=== PATIENT | male | born 1955 | race Caucasian/White ===

== ENCOUNTER 2022-02-07 07:59 | Outpatient (CLI) | payer MEDICARE, BC, SELFPAY ==
--- OUTSIDE RECORDS SUMMARY | 2022-02-07 08:09 | XMS_ITS | Encounter Summary ---
:1955 Author Organization [facility] Address [address] [place] [id number] Care Team Providers Name Role Phone Elsewhere, Pcp Primary Care Provider Unavailable Reason for Visit Reason Comments Prostate Cancer Outpatient (Routine) - Closed Specialty Diagnoses / Procedures Referred By Contact Refer red To Contact Diagnoses Primary Malignant Neoplasm Of Prostate (HCC) Aamir Galvan M.B., [facility] Procedures URO Urethral cath removal & voiding trial (UCO/VT) B.Ch., B.A.O. [address] [place] [phone] Referral ID Status Reason Start Date Expiration Date Visits Requ ested Visits Authorized [id number] Closed 11/08/2021 11/08/2022 1 1 Encounter Details Date Type Department Care Team Description 11/15/2021 Procedure visit Department of Aamir Galvan M.B., B.Ch., B.A.O. [address] [place] [phone] Primary Malignant Urology in Linda Tipton R.N. [address] [place] [phone] Neoplasm Of Prostate [place], [place] (HCC) [address] [place] [phone] Social History Tobacco Use Types Packs/Day Years Used Date Smoking Tobacco: Former Cigarettes 1 20 05/0 10/1972 - 06/04/1999 Smokeless Tobacco: Never Alcohol Use Standard Drinks/Week Comments Not Currently 0 (1 standard drink = 0.6 oz pure alcoho l) Alcohol Habits Answer Date Recorded How often do you have a drink containing alcohol? 2-4 times a month 11/01/2021 How many drinks containing alcohol do you have on a 1 or 2 11/01/2021 typical day when you are drinking? How often do you have six or more drinks on one Never 11/01/2021 occasion? Comment: Not asked Social Isolation Answer Date Recorded In a typical week, how many times do you More than three skylar es a week 11/01/2021 talk on the phone with family, friends, or neighbors? How often do you get together with friends Three times a wee k 11/01/2021 or relatives? How often do you attend amish or More than 4 times per year 11/01/2021 anabaptist services? Do you belong to any clubs or Yes 11/01/2021 organizations such as amish groups, unions, fraternal or athletic groups, or school groups? How often do you attend meetings of the Patient refused 11/01/2021 clubs or organizations you belong to? Are you now , , , 11/01/2021 , never or living with a partner? Physical Activity Answer Date Recorded On average, how many days per week do you engage in moderate to 2 days 11/01/2021 strenuous exercise (like walking fast, running, jogging, dancing, swimming, biking, or other activities that cause a light or heavy sweat)? On average, how many minutes do you engage in exercise at th is 40 min 11/01/2021 level? Stress Answer Date Recorded Do you feel stress - tense, restless, nervous, or anxious, N ot at all 11/01/2021 or unable to sleep at night because your mind is troubled all the time - these days? Financial Resource Strain Answer Date Recorded How hard is it for you to pay for the very basics like Not h bony at all 11/01/2021 food, housing, medical care, and heating? Intimate Partner Violence Answer Date Recorded Within the last year, have you been afraid of your partner o r No 11/01/2021 ex-partner? Within the last year, have you been humiliated or emotionall y No 11/01/2021 abused in other ways by your partner or ex-partner? Within the last year, have you been kicked, hit, slapped, or No 11/01/2021 otherwise physically hurt by your partner or ex-partner? Within the last year, have you been raped or forced to have any No 11/01/2021 kind of sexual activity by your partner or ex-partner? Food Insecurity Answer Date Recorded Within the past 12 months, you worried that your food would Never true 11/01/2021 run out before you got money to buy more. Within the past 12 months, the food you bought just didn't N ever true 11/01/2021 last and you didn't have money to get more. Transportation Needs Answer Date Recorded In the past 12 months, has lack of transportation kept you f rom No 11/01/2021 medical appointments or from getting medications? In the past 12 months, has lack of transportation kept you f rom No 11/01/2021 meetings, work, or getting things needed for daily living? Housing Stability Answer Date Recorded In the last 12 months, was there a time when you were not ab le No 11/01/2021 to pay the mortgage or rent on time? In the last 12 months, how many places have you lived? 1 11/01/2021 In the last 12 months, was there a time when you did not hav e a No 11/01/[address] or slept in a prison (including now)? Education Answer Date Recorded What is the highest level of school you have completed or 12 th grade 11/01/2021 the highest degree you have received? 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 - 11/15/2021 9:00 AM CDT CHIEF COMPLAINT Reason for visit, urinary catheter removal post: robotic-assisted radical prostatectomy and pelvic lymphadenectomy by Dr. Carlos Olvera on November 07, 2021. IMPRESSION/REPORT/PLAN Patient has started his antibiotic. Patient has stopped his ditropan as indicated 24 hours prior to UCO. Patient is free of ketchup or llanes colored urine. Nursing Intervention: Patient instilled with 150 mL's sterile normal saline prior to catheter removal. Patient able to void 300 mL's clear yellow urine with an ultrasound PVR of 30-40 mL's. Patient tolerated procedure well. Assessed for DVT: Patient has no pain with planter/dorsi flexion,, Patient denies pain in lower extremities, No erythema present and No bilateral lower extremity edema present Incision(s): Clean, dry, and intact with minimal bruising. Advised that the incision should be kept open to air and to not use creams/ointments/bandaids. The patient can immerse his abdomen once the scabs have fully fallen off. Bowel Movements: Reports regular BM's with the use of stool softeners or laxatives. Discussed the potential for intermittent need of a stool softener/laxative for the first 4-6 weeks following surgery. Patient rated pain at a 0 on the 0-10 pain scale. Pathology discussed with patient :Yes. Pathology discussed with patient by: Dr. Kaveh Osullivan Care plan: Intermediate risk prostate cancer Survivorship Care Plan initiated and discussed with thepatient Patient education: use of incontinence pads and leakage of urine , to push fluids , hematuria , burning with urination , to remain on weight restrictions for 6 weeks, urinary control exercises , to urinate 2 more times before leaving the clinic and if they urinate to their satisfaction they may leave , to urinate often , penile rehabilitation , to complete the antibiotic Cefdinir, to stop the medication ditropan, bactracin and Oxycodone and to return to clinic if having voiding issues if before 4PM,if after hours to report to their local emergency room if unable to void documented in this encounter Plan of Treatment Not on filedocumented as of this encounter Visit Diagnoses Diagnosis Primary Malignant Neoplasm Of Prostate ( HCC) documented in this encounter Care Teams X Ray Consultant Relationship Specialty Start Date End Date Elsewhere, Pcp PCP - General 12/02/20 documented as of this encounter
--- OUTSIDE RECORDS SUMMARY | 2022-02-07 08:09 | XMS_ITS | Clinical Summary ---
:1955 Author Organization [facility] Address [address] [place] [phone] Care Team Providers Name Role Phone Elsewhere, Pcp Primary Care Provider Unavailable Source Comments Patient records contain information from all sites at [facility]. For routine questions regarding patient records, call [phone] during business hours, M-F 8:00 AM - 5:00 PM Central Time. Record requests for emergency care only can be directed to [phone] at any time.[facility] Allergies No known active allergies Medications Medication Sig Dispensed Refills Start Date End Date Status VITAMIN B COMPLEX ORAL Take 1 tablet 0 04/28/2013 Active by mouth daily. DOCOSAHEXANOIC ACID/EPA Take 1 0 04/29/2009 Active (FISH OIL ORAL) capsule by mouth daily. MULTIVITAMIN ORAL Take 1 tablet 0 02/08/2008 Active by mouth daily. hydroCHLOROthiazide Take 1 90 capsule 3 05/17/2020 Active (MICROZIDE) 12.5 mg capsule (12.5 capsuleIndications: mg total) by Hypertension Essential mouth daily. Primary Additional Information Patient taking differently: 12.5 mg oral Every morning, Other, Reported on 11/04/2021 metoprolol succinate (Toprol XL) Take 1 tablet (50 mg 90 tablet 3 05/17/2020 Active 50 mg 24 hr tabletIndications: total) by mouth Hypertension Essential Primary daily. High blood pressure Additional Information Patient taking differently: 50 mg oral Every morning, High blood pressure, Other, Reported on 11/04/2021 atorvastatin (LIPITOR) 20 mg Take 1 tablet (20 mg 90 tablet 3 05/17/2020 Active tabletIndications: Hyperlipidemia total) by mouth daily. Additional Information Patient taking differently: 20 mg oral Every morning, Other, Reported on 11/04/2021 ibuprofen (ADVIL,MOTRIN) 200 Take 400 mg by mouth 0 Active mg tablet every 6 (six) hours as needed for pain. cholecalciferol (VITAMIN D3) Take 25 mcg by mouth 0 Active 25 mcg (1,000 Unit) capsule daily. sennosides-docusate sodium Take 1 tablet by mouth 0 11/08/2021 Active (SENOKOT-S) 8.6-50 mg per 2 (two) times a day. tablet tadalafiL (CIALIS) 5 mg Take 1 tablet (5 mg 90 tablet 11 2021 Active tablet total) by mouth every morning. Can take additional 1-3 tablets one hour prior to sexual activity. Active Problems Problem Noted Date Primary Malignant Neoplasm Of Prostate 10/10/2021 Overview: Added automatically from request for lacey hawk [id number] Hypertension Essential Primary 04/23/2006 Overview: Formatting of this note is dif ferent from the original. - BP goal < 140/90. - HCTZ 12.5 mg qd. - Toprol XL 50 mg qd. Lab Results Component Value Date NA 140 06/24/2020 KPLASMA 4.9 06/24/2020 CREATININE 0.93 06/24/2020 EGFRNONBLKAA 86 06/24/2020 GLUCOSE 108 (H) 05/29/2019: - Blood pressure at goal. - Patient having no concerning symptoms, and labs are stable. Last Assessment & Plan: - Continue HCTZ 12.5 mg qd. - Continue Metoprolol succinate 50 mg qd . Hyperlipidemia 11/09/2005 Overview: Formatting of this note is dif ferent from the original. Lab Results Component Value Date CHOL 245 (H) 05/24/2018 Lab Results Component Value Date HDL 68 05/24/2018 Lab Results Component Value Date LDLCALC 158 (H) 05/24/2018 Lab Results Component Value Date TRIG 93 05/24/2018 Lipitor dosed at 20 mg qd. ASA 81 mg qd. Last Assessment & Plan: - Continue current medications. Resolved Problems Problem Noted Date Resolved Date Impaired Fasting Glucose 05/27/2016 05/29/2018 Encounters Date Type Specialty Care Team Description 01/16/2022 Comprehensive Visit Dermatology KeshawnMaria Elena toribio Andria, Kerato sis Actinic (Primary Dx); RandolphDSadia Nevi Multiple; Keratosis Sebor rheic; Sun Damaged Ski n 01/12/2022 Virtual Visit Dermatology KeshawnMaria Elena toribio, Lesion Skin (Primary M.D. Dx) Jenny Perez R.N. 01/10/2022 Clinical Admitting/Central Pre-visit Intake Communication Scheduling 12/20/2021 Clinical Dermatology Stacey Gutierrez, MARTÍNEZ Lakhani l-see Communication R.N. document viewe r for outside medical records 12/20/2021 Clinical Pharmacy [facility] Prior Communication Authorization (PA DENIED - TADALA MARCO 5 MG TABLET) 12/20/2021 Orders Only Pharmacy Yash Sams 12/19/2021 Community Orders Santiago, Lesion Skin (Primary Alexandra M, Dx) C.N.P. 12/15/2021 Orders Only Pharmacy Cindi Knox 12/13/2021 Orders Only Urology Esteban Keenan M.D. 11/15/2021 Procedure visit Urology Aamir Galvan Primary Ma Lissett Curran, B.Ch., Neoplasm Of Prostate B.A.O. (HCC) Linda Tipton RLucretia. 11/07/2021 Anesthesia Event Duc Smith M.D. Pompeian, Rochelle J, M.D. 11/07/2021 Surgery CHAPO Olvera-VIDA Rosenberg M.D. RADICAL PROSTATECTOMY. 11/07/2021 Hospital Encounter Belinda Olvera alignant Neoplasm Of Prostate (HCC) (Primary Dx); - Carlos Rosenberg M.D. Primary Gerda gnant Neoplasm Of Prostate (HCC) 11/08/2021 from Last 3 Months Immunizations Name Administration Dates Next Due Influenza high dose QV(65 years or 04/03/2020 older) (PF) PPSV23 06/25/2020 Td (Adult), adsorbed 06/15/2003 Tdap 04/07/2011 influenza vaccine quad 05/30/2019, 05/29/2018, 05/30/2017, (FLUZONE/FLUARIX) (6 months and 05/26/2016 older)(PF) Family History Medical History Relation Name Comments Hypertension Father Jimbo Mendez Diabetes Mother carol mendez Diabetes mellitus type II Mother carol mendez Hyperlipidemia Mother carol mendez Hypertension Mother carol mendez Obesity Mother carol mendez Relation Name Status Comments Father Jimbo Mendez Mother carol mendez Alive Social History Tobacco Use Types Packs/Day Years Used Date Smoking Tobacco: Former Cigarettes 10/1972 - 06/04/1999 Smokeless Tobacco: Never Tobacco Cessation: Counseling Given: Not Answered Alcohol Use Standard Drinks/Week Comments Not Currently [...] or relatives? How often do you attend sabianism or More than 4 times per year 11/01/2021 episcopalian services? Do you belong to any clubs or Yes 11/01/2021 organizations such as sabianism groups, unions, fraternal or athletic groups, or [...] place to sleep or slept in a correction (including now)? Education Answer Date Recorded What is the highest level of school you have completed or 12 th grade 11/01/2021 the highest degree you have received? 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 Vital Signs Vital Sign Reading Time Taken Comments Blood Pressure 131/66 11/08/2021 8:30 AM CDT Pulse 95 11/08/2021 8:30 AM CDT Temperature 36.6 ??C (97.9 ??F) 11/08/2021 8:30 AM CDT Respiratory Rate 16 11/08/2021 8:30 AM CDT Oxygen Saturation 93% 11/08/2021 8:30 AM CDT Inhaled Oxygen Concentration - - Weight 92.1 kg (203 lb 0.7 oz) 11/07/2021 10:11 AM CDT Height 174 cm (5' 8.5) 11/07/2021 10:11 AM CDT Body Mass Index 30.42 11/07/2021 10:11 AM CDT Plan of Treatment Health Maintenance Due Date Last Done Comments Abdominal Aortic Aneurysm (AAA) [address] Colonography 1955 Cologuard 1955 Hepatitis C Screening 1955 Lipid (Cholesterol) Screening 05/24/2019 05/24/2018, 2016, 04/21/2016, Additional history exists Depression Screening (Annual 06/04/2021 PHQ-2) Pneumococcal vaccine (65+ years) 06/25/2021 06/25/2020 (2 - PCV) COVID-19 Vaccine (4 - Booster for 09/03/2021 05/05/2021, , Moderna series) 08/01/2020 Office Visit for Blood Pressure 02/04/2022 11/04/2021 Check / Re-check Influenza Vaccine (#1) 2022 02/15/2021, 04/03/2020, 05/30/2019, Additional history exists Colonoscopy 06/21/2022 06/21/2017, 06/21/2017, 08/11/2005 Colorectal Cancer Surveillance 06/21/2022 Creatinine Level 11/04/2022 11/04/2021, 06/24/2020, 05/29/2019, Additional history exists Potassium Level 11/04/2022 11/04/2021, 06/24/2020, 05/29/2019, Additional history exists Sodium Level 11/04/2022 11/04/2021, 06/24/2020, 05/29/2019, Additional history exists Fasting Glucose for Diabetes 11/04/2024 11/04/2021, 019, Screening 05/24/2017, Additional history exists DTaP,Tdap,and Td Vaccines (3 - Td 06/30/2031 06/30/2021, , or Tdap) 06/15/2003 Zoster Vaccines Completed 05/05/2021, 02/15/2021 Fall Risk Screen (Annual) Completed 11/07/2021 Medical Devices Implanted Type Area Film Technician Device Shelf Model / Identifier Expiration Serial / Date Lot Clp Hmol Plmr Lg - [id number] Hardware N/A: Pelvis Teleflex Plays.IO [id number] 08/01/2026 [id number] / Implanted: Qty: 1 on 11/07/2021 by Carlos Sifuentes M.D. at [facility] e.g. / pins/screws [id number] /rods Conversions - Default Historical Implant Device Shoulder Right: Implanted: 04/27/2015 (Quantity not on file) Implant Shoulder Description: Body Location - Shoulder RSadia fasterners. Device Status Text - Shoulder. Procedures Procedure Name Priority Date/Time Associated Comments Diagnosis ADULT OXYGEN THERAPY Routine 11/07/2021 5:05 PM CDT ADULT OXYGEN THERAPY Routine 11/07/2021 5:05 PM CDT ADULT OXYGEN THERAPY Routine 11/07/2021 4:14 PM CDT SURGICAL PATHOLOGY, Routine 11/07/2021 2:50 Primary Malignant Results for this [facility] PM CDT Neoplasm Of procedure are i n Prostate (HCC) the results section. LDA ANE ENDOTRACHEAL Routine 11/07/2021 1:51 Resu lts for this AIRWAY PM CDT procedure are i n the results section. ROBOTIC-ASSISTED PELVIC 11/07/2021 1:10 Primary Malign ant LYMPHADENECTOMY PM CDT Neoplasm Of Prostate (HCC) ROBOTIC-ASSISTED RADICAL 11/07/2021 1:10 Primary Malig nant PROSTATECTOMY PM CDT Neoplasm Of Prostate (HCC) from Last 3 Months Results Surgical Pathology, Frozen Lab (11/07/2021 2:50 PM CDT) Component Value Ref Test Analysis Performed Pathologis t Range Method Time At [facility] 11/11/2021 [facility] 5:13 PM CDT Participated in Pranav Gonzalez, 11/11/2021 [facility] the M.D. -Pathology 5:13 PM Interpretation Fellow CDT Report Frank Garner M.D. 11/11/2021 [facility] electronically 5:13 PM signed by CDT I verify that I have examined all relevant slides/materials for the specimen(s) and rendered or confirmed the diagnosis. Gross Description A. ??Received fresh labeled bilateral pelvic lym ph nodes 11/11/2021 [facility] is a 7.5 x 6 x 2 cm aggregate of adipose and lymphatic 5:13 PM tissue. ??Lymph nodes are submitted for permanent sections CDT only. ??Grossed by Asael Wilde M.S., PA([facility]). B. ??Received fresh labeled prostate is a 48 gram, 3.8 (S-I) x 3.2 (A-P) x 4.7 (R-L) cm radical prostatectomy with mild nodular hypertrophy. ??The specimen is inked, and the prostatic apex and bladder neck margins are submitted perpendicularly. ??Grossly, there is a 0.6 x 0.4 x 0.4 cm yellow mass involving the left inferior lateral prostate. Additional masses include No. 2, 1 x 0.6 x 0.5 cm involving the right mid lateral prostate; and No. 3, 0.8 x 0.8 x 0.4 cm involving the left mid-inferior anterior prostate. ??All submitted for permanent sections only. ??Grossed by Suzanne Justice. Block Summary A Bilateral pelvic lymph nodes 11/11 [facility] A1 Bilateral pelvic lymph nodes ??6(A1) 5:13 PM A2 Bilateral pelvic lymph nodes ??4(A2) CDT A3 Bilateral pelvic lymph nodes ??1(A3) A4 Bilateral pelvic lymph nodes ??1(A4) A5 Bilateral pelvic lymph nodes ??1(A5) A6 Bilateral pelvic lymph nodes ??1of2(A6) A7 Bilateral pelvic lymph nodes 2of2 (A6) A8 Bilateral pelvic lymph nodes 1of3(A7) A9 Bilateral pelvic lymph nodes 2of3(A7) A10 Bilateral pelvic lymph nodes 3of3(A7) B Prostate B1 Right anterior apex margin B2 Right posterior apex margin B3 Right bladder neck margin - 1 B4 Right bladder neck margin - 2 B5 Right bladder neck margin - 3 B6 Right bladder neck margin - 4 B7 Left anterior apex margin B8 Left posterior apex margin B9 Left bladder neck margin - 1 B10 Left bladder neck margin - 2 B11 Left bladder neck margin - 3 B12 Left bladder neck margin - 4 B13 Right inferior posterior B14 Right inferior anterior B15 Right mid posterior B16 Right mid anterior B17 Right superior posterior B18 Right superior anterior B19 Right mid lateral B20 Left inferior posterior B21 Left inferior anterior B22 Left mid posterior B23 Left mid anteiror B24 Left superior posterior B25 Left superior anterior B26 Right seminal vesicles #1 B27 Right seminal vesicles #2 B28 Right seminal vesicles #3 B29 Right seminal vesicles #4 B30 Left seminal vesicles #1 B31 Left seminal vesicles #2 B32 Left seminal vesicles #3 Interpretation FINAL DIAGNOSIS 11/11/2021 [facility] 5:13 PM A. ??Lymph nodes, bilateral pelvic, dissection: Multiple CDT (13) lymph nodes are negative for tumor. B. ??Prostate, radical prostatectomy: Adenocarcinoma is identified forming multiple masses. The dominant nodule is Shelbie pattern 3+4, Grade group 2, measures 1 cm in greatest dimension and is located in the right mid lateral prostate. Other masses are present in the left inferior to superior anterior prostate, (Quantico pattern 3+4, Grade group 2, 0.8 cm), the left inferior to mid posterior prostate, (Shelbie pattern 3+3, Grade group 1, 0.6 cm, the right anterior and posterior apex (Shelbie pattern 3+4, Grade group 2, 0.6 cm), and the right mid to superior posterior prostate (Shelbie pattern 3+4, Grade group 2, 0.3 cm). The tumor is confined to the prostate without involvement of extraprostatic soft tissue or seminal vesicles. The surgical margins are negative for tumor. SYNOPTIC REPORT: ??Prostate Procedure: Radical prostatectomy Prostate Size: 48 gram, 3.8 (S-I) x 3.2 (A-P) x 4.7 (R-L) cm Histologic Type: Acinar Histologic Grade ?? Grade Group and Shelbie Score ?Grade Group 2 (Quantico Score 3+4) ?Minor Tertiary Pattern 5 (less than 5%): Not identified ?Percentage of Pattern 4 in Quantico score 7: <10% ?? Intraductal Carcinoma (IDC): Not identified ?? Cribriform Glands: Not identified Treatment Effect: No know presurgical therapy Tumor Quantitation ?? Greatest Dimension of Dominant Nodule: 1 cm ?? Location of Dominant Nodule: Right mid lateral Extraprostatic Extension: Not identified Urinary Bladder Neck Invasion: Not identified Seminal Vesicle Invasion: Not identified Lymphovascular Invasion: Not identified Margins: All margins negative for carcinoma Regional Lymph Nodes Status: ??All Regional Lymph Nodes Negative for Tumor ?? Number of Lymph Nodes Examined: 13 Distant Metastasis. ??Distant Site(s) Involved: Not applicable Pathologic Staging (AJCC, 8th edition) TNM Descriptors: m pT Category: pT2 pN Category: pN0 pM Category: pM not assigned Additional Pathologic Findings: None identified The synoptic report incorporates information from all relevant surgical material and includes all required data elements of the current CAP Cancer Protocol. Specimen (Source) Anatomical Collection Method Collection Time Re ceived Time Location / / Volume Laterality Tissue (Lymph 11/07/2021 2:50 PM Node) CDT Tissue (Prostate) 11/07/2021 3:40 PM CDT Narrative This result has an attachment that is no t available. Carlos Olvera M.D. LAB SURG PATH ORDERABLES Performing Organization Address City/State/ZIP Code Phon e Number [facility] [address] [place], [place] [address] [facility] [place] [address] [facility] [address] [facility] LDA ANE ENDOTRACHEAL AIRWAY (11/07/2021 1:51 PM CDT) Narrative Chapo Chacko APRN, CRNA, DNAP - 11/2021 1:51 PM CDT Chapo Chacko APRN, CRNA, DNAP ? 11/07/2021 ??2:17 PM Airway Date/Time: 11/07/2021 1:51 PM Performed by: Merly Wolff APRN, CRNA MNA Authorized by: Duc Smith M.D. Patient location during procedure: OR / Procedure Area PROCEDURE DETAILS: Mask difficulty assessment: easy mask Final airway type: video laryngoscope Laryngeal Manipulation: no ?? Final best view of glottic structures - Cormack/Lehane Score: grade 2A ETT location: oral VL device: glide scope [place]is scope blade size: 4 Adult tube size: 7.5 Adult ETT distance at teeth/gum: 22 Oral tube type: standard ETT Cuffed: yes Number of attempt to successful placemen t: 1 Airway confirmation: bilateral breath so unds, positive ETCO2 and bilateral chest rise Other previous techniques attempted: non e PRE PROCEDURE DETAILS: Pre evaluation for airway management: pr ocedure Urgency: elective Preop assessment of probable difficulty: no difficulty anticipated Preoxygenation: bag valve mask SEDATION / ANESTHESIA Anesthesia method: anesthesia POST PROCEDURE DETAILS: ? Procedure outcome: successful ?? Airway event: no complications Duc Smith M.D. ANESTHESIA ORDERABLES from Last 3 Months Insurance Payer Benefit Plan Subscriber ID Effective Phone Address Typ e / Group Dates MEDICARE MEDICARE A [id number] 2019-Pres [address] [place] [address] [employer] BCBS ANDREAFSKI [id number] 2020-Pres [phone] PO MEGAN X Cost Share BLUE SHIELD BLUE COST ent [phone] [facility] [id number] Care Teams Night Monitor Relationship Specialty Start Date End Date Elsewhere, Pcp PCP - General 12/02/20
--- OUTSIDE RECORDS SUMMARY | 2022-02-07 08:09 | XMS_ITS | Encounter Summary ---
:1955 Author Organization [facility] Address [address] [place] [address] Care Team Providers Name Role Phone Elsewhere, Pcp Primary Care Provider Unavailable Reason for Referral Medication Prior Authorization - Denied Specialty Diagnoses / Procedures Referred By Contact Refer red To Contact Esteban Keenan M.D. [address] [place] [address] [phone] Referral ID Status Reason Start Date Expiration Date Visits Requ ested Visits Authorized [id number] Denied 1 1 Encounter Details Date Type Department Care Team Description 12/13/2021 Orders Only Department of Urology in Esteban Mendez M.D. [place], [place] [address] [place] [address] [address] [place] [phone] (Wo rk) Social History Tobacco Use Types Packs/Day Years Used Date Smoking Tobacco: Former Cigarettes 1 20 10/1972 - 06/04/1999 Smokeless Tobacco: Never Alcohol [...] or relatives? How often do you attend yarsanism or More than 4 times per year 11/01/2021 gnosticism services? Do you belong to any clubs or Yes 11/01/2021 organizations such as yarsanism groups, unions, [id number] or athletic groups, or school groups? How [...] place to sleep or slept in a penitentiary (including now)? Education Answer Date Recorded What is the highest level of school you have completed or 12 th grade 11/01/2021 the highest degree you have received? 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
--- OUTSIDE RECORDS SUMMARY | 2022-02-07 08:09 | XMS_ITS | Encounter Summary ---
:1955 Author Organization [facility] Address [address] [place] [address] Care Team Providers Name Role Phone Elsewhere, Pcp Primary Care Provider Unavailable Reason for Referral Outpatient (Routine) - Closed Specialty Diagnoses / Procedures Referred By Contact Refer red To Contact Dermatology Diagnoses Lesion Skin Alexandra Santiago, C.N.P. [facility] [address] [place], [place] [address] Referral ID Status Reason Start Date Expiration Date Visits Requ ested Visits Authorized [id number] Closed 12/19/2021 12/19/2022 1 1 Encounter Details Date Type Department Care Team Description 12/19/2021 [facility] Alexandra Santiago Lesion Skin (Primary AND CLINICS Cari, C.N.P. Dx) [address] [place] [address] [place] [address] [phone] Social History Tobacco Use Types Packs/Day Years Used Date Smoking Tobacco: Former Cigarettes 10/1972 - 06/04/1999 Smokeless Tobacco: Never Alcohol [...] or relatives? How often do you attend nondenominational or More than 4 times per year 11/01/2021 latter-day services? Do you belong to any clubs or Yes 11/01/2021 organizations such as nondenominational groups, unions, fraternal or athletic groups, or [...] place to sleep or slept in a usp (including now)? Education Answer Date Recorded What is the highest level of school you have completed or 12 th grade 11/01/2021 the highest degree you have received? 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
--- OUTSIDE RECORDS SUMMARY | 2022-02-07 08:09 | XMS_ITS | Encounter Summary ---
:1955 Author Organization [facility] Address [address] [place] [address] Care Team Providers Name Role Phone Elsewhere, Pcp Primary Care Provider Unavailable Reason for Visit Reason Comments Pre-visit Intake Encounter Details Date Type Department Care Team Description 01/10/2022 Clinical Communication Visit Review in Pr e-visit Intake [address] [address] Social History Tobacco Use Types Packs/Day Years [...] or relatives? How often do you attend episcopalian or More than 4 times per year 11/01/2021 latter-day services? Do you belong to any clubs or Yes 11/01/2021 organizations such as episcopalian groups, unions, fraternal or athletic groups, or [...] place to sleep or slept in a skilled nursing (including now)? Education Answer Date Recorded What is the highest level of school you have completed or 12 th grade 11/01/2021 the highest degree you have received? 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
--- OUTSIDE RECORDS SUMMARY | 2022-02-07 08:09 | XMS_ITS | Encounter Summary ---
:1955 Author Organization [facility] Address [address] [place] [address] Care Team Providers Name Role Phone Elsewhere, Pcp Primary Care Provider Unavailable Encounter Details Date Type Department Care Team Description 12/15/2021 Orders Only Pharmacy Prior Auth Cindi Krause [phone] Social History Tobacco Use Types Packs/Day Years [...] or relatives? How often do you attend jain or More than 4 times per year 11/01/2021 scientologist services? Do you belong to any clubs or Yes 11/01/2021 organizations such as jain groups, unions, fraternal or athletic groups, or [...] place to sleep or slept in a [facility] (including now)? Education Answer Date Recorded What is the highest level of school you have completed or 12 th grade 11/01/2021 the highest degree you have received? 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
--- OUTSIDE RECORDS SUMMARY | 2022-02-07 08:09 | XMS_ITS | Clinical Summary ---
:1955 Author Organization [facility] Address [address] [place] [address] Care Team Providers Name Role Phone None, Pcp Primary Care Provider Unavailable Social History Tobacco Use Types Packs/Day Years Used Date Never Assessed Sex Assigned at Date Recorded Not on file Plan of Treatment Health Maintenance Due Date Last Done Comments Colorectal Cancer Screenin1954 Colonoscopy Glaucoma Screening 67+ Yr 1955 COVID-19 Vaccine (#1) 04/15/1955 Fall Risk Performed 1972 [facility] Pneumococcal Vaccine: 65+ 10/14/2019 Years (1 - PCV) HPV Vaccines Aged Out No longer eligib le based on patient's age to complete this topic [facility] Pneumococcal Vaccine: <64 Aged Out No longer eligible based on patient's age to complete this topic Care Teams Diesel Mechanic Helper Relationship Specialty Start Date End Date None, Pcp PCP - General Gospel Worker 08/30/[address] [place] [phone]
--- OUTSIDE RECORDS SUMMARY | 2022-02-07 08:09 | XMS_ITS | Encounter Summary ---
:1955 Author Organization [facility] Address [address] [place] [address] Care Team Providers Name Role Phone Elsewhere, Pcp Primary Care Provider Unavailable Reason for Visit Reason Comments ARF Referral-see document viewer for [facility] Encounter Details Date Type Department Care Team Description 12/20/2021 Clinical Communication Department of Stacey Gutierrez ARF Referral-see Dermatology in A, R.N. document viewer for [address] records [address] [place] [phone] [place], [place] [phone] (Work) [phone] Social History Tobacco Use Types Packs/Day Years [...] or relatives? How often do you attend confucianist or More than 4 times per year 11/01/2021 sabianist services? Do you belong to any clubs or Yes 11/01/2021 organizations such as confucianist groups, unions, fraternal or athletic groups, or [...] place to sleep or slept in a jail (including now)? Education Answer Date Recorded What is the highest level of school you have completed or 12 th grade 11/01/2021 the highest degree you have received? 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 - 12/20/2021 1:12 PM CDT Appointment request reviewed. Per provider patient appropriate to schedule. ARF: L98.9 (ICD-10-CM) - Lesion Skin documented in this encounter Plan of Treatment Not on filedocumented as of this encounter Visit Diagnoses Not on filedocumented in this encounter Care Teams Performance Architect Relationship Specialty Start Date End Date Elsewhere, Pcp PCP - General 12/02/20 documented as of this encounter
--- OUTSIDE RECORDS SUMMARY | 2022-02-07 08:09 | XMS_ITS | Encounter Summary ---
:1955 Author Organization [facility] Address [address] [place] [address] Care Team Providers Name Role Phone None, Pcp Primary Care Provider Unavailable Encounter Details Date Type Department Care Team Description 08/30/2020 [facility] Drug testing, pre-employment [address] [place] [address] Social History Tobacco Use Types Packs/Day Years Used Date Never Assessed Sex Assigned at Date Recorded Not on file documented as of this encounter Plan of Treatment Not on filedocumented as of this encounter Visit Diagnoses Diagnosis Drug testing, pre-employment Health examination of defined subpopulat ion documented in this encounter Care Teams Senior Analytic Consultant Relationship Specialty Start Date End Date None, Pcp PCP - General Solar Development Engineer 08/30/20 [address] [place] [phone] documented as of this encounter
--- OUTSIDE RECORDS SUMMARY | 2022-02-07 08:09 | XMS_ITS | Encounter Summary ---
:1955 Author Organization [facility] Address [address] [place] [address] Care Team Providers Name Role Phone Elsewhere, Pcp Primary Care Provider Unavailable Reason for Visit Appointment Request (Routine) - Authorized Specialty Diagnoses / Procedures Referred By Contact Refer red To Contact Dermatology Referral ID Status Reason Start Date Expiration Date Visits V isits Requested Authorized [id number] Authorized 01/04/2022 01/04/2023 1 Encounter Details Date Type Department Care Team Description 01/12/2022 Virtual Visit Department of Maria Elena Chapman M .D. [address] [place] [phone] Lesion Skin (Primary Dermatology in Jenny Perez R.N. [address] [place] [phone] Dx) [place], [place] [address] [place] [phone] Social History Tobacco Use Types Packs/Day Years [...] or relatives? How often do you attend hindu or More than 4 times per year 11/01/2021 latter-day services? Do you belong to any clubs or Yes 11/01/2021 organizations such as hindu groups, unions, [employer] or athletic groups, or school groups? How [...] place to sleep or slept in a [facility] (including now)? Education Answer Date Recorded What is the highest level of school you have completed or 12 th grade 11/01/2021 the highest degree you have received? 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 - 01/12/2022 8:30 AM CDT Patient referred through ARF process. Completed administrative pre-visit discussion to better understand patient goals and the needed patient itinerary for forthcoming on-site visit. Patient contacted [facility] requesting on-campus appointment; Pre-visit was scheduled following that request. Patient Provided Information What is your main skin concern? Patient has a lesion on the top of his head and his primary referredhim to [place]. Initially thought it was a scab from maybe bumping his head. The lesion is the size of a BB and he thinks it has been there a while. It may be itchy at times, he is unsure if it is the lesion that itches or just his scalp. He is unsure what color it is as he is unable to see the lesion only feel it. 2. Describe your concern above. Onset: Unknown Duration: Unknown Associated symptoms: 3. Describe any evaluation including dermatology visits, laboratory results, skin biopsy location, date and outcome. Evaluated by a cyber security administrator?: No Laboratory results: None Skin biopsy: (site, date, result/report): None Imaging studies: None Other tests: None 4. Describe previous treatments, duration and response. Topical treatments (name, strength, duration, outcome, reason for discontinuation): None Systemic treatments (name, strength, duration): None Additional Information: documented in this encounter Plan of Treatment Not on filedocumented as of this encounter Visit Diagnoses Diagnosis Lesion Skin - Primary documented in this encounter Care Teams Photography Professor Relationship Specialty Start Date End Date Elsewhere, Pcp PCP - General 12/02/20 documented as of this encounter
--- OUTSIDE RECORDS SUMMARY | 2022-02-07 08:09 | XMS_ITS | Encounter Summary ---
:1955 Author Organization [facility] Address [address] [place] [address] Care Team Providers Name Role Phone Elsewhere, Pcp Primary Care Provider Unavailable Reason for Referral Outpatient (Routine) - Closed Specialty Diagnoses / Procedures Referred By Contact Refer red To Contact Diagnoses Primary Malignant Neoplasm Of Prostate (HCC) Aamir Galvan M.B., [facility] Procedures URO Urethral cath removal & voiding trial (UCO/VT) B.Ch., B.A.O. [address] [place] [address] Referral ID Status Reason Start Date Expiration Date Visits Requ ested Visits Authorized [id number] Closed 11/08/2021 11/08/2022 1 1 Encounter Details Date Type Department Care Team Description 11/07/2021 - Hospital Encounter [facility] Belinda Olvera M alignant Neoplasm Of Prostate (HCC) (Primary Dx); 11/08/2021 Hospital, [facility] Cari Mcarthur Primary Malignant Neoplasm Of Prostate ( HCC) [facility] [address] [facility], [place], [place] Floor [address] [address] [facility] [phone] [place], [place] (Work) [phone] Social History Tobacco Use Types Packs/Day Years [...] or relatives? How often do you attend shinto or More than 4 times per year 11/01/2021 catholic services? Do you belong to any clubs or Yes 11/01/2021 organizations such as shinto groups, unions, fraternal or athletic groups, or [...] place to sleep or slept in a nursing home (including now)? Education Answer Date Recorded What is the highest level of school you have completed or 12 th grade 11/01/2021 the highest degree you have received? 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 - 11/08/2021 7:17 AM CDT DISCHARGE SUMMARY BRIEF OVERVIEW Hospital: [facility] Discharge Provider: Carlos Olvera M.D. Primary Team: [facility] Urology - [place] Primary Care Providers: Elsewhere, Pcp (General) No address on file Primary Care Provider Phone Number: None Primary Care Provider Fax Number: None Other Providers: None Admission Date: 11/07/2021 Discharge Date: 11/08/2021 PRINCIPAL DIAGNOSIS Primary Malignant Neoplasm Of Prostate (HCC) SECONDARY DIAGNOSES Principal Problem: Primary Malignant Neoplasm Of Prostate (HCC) Resolved Problems: * No resolved hospital problems. * Surgery Information This Encounter Past Procedures (11/08/2020 to Today) Date Procedures Providers Location 11/07/2021 ROBOTIC-ASSISTED RADICAL PROSTATECTOMY., ROBOTIC-ASSISTED PELVIC LYMPHADENECTOMY. Carlos Olvera M.D.Alamiri, Jamal M, M.B., B.Ch., B.A.O. [facility] OR DISCHARGE DISPOSITION Home or Self Care [1] ACTIVE ISSUES REQUIRING FOLLOW UP [facility] 11/14/2021 None OUTPATIENT FOLLOW UP For appointment details refer to your Patient Appointment Guide. TEST RESULTS PENDING AT DISCHARGE Pending Labs Order Current Status Surgical Pathology, Frozen Lab In process DETAILS OF HOSPITAL STAY REASON FOR ADMISSION Primary Malignant Neoplasm Of Prostate (HCC) HOSPITAL COURSE SURGICAL PROCEDURE: A robot-assisted radical prostatectomy was performed without complication. PATHOLOGY: Pending. HOSPITAL COURSE: Following the procedure, the patient was transferred to general floor care in stable condition. The post-operative course was otherwise uneventful. At the time of dismissal, the patient was ambulatory,tolerating oral intake with no nausea / vomiting, and had adequate pain control. DISMISSAL EXAM: Constitutional: Alert and oriented, no acute distress. Skin: No rashes. Eyes: No scleral icterus. Heart: Regular rate and rhythm. Lungs: Normal respiratory effort. Abdomen: Soft, appropriately-tender. : Siu in place draining clear urine Musculoskeletal: Normal gait noted with ambulation. Psychiatric: Appropriate affect. Neuro: Sensation intact in abdomen and bilateral upper extremities. CONSULTS ORDERED DURING THIS ADMISSION None CONDITION AT DISCHARGE stable Discharge instructions were provided to the patient and caregiver(s). documented in this encounter Discharge Instructions Discharge InstructionsJenny Snowden - 11/07/2021 9:59 AM CDT You were discharged from the [facility] Urology - [facility] Service. Please identify this service name if you call with questions after hospitalization. AttachmentsThe following attachments cannot be sent through Care Everywhere. Acetaminophen (By mouth) (Citizen [place])Bacitracin/Neomycin/Polymyxin B (On the skin) (Citizen Of [place])Cefdinir (By mouth) (Citizen [place])Oxybutynin (By mouth) (Citizen [place])Oxycodone, Rapid Release (By mouth) (Citizen [place])Laxative, Stimulant Combination (By mouth) (Citizen Of [place])documented in this encounter Medications at Time of Discharge Medication Sig Dispensed Refills Start Date End Date atorvastatin (LIPITOR) 20 Take 1 tablet (20 90 tablet 3 mg tabletIndications: mg total) by mouth Hyperlipidemia daily. cholecalciferol (VITAMIN Take 25 mcg by 0 D3) 25 mcg (1,000 Unit) mouth daily. capsule DOCOSAHEXANOIC ACID/EPA Take 1 capsule by 0 04/29 (FISH OIL ORAL) mouth daily. hydroCHLOROthiazide Take 1 capsule 90 capsule 3 05/17/2020 (MICROZIDE) 12.5 mg (12.5 mg total) by capsuleIndications: mouth daily. Hypertension Essential Primary ibuprofen (ADVIL,MOTRIN) Take 400 mg by 0 200 mg tablet mouth every 6 (six) hours as needed for pain. metoprolol succinate Take 1 tablet (50 90 tablet 3 05/17/20 20 (Toprol XL) 50 mg 24 hr mg total) by mouth tabletIndications: daily. High blood Hypertension Essential pressure Primary MULTIVITAMIN ORAL Take 1 tablet by 0 02/08/2008 mouth daily. sennosides-docusate sodium Take 1 tablet by 0 12/2021 (SENOKOT-S) 8.6-50 mg per mouth 2 (two) tablet times a day. VITAMIN B COMPLEX ORAL Take 1 tablet by 0 04/28/ 013 mouth daily. cefdinir (OMNICEF) 300 mg Take 1 capsule 6 capsule 0 202111/11/2021 capsule (300 mg total) by mouth 2 (two) times a day before breakfast and dinner for 3 days. Start the evening prior to catheter removal acetaminophen (TYLENOL) Take 2 tablets 0 11/09/19 22 11/15/2021 500 mg tablet (1,000 mg total) by mouth every 6 (six) hours as needed for pain. bacitracin 500 unit/gram Apply 1 15 g 0 11/08/2021 11/15/2021 ointment application topically 2 (two) times a day. Apply to head of the penis around the catheter. oxybutynin (Ditropan XL) Take 1 tablet (10 7 tablet 0 12/202111/15/2021 10 mg 24 hr tablet mg total) by mouth at bedtime for 7 days. Stop 24 hrs prior to catheter removal oxyCODONE (ROXICODONE) 5 Take 1 tablet (5 10 tablet 0 11/0811/15/2021 mg immediate release mg total) by mouth tabletIndications: Acute every 4 (four) Pain hours as needed for moderate pain or score 4-6 of 10 (May use if patient can take oral meds and other analgesics are ineffective) for up to 10 doses Indication: Acute Pain. tadalafiL (CIALIS) 5 mg Take 1 tablet (5 90 tablet 2 202112/13/2021 tablet mg total) by mouth daily. Can take additional 1-3 tablets one hour prior to sexual activity. documented as of this encounter Progress Notes Elicia Santana, PharmSadiaD., R.Ph. - 11/07/2021 10:28 AM CDT Images from the original note were not included. Admission Medication History Note Adherence issues: No concerns Medication list source: Patient Medication related information: Prior to Admission Medications Med List Status: Pharmacy Complete Set By: Elicia Santana Pharm.D., R.Ph. at 11/07/2021 10:28 AM Taking? Last Dose Informant Start Date End Date LT atorvastatin (LIPITOR) 20 mg tablet 05/17/20 11/07/21 Take 1 tablet (20 mg total) by mouth daily. Patient taking differently: Take 20 mg by mouth every morning. cholecalciferol (VITAMIN D3) 25 mcg (1,000 Unit) capsule -- -- Take 25 mcg by mouth daily. DOCOSAHEXANOIC ACID/EPA (FISH OIL ORAL) 04/29/09 -- Take 1 capsule by mouth daily. hydroCHLOROthiazide (MICROZIDE) 12.5 mg capsule 11/07/2021 05/17/20 -- Take 1 capsule (12.5 mg total) by mouth daily. Patient taking differently: Take 12.5 mg by mouth every morning. ibuprofen (ADVIL,MOTRIN) 200 mg tablet -- -- Take 400 mg by mouth every 6 (six) hours as needed for pain. metoprolol succinate (Toprol XL) 50 mg 24 hr tablet 11/07/2021 05/17/20 -- Take 1 tablet (50 mg total) by mouth daily. High blood pressure Patient taking differently: Take 50 mg by mouth every morning. High blood pressure MULTIVITAMIN ORAL 02/08/08 -- Take 1 tablet by mouth daily. tadalafiL (CIALIS) 5 mg tablet 07/11/21 -- Take 1 tablet (5 mg total) by mouth daily. Can take additional 1-3 tablets one hour prior to sexualactivity. Patient taking differently: Take 5 mg by mouth every morning. Can take additional 1-3 tablets one hour prior to sexual activity. VITAMIN B COMPLEX ORAL 04/28/13 -- Take 1 tablet by mouth daily. documented in this encounter Nursing Notes Pavithra Ivory D.N.P., R.N. - 11/08/2021 10:02 AM CDT Shift Goals: Clinical Goals for the Shift: Meet all criteria for discharge Identify possible barriers to meeting goals/advancing plan of care: Post- operative complications End of Shift Summary: The patient has met all criteria for discharge. Ambulating safely independently, tolerating PO intake, pain is well controlled with prn medications. All education complete, supplies sent with patient. Rx ready at pharmacy. Patient discharged to [facility] with . Pavithra Ivory D.N.P., R.N. - 11/08/2021 10:02 AM CDT The patient has met all criteria for discharge. Ambulating safely independently, tolerating PO intake, pain is well controlled with prn medications. All education complete, supplies sent with patient. Rx ready at pharmacy. Patient discharged to [facility] with . Patient ambulated [address], declined WC and escort services. documented in this encounter OR Notes Op Note - Carlos Olvera M.D. - 11/07/2021 2:20 PM CDT Pre-op Diagnosis Primary Malignant Neoplasm Of Prostate (HCC) Post-op Diagnosis Primary Malignant Neoplasm Of Prostate (HCC) A kennel assistant actively participated and was necessary for one or more of the following: opening,exposure and visualization during the case, maintaining hemostasis, wound closure resulting in its safe and expeditious completion. Findings 1. Successful bilateral nerve-sparing robot-assisted laparoscopic radical prostatectomy. 2. Bilateral limited pelvic lymphadenectomy, including obturator and iliac lymph nodes. Complications None Operative Note Narrative After the patient was given prophylactic antibiotics, he was brought into the room, anesthetized, and placed in the modified lithotomy position. He was then prepped in the standard fashion. The peritoneal cavity was accessed, and pneumoperitoneum was established. A total of six laparoscopic working ports were placed. The surgical robot was then docked at the patient's bedside. The space of Retzius was developed using a combination of blunt and cautery dissection. The endopelvic fascia was dissected out. Bilateral limited pelvic lymphadenectomy, including obturator and iliac lymph nodes, was performed in the usual fashion, taking special care to preserve the obturator nerves. The endopelvic fascia was then incised bilaterally. The dorsal venous complex was ligated proximally and distally. The plane between the prostate and the bladder was established using cautery. Vasa deferentia were dissected out and transected bilaterally. The seminal vesicles were dissected out circumferentially and rotatedupwards. The plane between the prostate and the rectum was established using cold scissors. The pedicles of the prostate were taken using hemostatic clips and scissors. The neurovascular bundles were reflected off the prostate bilaterally all the way to the apex. The dorsal venous complex was transected. The urethra was dissected circumferentially and transected. The prostate was then moved out of the surgical field and placed into an extraction bag. Excellent hemostasis was achieved. Vesicourethralanastomosis was then constructed in the usual fashion using a running suture. It was tested with 120 cc of saline and appeared to be watertight. All specimens and ports were removed under direct vision. All port sites were closed in the usual fashion. They were infiltrated with 0.5% bupivacaine. Therewere no complications, and the patient was taken to the recovery room in a stable condition. Carlos Olvera M.D. documented in this encounter Miscellaneous Notes Result Encounter Note - Carlos Olvera M.D. - 11/15/2021 12:37 PM CDT I have reviewed the final pathology report and the identified diagnosis is consistent with the patient's clinical presentation. Hospital Course - Aamir Galvan M.B., B.Ch., B.A.O. - 11/08/2021 7:16 AM CDT SURGICAL PROCEDURE: A robot-assisted radical prostatectomy was performed without complication. PATHOLOGY: Pending. HOSPITAL COURSE: Following the procedure, the patient was transferred to general floor care in stable condition. The post-operative course was otherwise uneventful. At the time of dismissal, the patient was ambulatory,tolerating oral intake with no nausea / vomiting, and had adequate pain control. DISMISSAL EXAM: Constitutional: Alert and oriented, no acute distress. Skin: No rashes. Eyes: No scleral icterus. Heart: Regular rate and rhythm. Lungs: Normal respiratory effort. Abdomen: Soft, appropriately-tender. : Siu in place draining clear urine Musculoskeletal: Normal gait noted with ambulation. Psychiatric: Appropriate affect. Neuro: Sensation intact in abdomen and bilateral upper extremities. documented in this encounter Plan of Treatment Scheduled Orders Name Type Priority Associated Diagnoses Order S chedule URO Urethral cath Procedure Routine Primary Malignant Expec bonilla: removal & voiding Neoplasm Of Prostate , trial (UCO/VT) (HCC) Expires: 12/2022 PSA (Prostate-Specific Lab Routine Primary Malignant Expected: Antigen), Diagnostic Neoplasm Of Prostate 02/08/2022 (HCC) (Approximate), Expires: 2024 documented as of this encounter Procedures Procedure Name Priority Date/Time Associated Comments Diagnosis ADULT OXYGEN THERAPY Routine 11/07/2021 5:05 PM CDT ADULT OXYGEN THERAPY Routine 11/07/2021 5:05 PM CDT ADULT OXYGEN THERAPY Routine 11/07/2021 4:14 PM CDT SURGICAL PATHOLOGY, Routine 11/07/2021 2:50 Primary Malignant Results for this [facility] PM CDT Neoplasm Of procedure are i n Prostate (HCC) the results section. ROBOTIC-ASSISTED PELVIC 11/07/2021 1:10 Primary Malign ant LYMPHADENECTOMY PM CDT Neoplasm Of Prostate (HCC) ROBOTIC-ASSISTED RADICAL 11/07/2021 1:10 Primary Malig nant PROSTATECTOMY PM CDT Neoplasm Of Prostate (HCC) documented in this encounter Results Surgical Pathology, Frozen Lab (11/07/2021 2:50 PM CDT) Component Value Ref Test Analysis Performed Pathologis t Range Method Time At Signature 11/11/2021 METH 5:13 PM CDT Participated in Pranav Gonzalez, 11/11/2021 SOHA the M.DSadia -Pathology 5:13 PM Interpretation Fellow CDT Report [...] CDT only. ??Grossed by Asael Wilde M.S., PA([facility]). B. ??Received fresh labeled prostate is a [...] the left inferior to superior anterior prostate, (Shelbie pattern 3+4, Grade group 2, 0.8 cm), the left inferior to mid posterior prostate, (Darlington pattern 3+3, Grade group 1, 0.6 cm, the right anterior and posterior apex (Darlington pattern 3+4, Grade group 2, 0.6 cm), and the right mid to superior posterior prostate (Darlington pattern 3+4, Grade group 2, 0.3 cm). The tumor is confined to the prostate without involvement of extraprostatic soft tissue or seminal vesicles. The surgical margins are negative for tumor. SYNOPTIC REPORT: ??Prostate Procedure: Radical prostatectomy Prostate Size: 48 gram, 3.8 (S-I) x 3.2 (A-P) x 4.7 (R-L) cm Histologic Type: Acinar Histologic Grade ?? Grade Group and Shelbie Score ?Grade Group 2 (Darlington Score 3+4) ?Minor Tertiary Pattern 5 (less than 5%): Not identified ?Percentage of Pattern 4 in Darlington score 7: <10% ?? Intraductal Carcinoma (IDC): [...] Organization Address City/State/ZIP Code Phon e Number [facility] - [address] [place], [place] [address] [place] [address] [facility] [address] documented in this encounter Visit Diagnoses Diagnosis Primary Malignant Neoplasm Of Prostate ( HCC) - Primary documented in this encounter Admitting Diagnoses Diagnosis Primary Malignant Neoplasm Of Prostate ( HCC) documented in this encounter Administered Medications Inactive Administered Medications - up to 3 most recent administrations Medication Order MAR Action Action Date Dose Rate Site acetaminophen tablet 1,000 mg Given 11/07/2021 12:44 PM CDT 1,00 0 mg (TYLENOL) 1,000 mg, oral, Once, On Sun11/07/21 at 1245, For 1 dose, Pre-Op, PreOp give in preprocedural area. acetaminophen tablet 1,000 mg (TYLENOL) Given 11/08/2021 6:32 AM CDT 1,000 mg 1,000 mg, oral, Every 6 hours, First dose on Sun11/07/21 at 1900 Given 11/07/2021 7:43 PM CDT 1,000 mg atorvastatin tablet 20 mg (LIPITOR) Given 11/08/2021 8:35 AM CDT 20 mg 20 mg, oral, Daily, First dose on Sun11/08/21 at 0900 bacitracin zinc 500 unit/gram ointment Given 11/08/2021 8:35 AM CDT 1 packet packet 1 packet 1 packet (1 application), topical, 3 times daily, First dose on Sun11/07/21 at 2100, Apply to tip of penis. Given 11/07/2021 8:39 PM CDT 1 packet heparin (porcine) Given 11/08/2021 6:32 AM CDT 5,000 Units Right Upper Arm injection 5,000 Units (Back) 5,000 Units, subcutaneous, Every 8 hours scheduled, First dose on Sun11/07/21 at 2200 Given 11/07/2021 10:04 PM CDT 5,000 Units Righ t Upper Arm (Back) lactated ringers New Bag 11/07/2021 7:43 PM CDT 125 mL/hr 125 mL/hr 125 mL/hr, intravenous, Continuous, Starting on Sun11/07/21 at 1715, Continue IV fluids from operating room at 125 ml/hour until bag finished, then begin as ordered. STOP fluids once PO intake >600 cc Continued from OR 11/07/2021 5:13 PM CDT 125 mL/hr 125 mL/hr lactated ringers Continued from OR 11/07/2021 4:12 PM CDT 20 mL/hr 20 mL/hr 20 mL/hr, intravenous, Continuous, Starting on Sun11/07/21 at 1545, PACU & Post-Op metoprolol succinate 24 hr tablet 50 mg Given 11/08/2021 8:35 AM CDT 50 mg (TOPROL-XL) 50 mg, oral, Daily, First dose on Sun11/08/21 at 0900, Do NOT crush or chew. Tablet may be split on score if needed. oxybutynin 24 hr tablet 10 mg (DITROPAN- XL) Given 11/07/2021 12:44 PM CDT 10 mg 10 mg, oral, Once, On Sun11/07/21 at 1245, For 1 dose, Pre-Op, PreOp give in preprocedural area. Swallow whole. Do NOT crush, chew, or split tablet. oxyCODONE 12 hr tablet 10 mg (OxyCONTIN) Given 11/07/2021 12:44 PM CDT 10 mg 10 mg, oral, Once, On Sun11/07/21 at 1245, For 1 dose, Pre-Op, PreOp give in preprocedural area. Swallow whole. Do NOT crush, chew, or split tablet. oxyCODONE IR tablet 10 mg (ROXICODONE) 10 mg, oral, Every 4 hours PRN, severe p ain or score 7-10 of 10, May use if patient can take oral meds and other analgesics are ineffective, Starting on Sun11/07/21 at 1702 oxyCODONE IR tablet 5 mg (ROXICODONE) 5 mg, oral, Every 4 hours PRN, moderate pain or score 4-6 of 10, May use if patient can take oral meds and other analgesics are ineffective, Starting on Sun11/07/21 at 1702 sennosides-docusate sodium 8.6-50 mg per Given 11/08/2021 8:35 A M CDT 1 tablet tablet 1 tablet (SENOKOT-S) 1 tablet, oral, 2 times daily, First dose on Sun11/07/21 at 2100, Do not give if patient has diarrhea. Given 11/07/2021 9:00 PM CDT 1 tablet documented in this encounter Active and Recently Administered Medications Times are shown in CDT. Scheduled Medication Order 11/06/2021 11/07/2021 11/08/2021 acetaminophen tablet 1,000 mg (TYLENOL) (COMPLETED) 1244 (Given - Provider: Fay Blevins RSadiaNSadia) 1,000 mg, oral, Once, On Sun11/07/21 at 1 245, For 1 dose, Pre-Op, PreOp give in preprocedural area. acetaminophen tablet 1,000 mg (TYLENOL) 1943 (Given - Provider: Brina Hayden, R.N.) 0044 (Not Given - Provider: Jazzy Paez.N.P., R.N. - Reason: Patient/family refused)0632 (Given - Provider: Jazzy Real.N.P., R.N.) 1,000 mg, oral, Every 6 hours, First dose on Sun11/07/21 at 1900 atorvastatin tablet 20 mg (LIPITOR) 0835 (Given - Provider: Jazzy Real.N.P., R.N.) 20 mg, oral, Daily, First dose on Sun11/08/21 at 0900 bacitracin zinc 500 unit/gram ointment packet 1 packet 2038 (Given - Provider: Brina Hayden R.N.) 0835 (Given - Provider: Jillian RealN.P., R.N.) 1 packet (1 application), topical, 3 skylar es daily, First dose on Sun11/07/21 at 2100, Apply to tip of penis. ceFAZolin injection 2 g (ANCEF) (CANCELED) 1245 (Due)1419 (Given - Provider: Chapo Chacko, STUDIO TECHNICIAN VIDEO OPERATOR, PENSIONHOLDER INFORMATION CLERK, DNAP) 2 g, intravenous, Every 8 hours, First d ose on Sun11/07/21 at 1245, Intra-Op, If needed, reconstitute vial per package insert instructions. See IVAG for administration guidelines. , Drug Monitoring Progr am: Pharmacist to adjust medication dosi ng based on indication and drug clearance factors., Indications: Prophylaxis, surgical heparin (porcine) injection 5,000 Units 2203 (Given - Provider: Brina Hayden R.N.) 0632 (Given - Provider: Jazzy Real.N.P., R.N.) 5,000 Units, subcutaneous, Every 8 hours scheduled, First dose on Sun11/07/21 at 2200 metoprolol succinate 24 hr tablet 50 mg (TOPROL-XL) 0835 (Given - Provider: Jazzy Real.N.P., R.N.) 50 mg, oral, Daily, First dose on 12/23 at 0900, Do NOT crush or chew. Tablet may be split on score if needed. oxybutynin 24 hr tablet 10 mg (DITROPAN-XL) (COMPLETED) 1244 (Given - Provider: Fay Blevins RSadiaNSadia) 10 mg, oral, Once, On Sun11/07/21 at 1245 , For 1 dose, Pre-Op, PreOp give in preprocedural area. Swallow whole. Do NOT crush, chew, or split tablet. oxyCODONE 12 hr tablet 10 mg (OxyCONTIN) (COMPLETED) 1244 (Given - Provider: Fay Blevins RSadiaNSadia) 10 mg, oral, Once, On Sun11/07/21 at 1245 , For 1 dose, Pre-Op, PreOp give in preprocedural area. Swallow whole. Do NOT crush, chew, or split tablet. sennosides-docusate sodium 8.6-50 mg per tablet 1 tablet (SE NOKOT-S) 2100 (Given - Provider: Brina Hayden R.N.) 0835 (Given - Provider: Pavithra Ivory D.N.P., R.N.) 1 tablet, oral, 2 times daily, First dos e on Sun11/07/21 at 2100, Do not give if patient has diarrhea. Continuous Medication Order 11/06/2021 11/07/2021 11/08/2021 lactated ringers 1713 (Continued from OR - Provider: Brina Hayden R.N.)1943 (New Bag - Provider: Brina Hayden R.N.) 0335 (Stopped - Provider: Kayleen Real.PSadia, R.N.) 125 mL/hr, intravenous, Continuous, Star ting on Sun11/07/21 at 1715, Continue IV fluids from operating room at 125 ml/hour until bag finished, then begin as ordered. STOP fluids once PO intake >600 cc lactated ringers 1612 (Continued from OR - Provider: Lotus Rodriguez R.N. - Comment: 300 left)1712 (Stopped - Provider: Brina Hayden R.N.) 20 mL/hr, intravenous, Continuous, Start ing on Sun11/07/21 at 1545, PACU & Post-Op PRN Medication Order 11/06/2021 11/07/2021 11/08/2021 bacitracin zinc 500 unit/gram ointment packet (CANCELED) 1600 (Given - Provider: Jamila Muir R.N. - Comment: applied to tip of penis) As needed, Starting on Sun11/07/21 at 1600, Intra-Op belladonna alkaloids-opium 16.2-60 mg suppository (B&O SUPPR ETTS) (CANCELED) 1549 (Given - Provider: Jamila Muir R.N.) As needed, Starting on Sun11/07/21 at 1549, Intra-Op benzocaine-menthoL 15-3.6 mg per lozenge 1 lozenge (CEPACOL) 1 lozenge, oral, As needed, sore throat, Starting on Sun11/07/21 at 1702 bupivacaine 0.5 % (5 mg/mL) injection (MARCAINE) (CANCELED) 1545 (Given - Provider: Lissett Milton, B.Keena., B.A.O.) As needed, Starting on Sun11/07/21 at 1545, Intra-Op diphenhydrAMINE capsule 25 mg (BENADRYL) 25 mg, oral, Every 4 hours PRN, itching, Starting on Sun11/07/21 at 1702 naloxone injection 0.2 mg (NARCAN) 0.2 mg, intravenous, As needed, respirat ory depression, Starting on Sun11/07/21 at 1702, For RASS Score -4 or less, respiratory rate of less than 8 breaths/min. Notify provider/service and rapid response team (if available at institution). ondansetron (PF) injection 4 mg (ZOFRAN) 4 mg, intravenous, Every 6 hours PRN, na usea, vomiting, Starting on Sun11/07/21 at 1702, For 48 hours, Reassess for nausea or vomiting after at least 10 minutes. If nausea or vomiting persists administer next ordered antiemetic medications (or olvin for antiemetic medication administration ondansetron then haloperidol then promethazine). oxybutynin tablet 5 mg (DITROPAN) 5 mg, oral, 3 times daily PRN, bladder spasms, Starting on Sun at 1702 oxyCODONE IR tablet 10 mg (ROXICODONE)(Linked Group 1) 10 mg, oral, Every 4 hours PRN, severe p ain or score 7-10 of 10, May use if patient can take oral meds and other analgesics are ineffective, Starting on Sun11/07/21 at 1702 oxyCODONE IR tablet 5 mg (ROXICODONE)(Linked Group 1) 5 mg, oral, Every 4 hours PRN, moderate pain or score 4-6 of 10, May use if patient can take oral meds and other analgesics are ineffective, Starting on Sun11/07/21 at 1702 promethazine injection 6.25 mg (PHENERGAN) 6.25 mg, intravenous, Every 6 hours PRN, nausea, vomiting, Starting on Sun11/07/21 at 1702, For 48 hours, RASS must be -2 or higher to administer. Reassess for nausea or vomiting after at least 10 minute s. If nausea or vomiting persists admini ster next ordered antiemetic medications (order for antiemetic medication administration ondansetron then haloperidol then promethazine) Linked Groups Order Group 1: oxyCODONE IR tablet 5 mg (ROXICODONE)Jump to med 5 mg, oral, Every 4 hours PRN, moderate pain or score 4-6 of 10, May use if patient can take oral meds and other analgesics are ineffective, Starting on Sun11/07/21 at 1702 Or oxyCODONE IR tablet 10 mg (ROXICODONE)Jump to med 10 mg, oral, Every 4 hours PRN, severe p ain or score 7-10 of 10, May use if patient can take oral meds and other analgesics are ineffective, Starting on Sun11/07/21 at 1702 documented in this encounter Care Teams Residential Tech Relationship Specialty Start Date End Date Elsewhere, Pcp PCP - General 12/02/20 documented as of this encounter
--- OUTSIDE RECORDS SUMMARY | 2022-02-07 08:09 | XMS_ITS | Encounter Summary ---
:1955 Author Organization [facility] Address [address] [place] [address] Care Team Providers Name Role Phone Elsewhere, Pcp Primary Care Provider Unavailable Reason for Visit Reason Comments Rx Prior Authorization ALEX DENIED - TADALAFIL 5 MG T ABLET Encounter Details Date Type Department Care Team Description 12/20/2021 Clinical Pharmacy Prior Yash Sams Rx Prior Communication Auth [id number] Authorization (ALEX DENIED - TADALA MARCO 5 MG TABLET) Social History Tobacco Use Types Packs/Day Years [...] or relatives? How often do you attend islam or More than 4 times per year 11/01/2021 jew services? Do you belong to any clubs or Yes 11/01/2021 organizations such as islam groups, unions, fraternal or athletic groups, or [...] place to sleep or slept in a care home (including now)? Education Answer Date Recorded What is the highest level of school you have completed or 12 th grade 11/01/2021 the highest degree you have received? 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 The patient's health insurer has denied prior authorization for TADALAFIL 5 MG TABLET. A quick view of the denial reason is in this communication message. To view the denial letter: Go to Snapshot Go to the purple Medications box Click on the blue Prior Authorizations link Under Denied, click on the blue medication link to open and view the attachment. As the prescriber your options are: Appeal the decision to the insurer directly (see denial letter for how to appeal). Write a new Rx for an alternative medication therapy. Release the Rx to the pharmacy so the patient can pay out of pocket if they desire. To Release Rx: Open this encounter, go to Meds & Orders, click on the medication, and click the blue ???Release Rx?? button. PLEASE NOTE: If the ???Release Rx?? button is not visible, the Rx has already been released to the pharmacy. If you have questions, please reply via QuickNote to Krista JOHNS. Thank you, The OPPA Team documented in this encounter Plan of Treatment Not on filedocumented as of this encounter Visit Diagnoses Not on filedocumented in this encounter Care Teams Appeals Referee Relationship Specialty Start Date End Date Elsewhere, Pcp PCP - General 12/02/20 documented as of this encounter
--- OUTSIDE RECORDS SUMMARY | 2022-02-07 08:09 | XMS_ITS | Encounter Summary ---
:1955 Author Organization [facility] Address [address] [place] [address] Care Team Providers Name Role Phone Elsewhere, Pcp Primary Care Provider Unavailable Encounter Details Date Type Department Care Team Description 11/07/2021 Anesthesia Event [facility] OR Duc Smith M.D. [address] [place] [phone] [address] [facility] [address] [place] [phone] [place] [phone] Anesthesia Record Procedure Summary Procedure Name Responsible Anesthesia Start Anesthesia Stop Time Anesthesiologist Time ROBOTIC-ASSISTED Duc Smith M.D. 11/07/21 1342 1611 RADICAL PROSTATECTOMY. Events Date Time Event Comment 11/07/2021 1303 1342 An Start Machine/Equipmen t Checked Infection Precautions Foll owed Procedure/Site Verified NPO Sta tus Verified Supine Standard ASA Mon itors Applied 1351 An Induction 1351 An Intubation 1359 Turnover to Proceduralist 1420 Proc Start 1421 Gas Insufflation 1556 Proc Fin 1600 Turnover to ANE Staff 1604 Airway Removal Criteria Met 1604 Extubation/Airway Removed 1606 an stop data 1611 An End I completed my h andoff to the receiving staff during [facility] we 1. Identified the patient 2. Ident ified the responsible provider 3. Revi ewed the pertinent medical history 4. Discussed the surgical course 5. Review ed intra-op anesthesia management and i ssues during anesthesia 6. Set expectati ons for post-procedure period 7. Allowe d opportunity for questions and ac knowledgement of understanding. Name Total fentanyl injection 50 mcg/mL 150 mcg lidocaine 2% (mg) injection 100 mg propofol 10 mg/mL 150 mg rocuronium 10 mg/mL injection 140 mg ePHEDrine PF 5 mg/mL syringe injection 5 mg ondansetron 4 mg/2 mL injection 4 mg heparin 5,000 Units/mL injection 5,000 Units ceFAZolin injection 2 g (ANCEF) 2 g dexamethasone 4 mg/mL injection 8 mg HYDROmorphone PF 2 mg/mL injection 0.6 mg ketamine 10 mg/mL injection 10 mg sugammadex 100 mg/mL injection 200 mg Lactated Ringers Free Drip 1,000 mL lactated ringers free drip 500 mL Agents No agents on file. Blood No blood administrations on file. Lines, Drains, and Airways Type Details Placement Removal Scope Sites 11/07/21; 1432; Abdomen; 11/07/21 1432 by 1; Right, Lower, Distal; Jamila Muir A, 2; Right, Upper; 3; R.N. Right, Lower, Proximal; 4; Medial; 5; Left, Proximal; 6; Left, Distal; primapore Peripheral IV Placement Date: 11/07/21 1032 by 11/08/21 0912 b y 11/07/21; Placement Jaycee Ramos R.N. Johnson, Tori A, Time: 1032; Catheter D.N.P., R.N . Size: 20 G; Orientation: Posterior, Right; Location: Hand; Site Prep: Chlorhexidine (Preferred); Technique: Anatomical landmarks (VBR); Inserted by: LALI; Insertion Attempts: 1; Removal Date: 11/08/21; Removal Time: 0912; Removal Reason: Patient discharged ETT Placement Date: 11/07/21 1351 by 11/07/21 1604 b y 11/07/21; Placement Merly Wolff APRN, Bray, N icholas T, Time: 1351 (created via CLAUDETTE, ANTELMOA FUR COMBER, CR NA, DNAP procedure documentation); Mask Ventilation: Easy mask; Type: Standard ETT; Single Lumen Tube Size: 7.5 mm; Cuffed: Yes; Location: Oral; Grade View: Grade 2A; Insertion Attempts: 1; Placement Verification: Bilateral breath sounds, Positive ETCO2, Symmetrical chest wall movement; Removal Date: 11/07/21; Removal Time: 1604 Peripheral IV Placement Date: 11/07/21 1357 by 11/08/21 0912 b y 11/07/21; Placement Merly Wolff APRN, Johnson, Tori A, Time: 1357; Catheter VALENCIA WILKINS D.N.P., R.N . Size: 18 G; Orientation: Left; Location: Wrist; Removal Date: 11/08/21; Removal Time: 09; Removal Reason: Patient discharged Indwelling Urinary Placement Date: 11/07/21 1415 by 11/07/21 153 2 by Catheter 11/07/21; Placement Jamila Muir, Jamila Muir, Time: 1415; Inserted by: Krista Marinelli; Type: Non-latex; Size: 18 Fr.; Balloon Size: 30 mL (15cc water in balloon); Urine Returned: Yes; Removal Date: 11/07/21; Removal Time: 153; Removal Reason: Per order Indwelling Urinary Placement Date: 11/07/21 1532 by 11/15/21 084 5 by Catheter 11/07/21; Placement Jamila Muir [place], Car oline R, Time: 153; Inserted by: Krista Bates; Type: Non-latex; Size: 18 Fr.; Balloon Size: 30 mL (15cc water in balloon); Urine Returned: Yes; Removal Date: 11/15/21; Removal Time: 0845; Removal Reason: Per order documented in this encounter Social History Tobacco Use Types Packs/Day Years [...] or relatives? How often do you attend anglican or More than 4 times per year 11/01/2021 yazdanism services? Do you belong to any clubs or Yes 11/01/2021 organizations such as anglican groups, unions, fraternal or athletic groups, or [...] place to sleep or slept in a halfway (including now)? Education Answer Date Recorded What is the highest level of school you have completed or 12 th grade 11/01/2021 the highest degree you have received? 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 - 11/07/2021 4:12 PM CDT Patient: Yash Mendez Procedure Summary Date: 11/07/21 Room / Location: [address] / [facility] in [place], [place] Anesthesia Start: 1342 Anesthesia Stop: Procedures: ROBOTIC-ASSISTED RADICAL PROSTATECTOMY. (N/A ) ROBOTIC-ASSISTED PELVIC LYMPHADENECTOMY. (N/A ) Diagnosis: Primary Malignant Neoplasm Of Prostate (HCC) (Primary Malignant Neoplasm Of Prostate (HCC) [C61].) Providers: Carlos Olvera M.D. Responsible Provider: Duc Smith M.D. Anesthesia Type: general ASA Status: 3 Anesthesia Type: general Last vitals Vitals Value Taken Time BP Temp Pulse 65 06/06/22 1612 Resp SpO2 94 % 11/07/21 1612 Vitals shown include unvalidated device data. Please reference Vitals flowsheet for most recent vital signs. Anesthesia Post Evaluation Patient Disposition: general care unit Cardiovascular status: hemodynamics (HR & BP) acceptable Respiratory status: patent airway with spontaneous effort Temperature: normothermic Oxygen requirements: nasal cannula Level of consciousness: awake Pain score: pain adequately controlled and/or at baseline Post Op nausea/vomiting: none Hydration status: euvolemic Anesthesia Procedure Notes - Chapo Chacko APRN, CRNA, DNAP - 11/07/2021 2:16 PM CDTAssociated Order(s): Airway Airway Date/Time: 11/07/2021 1:51 PM Performed by: Merly Wolff APRN, CRNA, MNA Authorized by: Duc Smith M.D. Patient location during procedure: OR / Procedure Area PROCEDURE DETAILS: Mask difficulty assessment: easy mask Final airway type: video laryngoscope Laryngeal Manipulation: no Final best view of glottic structures - Cormack/Lehane Score: grade 2A ETT location: oral VL device: glide scope Riley scope blade size: 4 Adult tube size: 7.5 Adult ETT distance at teeth/gum: 22 Oral tube type: standard ETT Cuffed: yes Number of attempt to successful placement: 1 Airway confirmation: bilateral breath sounds, positive ETCO2 and bilateral chest rise Other previous techniques attempted: none PRE PROCEDURE DETAILS: Pre evaluation for airway management: procedure Urgency: elective Preop assessment of probable difficulty: no difficulty anticipated Preoxygenation: bag valve mask SEDATION / ANESTHESIA Anesthesia method: anesthesia POST PROCEDURE DETAILS: Procedure outcome: successful Airway event: no complications Anesthesia Preprocedure Evaluation - Tawana Haney M.D. - 11/07/2021 12:59 PM CDT Preprocedure Anesthesia & H&P Assessment Procedure Summary Date/Time: 11/07/21 1239 Procedures: ROBOTIC-ASSISTED RADICAL PROSTATECTOMY. (N/A ) ROBOTIC-ASSISTED PELVIC LYMPHADENECTOMY. (N/A ) Diagnosis: Primary Malignant Neoplasm Of Prostate (HCC) [C61] Pre-op diagnosis: Primary Malignant Neoplasm Of Prostate (HCC) [C61]. Location: [place] [address] / [facility] in [place], [place] Providers: Carlos Olvera M.D. Pertinent components of the patient's history including current problem list, medical history, surgical history, family history, social history, medications and allergies were reviewed. Present illnessand pre-op diagnosis were confirmed. The planned surgery / procedure was verified with the patient /legal guardian. The patient's general health condition remains unchanged PREOPERATIVE EVALUATIONS: Laboratory studies: Lab Results Component Value Date WBC 8.6 11/04/2021 HGB 15.4 11/04/2021 HCT 47.3 11/04/2021 MCV 89.9 11/04/2021 PLT 347 (H) 11/04/2021 Lab Results Component Value Date NA 138 11/04/2021 CL 101 11/04/2021 CREATININE 0.88 11/04/2021 BUN 20 11/04/2021 ANIONGAP 11 11/04/2021 GLUCOSE 94 11/04/2021 CALCIUM 10.3 (H) 11/04/2021 Electrocardiogram 11/04/2021: Sinus bradycardia with 1st degree A-V block Left bundle branch block with secondary ST-T abnormalities When compared with ECG of 11-JUN-2017 09:30, RI interval has increased Reviewed by CB Mcclure Echocardiogram: None. Pulmonary function testing: None. RELEVANT COMORBID CONDITIONS CV (+) Hypertension Essential Primary GENETICS (+) Hyperlipidemia ONC (+) Primary Malignant Neoplasm Of Prostate (HCC) OBJECTIVE PHYSICAL EXAMINATION Airway (HEENT) Mallampati: III TM Distance: >3 FB Neck ROM: Limited Mouth Opening: >3 cm Upper Lip Bite Test Class: I Cardiovascular Rhythm: Regular Rate: Normal Cardiovascular Assessment: cardiovascular normal Functional Capacity: >4 METS Pulmonary Pulmonary Assessment: Clear General / Constitutional Constitutional Assessment: Normal General State of Health:: healthy appearing and calm Neurological Neurologic Assessment:??alert ASSESSMENT / PLAN ANESTHESIA PLAN ASA: 3 Anesthesia Plan: general Yash Mendez is a 66 y.o. male who presents for ROBOTIC-ASSISTED RADICAL PROSTATECTOMY. (N/A ) ROBOTIC-ASSISTED PELVIC LYMPHADENECTOMY. (N/A ). Mr. Mendez presents for the above procedure due to prostate cancer. He has a history of hypertension on HCTZ and metoprolol, took both this morning. He has a LBBB which was first seen in 2013, and is unchanged in appearance on his preop ECG. He came in for an echo in 2014, which was normal per his report (I cannot see this report). He is asymptomatic and active. Anesthesia Plan: Type: General anesthesia, no prior airway documents here Access: 1-2 PIV Monitoring: Standard ASA monitors Analgesia: Fentanyl, hydromorphone Additional considerations: None. Patient seen and allergies reviewed, anesthesia plan and risks discussed directly with patient /legal guardian or through an clearing inspector. Risks/Benefits/Alternatives of Blood transfusion discussed with patient / legal guardian, including an opportunity to ask questions and/or decline some or all transfusion therapies. The patient / legalguardian consented to the use of all blood products, as deemed medically necessary Approval to Proceed: approved for anesthesia documented in this encounter Plan of Treatment Not on filedocumented as of this encounter Procedures Procedure Name Priority Date/Time Associated Comments Diagnosis LDA ANE ENDOTRACHEAL Routine 11/07/2021 1:51 PM R esults for this AIRWAY CDT procedure are i n the results section. documented in this encounter Results LDA ANE ENDOTRACHEAL AIRWAY (11/07/2021 1:51 PM CDT) Narrative Chapo Chacko APRN, CRNA, DNAP - 11/2021 1:51 PM CDT Chapo Chacko APRN, CRNA, DNAP ? 11/07/2021 ??2:17 PM Airway Date/Time: 11/07/2021 1:51 PM Performed by: Merly Wolff APRN, CRNA, MNA Authorized by: Duc Smith M.D. Patient location during procedure: OR / Procedure Area PROCEDURE DETAILS: Mask difficulty assessment: easy mask Final airway type: video laryngoscope Laryngeal Manipulation: no ?? Final best view of glottic structures - Cormack/Lehane Score: grade 2A ETT location: oral VL device: glide scope Riley scope blade size: 4 Adult tube size: [...] no complications Duc Smith M.D. ANESTHESIA ORDERABLES documented in this encounter Visit Diagnoses Not on filedocumented in this encounter Administered Medications Inactive Administered Medications - up to 3 most recent administrations Medication Order MAR Action Action Date Dose Rate Site ceFAZolin injection 2 g (ANCEF) Given 11/07/2021 2:19 PM CDT 2 g 2 g, intravenous, Every 8 hours, First dose on Sun11/07/21 at 1245, Intra-Op, If needed, reconstitute vial per package insert instructions. See IVAG for administration guidelines. , Drug Monitoring Program: Pharmacist to adjust medication dosing based on indication and drug clearance factors., Indications: Prophylaxis, surgical dexAMETHasone injection (DECADRON) Given 11/07/2021 2:22 PM CDT 8 mg intravenous, As needed, Starting on Sun11/07/21 at 1422, Anesthesia Intra-op ePHEDrine (PF) injection Given 11/07/2021 1:56 PM CDT 5 mg intravenous, As needed, Starting on Sun11/07/21 at 1356, Anesthesia Intra-op fentaNYL injection (SUBLIMAZE) Given 11/07/2021 2:57 PM CDT 50 mcg intravenous, As needed, Starting on Sun11/07/21 at 1344, Anesthesia Intra-op Given 11/07/2021 1:48 PM CDT 100 mcg heparin (porcine) injection Given 11/07/2021 2:14 PM CDT 5,000 Units subcutaneous, As needed, Starting on Sun11/07/21 at 1414, Anesthesia Intra-op HYDROmorphone (PF) injection (DILAUDID) Given 11/07/2021 3:24 PM CDT 0.6 mg intravenous, As needed, Starting on Sun11/07/21 at 1524, Anesthesia Intra-op ketamine injection (KETALAR) Given 11/07/2021 3:54 PM CDT 10 mg intravenous, As needed, Starting on Sun11/07/21 at 1554, Anesthesia Intra-op lactated ringers New Bag 11/07/2021 1:42 PM CDT intravenous, Continuous Infusion: Per Instructions PRN, Starting on Sun11/07/21 at 1342, Anesthesia Intra-op lactated ringers New Bag 11/07/2021 1:57 PM CDT intravenous, Continuous Infusion: Per Instructions PRN, Starting on Sun11/07/21 at 1357, Anesthesia Intra-op lidocaine (PF) (cardiac) injection Given 11/07/2021 1:47 PM CDT 100 mg intravenous, As needed, Starting on Sun11/07/21 at 1344, Anesthesia Intra-op ondansetron (PF) injection (ZOFRAN) Given 11/07/2021 3:37 PM CDT 4 mg intravenous, As needed, Starting on Sun11/07/21 at 1537, Anesthesia Intra-op propofoL injection (DIPRIVAN) Given 11/07/2021 1:48 PM CDT 150 mg intravenous, As needed, Starting on Sun11/07/21 at 1348, Anesthesia Intra-op rocuronium injection (ZEMURON) Given 11/07/2021 3:32 PM CDT 10 mg intravenous, As needed, Starting on Sun11/07/21 at 1348, Anesthesia Intra-op Given 11/07/2021 2:48 PM CDT 30 mg Given 11/07/2021 1:48 PM CDT 100 mg sugammadex injection (BRIDION) Given 11/07/2021 3:56 PM CDT 200 mg intravenous, As needed, Starting on Sun11/07/21 at 1556, Anesthesia Intra-op documented in this encounter Care Teams Mattress Renovator Relationship Specialty Start Date End Date Elsewhere, Pcp PCP - General 12/02/20 documented as of this encounter
--- OUTSIDE RECORDS SUMMARY | 2022-02-07 08:09 | XMS_ITS | Encounter Summary ---
:1955 Author Organization [facility] Address [address] [place] [address] Care Team Providers Name Role Phone Elsewhere, Pcp Primary Care Provider Unavailable Reason for Visit Outpatient (Routine) - Closed Specialty Diagnoses / Procedures Referred By Contact Refer red To Contact Dermatology Diagnoses Lesion Skin Alexandra Santiago CSadiaNSadiaPSadia [place] [address] [place] [address] [phone] Referral ID Status Reason Start Date Expiration Date Visits Requ ested Visits Authorized [id number] Closed 12/19/2021 12/19/2022 1 1 Encounter Details Date Type Department Care Team Description 01/16/2022 Comprehensive Visit Department of Maria Elena Chapman is Actinic (Primary Dx); [facility] [place], [place] [address] [facility] Keratosis Seborrheic; [address] [place], [place] [phone] Social History Tobacco Use Types Packs/Day Years [...] or relatives? How often do you attend religious or More than 4 times per year 11/01/2021 cheondoism services? Do you belong to any clubs or Yes 11/01/2021 organizations such as religious groups, unions, fraternal or athletic groups, or [...] place to sleep or slept in a longterm (including now)? Education Answer Date Recorded What is the highest level of school you have completed or 12 th grade 11/01/2021 the highest degree you have received? 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 - 01/16/2022 10:00 AM CDT SUBJECTIVE REFERRAL Alexandra Santiago C.N.P. CHIEF COMPLAINT/REASON FOR VISIT Skin examination and evaluation for skin cancer, two lesions on scalp HISTORY OF PRESENT ILLNESS Mr. Yash Mendez is a 66 y.o. male who presents today for a skin examination for evaluationfor skin cancer. The patient denies a history of skin cancer. He has noted 2 lesions on the scalp that are relatively new. They do not itch or bleed No Known Allergies PAST MEDICAL HISTORY No history of skin cancer OBJECTIVE PHYSICAL EXAM General: Awake, alert, in no acute distress, and with appropriate affect. Eyes: No scleral injection or icterus. No eyelid abnormalities. Lymph: No lower extremity edema. Skin: I have examined the scalp, face, neck, chest, abdomen, back, bilateral upper extremities, and bilateral lower extremities. I did not examine the feet or area under the undergarment. He has Wilkinson 3 skin. He has a scattering of stuck on brown verrucous plaques over the back as well as an admixture of benign-appearing small in larger mid brown macules and plaques consistent with benign-appearing nevi. He has mccoy angioma scattered throughout the trunk. On the scalp there are 2 red scaly macules 1 with more crust consistent with actinic keratosis ASSESSMENT / PLAN #1 Skin cancer examination, risk evaluation and counseling Sun protection and sun avoidance were reviewed with the patient. Educational materials were providedregarding skin self-examination, the warning signs and symptoms of skin cancer, and the proper use of sunscreens. I would recommend a full skin examination with an appropriately trained clinician annually. #2 Actinic keratoses (2) CONSENT Discussed the risks, benefits, alternatives, and the necessity of other members of the healthcare team participating in the procedure. All questions answered and consent given. PROCEDURE INFORMATION Given the precancerous nature of this lesion(s), treatment is medically indicated. After discussion of the risks, benefits and alternatives to treatment with cryotherapy, informed consent was obtained.We treated a total of 2 lesion(s) with two 20-second freeze-thaw cycles of liquid nitrogen cryotherapy. The patient tolerated the procedure well. Aftercare instructions were provided in written and verbal form to the patient. Should any of these lesions recur, the patient should return for biopsy or further evaluation. #3 Mccoy angioma #4 Seborrheic keratosis The benign nature of the skin lesion(s) was discussed with the patient. No treatment is required. I recommend continued observation. Should symptoms or changes develop related to this condition, I would recommend a return visit for reassessment. #5 Dermatoheliosis Sun protection and sun avoidance were reviewed with the patient. Educational materials were providedregarding skin self-examination, the warning signs and symptoms of skin cancer, and the proper use of sunscreens. I would recommend a full skin cancer screening examination with an appropriately trained clinician every year. None of the patient's nevi reach the clinical threshold for biopsy. I recommend continued sun protection, self-skin examinations, and observation. Should any of the patient's nevi change in size, color, texture, or shape or develop symptoms such as itching or bleeding, I recommend an immediate returnvisit for reassessment. PATIENT EDUCATION Ready to learn, no apparent learning barriers were identified; learning preferences include listening. Explained diagnosis and treatment plan; patient/guardian of patient expressed understanding of thecontent. documented in this encounter Plan of Treatment Not on filedocumented as of this encounter Visit Diagnoses Diagnosis Keratosis Actinic - Primary Nevi Multiple Keratosis Seborrheic Sun Damaged Skin documented in this encounter Care Teams Information Delivery Analyst Relationship Specialty Start Date End Date Elsewhere, Pcp PCP - General 12/02/20 documented as of this encounter
--- OUTSIDE RECORDS SUMMARY | 2022-02-07 08:09 | XMS_ITS | Encounter Summary ---
:1955 Author Organization [facility] Address [address] [place] [address] Care Team Providers Name Role Phone Elsewhere, Pcp Primary Care Provider Unavailable Encounter Details Date Type Department Care Team Description 12/20/2021 Orders Only Pharmacy Prior Auth Yash Vasquez [phone] Social History Tobacco Use Types Packs/Day Years [...] More than 4 times per year 11/01/2021 methodist services? Do you belong to any clubs or Yes 11/01/2021 organizations such as hindu groups, unions, fraternal or athletic groups, or [...] minutes do you engage in exercise at is 40 min 11/01/2021 level? 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
--- OUTSIDE RECORDS SUMMARY | 2022-02-07 08:10 | XMS_ITS | Encounter Summary ---
:1955 Author Organization [facility] Address [address] [place] [address] Care Team Providers Name Role Phone Elsewhere, Pcp Primary Care Provider Unavailable Reason for Referral Outpatient (Routine) - Closed Specialty Diagnoses / Procedures Referred By Contact Refer red To Contact Urology Diagnoses Personal History Of Malignant Neoplasm Of Prostate Winnie Banegas P.A.-C. [facility] [address] [place] [phone] Referral ID Status Reason Start Date Expiration Date Visits Requ ested Visits Authorized [id number] Closed 09/05/2021 09/05/2022 [address] Olvera Encounter Details Date Type Department Care Team Description 09/05/2021 Orders Only Department of Urology Winnie Banegas Pe rsonal History Of in [facility]namaria Burns Malignant Neoplasm Of [place] [address] [place] [address] Prostate (Primary Dx) [address] [place] [phone] Social History Tobacco Use Types Packs/Day Years Used Date Smoking Tobacco: Former Cigarettes 1 20 /10/1972 - 06/04/1999 Smokeless Tobacco: Never Alcohol Use [...] or relatives? How often do you attend latter-day or More than 4 times per year 11/01/2021 church services? Do you belong to any clubs or Yes 11/01/2021 organizations such as latter-day groups, unions, fraternal or athletic groups, or [...] slept in a nursing home (including now)? 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
--- OUTSIDE RECORDS SUMMARY | 2022-02-07 08:10 | XMS_ITS | Encounter Summary ---
:1955 Author Organization [facility] Address [address] [place] [address] Care Team Providers Name Role Phone Elsewhere, Pcp Primary Care Provider Unavailable Encounter Details Date Type Department Care Team Description 11/07/2021 Surgery RST [facility] OR Carlos Olvera ROBOTIC-ASSISTED [address] Shakira M.D. RADICAL PROSTATECTOMY. 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 - 11/08/2021 7:17 AM CDT DISCHARGE SUMMARY BRIEF OVERVIEW Hospital: [facility] Discharge Provider: Carlos Olvera M.D. Primary Team: RST Urology - Wade Primary Care Providers: Elsewhere, [...] LYMPHADENECTOMY. Carlos Olvera M.D.Alamiri, Jamal M, M.B., Rocio.Keena., B.A.O. [facility] [[email or web address]] ROEI OR DISCHARGE DISPOSITION Home or Self [...] AM CDT You were discharged from the [facility] [[email or web address]] Urology - [facility] Service. Please identify this service name if you call with questions after hospitalization. AttachmentsThe following attachments cannot be sent through Care Everywhere. Acetaminophen (By mouth) (Ghanaian)Bacitracin/Neomycin/Polymyxin B (On the skin) (Ghanaian)Cefdinir (By mouth) (Ghanaian)Oxybutynin (By mouth) (Ghanaian)Oxycodone, Rapid Release (By mouth) (Ghanaian)Laxative, Stimulant Combination (By mouth) (Ghanaian)documented in this encounter Medications at Time of [...] COMPLEX ORAL Take 1 tablet by 0 013 mouth daily. cefdinir (OMNICEF) 300 mg [...] as of this encounter Progress Notes Elicia Santana Pharm.D., R.Ph. - 11/07/2021 10:28 AM CDT Images [...] ready at pharmacy. Patient discharged to [facility] with . Pavithra Ivory D.N.P., R.N. - 11/08/2021 10:02 AM CDT The patient has met all criteria for discharge. Ambulating safely independently, tolerating PO intake, pain is well controlled with prn medications. All education complete, supplies sent with patient. Rx ready at pharmacy. Patient discharged to [facility] with . Patient ambulated [address], declined WC and escort services. documented in this encounter OR Notes Op Note - Carlos Olvera M.D. - 11/07/2021 2:20 PM CDT Pre-op Diagnosis Primary Malignant Neoplasm Of Prostate (HCC) Post-op Diagnosis Primary Malignant Neoplasm Of Prostate (HCC) A rn first assistant actively participated and was necessary for [...] presentation. Hospital Course - Aamir Galvan M.B., Abigail., B.A.O. - 11/08/2021 7:16 AM CDT SURGICAL [...] voiding Neoplasm Of Prostate , trial (UCO/VT) ([facility]) Expires: 12/2022 PSA (Prostate-Specific Lab Routine Primary [...] METH 5:13 PM CDT Participated in Pranav Gonzalez 11/11/2021 METH the MSharon -Pathology 5:13 PM Interpretation Fellow CDT Report [...] CDT only. ??Grossed by Asael Wilde M.S., PA([facility]). B. ??Received fresh labeled prostate is [...] the right mid to superior posterior prostate (Oakland pattern 3+4, Grade group 2, 0.3 cm). The tumor is confined to the prostate without involvement of extraprostatic soft tissue or seminal vesicles. The surgical margins are negative for tumor. SYNOPTIC REPORT: ??Prostate Procedure: Radical prostatectomy Prostate Size: 48 gram, 3.8 (S-I) x 3.2 (A-P) x 4.7 (R-L) cm Histologic Type: Acinar Histologic Grade ?? Grade Group and Oakland Score ?Grade Group 2 (Oakland Score 3+4) ?Minor Tertiary Pattern 5 (less than 5%): Not identified ?Percentage of Pattern 4 in Shelbie score 7: <10% ?? Intraductal Carcinoma (IDC): [...] Organization Address City/State/ZIP Code Phon e Number [facility] - [address] [place], [place] [address] [facility] [place] [address] [facility] [address] documented in this encounter Visit Diagnoses Diagnosis Primary Malignant Neoplasm Of Prostate ( HCC) - Primary Primary Malignant Neoplasm Of Prostate ( HCC) documented in this encounter Admitting Diagnoses Diagnosis [...] Given 11/07/2021 8:39 PM CDT 1 packet bacitracin zinc 500 unit/gram ointment Given 11/07/2021 4:00 PM CDT 1 packet Other packet As needed, Starting on Sun11/07/21 at 1600, Intra-Op belladonna alkaloids-opium Given 11/07/2021 3:49 PM CDT 1 suppos itory Rectum 16.2-60 mg suppository (B&O SUPPRETTS) As needed, Starting on Sun11/07/21 at 1549, Intra-Op bupivacaine 0.5 % (5 mg/mL) Given 11/07/2021 3:45 PM CDT 30 mL Abdominal Tissue injection (MARCAINE) As needed, Starting on Sun11/07/21 at 1545, Intra-Op heparin (porcine) Given 11/08/2021 6:32 AM CDT [...] mg (TYLENOL) 1943 (Given - Provider: Brina Hayden RAnai) 0044 (Not Given - Provider: Jazzy Paez.N.P., R.N. - Reason: Patient/family refused)0632 (Given - Provider: Pavithra Ivory, Jazzy.N.P., R.N.) 1,000 mg, oral, Every 6 hours, First dose on Sun11/07/21 at 1900 atorvastatin tablet 20 mg (LIPITOR) 0835 (Given - Provider: Pavithra Ivory, Jazzy.N.P., R.N.) 20 mg, oral, Daily, First dose on Sun11/08/21 at 0900 bacitracin zinc 500 unit/gram ointment packet 1 packet 2038 (Given - Provider: Brina J Catracho, R.N.) 0835 (Given - Provider: Jillian RealN.P., R.N.) 1 packet (1 application), topical, 3 skylar es daily, First dose on Sun11/07/21 at 2100, Apply to tip of penis. ceFAZolin injection 2 g (ANCEF) (CANCELED) 1245 (Due)1419 (Given - Provider: Chapo Chacko, AUDIOLOGY ASSISTANT, CRIME SCENE EXAMINER, DNAP) 2 g, intravenous, Every 8 hours, [...] Brina Hayden R.N.) 0632 (Given - Provider: Kayleen Real.P., R.N.) 5,000 Units, subcutaneous, Every 8 hours scheduled, First dose on Sun11/07/21 at 2200 metoprolol succinate 24 hr tablet 50 mg (TOPROL-XL) 0835 (Given - Provider: Jillian RealN.P., R.N.) 50 mg, oral, Daily, First dose on 12/23 at 0900, Do NOT crush or chew. Tablet may be split on score if needed. oxybutynin 24 hr tablet 10 mg (DITROPAN-XL) (COMPLETED) 124 (Given - Provider: Fay Blevins RSadiaNSadia) 10 mg, oral, Once, On Sun11/07/21 at 1245 , For 1 dose, Pre-Op, PreOp give in preprocedural area. Swallow whole. Do NOT crush, chew, or split tablet. oxyCODONE 12 hr tablet 10 mg (OxyCONTIN) (COMPLETED) 1244 (Given - Provider: Fay Blevins R.N.) 10 mg, oral, Once, On Sun11/07/21 at 1245 , For 1 dose, Pre-Op, PreOp give in preprocedural area. Swallow whole. Do NOT crush, chew, or split tablet. sennosides-docusate sodium 8.6-50 mg per tablet 1 tablet (SE NOKOT-S) 2100 (Given - Provider: Brina Hayden R.N.) 0835 (Given - Provider: Kayleen Real.Jamal, R.N.) 1 tablet, oral, 2 times daily, First dos e on Sun11/07/21 at 2100, Do not give if patient has diarrhea. Continuous Medication Order 11/06/2021 11/07/2021 11/08/2021 lactated ringers 1713 (Continued from OR - Provider: Brina Hayden R.N.)1943 (New Bag - Provider: Brina Hayden R.N.) 0335 (Stopped - Provider: Kayleen Real.P., R.N.) 125 mL/hr, intravenous, Continuous, Star ting [...] 1702 documented in this encounter Care Teams Magazine Editor Relationship Specialty Start Date End Date Elsewhere, Pcp PCP - General 12/02/20 documented as of this encounter
--- OUTSIDE RECORDS SUMMARY | 2022-02-07 08:10 | XMS_ITS | Encounter Summary ---
:1955 Author Organization [facility] Address [address] [place] [address] Care Team Providers Name Role Phone Elsewhere, Pcp Primary Care Provider Unavailable Encounter Details Date Type Department Care Team Description 07/04/2021 Clinical Communication Department of Urology Sydnie Banegas, in [facility] [address] [facility] [address] [place] [phone] Social History Tobacco Use Types Packs/Day Years [...] or relatives? How often do you attend jewish or More than 4 times per year 11/01/2021 judaism services? Do you belong to any clubs or Yes 11/01/2021 organizations such as jewish groups, unions, fraternal or athletic groups, or [...] place to sleep or slept in a retirement (including now)? 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 documented as of this encounter Plan of Treatment Not on filedocumented as of this encounter Results Urinalysis with Microscopic: Urine, Midstream (07/11/2021 7:34 AM CEMENT FINISHING SUPERVISOR) [facility] gist Method Time Signature Source Urine, Urine, 07/11/2021 DTL Midstream 7:48 AM CEMENT FINISHING SUPERVISOR Color, U Yellow 07/11/2021 DTL 7:48 AM CEMENT FINISHING SUPERVISOR Clarity, U Clear 07/11/2021 DTL 7:48 AM CEMENT FINISHING SUPERVISOR Protein, U 8 <26 mg/dL 07/11/2021 DTL 8:59 AM CEMENT FINISHING SUPERVISOR Protein/Osmol 0.13 <0.42 07/11/2021 DTL ality ratio 8:59 AM CEMENT FINISHING SUPERVISOR Predicted 24 137 mg/24 h 07/11/2021 DTL Hr Protein 8:59 AM CEMENT FINISHING SUPERVISOR Predicted 44-432 mg/24 h 07/11/2021 DTL Range 8:59 AM CEMENT FINISHING SUPERVISOR Specimen Anatomical Collection Method Collection Time Receive d Time (Source) Location / / Volume Laterality Urine (Urine, 07/11/2021 7:34 AM 07/11/19 22 7:48 Midstream) CEMENT FINISHING SUPERVISOR AM CEMENT FINISHING SUPERVISOR Winnie Banegas P.A.-C. LAB URINE ORDERABLES Performing Organization Address City/State/ZIP Code Phon e Number [facility] - [address] [place], [place] [address] [facility] [place] [address] [facility] [place] [address] documented in this encounter Visit Diagnoses Diagnosis Elevated Prostate-Specific Antigen - Magda mortensen documented in this encounter Care Teams Form Carpenter Relationship Specialty Start Date End Date Elsewhere, Pcp PCP - General 12/02/20 documented as of this encounter
--- OUTSIDE RECORDS SUMMARY | 2022-02-07 08:10 | XMS_ITS | Encounter Summary ---
:1955 Author Organization [facility] Address [address] [place] [address] Care Team Providers Name Role Phone Elsewhere, Pcp Primary Care Provider Unavailable Encounter Details Date Type Department Care Team Description 03/30/2021 Orders Only RST PCP [facility] Brina Luo M.D. [address] [place], [place] [phone] (Wo rk) Social History Tobacco Use Types [...] or relatives? How often do you attend orthodox or More than 4 times per year 11/01/2021 rastafarian services? Do you belong to any clubs or Yes 11/01/2021 organizations such as orthodox groups, unions, fraternal or athletic groups, or [...] place to sleep or slept in a assisted (including now)? 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
--- OUTSIDE RECORDS SUMMARY | 2022-02-07 08:10 | XMS_ITS | Encounter Summary ---
:1955 Author Organization [facility] Address [address] [place] [address] Care Team Providers Name Role Phone Elsewhere, Pcp Primary Care Provider Unavailable Reason for Referral MRI/CAT/PET Scan (Routine) - Closed Specialty Diagnoses / Procedures Referred By Contact Refer red To Contact Radiology Diagnoses Elevated Prostate-Specific Antigen Winnie Banegas P.A.-C. [facility] Procedures MR Prostate without and with IV Contrast [address] [place] [address] [phone] Referral ID Status Reason Start Date Expiration Date Visits Requ ested Visits Authorized [id number] Closed 08/15/2021 08/15/2022 1 1 Reason for Visit MRI/CAT/PET Scan (Routine) - Closed Specialty Diagnoses / Procedures Referred By Contact Refer red To Contact Radiology Diagnoses Elevated Prostate-Specific Antigen Winnie Banegas P.A.-C. [facility] Procedures MR Prostate without and with IV Contrast [address] [place] [phone] Referral ID Status Reason Start Date Expiration Date Visits Requ ested Visits Authorized [id number] Closed 08/15/2021 08/15/2022 1 1 Encounter Details Date Type Department Care Team Description 08/19/2021 Hospital Encounter Department of Winnie Banegas Radiology, Antonio Hill P.A.-C. Prostate-Specific [facility], in [address] [place] [address] [phone] [place], [place] [phone] (Work) [phone] Social History Tobacco Use Types Packs/Day Years [...] or relatives? How often do you attend zoroastrian or More than 4 times per year 11/01/2021 voodoo services? Do you belong to any clubs or Yes 11/01/2021 organizations such as zoroastrian groups, unions, fraternal or athletic groups, or [...] place to sleep or slept in a fci (including now)? 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 DOCOSAHEXANOIC ACID/EPA Take 1 capsule by 0 04/29 (FISH OIL ORAL) mouth daily. hydroCHLOROthiazide Take 1 capsule 90 capsule 3 05/17/2020 (MICROZIDE) 12.5 mg (12.5 mg total) capsuleIndications: by mouth daily. Hypertension Essential Primary ibuprofen (ADVIL,MOTRIN) Take 400 mg by 0 200 mg tablet mouth every 6 (six) hours as needed for pain. metoprolol succinate Take 1 tablet (50 90 tablet 3 05/17/20 20 (Toprol XL) 50 mg 24 hr mg total) by tabletIndications: mouth daily. High Hypertension Essential blood pressure Primary MULTIVITAMIN ORAL Take 1 tablet by 0 02/08/2008 mouth daily. VITAMIN B COMPLEX ORAL Take 1 tablet by 0 013 mouth daily. aspirin (Aspirin Low Dose) Take 1 tablet (81 90 tablet 3 10/07/[address] tabletIndications: mg total) by Hypertension Essential mouth daily. Primary, Hyperlipidemia tadalafiL (CIALIS) 5 mg Take 1 tablet (5 90 tablet 2 202112/13/2021 tablet mg total) by mouth daily. Can take additional 1-3 tablets one hour prior to sexual activity. documented as of this encounter Nursing Notes Pepper Lanza R.N. - 08/19/2021 7:45 AM CDT Glucagon Administration Screening: Does patient have an allergy to glucagon or lactose (e.g. hives, difficulty breathing, anaphylaxis, necrolytic migratory erythema)? Note: nausea vomiting, bloating, and diarrhea are common and expected adverse effects of glucagon and/or lactose intolerance. NO If no???continue. Does patient have a history of insulinoma or phenochromocytoma? NO If no???continue. If yes, discusswith Radiologist. Does patient have diabetes? NO If no.. continue.. If yes??? initiate nurse initiated protocol to order POC blood glucose . If yes and insulin dependent, provide patient with Glucagon Injections if you Have Diabetes card. What is patient's glucose? Not diabetic - less than 70 treat f using Hypoglycemia Nurse Initiated Protocol - between 70 and 300 administer medication as ordered. - greater than 300 notify radiologist and do not administer medication. Is patient safe to receive Glucagon YES If yes.. Administer Glucagon as outlined in order. Does the patient need to remain NPO following scan for additional appointments today? NO documented in this encounter Plan of Treatment Not on filedocumented as of this encounter Procedures Procedure Name Priority Date/Time Associated Comments Diagnosis MR PROSTATE RAD - Routine 08/19/2021 8:28 Elevated Results for this WITHOUT AND WITH (most inpatients AM CDT Prostate-Specific pr ocedure are in IV CONTRAST and all Antigen the results outpatients) section. documented in this encounter Results MR Prostate without and with IV Contrast (08/19/2021 8:28 AM CDT) Anatomical Region Laterality Modality Pelvis, Abdominal RST LOS, Abdominal ARZ LOS, Abdominal N/A Magnetic Resonance FLA LOS Specimen (Source) Anatomical Collection Method Collection Time Re ceived Time Location / / Volume Laterality 08/19/2021 8:28 AM CDT Impressions 08/19/2021 9:11 AM CDT PIRADS 4- High (clinically significant cancer is likely to be present). Narrative 08/19/2021 9:11 AM CDT EXAM: MR PROSTATE WITHOUT AND WITH IV CONTRAST CLINICAL HISTORY: Screening - biopsy alycia ve. Most Recent PSA 10.2 ng/mL. COMPARISON: None PROSTATE: Volume: 38cc ?(PSA density 0.26) Exam quality: Good. Peripheral zone: Scattered nonspecific f oci of linear and wedge-shaped hypointensity. Transition zone: Heterogenous nodular en largement, consistent with BPH. Focal lesion as described below. Lesion # 1 Size: 1.2 x 1.0cm, 0.7 cc Zone: Transition zone Location: Left lateral at midgland. (Ser ies 8 image 24) T2WI: Lenticular or non-circumscribed, h omogeneous, moderately hypointense (T2WI score 4) DWI: Marked diffusion restriction. (ADC: 650, series 1050 image 56) (DWI score 4) DCE: Positive. Overall category: PIRADS 4- High (clinic ally significant cancer is likely to be present). LOCAL STAGING: Capsule: Intact. Neurovascular bundle invasion: Absent Seminal vesicles invasion: Absent Other organ invasion: Absent LYMPH NODES: Negative for suspicious lym ph node(s). BONES: Negative for suspicious bone lesi on(s). OTHER FINDINGS: Small fat-containing umb ilical hernia. PROSTATE MRI TECHNIQUE: PIRADS version 2 .1 compliant. Multiparametric MRI of the prostate was performed at [address] with surface coil. High resolution T2WI, DWI/ADC, and DCE imaging with IV contrast performed. Procedure Note Saran Aponte M.D. - 08/19/2021Forma tting of this note might be different from the original. EXAM: MR PROSTATE WITHOUT AND WITH IV CO NTRAST CLINICAL HISTORY: Screening - biopsy alycia ve. Most Recent PSA 10.2 ng/mL. COMPARISON: None PROSTATE: Volume: 38cc (PSA density 0.26) Exam quality: Good. Peripheral zone: Scattered nonspecific f oci of linear and wedge-shaped hypointensity. Transition zone: Heterogenous nodular en largement, consistent with BPH. Focal lesion as described below. Lesion # 1 Size: 1.2 x 1.0cm, 0.7 cc Zone: Transition zone Location: Left lateral at midgland. (Ser ies 8 image 24) T2WI: Lenticular or non-circumscribed, h omogeneous, moderately hypointense (T2WI score 4) DWI: Marked diffusion restriction. (ADC: 650, series 1050 image 56) (DWI score 4) DCE: Positive. Overall category: PIRADS 4- High (clinic ally significant cancer is likely to be present). LOCAL STAGING: Capsule: Intact. Neurovascular bundle invasion: Absent Seminal vesicles invasion: Absent Other organ invasion: Absent LYMPH NODES: Negative for suspicious lym ph node(s). BONES: Negative for suspicious bone lesi on(s). OTHER FINDINGS: Small fat-containing umb ilical hernia. PROSTATE MRI TECHNIQUE: PIRADS version 2 .1 compliant. Multiparametric MRI of the prostate was performed at [address] [place] with surface coil. High resolution T2WI, DWI/ADC, and DCE imaging with IV contrast performed. IMPRESSION: PIRADS 4- High (clinically significant c ancer is likely to be present). Winnie LEE MRI PROCEDURES documented in this encounter Visit Diagnoses Diagnosis Elevated Prostate-Specific Antigen documented in this encounter Administered Medications Inactive Administered Medications - up to 3 most recent administrations Medication Order MAR Action Action Date Dose Rate Site gadoterate meglumine 0.5 mmol/mL Given 08/19/2021 8:18 AM CDT 20 mL (376.9 mg/mL) injection 1.6-20 mL (DOTAREM) 1.6-20 mL, intravenous, Once in imaging, contrast, Starting on Sun08/19/21 at 0713, For 1 dose, Imaging Protocol Orders, Dose per Radiant Medication Guidelines glucagon injection 0.5-1 mg Given 08/19/2021 8:04 AM CDT 1 mg Left Upper Arm (GlucaGen) 0.5-1 mg, subcutaneous, Once, On Sun08/19/21 at 0715, For 1 dose, Imaging Protocol Orders sodium chloride (PF) 0.9 % injection 1-1 00 mL Given 08/19/2021 8:18 AM CDT 20 mL 1-100 mL, intravenous, Once, On Sun08/19/21 at 0715, For 1 dose, Imaging Protocol Orders documented in this encounter Care Teams Second Baker Relationship Specialty Start Date End Date Elsewhere, Pcp PCP - General 12/02/20 documented as of this encounter
--- OUTSIDE RECORDS SUMMARY | 2022-02-07 08:10 | XMS_ITS | Encounter Summary ---
:1955 Author Organization [facility] Address [address] [place] [address] Care Team Providers Name Role Phone John Paul Javier M.D. Primary Care Provider Unavailable Reason for Visit Reason Comments Annual Exam Outpatient (Routine) - Closed Specialty Diagnoses / Procedures Referred By Contact Refer red To Contact Family Medicine John Paul Javier M.D. [address] [phone] Referral ID Status Reason Start Date Expiration Date Visits Requ ested Visits Authorized [id number] Closed 05/30/2019 05/29/2020 1 1 Encounter Details Date Type Department Care Team Description 06/25/2020 Comprehensive Visit Department of Kenisha Javier Essential Primary (Primary Dx); Family MedicineJohn Paul M.D. Hyperlip idemia [address] [phone] Social History Tobacco Use Types Packs/Day Years [...] or relatives? How often do you attend caodaism or More than 4 times per year 11/01/2021 yarsanism services? Do you belong to any clubs or Yes 11/01/2021 organizations such as caodaism groups, unions, fraternal or athletic groups, or [...] or slept in a prison (including now)? 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 - 06/25/2020 8:30 AM ENRICHMENT TEACHER No changes today, sir. Be in touch with us about getting your Shingrix shot and abdominal ultrasound (AAA screening). CHMENT TEACHER documented in this encounter Progress Notes John Paul Javier M.D. - 06/25/2020 8:30 AM CST SUBJECTIVE CHIEF COMPLAINT / REASON FOR VISIT Yash Mendez is a 64 y.o. male who presents for evaluation of Annual Exam. HISTORY OF PRESENT ILLNESS Mr. Mendez has a PMH notable for hypertension and hyperlipidemia. He returns to clinic today for a GME. For problem base assessment of this gentleman, please refer to his IRP section of the note. Health Maintenance Items: The patient is due for his zoster series, pneumococcal and annual influenza vaccines. He is amenableto receiving his pneumococcal vaccine, but declines Shingrix. He will follow-up with me regarding this. He is also qualified for 1 time screening for abdominal aortic aneurysm due to tobacco use. Today, he declines this, but will think about it. The following portions of the patient's history were reviewed and updated as appropriate: allergies,current medications, family history, medical history, social history, surgical history and problem list. REVIEW OF SYSTEMS Review of systems nichols negative. OBJECTIVE PHYSICAL EXAM BP 119/74 (BP Location: Right arm, Patient Position: Sitting, Cuff Size: Large) Pulse (!) 56 Wt 93.7 kg BMI 31.13 kg/m?? Physical Exam PHYSICAL EXAM General appearance: alert, appears stated age, cooperative and no distress Head: atraumatic, normocephalic, without obvious abnormality, sinuses nontender to percussion Eyes: conjunctivae/corneas clear, PERRL, EOM's intact Ears: normal TM's and external ear canals both ears Nose: Nares normal. Septum midline. Mucosa normal. No drainage or sinus tenderness., no crusting or bleeding points, no discharge, no polyps, no sinus tenderness Mouth: lips, mucosa, and tongue normal; teeth and gums normal Neck: no adenopathy, no JVD, supple, symmetrical, trachea midline and thyroid not enlarged, symmetric, no tenderness/mass/nodules Back: symmetric, no abnormal curvature, no CVA tenderness, no kyphosis present, no scoliosis present, no skin lesions, erythema, or scars, no tenderness to percussion or palpation, range of motion normal Lungs: clear to auscultation bilaterally Chest wall: no tenderness Heart: regular rate and rhythm, S1, S2 normal, no murmur, click, rub or gallop Abdomen: soft, non-tender; bowel sounds normal; no masses, no organomegaly Male genitalia: penis: no lesions or discharge. testes: no masses or tenderness. no hernias Rectal: normal tone, normal prostate, no masses or tenderness Extremities: extremities normal, warm and well perfused, no edema Pulses: 2+ and symmetric Skin: Skin color, texture, turgor normal. No rashes or lesions. Lymph nodes: Cervical, supraclavicular, and axillary nodes normal. Neurologic: Grossly normal and Alert and oriented X 3, normal strength and tone. Normal symmetric reflexes. Normal coordination and gait. ASSESSMENT / PLAN Problem List Circulatory Hypertension Essential Primary - Primary Overview - BP goal < 140/90. - HCTZ 12.5 mg qd. - Toprol XL 50 mg qd. Lab Results Component Value Date NA 140 06/24/2020 KPLASMA 4.9 06/24/2020 CREATININE 0.93 06/24/2020 EGFRNONBLKAA 86 06/24/2020 GLUCOSE 108 (H) 05/29/2019: - Blood pressure at goal. - Patient having no concerning symptoms, and labs are stable. Current Assessment & Plan - Continue HCTZ 12.5 mg qd. - Continue Metoprolol succinate 50 mg qd. Relevant Orders Sodium (Completed) Endocrine/Metabolic Hyperlipidemia Overview Lab Results Component Value Date CHOL 245 (H) 05/24/2018 Lab Results Component Value Date HDL 68 05/24/2018 Lab Results Component Value Date LDLCALC 158 (H) 05/24/2018 Lab Results Component Value Date TRIG 93 05/24/2018 Lipitor dosed at 20 mg qd. ASA 81 mg qd. Current Assessment & Plan - Continue current medications. John Paul Javier MD PGY-3 Pager #[phone] CHMENT TEACHER documented in this encounter Miscellaneous Notes Assessment & Plan Note - John Paul Javier M.D. - 06/25/2020 12:27 PM ENRICHMENT TEACHER Associated Problem(s): Hyperlipidemia - Continue current medications. CHMENT TEACHER Assessment & Plan Note - John Paul Javier M.D. - 06/25/2020 12:26 PM ENRICHMENT TEACHER Associated Problem(s): Hypertension Essential Primary - Continue HCTZ 12.5 mg qd. - Continue Metoprolol succinate 50 mg qd. CHMENT TEACHER documented in this encounter Plan of Treatment Not on filedocumented as of this encounter Results Sodium (06/24/2020 8:08 AM ENRICHMENT TEACHER) P athologist Signature Sodium, P 140 135 - 145 06/24/2020 8:51 FMKA mmol/L AM ENRICHMENT TEACHER Specimen Anatomical Collection Method Collection Time Receive d Time (Source) Location / / Volume Laterality Blood (Blood, 06/24/2020 8:08 AM 06/24/19 8:08 Venous) ENRICHMENT TEACHER AM ENRICHMENT TEACHER John Paul Javier M.D. LAB BLOOD ADD-ON Performing Organization Address City/State/ZIP Code Phon e Number [facility] [address] [place] [address] [place] [address] [address] [facility] documented in this encounter Visit Diagnoses Diagnosis Hypertension Essential Primary - Primary Hyperlipidemia documented in this encounter Care Teams Formula Room Worker Relationship Specialty Start Date End Date John Paul Javier M.D. PCP - General Family Medicine 12/01/17 11/21/20 documented as of this encounter
--- OUTSIDE RECORDS SUMMARY | 2022-02-07 08:10 | XMS_ITS | Encounter Summary ---
:1955 Author Organization [facility] Address [address] [place] [address] Care Team Providers Name Role Phone Elsewhere, Pcp Primary Care Provider Unavailable Encounter Details Date Type Department Care Team Description 07/11/2021 Hospital Encounter Department of Bassam, Winnie brandon Laboratory Medicine R, P.A.-C. Prostate-Specific and Pathology, [address] [place] [phone] [place] [address] [place], [place] (Work) [phone] Social History Tobacco Use Types Packs/Day Years [...] or relatives? How often do you attend jew or More than 4 times per year 11/01/2021 jehovah's witness services? Do you belong to any clubs or Yes 11/01/2021 organizations such as jew groups, unions, fraternal or athletic groups, or [...] place to sleep or slept in a [place] (including now)? 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 documented as of this encounter Plan of Treatment Not on filedocumented as of this encounter Procedures Procedure Name Priority Date/Time Associated Comments Diagnosis DIPSTICK, U Routine 07/11/2021 7:34 AM Results f or this PICTURE ENLARGER procedure are i n the results section. MICROSCOPIC AUTOMATED Routine 07/11/2021 7:34 AM Results for this PICTURE ENLARGER procedure are i n the results section. PH, U Routine 07/11/2021 7:34 AM Results f or this PICTURE ENLARGER procedure are i n the results section. OSMOLALITY, U Routine 07/11/2021 7:34 AM Results for this PICTURE ENLARGER procedure are i n the results section. URINALYSIS WITH Routine 07/11/2021 7:34 AM Elevated Result s for this MICROSCOPIC PICTURE ENLARGER Prostate-Specific procedure are in Antigen the results section. documented in this encounter Results Osmolality, Urine (07/11/2021 7:34 AM PICTURE ENLARGER) athologist Signature Osmolality, U 604 150 - 1150 07/11/2021 DTL mOsm/kg 8:51 AM PICTURE ENLARGER Specimen Anatomical Collection Method Collection Time Receive d Time (Source) Location / / Volume Laterality Urine 07/11/2021 7:34 AM 7:48 PICTURE ENLARGER AM PICTURE ENLARGER Winnie Banegas P.A.-C. LAB URINE ORDERABLES Performing Organization Address City/State/ZIP Code Phon e Number [facility] - [address] [place] [address] [facility] pH, Urine (07/11/2021 7:34 AM PICTURE ENLARGER) athologist Signature pH, U 5.6 4.5 - 8.0 07/11/2021 8:51 DTL AM PICTURE ENLARGER Specimen Anatomical Collection Method Collection Time Receive d Time (Source) Location / / Volume Laterality Urine 07/11/2021 7:34 AM 7:48 PICTURE ENLARGER AM PICTURE ENLARGER Winnie Banegas P.A.-C. LAB URINE ORDERABLES Performing Organization Address City/[facility] Code Phon e Number [facility] - [address] [place], [place] [address] [place] [phone] [place] [address] [facility] Microscopic Automated (07/11/2021 7:34 AM PICTURE ENLARGER) athologist Signature Microscopy Normal 07/11/2021 8:31 DTL AM PICTURE ENLARGER RBC <3 <3 /hpf 07/11/2021 8:31 DTL AM PICTURE ENLARGER Specimen Anatomical Collection Method Collection Time Receive d Time (Source) Location / / Volume Laterality Urine 07/11/2021 7:34 AM 7:48 PICTURE ENLARGER AM PICTURE ENLARGER Winnie Banegas P.A.-C. LAB URINE ORDERABLES Performing Organization Address City/[facility] Phon e Number [facility] - 200 [place], [place] [address] [facility] [place], [place] [phone] [place] [address] Dipstick, Urine (07/11/2021 7:34 AM PICTURE ENLARGER) [facility] Signature Hemoglobin, QL Negative Negative 07/11/2021 DTL 8:31 AM PICTURE ENLARGER Leukocyte Negative Negative 07/11/2021 DTL Esterase, U 8:31 AM PICTURE ENLARGER Nitrite, U Negative Negative 07/11/2021 DTL 8:31 AM PICTURE ENLARGER Ketones, U Negative Negative 07/11/2021 DTL mg/dL 8:31 AM PICTURE ENLARGER Glucose, U Negative Negative 07/11/2021 DTL mg/dL 8:31 AM PICTURE ENLARGER Specimen Anatomical Collection Method Collection Time Receive d Time (Source) Location / / Volume Laterality Urine 07/11/2021 7:34 AM 7:48 PICTURE ENLARGER AM PICTURE ENLARGER Winnie Banegas P.A.-C. LAB URINE ORDERABLES Performing Organization Address City/[facility] Phon e Number [facility] - 200 [place], [place] [address] [place], [place] [phone] [place] [address] Urinalysis with Microscopic: Urine, Midstream (07/11/2021 7:34 AM PICTURE ENLARGER) [facility] Method Time Signature Source Urine, Urine, 07/11/2021 DTL Midstream 7:48 AM PICTURE ENLARGER Color, U Yellow 07/11/2021 DTL 7:48 AM PICTURE ENLARGER Clarity, U Clear 07/11/2021 DTL 7:48 AM PICTURE ENLARGER Protein, U 8 <26 mg/dL 07/11/2021 DTL 8:59 AM PICTURE ENLARGER Protein/Osmol 0.13 <0.42 07/11/2021 DTL ality ratio 8:59 AM PICTURE ENLARGER Predicted 24 137 mg/24 h 07/11/2021 DTL Hr Protein 8:59 AM PICTURE ENLARGER Predicted 44-432 mg/24 h 07/11/2021 DTL Range 8:59 AM PICTURE ENLARGER Specimen Anatomical Collection Method Collection Time Receive d Time (Source) Location / / Volume Laterality Urine (Urine, 07/11/2021 7:34 AM 07/11/19 22 7:48 Midstream) PICTURE ENLARGER AM PICTURE ENLARGER Winnie Banegas P.A.-C. LAB URINE ORDERABLES Performing Organization Address City/State/ZIP Code Phon e Number [facility] - [address] [place], [place] [address] [facility] [place] [address] Laboratories-[facility] [address] documented in this encounter Visit Diagnoses Diagnosis Elevated Prostate-Specific Antigen documented in this encounter Care Teams Instrument Designer Relationship Specialty Start Date End Date Elsewhere, Pcp PCP - General 12/02/20 documented as of this encounter
--- OUTSIDE RECORDS SUMMARY | 2022-02-07 08:10 | XMS_ITS | Encounter Summary ---
:1955 Author Organization [facility] Address [address] [place] [address] Care Team Providers Name Role Phone Elsewhere, Pcp Primary Care Provider Unavailable Encounter Details Date Type Department Care Team Description 08/12/2021 Hospital Encounter Department of Bassam, Winnie brandon Laboratory Medicine R, P.A.-C. Prostate-Specific in [place], [place] [address] [facility] Antigen [address] [place] [phone] [phone] Social History Tobacco Use Types Packs/Day Years [...] or relatives? How often do you attend pentecostal or More than 4 times per year 11/01/2021 cheondoism services? Do you belong to any clubs or Yes 11/01/2021 organizations such as pentecostal groups, unions, fraternal or athletic groups, or [...] place to sleep or slept in a senior care (including now)? 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 documented in this encounter Results (ABNORMAL) PSA (Prostate-Specific Antigen), Diagnostic (08/12/2021 8:40 AM RN RESEARCH) P athologist Signature Prostate-Speci 10.2 (H) <=4.5 08/12/2021 DTL fic Ag ng/mL 2:29 PM RN RESEARCH Comment: ----ADDITIONAL INFORMATION---- The testing method is an electrochemilum inescence assay manufactured by [employer] and performed on the Modular or Freshdesk system . Values obtained with different assay met hods or kits may be different and cannot be used inte rchangeably. Test results cannot be interpreted as ab solute evidence for the presence or absence of malignant disease. Specimen Anatomical Collection Method Collection Time Receive d Time (Source) Location / / Volume Laterality Blood (Blood, 08/12/2021 8:40 AM 08/13/19 22 1:17 Venous) RN RESEARCH PM RN RESEARCH Winnie Banegas P.A.-C. LAB BLOOD ADD-ON Performing Organization Address City/State/ZIP Code Phon e Number [facility] - [address] [place], [place] [address] [facility] [place] [address] Laboratories-[facility] [address] documented in this encounter Visit Diagnoses Diagnosis Elevated Prostate-Specific Antigen documented in this encounter Care Teams Public Relations Intern Relationship Specialty Start Date End Date Elsewhere, Pcp PCP - General 12/02/20 documented as of this encounter
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
--- OUTSIDE RECORDS SUMMARY | 2022-02-07 08:10 | XMS_ITS | Encounter Summary ---
:1955 Author Organization [facility] Address [address] [place] [address] Care Team Providers Name Role Phone Elsewhere, Pcp Primary Care Provider Unavailable Reason for Visit Reason Comments Pre-visit Intake Encounter Details Date Type Department Care Team Description 10/07/2021 Clinical Communication Visit Review in Pr e-visit Intake [address] [address] Social History Tobacco Use Types [...] More than 4 times per year 11/01/2021 episcopal services? Do you belong to any clubs [...] place to sleep or slept in a long term (including now)? 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
--- OUTSIDE RECORDS SUMMARY | 2022-02-07 08:10 | XMS_ITS | Encounter Summary ---
:1955 Author Organization [facility] Address [address] [place] [address] Care Team Providers Name Role Phone Elsewhere, Pcp Primary Care Provider Unavailable Encounter Details Date Type Department Care Team Description 07/11/2021 Orders Only [facility] [place] P.A.-C. [address] [facility] [address] [place] [address] [place], [place] [phone] (Wo rk) Social History Tobacco Use Types [...] or relatives? How often do you attend adventism or More than 4 times per year 11/01/2021 jain services? Do you belong to any clubs or Yes 11/01/2021 organizations such as adventism groups, unions, fraternal or athletic groups, or [...] place to sleep or slept in a custodial (including now)? 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
--- OUTSIDE RECORDS SUMMARY | 2022-02-07 08:10 | XMS_ITS | Encounter Summary ---
:1955 Author Organization [facility] Address [address] [place] [address] Care Team Providers Name Role Phone Elsewhere, Pcp Primary Care Provider Unavailable Encounter Details Date Type Department Care Team Description 08/22/2021 Orders Only Department of Urology Winnie Banegas El evated in [place], P.A.-C. Prostate-Specific [place] 200 [facility] Antigen (Primary Dx) [address] [place] [address] [phone] Social History Tobacco Use Types Packs/Day Years [...] or relatives? How often do you attend druze or More than 4 times per year 11/01/2021 jewish services? 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 Specimen Anatomical Collection Method Collection Time Receive d Time (Source) Location / / Volume Laterality Urine (Urine, 08/24/2021 9:01 AM 08/25/19 4:35 Midstream) CDT PM CDT Comment: Specimen Source Site: Urine Winnie Banegas P.A.-C. LAB MICROBIOLOGY - GENERAL O RDERABLES Performing Organization Address City/State/ZIP Code Phon e Number [facility] - [address] [place], [place] [address] [place] [address] Laboratories-[facility] [address] documented in this encounter Visit Diagnoses Diagnosis Elevated Prostate-Specific Antigen - Magda mortensen documented in this encounter Care Teams Shipping Support Relationship Specialty Start Date End Date Elsewhere, Pcp PCP - General 12/02/20 documented as of this encounter
--- OUTSIDE RECORDS SUMMARY | 2022-02-07 08:10 | XMS_ITS | Encounter Summary ---
:1955 Author Organization [facility] Address [address] [place] [address] Care Team Providers Name Role Phone Elsewhere, Pcp Primary Care Provider Unavailable Encounter Details Date Type Department Care Team Description 08/25/2021 Orders Only [facility] [place] P.A.-C. [address] [facility] [address] [place] [address] [place], [place] [phone] (Wo rk) Social History Tobacco Use Types [...] or relatives? How often do you attend jehovah's witness or More than 4 times per year 11/01/2021 zoroastrian services? 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
--- OUTSIDE RECORDS SUMMARY | 2022-02-07 08:10 | XMS_ITS | Encounter Summary ---
:1955 Author Organization [facility] Address [address] [place] [address] Care Team Providers Name Role Phone Elsewhere, Pcp Primary Care Provider Unavailable Encounter Details Date Type Department Care Team Description 10/10/2021 Clinical Communication Department of Urology Bryce, Ramin Otoole, in [facility], C.N.P., [place] D.N.P. [address] [facility] [address] [place] [address] [phone] Social History Tobacco Use Types Packs/Day Years [...] or relatives? How often do you attend hinduism or More than 4 times per year 11/01/2021 scientology services? Do you belong to any clubs or Yes 11/01/2021 organizations such as hinduism groups, unions, fraternal or athletic groups, or [...] place to sleep or slept in a long-term (including now)? 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
--- OUTSIDE RECORDS SUMMARY | 2022-02-07 08:10 | XMS_ITS | Encounter Summary ---
:1955 Author Organization [facility] Address [address] [place] [address] Care Team Providers Name Role Phone Elsewhere, Pcp Primary Care Provider Unavailable Encounter Details Date Type Department Care Team Description 08/31/2021 Ancillary Procedure Department of Urology Social History Tobacco Use Types Packs/Day Years [...] or relatives? How often do you attend bahai or More than 4 times per year 11/01/2021 adventist services? 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 documented in this encounter Results Non-Radiology Image-Urology Image Exam (08/31/2021 7:45 AM CDT) Specimen (Source) Anatomical Collection Method Collection Time Re ceived Time Location / / Volume Laterality 08/31/2021 7:41 AM CDT Narrative [facility] - 08/31/2021 8:41 AM CDT This order has been created and auto-finalized to support the import of images acquired without order. The clini theo documentation to support these images can be found on the encounter milli t produced images. Provider Not In System IMG NON RAD IMAGING PROCEDUR ES Performing Organization Address City/State/ZIP Code Phon e Number [facility] NA documented in this encounter Visit Diagnoses Not on filedocumented in this encounter Care Teams Prn Physical Therapist Relationship Specialty Start Date End Date Elsewhere, Pcp PCP - General 12/02/20 documented as of this encounter
--- OUTSIDE RECORDS SUMMARY | 2022-02-07 08:10 | XMS_ITS | Encounter Summary ---
:1955 Author Organization [facility] Address [address] [place] [address] Care Team Providers Name Role Phone Elsewhere, Pcp Primary Care Provider Unavailable Reason for Referral Outpatient (Routine) - Authorized Specialty Diagnoses / Procedures Referred By Contact Refer red To Contact Diagnoses Preoperative Exam [facility] Thorpe, [facility] 12 Lead C.N.P., M.S.N. [address] [place] [phone] Referral ID Status Reason Start Date Expiration Date Visits V isits Requested Authorized [id number] Authorized 10/10/2021 10/10/2022 1 1 Encounter Details Date Type Department Care Team Description 10/10/2021 Orders Only Preoperative Evaluation Kristie Thorpe, Pre operative Exam Center in [facility] VALENTIN C.N.P., (Prima ry Dx) [place] M.S.N. [address] [facility] [address] [place] [address] [place], [place] [phone] Social History Tobacco Use Types Packs/Day Years [...] More than 4 times per year 11/01/2021 baptism services? Do you belong to any clubs [...] or slept in a penitentiary (including now)? 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 documented as of this encounter Plan of Treatment Not on filedocumented as of this encounter Results ECG 12 Lead (11/04/2021 1:04 PM CDT) P athologist Signature Ventricular Rate 59 BPM MUSE ECG/Min [place] Interval 204 ms MUSE QRSD Interval 168 ms MUSE QT Interval 450 ms MUSE QTC Interval 445 ms MUSE P [place] 49 degrees MUSE R [place] -18 degrees MUSE T Wave [place] 124 degrees MUSE Specimen Anatomical Collection Method Collection Time Receive d Time (Source) Location / / Volume Laterality 11/04/2021 1:04 PM 2 1:13 CDT PM CDT Impressions MUSE - 11/04/2021 1:13 PM CDT Sinus bradycardia with 1st degree A-V block Left bundle branch block with secondary ST-T abnormalities When compared with ECG of 11-JUN-2017 09 :30, [place] interval has increased Reviewed by CB Mcclure Narrative This result has an attachment that is no t available. Procedure Note Tamir Bolton M.D. - 11/04/2021Forma tting of this note might be different from the original. IMPRESSION: Sinus bradycardia with 1st degree A-V bl ock Left bundle branch block with secondary ST-T abnormalities When compared with ECG of 11-JUN-2017 09 :30, [place] interval has increased Reviewed by CB Mcclure Kristie Thorep APRN C.N.P., M.S.N. ECG ORDERABLES Performing Organization Address City/State/ZIP Code Phon e Number MUSE MUSE NA documented in this encounter Visit Diagnoses Diagnosis Preoperative Exam - Primary Hypertension Essential Primary - Primary Personal History Of Malignant Neoplasm O f Prostate Bundle Branch Block Left Preoperative Exam documented in this encounter Care Teams Tank Car Cleaner Relationship Specialty Start Date End Date Elsewhere, Pcp PCP - General 12/02/20 documented as of this encounter
--- OUTSIDE RECORDS SUMMARY | 2022-02-07 08:10 | XMS_ITS | Encounter Summary ---
:1955 Author Organization [facility] Address [address] [place] [address] Care Team Providers Name Role Phone Elsewhere, Pcp Primary Care Provider Unavailable Encounter Details Date Type Department Care Team Description 09/05/2021 Clinical Communication Department of Urology Sydnie Banegas, in [facility] [address] [facility] [address] [place] [phone] [phone] Social History Tobacco Use Types Packs/Day Years [...] or relatives? How often do you attend pentecostalism or More than 4 times per year 11/01/2021 presybeterian services? Do you belong to any clubs or Yes 11/01/2021 organizations such as pentecostalism groups, unions, fraternal or athletic groups, or [...] place to sleep or slept in a detention (including now)? 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 - 09/05/2021 12:21 PM CDT I called and spoke with the patient regarding his pathology results. 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 He would like to meet with Dr. Wade linder to discuss treatment options. All questions answered to his satisfaction. documented in this encounter Plan of Treatment Not on filedocumented as of this encounter Visit Diagnoses Not on filedocumented in this encounter Care Teams Entry Level Recruiter Relationship Specialty Start Date End Date Elsewhere, Pcp PCP - General 12/02/20 documented as of this encounter
--- OUTSIDE RECORDS SUMMARY | 2022-02-07 08:10 | XMS_ITS | Encounter Summary ---
:1955 Author Organization [facility] Address [address] [place] [address] Care Team Providers Name Role Phone Elsewhere, Pcp Primary Care Provider Unavailable Reason for Referral Specialty Diagnoses / Procedures Referred By Contact Refer red To Contact Tala Wu APRN C.N.PSadia, [facility] D.N.P. [address] [place] [phone] Referral ID Status Reason Start Date Expiration Date Visits Requ ested Visits Authorized utpatient (Routine) - Closed Specialty Diagnoses / Procedures Referred By Contact Refer red To Contact Anesthesiology Diagnoses Personal History Of Malignant Neoplasm Of Prostate Tala Wu APRN [facility] C.N.P., D.N.P. [address] [place] [phone] Referral ID Status Reason Start Date Expiration Date Visits Requ ested Visits Authorized [id number] Closed 10/10/2021 10/10/2022 1 1 Reason for Visit Outpatient (Routine) - Closed Specialty Diagnoses / Procedures Referred By Contact Refer red To Contact Urology Diagnoses Personal History Of Malignant Neoplasm Of Prostate Winnie Banegas P.A.-C. [facility] [address] [place] [address] Referral ID Status Reason Start Date Expiration Date Visits Requ ested Visits Authorized [id number] Closed 09/05/2021 09/05/2022 1 1 Encounter Details Date Type Department Care Team Description 10/10/2021 Comprehensive Visit Department of Riddhi Olvera History Of Urology in Carlos Rosenberg M.D. Malignant Neoplasm [place], [address] [facility] [place], [place] [address] [place] [phone] [place], [place] [phone] (Work) [phone] Social History Tobacco Use Types Packs/Day Years [...] or slept in a [facility] (including now)? 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 - 10/10/2021 11:00 AM CDT REQUESTING PROVIDER Winnie Banegas P.A.-C. REASON FOR CONSULT Adenocarcinoma of the prostate Patient seen on Dr. Olvera's calendar HISTORY OF PRESENT ILLNESS Mr. Mendez is a pleasant 65 y.o. male who presents today in consultation regarding a new diagnosis of prostate cancer. PSA was 9.02 in June 2021. Prostate MRI was obtained August 19, 2021 demonstrating a left PI-RADS 4 lesion and he had a transperineal MRI guided prostate biopsy August 31, 2021 demjoaquín zhangting Shelbie 3+4=7 adenocarcinoma of the prostate in the targeted lesion with additional Gleason6 prostate cancer bilaterally. He does not take any blood thinning medications and has never had anyabdominal surgeries. He does have a family history of prostate cancer in a paternal uncle. He has hypertension and hyperlipidemia. He does have erectile dysfunction with use of Cialis. Denies urinary incontinence or any bothersome lower urinary tract symptoms. Denies shortness of breath and chest pain. He presents today in consultation and is hoping to proceed with surgery as he has evaluated optionsand feels that surgery is likely his best option. Answers for HPI/ROS submitted by the patient on 10/04/2021 Fatigue?: No Headaches?: No Hematuria?: No Adenopothy?: No Nausea?: No Vomiting?: No Weight loss?: No abdominal pain: No flank pain: No Suprapubic pain: No No pain: Yes Bone pain: No Perineal pain: No Testicular pain: No Which of the following best describes your current physical abilities?: 0 - normal activity History of prior chemotherapy: No History of radiation: No Chemotherapy: No Receiving treatment: No Have you ever been exposed to dangerous chemicals or radioactivity? (Examples: Farming, Shipping, construction, chemical plants, etc) : Yes Constitutional: Negative for fatigue. Gastrointestinal: Negative for abdominal (belly) pain or cramping, nausea and vomiting. Genitourinary: Negative for hematuria. Hematologic: Negative for abnormal lumps or bumps. Neurological: Negative for headaches. PAST MEDICAL/SURGICAL HISTORY MEDICAL Past Medical History: Diagnosis Date ??? Cataract ??? Hyperlipidemia 11/09/2005 ??? Hypertension Essential Primary 04/23/2006 ??? Impaired Fasting Glucose 05/27/2016 Prostate cancer Erectile dysfunction SURGICAL Past Surgical History: Procedure Laterality Date ??? OTHER SURGICAL HISTORY ??? ROTATOR CUFF REPAIR Right SOCIAL HISTORY Social History Socioeconomic History ??? Marital status: Spouse name: Not on file ??? Number of children: Not on file ??? Years of education: Not on file ??? Highest education level: Not on file Occupational History ??? Not on file Tobacco Use ??? Smoking status: Former Smoker Packs/day: 1.00 Years: 20.00 Pack years: 20.00 Types: Cigarettes Start date: 10/06/1972 Quit date: 06/04/1999 Years since quittin.3 ??? Smokeless tobacco: Never Used Substance and Sexual Activity ??? Alcohol use: Not Currently ??? Drug use: No ??? Sexual activity: Yes Partners: Female control/protection: None Other Topics Concern ??? Not on file Social History Narrative ??? Not on file Social Determinants of Health Financial Resource Strain: Not on file Food Insecurity: Not on file Transportation Needs: Not on file Physical Activity: Not on file Stress: Not on file Social Connections: Not on file Intimate Partner Violence: Not on file Housing Stability: Not on file FAMILY HISTORY Family History Problem Relation Age of Onset ??? Diabetes mellitus type II Mother ??? Obesity Mother ??? Hyperlipidemia Mother ??? Hypertension Mother ??? Diabetes Mother ??? Hypertension Father PHYSICAL EXAMINATION General: Well-appearing, in no acute apparent distress. Neuro: Alert and orientated x3. Psych: Maintained eye contact throughout conversation. Skin: No rashes in the areas examined. Eyes: No scleral icterus. Lungs: Normal respiratory effort upon inspiration. Musculoskeletal: Normal gait noted with ambulation. Abdomen: Appears nondistended LABS PSA 10.2 IMAGING AND TESTS Prostate MRI: IMPRESSION: PIRADS 4- High (clinically significant cancer is likely to be present). IMPRESSION/REPORT/PLAN #1 Prostate cancer #2 Erectile dysfunction #3 HTN It was my pleasure meeting Mr. Mendez in conjunction with Dr. Olvera. We discussed his diagnosisand prognosis in detail. We discussed the [place] scoring system. We discussed his treatment optionsincluding active surveillance, radiation therapy, or surgical intervention. The patient would like to proceed with surgery and we secured a surgical date of November 07, 2021. We had a detailed discussion regarding the emily and post-operative education of a robotic assisted radical prostatectomy. We discussed the three main goals of surgery including (1) oncologic control, (2) preservation of urinary control, (3) preservation of erectile function. We did discuss the risks to urinary control and erectile f unction that surgery can pose. We also did discuss the risks of surgery including but not limited tobleeding, infection, and damage to adjacent organs. We also discussed the risks of anesthesia including but not limited to heart attack, stroke, blood clots, pulmonary embolus, and even . We discussed the possibility of a blood transfusion. We discussed that surgery would entail a one night hospital stay with a catheter in place for seven to ten days following surgery with lifting restriction of10 to 15 pounds for four to six weeks. We did discuss the robotic approach with multiple small incisions scattered about the abdomen. Mr. Mendez was provided with the phone number to call the night prior to obtain his report time, and we did discuss fasting guidelines. We did discuss recommendations on use of anticoagulants in the perioperative time frame. MELISSA was ordered and he will do COVID testing and blood work prior. He is welcome to contact Dr. Olvera's team if he has any additional questions. All questions were answered today to patient's satisfaction. Signed by: Tala Wu APRN, C.N.P., D.N.P. 10/10/2021 3:32 PM CDT documented in this encounter Plan of Treatment Scheduled Referrals Name Type Priority Associated Order Schedule Diagnoses Preoperative Outpatient Referral Routine Personal History Of E xpected: Evaluation MELISSA Malignant Neoplasm 022, consult (clinic) Of Prostate Expires: 01/10/2023 Patient Education - Outpatient Referral Routine Personal Histo ry Of Expected: Preparing for Malignant Neoplasm 10/11/19 22, prostate surgery Of Prostate Expires: visit (clinic) 01/10/2023 documented as of this encounter Results SARS Coronavirus 2, Molecular Detection, PCR, Varies Asymptomatic (11/04/2021 1:52 PM CDT) Patholo gist Method Time Signature COVID-19, Swab, 11/04/2021 DTL PCR, Source Nasopharynx 5:17 PM CDT COVID-19, Undetected Undetected 11/04/2021 DTL PCR, Result 5:17 PM CDT Comment: SARS-CoV-2 RNA absent. This result does not rule out COVID-19 in the patient, as the sensitivity of the test depends o n the timing of the specimen collection and quality of the specimen. Result should be correlated with patient's history and clinical presentat ion. ----ADDITIONAL INFORMATION---- This RT-PCR test using the Denator SARS-Co V-2 Assay ( PredPol) performed on the Denator Two Module System has received Emergency Use Authorization (EUA) by the U.S. Food and Drug Administration, and is modified from the conference service coordinator's instructions with a bridging study. Performance characteristics were verifie d by [facility] in a manner consistent with CLIA requirements. Visit the CDC website: https://www.cdc.g ov/coronavirus/ for the most recent guidelines on [place] virus testing. Fact Sheet for Healthcare Providers: https://www.fda.gov/media/016114/downloa d Fact Sheet for Patients: https://www.fda.gov/media/310993/downloa d Specimen Anatomical Collection Method Collection Time Receive d Time (Source) Location / / Volume Laterality Varies 11/04/2021 1:52 PM 2 2:17 (Nasopharynx) CDT PM CDT Tala Wu APRN, C.N.P., D.N.P. LAB MICROBIOLOGY - GENERAL ORDERABLES Performing Organization Address City/State/ZIP Code Phon e Number [facility] - [address] [place], [place] [address] [facility] [place] [place] [address] Laboratories-[facility] [address] (ABNORMAL) Basic Metabolic Panel (11/04/2021 1:40 PM CDT) athologist Signature Potassium, S 4.1 3.6 - 5.2 11/04/2021 DTL mmol/L 2:29 PM CDT Sodium, S 138 135 - 145 11/04/2021 DTL mmol/L 2:29 PM CDT Chloride, S 101 98 - 107 11/04/2021 DTL mmol/L 2:29 PM CDT Bicarbonate, S 26 22 - 29 11/04/2021 DTL mmol/L 2:29 PM CDT Anion Gap 11 7 - 15 11/04/2021 DTL 2:29 PM CDT BUN (Blood Urea 20 8 - 24 11/04/2021 DTL Nitrogen), S mg/dL 2:29 PM CDT Creatinine 0.88 0.74 - 11/04/2021 DTL 1.35 mg/dL 2:29 PM CDT eGFR-Non 89 >=60 11/04/2021 DTL Black/ mL/min/BSA 2:29 PM CDT Ethiopian Comment: ----ADDITIONAL INFORMATION---- Estimated GFR calculated using the 2009 CKD_EPI creatinine equation. eGFR-Black/ >90 >=60 mL/min/BSA 2021 2:29 PM CDT DTL Comment: ----ADDITIONAL INFORMATION---- Estimated GFR calculated using the 2009 CKD_EPI creatinine equation. Calcium, Total, S 10.3 (H) 8.8 - 10.2 mg/dL 11/04/2021 2:29 PM CDT DTL Glucose, S 94 70 - 140 mg/dL 11/04/2021 2:29 PM CDT D TL Specimen Anatomical Collection Method Collection Time Receive d Time (Source) Location / / Volume Laterality Blood (Blood, 11/04/2021 1:40 PM 11/05/19 2:09 Venous) CDT PM CDT Tala Wu APRN, C.N.P., D.N.P. LAB BLOOD ADD-ON Performing Organization Address City/State/ZIP Code Phon e Number [facility] - [address] [place], [place] [address] [facility] [place] [address] Laboratories-[facility] [address] (ABNORMAL) CBC without Differential (11/04/2021 1:40 PM CDT) Patholo gist Method Time Signature Hemoglobin 15.4 13.2 - 11/04/2021 DTL 16.6 g/dL 2:05 PM CDT Hematocrit 47.3 38.3 - 11/04/2021 DTL 48.6 % 2:05 PM CDT Erythrocytes 5.26 4.35 - 11/04/2021 DTL 5.65 2:05 PM CDT x10(12)/L MCV 89.9 78.2 - 11/04/2021 DTL 97.9 fL 2:05 PM CDT RBC Distrib Width 13.5 11.8 - 11/04/2021 DTL 14.5 % 2:05 PM CDT Platelet Count 347 (H) 135 - 317 11/04/2021 DTL x10(9)/L 2:05 PM CDT Leukocytes 8.6 3.4 - 9.6 11/04/2021 DTL x10(9)/L 2:05 PM CDT Specimen Anatomical Collection Method Collection Time Receive d Time (Source) Location / / Volume Laterality Blood (Blood, 11/04/2021 1:40 PM 11/05/19 22 1:58 Venous) CDT PM CDT Tala Wu APRN, C.N.P., D.N.P. LAB BLOOD ADD-ON Performing Organization Address City/State/ZIP Code Phon e Number [facility] - [address] [place], [place] [address] [facility] [place] [address] Laboratories-[facility] [address] documented in this encounter Visit Diagnoses Diagnosis Personal History Of Malignant Neoplasm O f Prostate documented in this encounter Care Teams Relationship Assoc Relationship Specialty Start Date End Date Elsewhere, Pcp PCP - General 12/02/20 documented as of this encounter
--- OUTSIDE RECORDS SUMMARY | 2022-02-07 08:10 | XMS_ITS | Encounter Summary ---
:1955 Author Organization [facility] Address [address] [place] [address] Care Team Providers Name Role Phone Elsewhere, Pcp Primary Care Provider Unavailable Reason for Visit Outpatient (Routine) - Closed Specialty Diagnoses / Procedures Referred By Contact Refer red To Contact Anesthesiology Diagnoses Personal History Of Malignant Neoplasm Of Prostate Ubdusty, Tala Otoole APRN, [facility] C.N.P., D.N.P. [address] [place] [phone] Referral ID Status Reason Start Date Expiration Date Visits Requ ested Visits Authorized [id number] Closed 10/10/2021 10/10/2022 1 1 Encounter Details Date Type Department Care Team Description 11/04/2021 Comprehensive Visit Preoperative Ubdusty, Segundo Otoole APRN, C.N.P., D.N.P. [address] [place] [phone] Hypertension Essential Primary (Primary Dx); Evaluation Center in Neftali Conteh M.D. [address] [place] [phone] Personal History Of Malignant Neoplasm O f Prostate; [place], [place] Bundle Branch Block Left; [address] [facility] [place] [phone] Social History Tobacco Use Types Packs/Day Years Used Date Smoking Tobacco: Former Cigarettes 1 05/0 10/1972 - 06/04/1999 Smokeless Tobacco: Never [...] or relatives? How often do you attend advent or More than 4 times per year 11/01/2021 orthodoxy services? Do you belong to any clubs or Yes 11/01/2021 organizations such as advent groups, unions, fraternal or athletic groups, or [...] to sleep or slept in a senior living (including now)? Education Answer Date Recorded What is the highest level of school you have completed or 12 th grade 11/01/2021 the highest degree you have received? 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 - 11/04/2021 1:00 PM CDT REASON FOR VISIT: Preoperative Medical Evaluation REFERRING PHYSICIAN: Tala Wu, VALENTIN, C.N.P., D.N.P. 11/07/2021: ROBOTIC-ASSISTED RADICAL PROSTATECTOMY; Carlos Olvera M.D. Surgery Specific Risk Classification: Low Risk / Elevated Risk: Intermediate Risk SUBJECTIVE HISTORY OF PRESENT ILLNESS Yash Mendez is a 66 y.o. male who is here for preanesthetic medical examination prior to the planned procedure as listed above. The following portions of the patient's history were reviewed and updated as appropriate: allergies,current medications, medical history, social history, surgical history and problem list. REVIEW OF SYSTEMS The following systems were negative: Constitutional, Skin, Eyes, ENT, CV, Respiratory, GI, , Hematologic, Musculoskeletal, Neuro, Psych Cardiac Risk Scoring: DASI Calculations Flowsheet Row Comprehensive Visit from 11/04/2021 in Preoperative Evaluation Center in [place], [place] Estimated V02 Peak 28.82 Estimated MET Level 8.23 OBJECTIVE OBJECTIVE PHYSICAL EXAMINATION General/Constitutional Constitutional Assessment: Overweight General State of Health: Healthy appearing Airway (HEENT) Mallampati: II TM Distance: >3 FB Neck ROM: Limited Mouth Opening: > 3 cm Upper Lip Bite Test: II Dental Assessment: Dentition intact Cardiovascular Rhythm: Regular Rate: Normal Cardiovascular Assessment: Normal Pulmonary Pulmonary Assessment: Clear and non labored Neurological Neurologic Assessment: Alert Musculoskeletal MSK Assessment: Normal Ambulate with: None Psychiatric Psychiatric Assessment: Calm Dermatology Skin Assessment: normal ASSESSMENT / PLAN Anesthesia: Patient denies previous anesthesia related complications. Airway Hx (aka airway management): nl #1 Personal History Of Malignant Neoplasm Of Prostate RRP Planned #2 Hypertension Essential Primary Compliant with medications. No cardiorespiratory symptoms. 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 He will stay on his HCTZ and metoprolol the morning of surgery. #3 Bundle Branch Block Left No symptoms. First found on ECG 07-17-2013. I will not pursue anything further. #4 Preoperative Exam Anesthesia and monitoring discussed in detail. Lab unremarkable in past years. Repeat pending OKA Reviewed with patient the Checklist for Surgical Patients [id number]. Written and verbal instructions given on medication management before surgery. RECOMMENDATIONS: Patient medically optimized for planned procedure: Yes Further Recommendations: None Caprini Total Score: 10 The patient is at the highest risk for postoperative DVT or PE. Mechanical AND chemoprophylaxis are recommended at the time of procedure and during postoperative hospitalization, as well as chemoprophylaxis at the time of hospital discharge, unless there are contraindications or risk of bleeding outweighs benefits of chemoprophylaxis. documented in this encounter Plan of Treatment Not on filedocumented as of this encounter Procedures Procedure Name Priority Date/Time Associated Diagnosis Comme nts CBC WITHOUT Routine 11/04/2021 1:40 PM Personal History Of Re sults for this DIFFERENTIAL, B CDT Malignant Neoplasm Of pro cedure are in Prostate the results section. BASIC METABOLIC Routine 11/04/2021 1:40 PM Personal History Of Results for this PANEL, S/P CDT Malignant Neoplasm Of proced ure are in Prostate the results section. ECG Routine 11/04/2021 1:04 PM Preoperative Exam Resu lts for this CDT procedure are i n the results section. documented in this encounter Results (ABNORMAL) CBC without Differential (11/04/2021 1:40 PM CDT) [facility] Method Time Signature Hemoglobin 15.4 13.2 - [...] Laterality Blood (Blood, 11/04/2021 1:40 PM 11/05/19 1:58 Venous) CDT PM CDT Tala Wu APRN, C.N.P., D.N.P. LAB BLOOD ADD-ON Performing Organization Address City/State/ZIP Code Phon e Number [facility] - [address] [place], [place] [address] [facility] [address] Laboratories-[facility] [address] (ABNORMAL) Basic Metabolic Panel (11/04/2021 1:40 PM CDT) P athologist Signature Potassium, S 4.1 3.6 - [...] 11/04/2021 DTL Black/ mL/min/BSA 2:29 PM CDT Cameroonian Comment: ----ADDITIONAL INFORMATION---- Estimated GFR calculated using [...] 11/05/19 2:09 Venous) CDT PM CDT Tala Otoole Bryce HANSON, C.N.P., D.N.P. LAB BLOOD ADD-ON Performing Organization Address City/[facility] Phon e Number [facility] - [address] [place], [place] [address] [facility] [place] [address] Laboratories-[facility] 200 [facility] ECG 12 Lead (11/04/2021 1:04 PM CDT) P athologist Signature Ventricular Rate 59 BPM MUSE ECG/Min OR Interval 204 ms MUSE QRSD Interval 168 ms MUSE QT Interval 450 ms MUSE QTC Interval 445 ms MUSE P [place] 49 degrees MUSE R [place] -18 degrees MUSE T Wave [place] 124 degrees MUSE Specimen Anatomical Collection Method Collection Time Receive d Time (Source) Location / / Volume Laterality 11/04/2021 1:04 PM 1:13 CDT PM CDT Impressions MUSE - 11/04/2021 1:13 PM CDT Sinus bradycardia with 1st degree A-V block Left bundle branch block with secondary ST-T abnormalities When compared with ECG of 11-JUN-2017 09 :30, OR interval has increased Reviewed by CB Mcclure Narrative This result has an attachment that is no t available. Procedure Note Tamir Bolton M.D. - 11/04/2021Forma tting of this note might be different from the original. IMPRESSION: Sinus bradycardia with 1st degree A-V bl ock Left bundle branch block with secondary ST-T abnormalities When compared with ECG of 11-JUN-2017 09 :30, OR interval has increased Reviewed by CB Mcclure Kristie Thorpe APRN, C.N.P., M.S.N. ECG ORDERABLES Performing Organization Address City/[facility]/ZIP Code Phon e Number MUSE MUSE NA documented in this encounter Visit Diagnoses Diagnosis Hypertension Essential Primary - Primary Personal History Of Malignant Neoplasm O f Prostate Bundle Branch Block Left Preoperative Exam documented in this encounter Care Teams Shrimper Relationship Specialty Start Date End Date Elsewhere, Pcp PCP - General 12/02/20 documented as of this encounter
--- OUTSIDE RECORDS SUMMARY | 2022-02-07 08:10 | XMS_ITS | Encounter Summary ---
:1955 Author Organization [facility] Address [address] [place] [address] Care Team Providers Name Role Phone Elsewhere, Pcp Primary Care Provider Unavailable Reason for Referral Outpatient (Routine) - Closed Specialty Diagnoses / Procedures Referred By Contact Refer red To Contact Diagnoses Abnormal Magnetic Resonance Imaging Prostate Winnie Banegas P.A.-C. [facility] Procedures URO Transperineal MR Fusion [address] [place] [address] Referral ID Status Reason Start Date Expiration Date Visits Requ ested Visits Authorized [id number] Closed 08/22/2021 08/22/2022 1 1 Encounter Details Date Type Department Care Team Description 08/22/2021 Orders Only Department of Urology Winnie Banegas Ab normal Magnetic in [facility] P.ASadia-[place]st. Resonance Imaging [place] [address] [facility] Prostate (Primary Dx) [address] [place] [phone] Social History Tobacco Use Types Packs/Day Years [...] or relatives? How often do you attend religion or More than 4 times per year 11/01/2021 zoroastrianism services? Do you belong to any clubs or Yes 11/01/2021 organizations such as religion groups, unions, fra[employer] or athletic groups, or school groups? How [...] slept in a skilled nursing (including now)? 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 - 0 08/31/2021 4:12 PM CDT Leon Worthy APRN, C.N.P., M.S.N. ? 08/31/2021 ??4:15 PM URO Transperineal MR Fusion Date/Time: 08/31/2021 4:12 PM Performed by: Leon Worthy APRN, C.N. P., M.S.N. Authorized by: Winnie Banegas P.A.-C. Care team members present 1. Luis Correia 2. Yasmeen Hubbard, LSadiaPSadiaNSadia IMPRESSION ?? Indeterminate prostate lesion PROCEDURE DETAILS Setting: ??Clinic Position: ??Dorsal lithotomy Biopsy option(s) include: MR Fusion Biopsy type: transperineal Region(s) of interest: ??CANDACE #1 CANDACE # 1 - location: ??left, transitional /central zone CANDACE # 1 - PiRADS: ??4 CANDACE # 1 - number of cores: ??3 BIOPSY DETAILS ?Right prostate lobe - number of biops ies: ??6 ??Left prostate lobe - number of biopsi es: ??6 ULTRASOUND DETAILS: Ultrasound image guidance used to locali ze target, identify at risk structures, and dynamically used to dire ct therapy to the target. Image(s) acquired and saved. Ultrasound performed for diagnostic purp oses. ??Prostate height (mm): ??24 ??Prostate width (mm): ??54 ??Prostate length (mm): ??44 ??Prostate (Ellipsoid) volume (cc): ??2 9.86 URONAV 3D image(s) acquired and saved. ADDITIONAL DETAILS: Known prostate cancer: no ?? History of prior negative prostate biops y: no ?? Is this the first prostate biopsy?: yes ?? CONSENT Consent obtained: written UNIVERSAL PROTOCOL All relevant documentation and testing w ere reviewed and available. All required blood products, implants, devic es and or special equipment were made available as applicable. Pre-proced ure verification was conducted and the correct site was marked if required. A fire risk assessment was done as applicable. The procedural time-out w as conducted prior to performing the procedure and confirmed in a procedu ral pause. PRE PROCEDURE DETAILS Procedure purpose: ??Diagnostic Indications: ??Lesion noted on MRI Digital rectal exam findings: ??No nodul es or induration Appropriate hand hygiene, gown, cap, mas k, protective eyewear, sterile gloves, skin preparation, sterile drape, and strict aseptic technique were utilized as applicable for the procedure .: yes ?? Skin preparation: ??Chlorhexidine SEDATION / ANESTHESIA Anesthesia method: local infiltration POST PROCEDURE DETAILS Procedure completed successfully: yes ?? Complications: ??None COMMENTS Biopsy pain score 3/10 Winnie Banegas P.A.-C. UROLOGY ORDERABLES documented in this encounter Visit Diagnoses Diagnosis Abnormal Magnetic Resonance Imaging Pros branch - Primary Abnormal Magnetic Resonance Imaging Pros branch documented in this encounter Care Teams Time Piece Repairer Relationship Specialty Start Date End Date Elsewhere, Pcp PCP - General 12/02/20 documented as of this encounter
--- OUTSIDE RECORDS SUMMARY | 2022-02-07 08:10 | XMS_ITS | Encounter Summary ---
:1955 Author Organization [facility] Address [address] [place] [address] Care Team Providers Name Role Phone Elsewhere, Pcp Primary Care Provider Unavailable Encounter Details Date Type Department Care Team Description 08/24/2021 Hospital Encounter Department of Bassam, Winnie brandon Laboratory Medicine R, P.A.-C. Prostate-Specific in [place], [place] [address] [facility] Antigen [address] [place] [phone] Social History Tobacco Use Types Packs/Day Years [...] or relatives? How often do you attend yazidi or More than 4 times per year 11/01/2021 mormon services? Do you belong to any clubs or Yes 11/01/2021 organizations such as yazidi groups, unions, fraternal or athletic groups, or [...] or slept in a jail (including now)? 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 documented in this encounter Results Bacterial Culture, Aerobic + Susc, Urine (08/24/2021 9:01 AM CDT) [facility] gist Method Time Signature Urine Culture [...] Organization Address City/State/ZIP Code Phon e Number [facility] - [address] [place], [place] [address] [facility] [place] [address] [facility] [address] documented in this encounter Visit Diagnoses Diagnosis Elevated Prostate-Specific Antigen documented in this encounter Care Teams Manager Utilization Relationship Specialty Start Date End Date Elsewhere, Pcp PCP - General 12/02/20 documented as of this encounter
--- OUTSIDE RECORDS SUMMARY | 2022-02-07 08:10 | XMS_ITS | Encounter Summary ---
:1955 Author Organization [facility] Address [address] [place] [address] Care Team Providers Name Role Phone Elsewhere, Pcp Primary Care Provider Unavailable Reason for Visit Reason Comments Patient Education Consult conducted via real-t torito audio/video technology by Elo Coats R.N., C.M.S.R.N. in [facility] to the patient in Patient's Home Encounter Details Date Type Department Care Team Description 11/02/2021 Education Department of Patient Ubl, Leta Otoole APRN, C.N.P., D.N.P. [address] [place] [phone] Personal History Of Education in Elo Coats R.N., C.M.S.R.N. [address] [place] [phone] Malignant Neoplasm Of [place], [place] Prostate [address] [place] [phone] Social History Tobacco Use Types Packs/Day Years [...] or relatives? How often do you attend moravian or More than 4 times per year 11/01/2021 oriental orthodox services? Do you belong to any clubs or Yes 11/01/2021 organizations such as moravian groups, unions, fra[employer] or athletic groups, or school groups? 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
--- OUTSIDE RECORDS SUMMARY | 2022-02-07 08:10 | XMS_ITS | Encounter Summary ---
:1955 Author Organization [facility] Address [address] [place] [address] Care Team Providers Name Role Phone Elsewhere, Pcp Primary Care Provider Unavailable Reason for Visit Outpatient (Routine) - Closed Specialty Diagnoses / Procedures Referred By Contact Refer red To Contact Urology Diagnoses Elevated Prostate-Specific Antigen Alexandra Santiago C.N.P. [place] [address] [place] [phone] Referral ID Status Reason Start Date Expiration Date Visits Requ ested Visits Authorized [id number] Closed 07/04/2021 07/04/2022 1 1 Encounter Details Date Type Department Care Team Description 07/11/2021 Comprehensive Visit Department of Winnie Banegas ed Urology in R, P.A.-C. Prostate-Specific [place], [place] [address] [facility] Antigen [address] [place] [phone] Social History Tobacco Use Types Packs/Day Years [...] More than 4 times per year 11/01/2021 jainism services? Do you belong to any clubs or Yes 11/01/2021 organizations such as anglican groups, unions, fraKapost or athletic groups, or school groups? 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 - 07/11/2021 9:30 AM CST REFERRAL SOURCE The patient is being seen in consultation at the request of Alexandra Santiago C.NSadiaPSadia [address] [facility] [address] [place] [address] I personally reviewed outside records as summarized in the HPI. HISTORY OF PRESENT ILLNESS Mr. Mendez is a pleasant 65 y.o. male who presents today for elevated PSA with his brother who usedto work in our department for total 44 years. He brings with him a record from an outside institution showing his PSA being elevated at 9.02 last month. He has no personal history of previous elevated PSA, prostate biopsy or needing a prostate MRI. He was not experiencing any symptoms for urinary tract infection or prostatitis at the time of the blood draw. He has no hematuria or significant LUTS. Family history of paternal uncle with prostate cancer and maternal grandfather with bladder cancer. He also notes he has developed some erectile dysfunction over last couple of years. He can achieve a7/10 erection but notes the rigidity is not quite what it used to be and has a difficult time maintaining the quality of his erections. Denies any penile curvature. Denies the use of PDE5 inhibitors. As part of his weight loss routine he drinks at least 64 oz of fluid throughout the day. Denies sensation of incomplete bladder emptying or bothersome urinary frequency or urgency. PAST MEDICAL/SURGICAL HISTORY MEDICAL Past Medical History: Diagnosis Date ??? Cataract ??? Hyperlipidemia 11/09/2005 ??? Hypertension Essential Primary 04/23/2006 ??? Impaired Fasting Glucose 05/27/2016 SURGICAL Past Surgical History: Procedure Laterality Date ??? OTHER SURGICAL HISTORY ??? ROTATOR CUFF REPAIR Right ALLERGIES No Known Allergies SOCIAL HISTORY Social History Socioeconomic History ??? [...] date: 10/06/1972 Quit date: 06/04/1999 Years since quittin.1 ??? Smokeless tobacco: Never Used Substance and [...] Housing Stability: Not on file FAMILY HISTORY malignancies: Paternal uncle, prostate cancer Maternal grandfather, bladder cancer SYSTEMS REVIEW Patient rates his pain 0/10 on the pain scale. Patient denies any constitutional symptoms of fever, chills, nausea, vomiting, shortness of breath, chest pain, suprapubic, flank, testicular, penile pain. He denies any unintentional weight loss or bone pain. He denies constipation. He denies any urinary symptoms of frequency, urgency, hesitancy, hematuria, incontinence, dysuria. PHYSICAL EXAMINATION There were no vitals taken for this visit. General: Well-appearing male in no acute apparent distress. Neuro: Alert and orientated x3. Psych: Maintained eye contact throughout conversation. Skin: No rashes in the areas examined. Lungs: Normal respiratory effort upon inspiration. Musculoskeletal: Normal gait noted with ambulation. No CVA tenderness. Rectal: Normal sphincter tone. Prostate: I was only able to palpate the proximal 1/3 no palpable nodules or areas of induration LABS Lab Results Component Value Date/Time CREATININE 0.93 06/24/2020 08:08 AM CREATININE 0.80 05/29/2019 07:53 AM CREATININE 0.81 05/24/2018 08:35 AM CREATININE 0.8 06/11/2017 09:23 AM CREATININE 0.9 05/24/2017 10:09 AM CREATININE 0.9 04/21/2016 08:28 AM CREATININE 1.0 04/23/2015 09:04 AM CREATININE 0.9 04/28/2014 08:15 AM Lab Results Component Value Date/Time PSA 3.7 04/23/2015 09:04 AM PSA 3.4 04/25/2013 11:06 AM PSA 2.2 04/22/2012 08:33 AM MICROBIOLOGY/CULTURE DATA Microbiology Results (last 30 days) No results found for the last 720 hours. PATHOLOGY No results found for this or any previous visit (from the past 720 hour(s)). IMAGING AND TESTS @[id number]@ IMPRESSION/REPORT/PLAN #1 Elevated Prostate-Specific Antigen It was my please to meet Mr. Mendez in clinic today for elevated PSA. We discussed the etiologies of elevated PSA in detail which would include infection, inflammation, ejaculation prior to sampling, BPH, recent perineal trauma or catheterization, versus malignancy. We discussed his treatment options which would include observation, a transrectal ultrasound biopsy of the prostate, versus MRI of the prostate. After a detailed discussion, the patient elects to proceed with recheck PSA in one month. #2 Erectile dysfunction We reviewed the natural history of erectile dysfunction, its progression with age, and its importance as a marker of underlying vascular disease. We further reviewed potential contributing factors to the development of erectile dysfunction and discussed a step-park approach to management. We noted that in general, phosphodiesterase-5 inhibitors are the preferred first line agents, with intracavernosal injections used in cases of inadequate or unsatisfactory response. Vacuum erection devices may be used alone or in combination with other therapies and are available with or without a prescription if desired. We additionally reviewed that surgery is reserved for cases of erectile dysfunction which are not responsive to more conservative therapies. #3 Family history of prostate cancer Multiple questions were answered to patient's satisfaction. A business card was provided to the patient, it if he has any additional questions or concerns he is free to contact me. Plan: Recheck PSA in 1 month if continues to be elevated proceed to prostate MRI. I will follow-up its sallyvia the online portal with the results. Trial Cialis 5 mg daily can take additional 5-15 mg as a booster 1 hour prior to sexual activity. Wediscussed most common side effects. HIC DESIGN INTERN documented in this encounter Plan of Treatment Not on filedocumented as of this encounter Results (ABNORMAL) PSA (Prostate-Specific Antigen), Diagnostic (08/12/2021 8:40 AM GRAPHIC DESIGN INTERN) athologist Signature Prostate-Speci 10.2 (H) <=4.5 08/12/2021 DTL fic Ag ng/mL 2:29 PM GRAPHIC DESIGN INTERN Comment: ----ADDITIONAL INFORMATION---- The testing method is an electrochemilum inescence assay manufactured by [employer] and performed on the Modular or Barber system . Values obtained with different assay met hods or kits may be different and cannot be used inte rchangeably. Test results cannot be interpreted as ab solute evidence for the presence or absence of malignant disease. Specimen Anatomical Collection Method Collection Time Receive d Time (Source) Location / / Volume Laterality Blood (Blood, 08/12/2021 8:40 AM 08/13/19 22 1:17 Venous) GRAPHIC DESIGN INTERN PM GRAPHIC DESIGN INTERN Winnie Banegas P.A.-C. LAB BLOOD ADD-ON Performing Organization Address City/State/ZIP Code Phon e Number [facility] - [address] [place], [place] [address] [facility] [place] [address] [facility] [address] documented in this encounter Visit Diagnoses Diagnosis Elevated Prostate-Specific Antigen documented in this encounter Care Teams Submarine Worker Relationship Specialty Start Date End Date Elsewhere, Pcp PCP - General 12/02/20 documented as of this encounter
--- OUTSIDE RECORDS SUMMARY | 2022-02-07 08:10 | XMS_ITS | Encounter Summary ---
:1955 Author Organization [facility] Address [address] [place] [address] Care Team Providers Name Role Phone Elsewhere, Pcp Primary Care Provider Unavailable Reason for Referral MRI/CAT/PET Scan (Routine) - Closed Specialty Diagnoses / Procedures Referred By Contact Refer red To Contact Radiology Diagnoses Elevated Prostate-Specific Antigen Winnie Banegas P.A.-C. [facility] Procedures MR Prostate without and with IV Contrast [address] [place] [address] Referral ID Status Reason Start Date Expiration Date Visits Requ ested Visits Authorized [id number] Closed 08/15/2021 08/15/2022 1 1 Encounter Details Date Type Department Care Team Description 08/15/2021 Orders Only Department of Urology Winnie Banegas El evated in [place] Prostate-Specific [place] [address] [facility] Antigen (Primary Dx) [address] [place] [phone] Social History Tobacco Use Types Packs/Day Years [...] or relatives? How often do you attend hoahaoism or More than 4 times per year 11/01/2021 anglican services? Do you belong to any clubs or Yes 11/01/2021 organizations such as hoahaoism groups, unions, fraternal or athletic groups, or [...] slept in a senior living (including now)? 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 Winnie Banegas P.A.-C. IMG MRI PROCEDURES documented in this encounter Visit Diagnoses Diagnosis Elevated Prostate-Specific Antigen - Magda festus Elevated Prostate-Specific Antigen documented in this encounter Care Teams Teacher Relationship Specialty Start Date End Date Elsewhere, Pcp PCP - General 12/02/20 documented as of this encounter
--- OUTSIDE RECORDS SUMMARY | 2022-02-07 08:10 | XMS_ITS | Encounter Summary ---
:1955 Author Organization [facility] Address [address] [place] [address] Care Team Providers Name Role Phone Elsewhere, Pcp Primary Care Provider Unavailable Reason for Visit Outpatient (Routine) - Closed Specialty Diagnoses / Procedures Referred By Contact Refer red To Contact Diagnoses Abnormal Magnetic Resonance Imaging Prostate Winnie Banegas P.A.-C. [facility] Procedures URO Transperineal MR Fusion [address] [place] [address] [phone] Referral ID Status Reason Start Date Expiration Date Visits Requ ested Visits Authorized [id number] Closed 08/22/2021 08/22/2022 1 1 Encounter Details Date Type Department Care Team Description 08/31/2021 Procedure visit Department of Urology Jomar Banegas P.A.-C. [address] [place] [address] [phone] Abnormal Magnetic in [place], Yung'Leon Pelayo, VALENTIN, C.N.P., M.S.N. [address] [place] [address] [phone] Resonance Imaging [place] [facility] [address] [place] [address] [phone] Social History Tobacco Use Types Packs/Day Years [...] or relatives? How often do you attend gnosticist or More than 4 times per year 11/01/2021 presybeterian services? Do you belong to any clubs or Yes 11/01/2021 organizations such as gnosticist groups, unions, fraternal or athletic groups, or [...] or slept in a usp (including now)? 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 - 08/31/2021 8:00 AM CDT Patient was seen for transperineal biopsy. Probe used: serial number [id number]). documented in this encounter Procedure Notes O'Gita, Leon J, DIRECTOR OF CONSULTING SERVICES, C.NSyl, M.S.N. - 08/31/2021 8:00 AM CDTAssociated Order(s): URO Transperineal MR Fusion Pre-Procedure Diagnose(s): Abnormal Magnetic Resonance Imaging Prostate Post-Procedure Diagnose(s): Abnormal Magnetic Resonance Imaging Prostate URO Transperineal MR Fusion Date/Time: 08/31/2021 4:12 PM Performed by: Leon Worthy APRN, Ernst.Kayden, M.S.N. Authorized by: Winnie Banegas PSadiaAChasity Care team members present 1. Luis Correia 2. Yasmeen Hubbard L.P.N. IMPRESSION Indeterminate prostate lesion PROCEDURE DETAILS Setting: Clinic Position: Dorsal lithotomy Biopsy option(s) include: MR Fusion Biopsy type: transperineal Region(s) of interest: CANDACE #1 CANDACE # 1 - location: left, transitional/central zone CANDACE # 1 - PiRADS: 4 ACNDACE # 1 - number of cores: 3 BIOPSY DETAILS Right prostate lobe - number of biopsies: 6 Left prostate lobe - number of biopsies: 6 ULTRASOUND DETAILS: Ultrasound image guidance used to localize target, identify at risk structures, and dynamically usedto direct therapy to the target. Image(s) acquired and saved. Ultrasound performed for diagnostic purposes. Prostate height (mm): 24 Prostate width (mm): 54 Prostate length (mm): 44 Prostate (Ellipsoid) volume (cc): 29.86 URONAV 3D image(s) acquired and saved. ADDITIONAL DETAILS: Known prostate cancer: no History of prior negative prostate biopsy: no Is this the first prostate biopsy?: yes CONSENT Consent obtained: written UNIVERSAL PROTOCOL All relevant documentation and testing were reviewed and available. All required blood products, implants, devices and or special equipment were made available as applicable. Pre-procedure verificationwas conducted and the correct site was marked if required. A fire risk assessment was done as applicable. The procedural time-out was conducted prior to performing the procedure and confirmed in a procedural pause. PRE PROCEDURE DETAILS Procedure purpose: Diagnostic Indications: Lesion noted on MRI Digital rectal exam findings: No nodules or induration Appropriate hand hygiene, gown, cap, mask, protective eyewear, sterile gloves, skin preparation, sterile drape, and strict aseptic technique were utilized as applicable for the procedure.: yes Skin preparation: Chlorhexidine SEDATION / ANESTHESIA Anesthesia method: local infiltration POST PROCEDURE DETAILS Procedure completed successfully: yes Complications: None COMMENTS Biopsy pain score 3/10 documented in this encounter Plan of Treatment Not on filedocumented as of this encounter Procedures Procedure Name Priority Date/Time Associated Comments Diagnosis VT MRI IMAGE FUSION Routine 08/31/2021 4:12 PM Abnormal Magnet ic Results for this CDT Resonance Imaging procedure are in Prostate the results section. VT US TRANSRECTAL Routine 08/31/2021 4:12 PM Abnormal Magnetic Results for this CDT Resonance Imaging procedure are in Prostate the results section. VT BIOPSY PROSTATE Routine 08/31/2021 4:12 PM Abnormal Magneti c Results for this NEEDLE/PUNCH CDT Resonance Imaging procedure are in Prostate the results section. SURGICAL PATHOLOGY Routine 08/31/2021 8:00 AM Abnormal Magneti c Results for this CDT Resonance Imaging procedure are in Prostate the results section. documented in this encounter Results VT BIOPSY PROSTATE NEEDLE/PUNCH, VT US TRANSRECTAL, VT MRI IMAGE FUSION (08/31/2021 4:12 PM CDT) [...] members present 1. Luis Correia 2. Yasmeen Hubbard L.P.N. IMPRESSION ?? Indeterminate prostate lesion PROCEDURE DETAILS [...] score 3/10 Winnie Banegas P.A.-C. UROLOGY ORDERABLES Surgical Pathology (08/31/2021 8:00 AM CDT) Component Value Ref Test Analysis Performed Pathologis t Range Method Time At Signature 09/02/2021 DTL 1:19 PM CDT Report Dean Webb., Ph.D. 09/02/2021 DTL electronically 1:19 PM signed by CDT I verify that I have examined all relevant slides/materials for the specimen(s) and rendered or confirmed the diagnosis. Gross Description A: ?? Received on a biopsy board filled with form esther 09/02/2021 DTL labeled with the patient's name, medical record number, and 1:19 PM specific prostate sites are six oriented pink cody tissue CDT cores. A. Received within the first well is a fragmented core 1.5 cm in length labeled right posterior medial apex, prostate per biopsy board. The core is inked black at the distal end. B. Received within the second well is a complete core 1.3 cm in length labeled right posterior medial base, prostate per biopsy board. The core is inked green, and over-inked black at the distal end. C. Received within the third well is a fragmented core 1.8 cm in length labeled right posterior lateral apex, prostate per biopsy board. The core is inked blue, and over-inked black at the distal end. Specimens A, B, & C are submitted in cassette A1. D. Received within the fourth well is a complete core 1.6 cm in length labeled right posterior lateral base, prostate per biopsy board. The core is inked black at the distal end. E. Received within the fifth well is a complete core 1.7 cm in length labeled right anterior horn, prostate per biopsy board. The core is inked green, and over-inked black at the distal end. F. Received within the sixth well is a fragmented core 1.5 cm in length labeled right anterior apex, prostate per biopsy board. The core is inked blue, and over-inked black at the distal end. Specimens D, E, & F are submitted in cassette D1. Gross by AJG. ?? G: ?? Received on a biopsy board filled wit h formalin labeled with the patient's name, medical record number, and specific prostate sites are six oriented pink cody tissue cores. G. Received within the first well is a fragmented core 1.7 cm in length labeled left posterior medial apex, prostate per biopsy board. The core is inked black at the distal end. H. Received within the second well is a complete core 1.6 cm in length labeled left posterior medial base, prostate per biopsy board. The core is inked green, and over-inked black at the distal end. I. Received within the third well is a fragmented core 1.0 cm in length labeled left posterior lateral apex, prostate per biopsy board. The core is inked blue, and over-inked black at the distal end. Specimens G, H, & I are submitted in cassette G1. J. Received within the fourth well is a fragmented core 1.7 cm in length labeled left posterior lateral base, prostate per biopsy board. The core is inked black at the distal end. K. Received within the fifth well is a fragmented core 1.5 cm in length labeled left anterior horn, prostate per biopsy board. The core is inked green, and over-inked black at the distal end. L. Received within the sixth well is a fragmented core 1.8 cm in length labeled left anterior apex, prostate per biopsy board. The core is inked blue, and over-inked black at the distal end. Specimens J, K, & L are submitted in cassette J1. Gross by AJ. M: ?? Received in formalin labeled with the patient's name, medical record number, and [id number] transition zone are three pale cody-pink soft tissue cores and three fragments, ranging from 0.2-1.6 cm in length. ??Specimens are submitted en toto in cassette M1. ??Grossed by AJG. Interpretation FINAL DIAGNOSIS 09/02/2021 DTL A. Prostate, right posterior medial apex, needle core 1:19 PM biopsy: Benign prostatic tissue. CDT B. Prostate, right posterior medial base, needle core biopsy: Atypical small glands suspicious for, but not diagnostic of, malignancy. C. Prostate, right posterior lateral apex, needle core biopsy: Benign prostatic tissue. D. Prostate, right posterior lateral base, needle core biopsy: Benign prostatic tissue. E. Prostate, right anterior horn, needle core biopsy: Prostatic adenocarcinoma Type: Acinar Shelbie score 3+3=6 Grade Group: 1 Tumor involves 30% of overall specimen (1 of 1 core). F. Prostate, right anterior apex, needle core biopsy: Benign prostatic tissue. G. Prostate, left posterior medial apex, needle core biopsy: Prostatic adenocarcinoma Type: Acinar Athens score 3+3=6 Grade Group: 1 Tumor involves <10% of overall specimen (1 of 1 core). H. Prostate, left posterior medial base, needle core biopsy: Prostatic adenocarcinoma Type: Acinar Athens score 3+3=6 Grade Group: 1 Tumor involves <5% of overall specimen (1 of 1 core). High-grade prostatic intraepithelial neoplasia is identified. I. Prostate, left posterior lateral apex, needle core biopsy: Benign prostatic tissue. J. Prostate, left posterior lateral base, needle core biopsy: Atypical small glands suspicious for, but not diagnostic of, malignancy. K. Prostate, left anterior horn, needle core biopsy: Focal high-grade prostatic intraepithelial neoplasia. L. Prostate, left anterior apex, needle core biopsy: Prostatic adenocarcinoma Type: Acinar Athens score 3+3=6 Grade Group: 1 Tumor involves <5% of overall specimen (1 of 1 core; the specimen is fragmented). M. Prostate, ??ROI1-left transition zone, ??needle core biopsy: Prostatic adenocarcinoma Type: Acinar Athens score: 3+4=7 Percentage of pattern 4: 5% Grade Group: 2 Tumor involves 70% of overall specimen (3 of 3 cores). The most affected core is involved by tumor over 90% of its length. Specimen Anatomical Collection Method Collection Time Receive d Time (Source) Location / / Volume Laterality Varies 08/31/2021 8:00 AM CDT 10:05 AM CDT Narrative This result has an attachment that is no t available. Leon Worthy APRN CSadiaN.P., M.S.N. LAB SURG PATH ORDER ANITA Performing Organization Address City/State/ZIP Code Phon e Number [facility] - [address] [place], [place] [address] [place] [address] [facility] [address] documented in this encounter Visit Diagnoses Diagnosis Abnormal Magnetic Resonance Imaging Pros branch documented in this encounter Administered Medications Inactive Administered Medications - up to 3 most recent administrations Medication Order MAR Action Action Date Dose Rate Site lidocaine 10 mg/mL (1 %) injection Given 08/31/2021 8:42 AM CDT 30 mL 30 mL (XYLOCAINE) 30 mL, injection, Once, On Sun08/31/21 at 0800, For 1 dose documented in this encounter Care Teams Bottle Filler Relationship Specialty Start Date End Date Elsewhere, Pcp PCP - General 12/02/20 documented as of this encounter
--- OUTSIDE RECORDS SUMMARY | 2022-02-07 08:10 | XMS_ITS | Encounter Summary ---
:1955 Author Organization [facility] Address [address] [place] [address] Care Team Providers Name Role Phone John Paul Javier M.D. Primary Care Provider Unavailable Encounter Details Date Type Department Care Team Description 08/03/2020 Orders Only RST PCP [facility] MNT Arsh Mustafa Jr., M.D. [address] [facility] [place] [phone] (Wo rk) Social History Tobacco Use Types [...] or relatives? How often do you attend christianity or More than 4 times per year 11/01/2021 confucianist services? 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 PCP - General Family Medicine 12/01/17 11/21/20 documented as of this encounter
--- OUTSIDE RECORDS SUMMARY | 2022-02-07 08:11 | XMS_ITS | Encounter Summary ---
:1955 Author Organization [facility] Address [address] [place] [address] Care Team Providers Name Role Phone John Paul Javier M.D. Primary Care Provider Unavailable Reason for Visit Reason Onset Date Comments Med Refill 05/22/2018 Encounter Details Date Type Department Care Team Description 05/22/2018 Clinical Communication Division of [facility] John Paul Javier Med Refill Pediatric and [facility], [place], [place] [address] [place] [phone] Social History Tobacco Use Types Packs/Day Years Used Date Smoking Tobacco: Former Alcohol Habits Answer Date Recorded How often [...] or relatives? How often do you attend holiness or More than 4 times per year 11/01/2021 restoration services? 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 Quantity: Pharmacy:[facility] Pt states that he is completely out. OR LINUX SYSTEMS ENGINEER documented in this encounter Plan of Treatment Not on filedocumented as of this encounter Visit Diagnoses Diagnosis Hypertension Essential Primary documented in this encounter Care Teams Seed Packer Relationship Specialty Start Date End Date John Paul Javier M.D. PCP - General Family Medicine 12/01/17 11/21/20 documented as of this encounter
--- OUTSIDE RECORDS SUMMARY | 2022-02-07 08:11 | XMS_ITS | Encounter Summary ---
:1955 Author Organization [facility] Address [address] [place] [address] Care Team Providers Name Role Phone John Paul Javier M.D. Primary Care Provider Unavailable Reason for Visit Reason Comments Med Refill Encounter Details Date Type Department Care Team Description 05/17/2020 Clinical Communication Department of [facility], [facility] M.D. [place], [place] [address] [place] [phone] Social History Tobacco Use Types Packs/Day Years [...] or relatives? How often do you attend orthodoxy or More than 4 times per year 11/01/2021 roman catholic services? Do you belong to any clubs or Yes 11/01/2021 organizations such as orthodoxy groups, unions, fraternal or athletic groups, or [...] or slept in a correction (including now)? 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 - 05/17/2020 1:40 PM CLERICAL MANAGER Thank you Nancy. Getting him rescheduled should be just fine- I'll renew those prescriptions. Rolando ICAL MANAGER Telephone Encounter - Nancy Daniels - 05/17/2020 12:[address] Javier, Called Mr. Mendez to set up a GME but he was unable to schedule at this time due to family issues. He did state he will call back to schedule but said his medications need to be refilled. Are you ableto refill those so he can get by until the GME is scheduled? Please respond to FRANCI NIÑO Scheduling pool if necessary ICAL MANAGER documented in this encounter Plan of Treatment Not on filedocumented as of this encounter Visit Diagnoses Diagnosis Hypertension Essential Primary Hyperlipidemia documented in this encounter Care Teams Tubing Mill Setter Relationship Specialty Start Date End Date John Paul Javier M.D. PCP - General Family Medicine 12/01/17 11/21/20 documented as of this encounter
--- OUTSIDE RECORDS SUMMARY | 2022-02-07 08:11 | XMS_ITS | Encounter Summary ---
:1955 Author Organization [facility] Address [address] [place] [address] Care Team Providers Name Role Phone John Paul Javier M.D. Primary Care Provider Unavailable Encounter Details Date Type Department Care Team Description 06/24/2020 Hospital Encounter Department of Kimberlee Jaiver For Therapeutic Drug Therapy; Laboratory Medicine John Paul Chiu M.D. Hyper tension Essential Primary in [place], [place] [address] [place] [phone] Social History Tobacco Use Types Packs/Day Years [...] or relatives? How often do you attend oriental orthodox or More than 4 times per year 11/01/2021 sabianist services? 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 DOCOSAHEXANOIC ACID/EPA Take 1 capsule 0 04/29/20 09 (FISH OIL ORAL) by mouth daily. hydroCHLOROthiazide Take 1 capsule 90 capsule 3 05/17/2020 (MICROZIDE) 12.5 mg (12.5 mg total) capsuleIndications: by mouth daily. Hypertension Essential Primary metoprolol succinate (Toprol Take 1 tablet 90 tablet 3 05/04 XL) 50 mg 24 hr (50 mg total) by tabletIndications: mouth daily. Hypertension Essential High blood Primary pressure MULTIVITAMIN ORAL Take 1 tablet by 0 02/08/2008 mouth daily. VITAMIN B COMPLEX ORAL Take 1 tablet by 0 013 mouth daily. aspirin (Aspirin Low Dose) Take 1 tablet 90 tablet 3 201910/07/[address] tabletIndications: (81 mg total) by Hypertension Essential mouth daily. Primary, Hyperlipidemia documented as of this encounter Plan of Treatment Not on filedocumented as of this encounter Procedures Procedure Name Priority Date/Time Associated Diagnosis Comme nts SODIUM, S/P Routine 06/24/2020 8:08 AM Hypertension Results f or this SENIOR QUALITY CONTROL INSPECTOR Essential Primary procedure are in the results section. POTASSIUM, S/P Routine 06/24/2020 8:08 AM Monitoring For Resul ts for this SENIOR QUALITY CONTROL INSPECTOR Therapeutic Drug procedure a re in Therapy the results section. CREATININE WITH Routine 06/24/2020 8:08 AM Monitoring For Resu lts for this EGFR, S/P SENIOR QUALITY CONTROL INSPECTOR Therapeutic Drug procedure a re in Therapy the results section. documented in this encounter Results Sodium (06/24/2020 8:08 AM SENIOR QUALITY CONTROL INSPECTOR) athologist Signature Sodium, P 140 135 - 145 06/24/2020 8:51 [facility] mmol/L AM SENIOR QUALITY CONTROL INSPECTOR Specimen Anatomical Collection Method Collection Time Receive d Time (Source) Location / / Volume Laterality Blood (Blood, 06/24/2020 8:08 AM 06/24/19 8:08 Venous) SENIOR QUALITY CONTROL INSPECTOR AM SENIOR QUALITY CONTROL INSPECTOR John Paul Javier M.D. LAB BLOOD ADD-ON Performing Organization Address City/[facility]/ZIP Code Phon e Number [facility] [address] [place] [address] [facility] [place], [place] [phone] [place] [address] Potassium (06/24/2020 8:08 AM SENIOR QUALITY CONTROL INSPECTOR) athologist Signature Potassium, P 4.9 3.6 - 5.2 06/24/2020 [facility] mmol/L 8:51 AM SENIOR QUALITY CONTROL INSPECTOR Specimen Anatomical Collection Method Collection Time Receive d Time (Source) Location / / Volume Laterality Blood (Blood, 06/24/2020 8:08 AM 06/24/19 8:08 Venous) SENIOR QUALITY CONTROL INSPECTOR AM SENIOR QUALITY CONTROL INSPECTOR John Paul Javier M.D. LAB BLOOD ADD-ON Performing Organization Address City/State/ZIP Code Phon e Number [facility] [address] [place] [address] [facility] [place], [place] [phone] [place] [address] Creatinine with Estimated GFR (06/24/2020 8:08 AM SENIOR QUALITY CONTROL INSPECTOR) athologist Signature Creatinine 0.93 0.74 - 06/24/2020 [facility] 1.35 mg/dL 8:51 AM SENIOR QUALITY CONTROL INSPECTOR eGFR-Black/Afric >90 >=60 06/24/2020 [facility] an Australian mL/min/BSA 8:51 AM SENIOR QUALITY CONTROL INSPECTOR Comment: ----ADDITIONAL INFORMATION---- Estimated GFR calculated using the 2009 CKD_EPI creatinine equation. eGFR Non-Black/ 86 >=60 mL/min/BSA 8:51 AM SENIOR QUALITY CONTROL INSPECTOR [facility] Comment: ----ADDITIONAL INFORMATION---- Estimated GFR calculated using the 2009 CKD_EPI creatinine equation. Specimen Anatomical Collection Method Collection Time Receive d Time (Source) Location / / Volume Laterality Blood (Blood, 06/24/2020 8:08 AM 06/24/19 8:08 Venous) SENIOR QUALITY CONTROL INSPECTOR AM SENIOR QUALITY CONTROL INSPECTOR John Paul Javier M.D. LAB BLOOD ADD-ON Performing Organization Address City/State/ZIP Code Phon e Number [facility] [address] [place] [id number] [facility] [address] documented in this encounter Visit Diagnoses Diagnosis Monitoring For Therapeutic Drug Therapy Hypertension Essential Primary documented in this encounter Care Teams Corset Fitter Relationship Specialty Start Date End Date John Paul Javier M.D. PCP - General Family Medicine 12/01/17 11/21/20 documented as of this encounter
--- OUTSIDE RECORDS SUMMARY | 2022-02-07 08:11 | XMS_ITS | Encounter Summary ---
:1955 Author Organization [facility] Address [address] [place] [address] Care Team Providers Name Role Phone Unavailable Primary Care Provider Unavailable Encounter Details Date Type Department Care Team Description 08/11/2005 Hospital Encounter HX NO MAPPING Social History Tobacco Use Types Packs/Day Years Used Date Smoking Tobacco: Never Assessed Alcohol Habits Answer Date Recorded How often [...] or relatives? How often do you attend mosque or More than 4 times per year 11/01/2021 moravian services? Do you belong to any clubs or Yes 11/01/2021 organizations such as mosque groups, unions, fraternal or athletic groups, or [...] place to sleep or slept in a half-way (including now)? 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
--- OUTSIDE RECORDS SUMMARY | 2022-02-07 08:11 | XMS_ITS | Encounter Summary ---
:1955 Author Organization [facility] Address [address] [place] [address] Care Team Providers Name Role Phone Hayder Anton D.O. Primary Care Provider Encounter Details Date Type Department Care Team Description 06/21/2017 Telemedicine Department of Gastroenterology Social History Tobacco Use Types Packs/Day Years [...] slept in a care home (including now)? 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 documented in this encounter Results GASTROENTEROLOGY IMAGE EXAM (06/21/2017 10:25 AM FULL STACK SOFTWARE ENGINEER) Specimen (Source) Anatomical Collection Method Collection Time Re ceived Time Location / / Volume Laterality 06/21/2017 10:23 AM FULL STACK SOFTWARE ENGINEER Narrative [facility] - 06/21/2017 11:38 AM FULL STACK SOFTWARE ENGINEER This order has been created and auto-finalized [...] on filedocumented in this encounter Care Teams Concrete Vibrator Operator Relationship Specialty Start Date End Date Hayder Anton D.O. PCP - General Family Medicine 12/02/14 11/30/17 documented as of this encounter
--- OUTSIDE RECORDS SUMMARY | 2022-02-07 08:11 | XMS_ITS | Encounter Summary ---
:1955 Author Organization [facility] Address [address] [place] [address] Care Team Providers Name Role Phone John Paul Javier M.D. Primary Care Provider Unavailable Encounter Details Date Type Department Care Team Description 05/29/2019 Hospital Encounter Department of Simba Javier Diabetes Mellitus; Laboratory Medicine John Paul Chiu M.D. [facility] For Therapeutic Drug Therapy; in [place], [facility] sential Primary [address] [phone] Social History Tobacco Use Types Packs/Day Years Used Date Smoking Tobacco: Former Cigarettes 10/1972 - 06/04/1999 Smokeless Tobacco: Never Alcohol Use Standard Drinks/Week Comments Yes 0 (1 standard drink = 0.6 oz [...] or relatives? How often do you attend congregation or More than 4 times per year 11/01/2021 congregation services? Do you belong to any clubs or Yes 11/01/2021 organizations such as congregation groups, unions, fraternal or athletic groups, or [...] or slept in a longterm (including now)? 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 MULTIVITAMIN ORAL Take 1 tablet by 0 02/08/2008 mouth daily. VITAMIN B COMPLEX ORAL Take 1 tablet by 0 013 mouth daily. aspirin (ASPIRIN LOW DOSE) Take 1 tablet 90 tablet 3 201705/30/[address] tabletIndications: (81 mg total) by Hypertension Essential mouth daily. Primary, Hyperlipidemia atorvastatin (LIPITOR) 20 mg Take 1 tablet 90 tablet 3 05/0505/30/2019 tabletIndications: (20 mg total) by Hyperlipidemia mouth daily. hydroCHLOROthiazide Take 1 tablet 60 tablet 0 05/22/2018 (HYDRODIURIL) 12.5 mg (12.5 mg total) tabletIndications: by mouth daily. Hypertension Essential High blood Primary pressure hydroCHLOROthiazide Take 1 capsule 90 capsule 3 05/29/2018 1 07/31/2018 (MICROZIDE) 12.5 mg (12.5 mg total) capsuleIndications: by mouth daily. Hypertension Essential Primary metoprolol succinate (TOPROL Take 1 tablet 90 tablet 3 05/0505/30/2019 XL) 50 mg 24 hr (50 mg total) by tabletIndications: mouth daily. Hypertension Essential High blood Primary pressure documented as of this encounter Plan of Treatment Not on filedocumented as of this encounter Procedures Procedure Name Priority Date/Time Associated Diagnosis Comme nts SODIUM, S/P Routine 05/29/2019 7:53 AM Hypertension Results f or this SONG PLUGGER Essential Primary procedure are in the results section. POTASSIUM, S/P Routine 05/29/2019 7:53 AM Hypertension Results for this SONG PLUGGER Essential Primary procedure are in the results section. GLUCOSE, FASTING, Routine 05/29/2019 7:53 AM Screening Examina tion Results for this S/P SONG PLUGGER Diabetes Mellitus procedure are in the results section. CREATININE WITH Routine 05/29/2019 7:53 AM Monitoring For Resu lts for this EGFR, S/P SONG PLUGGER Therapeutic Drug procedure a re in Therapy the results section. documented in this encounter Results Sodium (05/29/2019 7:53 AM SONG PLUGGER) athologist Signature Sodium, P 141 135 - 145 05/29/2019 8:38 [facility] mmol/L AM SONG PLUGGER Specimen Anatomical Collection Method Collection Time Receive d Time (Source) Location / / Volume Laterality Blood (Blood, 05/29/2019 7:53 AM 05/29/20 19 7:53 Venous) SONG PLUGGER AM SONG PLUGGER John Paul Javier M.D. LAB BLOOD ADD-ON Performing Organization Address City/[facility]/ZIP Code Phon e Number [facility] [address] [place] [address] [place] [address] [address] [facility] Potassium (05/29/2019 7:53 AM SONG PLUGGER) athologist Signature Potassium, P 4.9 3.6 - 5.2 05/29/2019 [facility] mmol/L 8:38 AM SONG PLUGGER Specimen Anatomical Collection Method Collection Time Receive d Time (Source) Location / / Volume Laterality Blood (Blood, 05/29/2019 7:53 AM 05/29/20 19 7:53 Venous) SONG PLUGGER AM SONG PLUGGER John Paul Javier M.D. LAB BLOOD ADD-ON Performing Organization Address City/[facility]/ZIP Code Phon e Number [facility] [address] [place] [address] [place] [address] [address] [facility] Creatinine with Estimated GFR (05/29/2019 7:53 AM SONG PLUGGER) athologist Signature Creatinine 0.80 0.74 - 05/29/2019 [facility] 1.35 mg/dL 8:38 AM SONG PLUGGER eGFR-Black/Afric >90 >=60 05/29/2019 [facility] an [place] Citizen mL/min/BSA 8:38 AM SONG PLUGGER Comment: ----ADDITIONAL INFORMATION---- Estimated GFR calculated using the 2009 CKD_EPI creatinine equation. eGFR Non-Black/ >90 >=60 mL/min/BSA 05/29/2019 8:38 AM SONG PLUGGER [facility] Comment: ----ADDITIONAL INFORMATION---- Estimated GFR calculated using the 2009 CKD_EPI creatinine equation. Specimen Anatomical Collection Method Collection Time Receive d Time (Source) Location / / Volume Laterality Blood (Blood, 05/29/2019 7:53 AM 05/29/20 19 7:53 Venous) SONG PLUGGER AM SONG PLUGGER John Paul Javier M.D. LAB BLOOD ADD-ON Performing Organization Address City/[facility] Phon e Number [address] [address] [facility] [address] (ABNORMAL) Glucose, Fasting (05/29/2019 7:53 AM SONG PLUGGER) P athologist Signature Glucose, S 108 (H) 70 - 100 05/29/2019 [facility] mg/dL 8:38 AM SONG PLUGGER Last Intake 14:52 05/29/2019 [facility] 7:53 AM SONG PLUGGER Specimen Anatomical Collection Method Collection Time Receive d Time (Source) Location / / Volume Laterality Blood (Blood, 05/29/2019 7:53 AM 05/29/20 19 7:53 Venous) SONG PLUGGER AM SONG PLUGGER John Paul Javier M.D. LAB BLOOD NON ADD-ON Performing Organization Address City/[facility] Code Phon e Number [address] [address] [facility] [place] [id number] [place] [address] documented in this encounter Visit Diagnoses Diagnosis Screening Examination Diabetes Mellitus Monitoring For Therapeutic Drug Therapy Hypertension Essential Primary documented in this encounter Care Teams Manufacturers Agent Relationship Specialty Start Date End Date John Paul Javier M.D. PCP - General Family Medicine 12/01/17 11/21/20 documented as of this encounter
--- OUTSIDE RECORDS SUMMARY | 2022-02-07 08:11 | XMS_ITS | Encounter Summary ---
:1955 Author Organization [facility] Address [address] [place] [address] Care Team Providers Name Role Phone John Paul Javier M.D. Primary Care Provider Unavailable Reason for Referral Outpatient (Routine) - Closed Specialty Diagnoses / Procedures Referred By Contact Refer red To Contact Family Medicine John Paul Javier M.D. [facility] [address] [place] [phone] Referral ID Status Reason Start Date Expiration Date Visits Requ ested Visits Authorized [id number] Closed 05/29/2018 05/29/2019 1 1 UTING TUTOR Reason for Visit Reason Comments Annual Exam Appointment Request (Routine) - Closed Specialty Diagnoses / Procedures Referred By Contact Refer red To Contact Family Medicine Referral ID Status Reason Start Date Expiration Date Visits Requ ested Visits Authorized [id number] Closed 03/15/2018 03/15/2019 1 1 Encounter Details Date Type Department Care Team Description 05/29/2018 Comprehensive Visit Department of Kenisha Javier Essential Primary (Primary Dx); Family MedicineJohn Paul M.D. Hyperlip idemia; [facility] Impaired Fasting Glucose [place] [address] [place] [phone] Social History Tobacco Use Types Packs/Day Years [...] or relatives? How often do you attend buddhist or More than 4 times per year 11/01/2021 restorationist services? 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 - 05/29/2018 8:45 AM CST SUBJECTIVE CHIEF COMPLAINT / REASON FOR VISIT Yash Mendez is a 62 y.o. male who presents for evaluation of Annual Exam. HISTORY OF PRESENT ILLNESS Yash is a pleasant 62 y/o gentleman who presents to the clinic for a general medical exam. His concerns and medical conditions he would like to discuss stay are outlined below. Hypertension: - Current HTN regimen includes: - HCTZ 12.5 mg QD - Toprol XL 50 mg QD - On this regimen, his BP has remained well controlled to date. Previous attempts to increase or decrease his medication dose or intensity have caused hypotension and worsened hypertension respectively. He has been well managed on this current regimen. - Denies: headache, vision changes, neck/chest pressure, chest pain, shortness of breath. He has no leg swelling or changes in urine output. - Labs performed on 05/24/2018: - Creatinine-0.81, GFR > 90 - Na- 142 - K- 4.2 Hyperlipidemia/History of Impaired Fasting Glucose: - Lipid panel on 05/24/2018: - Total cholesterol: 245 (237) , non-HDL cholesterol: 177 (161) - Triglycerides- 93 (72) - LDL- 158 (147) - HDL- 68 (76) - Currently taking: - Aspirin 81 mg daily - Prescribed to take Zocor 40 mg QHS - Stopped taking the Zocor in July 2017. He was getting joint and muscle aches at that time. - He has not been on any lipid-lowering agents in the interim time, but has continued to take his other medications, including his daily aspirin, each day. - Two years ago, he started using MetaFast protein bars as meal replacements along with other, significant diet changes. He would start his days with veggie omelets, fruit and toast, smaller meals during the day, and used much healthier meals on the road. 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 This allowed him to voluntarily lose approximately 60-70 lbs and he has been able to keep that weight off. Health Maintenance: - Patient has not received his influenza vaccine this year yet but will be receiving that today. - He is also due for 1 time HIV/HCV screening, which he defers today. - Last colonoscopy: 06/21/2017. One sigmoid polyp 0.3 x 0.2 = 0.1 cm was biopsied which showed fragments of a tubular adenoma with low-grade dysplasia. Follow-up colonoscopy would not be indicated for another 5 or 10 years, per USPSTF guidelines. - Patient is a former smoker with a 20 pack-year history. He quit smoking in the year 1999 and has not used tobacco products since that time. The following portions of the patient's history were reviewed and updated as appropriate: allergies,current medications, family history, medical history, social history, surgical history and problem list. The following systems were negative: Constitutional, Skin, Eyes, ENT, CV, Respiratory, GI, , Hematologic, Musculoskeletal, Neuro, Psych OBJECTIVE PHYSICAL EXAM BP 119/74 (BP Location: Right arm, Patient Position: Sitting) Comment: bp jolene average Pulse (!) 57 Ht 173.5 cm Wt 81 kg BMI 26.91 kg/m?? Constitutional: He is oriented to person, place, and time. He appears well- developed and well-nourished. No distress. HENT: Head: Normocephalic and atraumatic. Right Ear: External ear normal. Left Ear: External ear normal. Mouth/Throat: Oropharynx is clear and moist. No oropharyngeal exudate. Eyes: EOM are normal. Pupils are equal, round, and reactive to light. No scleral icterus. Neck: Normal range of motion. No JVD present. No thyromegaly present. Cardiovascular: Normal rate, regular rhythm, normal heart sounds and intact distal pulses. He exhibits no edema. No murmur heard. Pulmonary/Chest: Effort normal and breath sounds normal. He has no wheezes. He has no rales. Abdominal: Soft. He exhibits no distension. There is no tenderness. No hernia. Musculoskeletal: Normal range of motion. He exhibits no tenderness or deformity. Lymphadenopathy: He has no cervical adenopathy. Neurological: He is alert and oriented to person, place, and time. He has normal reflexes. No cranial nerve deficit. He exhibits normal muscle tone. Skin: Skin is warm and dry. Capillary refill takes less than 2 seconds. Multiple seborrheic keratoses noted that are unchanged and have been present for several years. Scattered llanes hemangiomas. Two small, non-irritated skin tags present in the lumbar back region thatare asymptomatic. Psychiatric: He has a normal mood and affect. Judgment normal. ASSESSMENT / PLAN #1 Hypertension Essential Primary - 62 y/o gentleman with a PMH of hypertension, currently well managed on his regimen of hydrochlorothiazide with metoprolol. - Blood pressure 119/74 today, the patient reports no active symptomatology. Overall, he feels he isdoing very well. - Labs show basic electrolytes and kidney function within normal limits. - Continue HCTZ at 12.5 mg QD and Toprol XL at 50 mg QD. - hydroCHLOROthiazide (MICROZIDE) 12.5 mg capsule; Take 1 capsule (12.5 mg total) by mouth daily., Starting Sun05/29/2018, Normal - metoprolol succinate (TOPROL XL) 50 mg 24 hr tablet; Take 1 tablet (50 mg total) by mouth daily. High blood pressure, Starting Sun05/29/2018, Normal #2 Hyperlipidemia #3 Impaired Fasting Glucose - Patient's repeat lipid panel shows continued hyperlipidemia, with some progression of elevated nonHDL cholesterol due to not being on any lipid- lowering agents since July 2017. His Zocor was discontinued due to concerns about myopathy. - He reports that, in the past, he was on Lipitor without issue. - We agreed to a plan today to start him on an equivalent dose of Lipitor at 20 mg daily. - Instructed him to contact me if he should experience any side effects. 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 - Recheck lipid panel in 1 year at follow-up visit or sooner if indicated. - atorvastatin (LIPITOR) 20 mg tablet; Take 1 tablet (20 mg total) by mouth daily., Starting Sun05/29/2018, Until Danielle 05/29/2019, Normal Other orders - Other health maintenance measures up-to-date. - Plan on discussing helical CT of the chest in two years d/t smoking history. - Next colonoscopy due: 2027. - Influenza vaccine given today. - influenza vaccine quad (FLUZONE/FLUARIX) (36 months and older) (PF) - aspirin (ASPIRIN LOW DOSE) [address] tablet; Take 1 tablet (81 mg total) by mouth daily., Starting Sun05/29/2018, Normal - Family Medicine office visit (clinic) - Self; Future; Expected date: 05/29/2019 John Paul Javier MD PGY-1 Pager #[phone] UTING TUTOR Associated attestation - Jhony Alejandre M.D. - 05/29/2018 10:16 AM COMPUTING TUTOR I saw and evaluated the patient, participating in the coffman portions of the service. I reviewed the resident/fellow???s note. I agree with the resident/fellow???s findings and plan. documented in this encounter Plan of Treatment Scheduled Referrals Name Type Priority Associated Diagnoses Order S [facility] Family Medicine Outpatient Referral Routine Expec bonilla: office visit 05/29/2019 (clinic) - Self (Approximate ), Expires: 05/29/2021 documented as of this encounter Visit Diagnoses Diagnosis Hypertension Essential Primary - Primary Hyperlipidemia Impaired Fasting Glucose documented in this encounter Care Teams Mill Attendant Relationship Specialty Start Date End Date John Paul Javier M.D. PCP - General Family Medicine 12/01/17 11/21/20 documented as of this encounter
--- OUTSIDE RECORDS SUMMARY | 2022-02-07 08:11 | XMS_ITS | Encounter Summary ---
:1955 Author Organization [facility] Address [address] [place] [address] Care Team Providers Name Role Phone John Paul Javier M.D. Primary Care Provider Unavailable Reason for Visit Reason Onset Date Comments Pre-visit Testing Orders 03/15/2018 Encounter Details Date Type Department Care Team Description 03/15/2018 Clinical Communication Department of Con[place] Pre- visit Testing Family MedicineJohn Paul M.D. Orders [address] [phone] Social History Tobacco Use Types Packs/Day Years [...] or relatives? How often do you attend samaritan or More than 4 times per year 11/01/2021 worship services? 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 He would like to do any blood work that is due on Thursday 05/24. We can go ahead and schedule if we can get the orders to go ahead and set up. Thanks. documented in this encounter Plan of Treatment Not on filedocumented as of this encounter Visit Diagnoses Not on filedocumented in this encounter Care Teams Manager Strategic Partnerships Relationship Specialty Start Date End Date John Paul Javier M.D. PCP - General Family Medicine 12/01/17 11/21/20 documented as of this encounter
--- OUTSIDE RECORDS SUMMARY | 2022-02-07 08:11 | XMS_ITS | Encounter Summary ---
:[address] [facility] Address [address] [place] [address] Care Team Providers Name Role Phone John Paul Javier M.D. Primary Care Provider Unavailable Reason for Referral Outpatient (Routine) - Closed Specialty Diagnoses / Procedures Referred By Contact Refer red To Contact Family John Paul Ya M.D. [address] [phone] Referral ID Status Reason Start Date Expiration Date Visits Requ ested Visits Authorized [id number] Closed 05/30/2019 05/29/2020 1 1 K EMBOSSER Reason for Visit Reason Comments Annual Exam Outpatient (Routine) - Closed Specialty Diagnoses / Procedures Referred By Contact Refer red To Contact John Paul Rodriguez M.D. [address] [phone] Referral ID Status Reason Start Date Expiration Date Visits Requ ested Visits Authorized [id number] Closed 05/29/2018 05/29/2019 1 1 Encounter Details Date Type Department Care Team Description 05/30/2019 Comprehensive Visit Department of Kenisha Javier Essential Primary (Primary Dx); Family John Paul Coppola M.D. Hyperlip idemia; [facility] Screening Examination Diabetes Mellitus [place], [place] [address] [place] [address] Social History Tobacco Use Types Packs/Day Years [...] More than 4 times per year 11/01/2021 tenriism services? Do you belong to any clubs [...] place to sleep or slept in a intermediate (including now)? Sex Assigned at Date Recorded Male 05/29/2018 8:55 AM CHECK EMBOSSER documented as of this encounter Last Filed Vital Signs Vital Sign Reading Time Taken Comments Blood Pressure 130/79 05/30/2019 8:18 AM CHECK EMBOSSER average Pulse 56 05/30/2019 8:18 AM CHECK EMBOSSER Temperature - - Respiratory Rate - - Oxygen Saturation - - Inhaled Oxygen Concentration - - Weight 83.6 kg (184 lb 4.9 oz) 05/30/2019 8:18 AM CHECK EMBOSSER Height - - Body Mass Index 27.77 05/29/2018 8:24 AM CHECK EMBOSSER documented in this encounter Progress Notes John Paul Javier M.D. - 05/30/2019 8:30 AM CST SUBJECTIVE CHIEF COMPLAINT / REASON FOR VISIT Yash Mendez is a 63 y.o. male who presents for evaluation of Annual Exam. HISTORY OF PRESENT ILLNESS Mr. Mendez has a PMH notable for hypertension and hyperlipidemia. He returns to clinic today for a GME. Hypertension: Skylar's BP has remained well controlled on a regimen of HCTZ 12.5 mg QD with metoprolol succinate 50 mg QD. Symptomatically, he continues to do well. He takes blood pressure medications and metoprolol asscheduled. He remains very active both at home and at work. 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 He has been helping at his friend's farm without any emergence of exertional symptoms. He denies frequent headaches, chest pain, shortness of breath, or dizziness/lightheadedness. Hyperlipidemia: Lab Results Component Value Date CHOL 245 (H) 05/24/2018 Lab Results Component Value Date HDL 68 05/24/2018 Lab Results Component Value Date LDLCALC 158 (H) 05/24/2018 Lab Results Component Value Date TRIG 93 05/24/2018 Lab Results Component Value Date GLUF 100 05/24/2017 Skylar continues to take Lipitor 20 mg QD with ASA 81 mg QD. We reviewed his ASCVD risk score today, and the decrease in risk % that is conferred by his aspirin and Lipitor. At baseline, with his current lipid profile and blood pressure, his risk score would be 13.1%, but this decreases to 8.1% with blood pressure control, aspirin, and Lipitor. Health Maintenance: Mr. Mendez's last colonoscopy occurred in 2017, at which time benign polyps were removed with recommendations for follow up in 2022. His tetanus immunization is up to date. He is due to receive an influenza vaccine, which he does wish to receive today. The following portions of the patient's history were reviewed and updated as appropriate: allergies,current medications, family history, medical history, social history, surgical history and problem list. The following systems were negative: Constitutional, Skin, Eyes, ENT, CV, Respiratory, GI, , Hematologic, Musculoskeletal, Neuro, Psych OBJECTIVE PHYSICAL EXAM BP 130/79 (BP Location: Right arm, Patient Position: Sitting, Cuff Size: Regular) Comment: average Pulse (!) 56 Wt 83.6 kg BMI 27.77 kg/m?? Physical Exam PHYSICAL EXAM General appearance: [...] testes: no masses or tenderness. no hernias Extremities: extremities normal, warm and well perfused, no edema, redness or tenderness in the calves or thighs, no ulcers, gangrene or trophic changes and Homans sign is negative, no sign of DVT Pulses: 2+ and symmetric Skin: Skin color, texture, turgor normal. No rashes or lesions. Lymph nodes: Cervical, supraclavicular, and axillary nodes normal. Neurologic: Grossly normal and Alert and oriented X 3, normal strength and tone. Normal symmetric reflexes. Normal coordination and gait. Recent Results (from the past 72 hour(s)) Glucose, Fasting Collection Time: 05/29/19 7:53 AM Result Value Glucose, S 108 (H) Last Intake 14:52 Creatinine with Estimated GFR Collection Time: 05/29/19 7:53 AM Result Value Creatinine, P 0.80 eGFR Black >90 eGFR Non-Black >90 Potassium Collection Time: 05/29/19 7:53 AM Result Value Potassium, P 4.9 Sodium Collection Time: 05/29/19 7:53 AM Result Value Sodium, P 141 ASSESSMENT / PLAN #1 Hypertension Essential Primary - BP at goal of < 140/90 at present time. - Denies any current exertional symptoms or changes. - Continue HCTZ at 12.5 mg QD - Continue Metoprolol XL 50 mg QD - Labs stable today on Cr, eGFR, Na, K. Reviewed results with patient. - Potassium; Future; Expected date: 05/30/2019 - Sodium; Future; Expected date: 05/30/2019 - metoprolol succinate (Toprol XL) 50 mg 24 hr tablet; Take 1 tablet (50 mg total) by mouth daily. High blood pressure, Starting Sun05/30/2019, Normal - hydroCHLOROthiazide (MICROZIDE) 12.5 mg capsule; Take 1 capsule (12.5 mg total) by mouth daily., Starting Sun05/30/2019, Normal #2 Hyperlipidemia - Continue Lipitor 20 mg QD. - Continue ASA 81 mg. - As mentioned above, discussed reduced risk of major vascular events with ASCVD risk score and the effect of blood pressure control, Lipitor, and aspirin on reducing his risk. After discussion, he agrees with continuing both of these medications. - atorvastatin (LIPITOR) 20 mg tablet; Take 1 tablet (20 mg total) by mouth daily., Starting Sun05/30/2019, Until 05/29/2020, Normal #3 Screening Examination Diabetes Mellitus - Fasting glucose remains impaired but stable from prior checks. - Skylar abides by a largely controlled diet and exercise regimen. - Reviewed small changes he can make today to his diet, with emphasis placed on the Mediterranean Diet. - He will be retiring this coming calendar year, after which he will be off the road much more frequently. - Glucose, Fasting; Future; Expected date: 05/30/2019 (Before next visit) Other orders - Family Medicine office visit (clinic) - Self - aspirin (Aspirin Low Dose) [address] tablet; Take 1 tablet (81 mg total) by mouth daily., Starting Sun05/30/2019, Normal - influenza vaccine quad (FLUZONE/FLUVARIX) (6 months and older) (PF) - Family Medicine office visit (clinic); Future; Expected date: 05/30/2020 John Paul Javier MD PGY-2 Pager #[phone] K EMBOSSER documented in this encounter Plan of Treatment Scheduled Referrals Name Type Priority Associated Diagnoses Order S [facility] Family Medicine Outpatient Referral Routine Expec bonilla: office visit 05/30/2020 (clinic) (Approximate), Expires: 05/30/2022 documented as of this encounter Results Sodium (05/29/2019 7:53 AM CHECK EMBOSSER) athologist Signature Sodium, P 141 135 - 145 05/29/2019 8:38 [facility] mmol/L AM CHECK EMBOSSER Specimen Anatomical Collection Method Collection Time Receive d Time (Source) Location / / Volume Laterality Blood (Blood, 05/29/2019 7:53 AM 05/29/20 19 7:53 Venous) CHECK EMBOSSER AM CHECK EMBOSSER John Paul Javier M.D. LAB BLOOD ADD-ON Performing Organization Address City/[facility]/ZIP Code Phon e Number [facility] [address] [place] [address] [facility] [address] Potassium (05/29/2019 7:53 AM CHECK EMBOSSER) athologist Signature Potassium, P 4.9 3.6 - 5.2 05/29/2019 [facility] mmol/L 8:38 AM CHECK EMBOSSER Specimen Anatomical Collection Method Collection Time Receive d Time (Source) Location / / Volume Laterality Blood (Blood, 05/29/2019 7:53 AM 05/29/20 19 7:53 Venous) CHECK EMBOSSER AM CHECK EMBOSSER John Paul Javier M.D. LAB BLOOD ADD-ON Performing Organization Address City/State/ZIP Code Phon e Number [facility] [address] [place] [address] [facility] [place] [id number] [place] [address] documented in this encounter Visit Diagnoses Diagnosis Hypertension Essential Primary - Primary Hyperlipidemia Screening Examination Diabetes Mellitus documented in this encounter Care Teams Buckle Coverer Relationship Specialty Start Date End Date John Paul Javier M.D. PCP - General Family Medicine 12/01/17 11/21/20 documented as of this encounter
--- OUTSIDE RECORDS SUMMARY | 2022-02-07 08:11 | XMS_ITS | Encounter Summary ---
:1955 Author Organization [facility] Address [address] [place] [address] Care Team Providers Name Role Phone John Paul Javier M.D. Primary Care Provider Unavailable Encounter Details Date Type Department Care Team Description 09/09/2018 Orders Only RST PCP HLTH ANTELMOT John Paul Javier, Fransico Ng M.D. Diabetes [facility] Social History Tobacco Use Types Packs/Day Years [...] or relatives? How often do you attend anabaptism or More than 4 times per year 11/01/2021 advent services? 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 LAB BLOOD NON ADD-ON Performing Organization Address City/State/ZIP Code Phon e Number [facility] [address] [id number] [place] [address] 411 [facility] documented in this encounter Visit Diagnoses Diagnosis Screening Examination Diabetes Mellitus documented in this encounter Care Teams Associate Professor Of English Relationship Specialty Start Date End Date John Paul Javier M.D. PCP - General Family Medicine 12/01/17 11/21/20 documented as of this encounter
--- OUTSIDE RECORDS SUMMARY | 2022-02-07 08:11 | XMS_ITS | Encounter Summary ---
:1955 Author Organization [facility] Address [address] [place] [address] Care Team Providers Name Role Phone John Paul Javier M.D. Primary Care Provider Unavailable Reason for Referral Outpatient (Routine) - Closed Specialty Diagnoses / Procedures Referred By Contact Refer red To Contact John Paul Javier M.D. [facility] [address] [place] [phone] Referral ID Status Reason Start Date Expiration Date Visits Requ ested Visits Authorized [id number] Closed 03/15/2020 03/15/2021 1 1 Encounter Details Date Type Department Care Team Description 03/15/2020 Orders Only RST PCP HLTH John Paul Dockery Mo nitoring For M.D. 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 documented as of this encounter Plan of Treatment Scheduled Referrals Name Type Priority Associated Diagnoses Order S hilario Primary Care nurse Outpatient Referral Routine Ex pected: visit (clinic) - 03/29/2020, [place] Expires: 03/15/2023 documented as of this encounter Results Potassium (06/24/2020 8:08 AM FILM LABORATORY TECHNICIAN) athologist Signature Potassium, P 4.9 3.6 - 5.2 06/24/2020 [facility] mmol/L 8:51 AM FILM LABORATORY TECHNICIAN Specimen Anatomical Collection Method Collection Time Receive d Time (Source) Location / / Volume Laterality Blood (Blood, 06/24/2020 8:08 AM 06/24/19 8:08 Venous) FILM LABORATORY TECHNICIAN AM FILM LABORATORY TECHNICIAN John Paul Javier M.D. LAB BLOOD ADD-ON Performing Organization Address City/State/ZIP Code Phon e Number [facility] [address] [place] [address] [place] [address] 411 [facility] Creatinine with Estimated GFR (06/24/2020 8:08 AM FILM LABORATORY TECHNICIAN) athologist Signature Creatinine 0.93 0.74 - 06/24/2020 [facility] 1.35 mg/dL 8:51 AM FILM LABORATORY TECHNICIAN eGFR-Black/Afric >90 >=60 06/24/2020 [facility] an [place] mL/min/BSA 8:51 AM FILM LABORATORY TECHNICIAN Comment: ----ADDITIONAL INFORMATION---- Estimated GFR calculated using the 2009 CKD_EPI creatinine equation. eGFR Non-Black/ 86 >=60 mL/min/BSA 8:51 AM FILM LABORATORY TECHNICIAN [facility] Comment: ----ADDITIONAL INFORMATION---- Estimated GFR calculated using the 2009 CKD_EPI creatinine equation. Specimen Anatomical Collection Method Collection Time Receive d Time (Source) Location / / Volume Laterality Blood (Blood, 06/24/2020 8:08 AM 06/24/19 8:08 Venous) FILM LABORATORY TECHNICIAN AM FILM LABORATORY TECHNICIAN John Paul Javier M.D. LAB BLOOD ADD-ON Performing Organization Address City/State/ZIP Code Phon e Number [address] [address] [facility] [address] documented in this encounter Visit Diagnoses Diagnosis Monitoring For Therapeutic Drug Therapy documented in this encounter Care Teams A P Manager Relationship Specialty Start Date End Date John Paul Javier M.D. PCP - General Family Medicine 12/01/17 11/21/20 documented as of this encounter
--- OUTSIDE RECORDS SUMMARY | 2022-02-07 08:11 | XMS_ITS | Encounter Summary ---
:1955 Author Organization [facility] Address [address] [place] [address] Care Team Providers Name Role Phone John Paul Javier M.D. Primary Care Provider Unavailable Encounter Details Date Type Department Care Team Description 05/24/2018 Hospital Encounter Department of Ruth Ann Javier Primary; Laboratory Medicine John Paul Chiu M.D. Hyper lipidemia in [place], [place] [address] [place] [id number] Social History Tobacco Use Types Packs/Day Years [...] place to sleep or slept in a residential (including now)? 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 MULTIVITAMIN ORAL Take 1 tablet by 0 02/08/2008 mouth daily. VITAMIN B COMPLEX ORAL Take 1 tablet by 0 013 mouth daily. aspirin (ASPIRIN LOW DOSE) Take 1 tablet by 0 05/29/[address] tablet mouth daily. hydroCHLOROthiazide Take 1 tablet (12.5 60 tablet 0 018 05/17/2020 (HYDRODIURIL) 12.5 mg mg total) by mouth tabletIndications: daily. High blood Hypertension Essential pressure Primary hydroCHLOROthiazide 0 05/22/201805/29 (MICROZIDE) 12.5 mg capsule metoprolol succinate Take 1 tablet (50 60 tablet 0 03/29/20 18 05/29/2018 (TOPROL XL) 50 mg 24 hr mg total) by mouth tabletIndications: daily. High blood Hypertension Essential pressure Primary simvastatin (for_ZOCOR) 40 Take 1 tablet by 0 05/29/2018 mg tablet mouth at bedtime. Dyslipidemia documented as of this encounter Plan of Treatment Not on filedocumented as of this encounter Procedures Procedure Name Priority Date/Time Associated Diagnosis Comme nts LIPID PANEL, S Routine 05/24/2018 8:35 AM Hyperlipidemia Resul ts for this CHECKROOM ATTENDANT procedure are i n the results section. SODIUM, S/P Routine 05/24/2018 8:35 AM Hypertension Essential Results for this CHECKROOM ATTENDANT Primary procedure are i n the results section. POTASSIUM, S/P Routine 05/24/2018 8:35 AM Hypertension Essenti al Results for this CHECKROOM ATTENDANT Primary procedure are i n the results section. CREATININE WITH Routine 05/24/2018 8:35 AM Hypertension Essent ial Results for this EGFR, S/P CHECKROOM ATTENDANT Primary procedure are i n the results section. documented in this encounter Results (ABNORMAL) Lipid Panel (05/24/2018 8:35 AM [facility]) [facility] Health[facility] gist Method Time Signature Cholesterol, 245 (H) mg/dL 05/24/2018 [facility] Total 2:02 PM [facility] Comment: ----REFERENCE VALUE---- Desirable: < 200 Borderline high: 200 - 239 High: > or = 240 Triglycerides 93 mg/dL 05/24/2018 2:02 PM [facility] Comment: ----REFERENCE VALUE---- Normal: <150 Borderline high: 150-199 High: 200-499 Very high: > or =500 Cholesterol, HDL, S 68 >=40 mg/dL 05/24/2018 2:02 PM [facility] Calculated LDL 158 (H) mg/dL 05/24/2018 2:02 PM [facility] Comment: ----REFERENCE VALUE---- Desirable: <100 Above Desirable: 100-129 Borderline high: 130-159 High: 160-189 Very high: > or =190 Cholesterol, Non-HDL, 177 (H) mg/dL 05/24/2018 2:02 PM [facility] Calculated [facility] S Comment: ----REFERENCE VALUE---- Desirable: <130 Above Desirable: 130-159 Borderline high: 160-189 High: 190-219 Very high: > or =220 Specimen Anatomical Collection Method Collection Time Receive d Time (Source) Location / / Volume Laterality Blood (Blood, 05/24/2018 8:35 AM 05/24/20 18 1:16 Venous) [facility] John Paul Javier M.D. LAB BLOOD ADD-ON Performing Organization Address City/State/ZIP Code Phon e Number [facility] - [address] [place], [place] [address] [facility] Sodium (05/24/2018 8:35 AM [facility]) athologist Signature Sodium, P 142 135 - 145 05/24/2018 [facility] mmol/L 9:19 AM [facility] Specimen Anatomical Collection Method Collection Time Receive d Time (Source) Location / / Volume Laterality Blood (Blood, 05/24/2018 8:35 AM 05/24/20 18 8:35 Venous) CHECKROOM ATTENDANT AM CHECKROOM ATTENDANT John Paul Javier M.D. LAB BLOOD ADD-ON Performing Organization Address City/[facility]/ZIP Code Phon e Number [address] [address] Potassium (05/24/2018 8:35 AM CHECKROOM ATTENDANT) athologist Signature Potassium, P 4.2 3.6 - 5.2 05/24/2018 [facility] mmol/L 9:19 AM [facility] Specimen Anatomical Collection Method Collection Time Receive d Time (Source) Location / / Volume Laterality Blood (Blood, 05/24/2018 8:35 AM 05/24/20 18 8:35 Venous) CHECKROOM ATTENDANT AM CHECKROOM ATTENDANT John Paul Javier M.D. LAB BLOOD ADD-ON Performing Organization Address [facility] Phon e Number [address] [address] Creatinine with Estimated GFR (MDRD) (05/24/2018 8:35 AM CHECKROOM ATTENDANT) athologist Signature Creatinine 0.81 0.74 - 05/24/2018 [facility] 1.35 mg/dL 9:19 AM [facility] eGFR-Black/Afri >90 >=60 05/24/2018 [facility] can Ivorian mL/min/BSA 9:19 AM [facility] Comment: ----ADDITIONAL INFORMATION---- Estimated GFR calculated using the 2009 CKD_EPI creatinine equation. eGFR Non-Black/ >90 >=60 mL/min/BSA 05/24/2018 9:19 AM [facility] Ivorian [facility] Comment: ----ADDITIONAL INFORMATION---- Estimated GFR calculated using the 2009 CKD_EPI creatinine equation. Specimen Anatomical Collection Method Collection Time Receive d Time (Source) Location / / Volume Laterality Blood (Blood, 05/24/2018 8:35 AM 05/24/20 18 8:35 Venous) CHECKROOM ATTENDANT AM CHECKROOM ATTENDANT John Paul Javier M.D. LAB BLOOD ADD-ON Performing Organization Address City/[facility]/ZIP Code Phon e Number [address] [phone] documented in this encounter Visit Diagnoses Diagnosis Hypertension Essential Primary Hyperlipidemia documented in this encounter Care Teams Glass Production Machine Operator Relationship Specialty Start Date End Date John Paul Javier M.D. PCP - General Family Medicine 12/01/17 11/21/20 documented as of this encounter
--- OUTSIDE RECORDS SUMMARY | 2022-02-07 08:11 | XMS_ITS | Encounter Summary ---
:1955 Author Organization [facility] Address [address] [place] [address] Care Team Providers Name Role Phone John Paul Javier M.D. Primary Care Provider Unavailable Reason for Visit Reason Onset Date Comments Med Refill 03/29/2018 Encounter Details Date Type Department Care Team Description 03/29/2018 Clinical Communication Department of John Paul [place] Refill Medicine, [place] [facility] M.D. [address] [phone] Social History Tobacco Use Types Packs/Day Years [...] or relatives? How often do you attend latter day or More than 4 times per year 11/01/2021 advent services? 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 He would like a short term fill to get him to that Appt. Hydrochlorothiazide 12.5 mg tab PO daily Metoprolol Succinate 50 mg 24 HR 1 tab PO daily Send to [facility] (is the pharmacy at the [facility]) documented in this encounter Plan of Treatment Not on filedocumented as of this encounter Visit Diagnoses Diagnosis Hypertension Essential Primary - Primary documented in this encounter Care Teams Jeep Driver Relationship Specialty Start Date End Date John Paul Javier M.D. PCP - General Family Medicine 12/01/17 11/21/20 documented as of this encounter
--- OUTSIDE RECORDS SUMMARY | 2022-02-07 08:11 | XMS_ITS | Encounter Summary ---
:1955 Author Organization [facility] Address [address] [place] [address] Care Team Providers Name Role Phone Hayder Anton D.O. Primary Care Provider Encounter Details Date Type Department Care Team Description 08/29/2017 Abstract DATA ABSTRACTION Provider, Historical Social History Tobacco Use Types Packs/Day Years Used Date Smoking Tobacco: Unknown Alcohol Habits Answer Date Recorded How often [...] or relatives? How often do you attend congregational or More than 4 times per year 11/01/2021 gnosticism services? 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 PCP - General Family Medicine 12/02/14 11/30/17 documented as of this encounter
--- OUTSIDE RECORDS SUMMARY | 2022-02-07 08:11 | XMS_ITS | Encounter Summary ---
:1955 Author Organization [facility] Address [address] [place] [address] Care Team Providers Name Role Phone John Paul Javier M.D. Primary Care Provider Unavailable Encounter Details Date Type Department Care Team Description 03/15/2018 Orders Only Department of Family Concepcion Hyperli pidemia (Primary Dx); Medicine, [facility] John Paul Chiu M.D. 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 Total 2:02 PM [facility] Comment: ----REFERENCE VALUE---- Desirable: < 200 Borderline high: 200 - 239 High: > or = 240 Triglycerides 93 mg/dL 05/24/2018 2:02 PM [facility] S Comment: ----REFERENCE VALUE---- Normal: <150 Borderline high: 150-199 High: 200-499 Very high: > or =500 Cholesterol, HDL, S 68 >=40 mg/dL 05/24/2018 2:02 PM [facility] S Calculated LDL 158 (H) mg/dL 05/24/2018 2:02 PM [facility] Comment: ----REFERENCE VALUE---- Desirable: <100 Above Desirable: 100-129 Borderline high: 130-159 High: 160-189 Very high: > or =190 Cholesterol, Non-HDL, 177 (H) mg/dL 05/24/2018 2:[address] [facility] Calculated [facility] Comment: ----REFERENCE VALUE---- Desirable: <130 Above Desirable: 130-159 Borderline high: 160-189 High: 190-219 Very high: > or =220 Specimen Anatomical Collection Method Collection Time Receive d Time (Source) Location / / Volume Laterality Blood (Blood, 05/24/2018 8:35 AM 05/24/20 18 1:16 Venous) DRIVERS' CASH CLERK PM DRIVERS' CASH CLERK John Paul Javier M.D. LAB BLOOD ADD-ON Performing Organization Address City/State/ZIP Code Phon e Number [facility] - [address] [place], [place] [address] [facility] Sodium (05/24/2018 8:35 AM DRIVERS' CASH CLERK) athologist Signature Sodium, P 142 135 - 145 05/24/2018 [facility] mmol/L 9:19 AM [facility] Specimen Anatomical Collection Method Collection Time Receive d Time (Source) Location / / Volume Laterality Blood (Blood, 05/24/2018 8:35 AM 05/24/20 18 8:35 Venous) DRIVERS' CASH CLERK AM DRIVERS' CASH CLERK John Paul Javier M.D. LAB BLOOD ADD-ON Performing Organization Address City/State/ZIP Code Phon e Number [facility] [address] [place] [address] Potassium (05/24/2018 8:35 AM DRIVERS' CASH CLERK) athologist Signature Potassium, P 4.2 3.6 - 5.2 05/24/2018 [facility] mmol/L 9:19 AM [facility] Specimen Anatomical Collection Method Collection Time Receive d Time (Source) Location / / Volume Laterality Blood (Blood, 05/24/2018 8:35 AM 05/24/20 18 8:35 Venous) DRIVERS' CASH CLERK AM DRIVERS' CASH CLERK John Paul Javier M.D. LAB BLOOD ADD-ON Performing Organization Address City/[facility]/ZIP Code Phon e Number [facility] [address] [place] [address] Creatinine with Estimated GFR (MDRD) (05/24/2018 8:35 AM DRIVERS' CASH CLERK) athologist Signature Creatinine 0.81 0.74 - 05/24/2018 [facility] 1.35 mg/dL 9:19 AM [facility] eGFR-Black/Afri >90 >=60 05/24/2018 [facility] can Congolese mL/min/BSA 9:19 AM [facility] Comment: ----ADDITIONAL INFORMATION---- Estimated GFR calculated using the 2009 CKD_EPI creatinine equation. eGFR Non-Black/ >90 >=60 mL/min/BSA 05/24/2018 9:19 AM [facility] Congolese [facility] Comment: ----ADDITIONAL INFORMATION---- Estimated GFR calculated using the 2009 CKD_EPI creatinine equation. Specimen Anatomical Collection Method Collection Time Receive d Time (Source) Location / / Volume Laterality Blood (Blood, 05/24/2018 8:35 AM 05/24/20 8:35 Venous) DRIVERS' CASH CLERK AM DRIVERS' CASH CLERK John Paul Javier M.D. LAB BLOOD ADD-ON Performing Organization Address City/State/ZIP Code Phon e Number [place] [phone] documented in this encounter Visit Diagnoses Diagnosis Hyperlipidemia - Primary Hypertension Essential Primary documented in this encounter Care Teams Sports Marketing Internship Relationship Specialty Start Date End Date John Paul Javier M.D. PCP - General Family Medicine 12/01/17 11/21/20 documented as of this encounter
--- OUTSIDE RECORDS SUMMARY | 2022-02-07 08:11 | XMS_ITS | Encounter Summary ---
:1955 Author Organization [facility] Address [address] [place] [address] Care Team Providers Name Role Phone John Paul Javier M.D. Primary Care Provider Unavailable Encounter Details Date Type Department Care Team Description 04/23/2019 Orders Only RST PCP [facility] John Paul Javier Mo nitoring For [place] Therapeutic Bhupinder mcfarland Therapy Social History Tobacco [...] or relatives? How often do you attend spiritism or More than 4 times per year 11/01/2021 hinduism services? 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 eGFR Non-Black/ >90 >=60 mL/min/BSA 05/29/2019 8:38 AM SPUD GRADER [facility] Comment: ----ADDITIONAL INFORMATION---- Estimated GFR calculated using the 2009 CKD_EPI creatinine equation. Specimen Anatomical Collection Method Collection Time Receive d Time (Source) Location / / Volume Laterality Blood (Blood, 05/29/2019 7:53 AM 05/29/20 19 7:53 Venous) SPUD GRADER AM SPUD GRADER John Paul Javier M.D. LAB BLOOD ADD-ON Performing Organization Address City/State/ZIP Code Phon e Number [facility] [address] [place] [address] [facility] [address] documented in this encounter Visit Diagnoses Diagnosis Monitoring For Therapeutic Drug Therapy documented in this encounter Care Teams Sugar Mill Worker Relationship Specialty Start Date End Date John Paul Javier M.D. PCP - General Family Medicine 12/01/17 11/21/20 documented as of this encounter
[2022-02-07 15:04] LABS: PSA Diagnostic* < 0.06 ng/mL (0.10-4.00)
== END 2022-02-07 08:00 | disposition home or self-care (01) ==
LOC: KYNREF 08:00
PROVIDERS: PCP Nurse Practitioner Family; Visit Provider Nurse Practitioner Family
DX: Z12.5 Encounter for screening for malignant neoplasm of prostate (principal); Z85.46 Personal history of malignant neoplasm of prostate
CPT/HCPCS: 36415; 84153

== ENCOUNTER 2022-05-09 07:48 | Outpatient (CLI) | payer MEDICARE, BC, SELFPAY ==
--- OUTSIDE RECORDS SUMMARY | 2022-05-09 08:01 | XMS_ITS | Encounter Summary ---
:1955 Author Organization [facility] Address [address] [place] [address] Care Team Providers Name Role Phone None, Pcp Primary Care Provider Unavailable Encounter Details Date Type Department Care Team Description 08/30/2020 [facility] Drug testing, pre-employment [address] [place] [address] Social History Tobacco Use Types Packs/Day Years Used Date Smoking Tobacco: Never Assessed Sex Assigned at Date Recorded Not on file documented as of this encounter Plan of Treatment Not on filedocumented as of this encounter Visit Diagnoses Diagnosis Drug testing, pre-employment Health examination of defined subpopulat ion documented in this encounter Care Teams Business Transformation Consultant Relationship Specialty Start Date End Date None, Pcp PCP - General Chairman President And Chief Executive Officer 08/30/20 [address] [place] [address] documented as of this encounter
--- OUTSIDE RECORDS SUMMARY | 2022-05-09 08:01 | XMS_ITS | Clinical Summary ---
:1955 Author Organization [facility] Address [address] [place] [address] Care Team Providers Name Role Phone None, Pcp Primary Care Provider Unavailable Social History Tobacco Use Types Packs/Day Years Used Date Smoking Tobacco: Never Assessed Sex Assigned at Date Recorded Not on file Plan of Treatment Health Maintenance Due Date Last Done Comments CT Colonography 1955 Colonoscopy 1955 Colorectal Cancer Screening 1955 FIT-DNA 1955 Glaucoma Screening 67+ Yr 1955 Sigmoidoscopy 1955 iFOBT 1955 COVID-19 Vaccine (#1) 04/15/1955 Fall Risk Performed 1972 Zoster Vaccines (1 of 2) 2004 Pneumococcal Vaccine: 65+ 10/14/2019 Years (1 - PCV) DTaP,Tdap,and Td Vaccines (2 - 04/07/2021 04/07/2011, Td or Tdap) 06/15/2003 HPV Vaccines Aged Out No longer eligib le based on patient's age to complete this to pic Care Teams Tip Scourer Relationship Specialty Start Date End Date None, Pcp PCP - General Carrier Blower 08/30/[address] [place] [phone]
--- OUTSIDE RECORDS SUMMARY | 2022-05-09 08:02 | XMS_ITS | Clinical Summary ---
:1955 Author Organization [facility] Address [address] [place] [address] Care Team Providers Name Role Phone Elsewhere, Pcp Primary Care Provider Unavailable Source Comments Patient records contain information from all sites at [facility]. For routine questions regarding patient records, call [phone] during business hours, M-F 8:00 AM - 5:00 PM Central Time. Record requests for emergency care only can be directed to [phone] at any time.[facility] Allergies No known active allergies Medications Medication [...] taking differently: 12.5 mg oral Every morning, Reported on 11/04/2021 metoprolol succinate (Toprol XL) Take 1 tablet (50 mg 90 tablet 3 05/17/2020 Active 50 mg 24 hr tabletIndications: total) by mouth Hypertension Essential Primary daily. High blood pressure Additional Information Patient taking differently: 50 mg oral Every morning, High blood pressure, Reported on 11/04/2021 atorvastatin (LIPITOR) 20 mg Take 1 tablet (20 mg 90 tablet 3 05/17/2020 Active tabletIndications: Hyperlipidemia total) by mouth daily. Additional Information Patient taking differently: 20 mg oral Every morning, Reported on 11/04/2021 ibuprofen (ADVIL,MOTRIN) Take 400 mg by mouth 0 Active 200 mg tablet every 6 (six) hours as needed for pain. cholecalciferol (VITAMIN Take 25 mcg by mouth 0 Active D3) 25 mcg (1,000 Unit) daily. capsule sennosides-docusate Take 1 tablet by 0 11/08/2021 Active sodium (SENOKOT-S) 8.6-50 mouth 2 (two) times mg per tablet a day. tadalafiL (CIALIS) 5 mg Take 1 tablet (5 mg 90 tablet 11 2021 Active tablet total) by mouth every morning. Can take additional 1-3 tablets one hour prior to sexual activity. cefdinir (OMNICEF) 300 mg TAKE 1 CAPSULE BY 6 capsule 0 202111/08/2022 Active capsule MOUTH TWO TIMES A DAY BEFORE BREAKFAST AND DINNER FOR 3 DAYS, START THE EVENING PRIOR TO CATHETER REMOVAL Active Problems Problem Noted Date Primary Malignant Neoplasm Of Prostate 10/10/2021 Overview: Added automatically from request for lacey hawk [phone] Hypertension Essential Primary 04/23/2006 Overview: Formatting of [...] Resolved Date Impaired Fasting Glucose 05/27/2016 05/29/2018 Immunizations Name Administration Dates Next Due Influenza high dose QV(65 years or 04/03/2020 older) (PF) PPSV23 06/25/2020 Td (Adult), adsorbed 06/15/2003 Tdap 04/07/2011 influenza vaccine quad 05/30/2019, 05/29/2018, 05/30/2017, (FLUZONE/FLUARIX) (6 months and 05/26/2016 older)(PF) Family History Medical History Relation Name Comments Hypertension Father Jimbo Headley Diabetes Mother carol headley Diabetes mellitus type II Mother carol headley Hyperlipidemia Mother carol headley Hypertension Mother carol headley Obesity Mother carol headley Relation Name Status Comments Father Jimbo Headley Mother carol headley Alive Social History Tobacco Use Types Packs/Day [...] more drinks on one Never 11/01/2021 occasion? Social Isolation Answer Date Recorded In a typical week, how many times do you More than three skylar es a week 11/01/2021 talk on the phone with family, friends, or neighbors? How often do you get together with friends Three times a wee k 11/01/2021 or relatives? How often do you attend sikhism or More than 4 times per year 11/01/2021 yazdanism services? Do you belong to any clubs or Yes 11/01/2021 organizations such as sikhism groups, unions, fraternal or athletic groups, or [...] or slept in a fci (including now)? Education Answer Date Recorded What is the highest level of school you have completed or 12 th grade 11/01/2021 the highest degree you have received? 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 Vital Signs Vital Sign Reading [...] PCV) COVID-19 Vaccine (4 - Booster for 06/30/2021 05/05/2021, , Moderna series) 08/01/2020 Office Visit for Blood Pressure 02/04/2022 11/04/2021 Check / Re-check Colonoscopy 06/21/2022 06/21/2017, 08/11/2005 Colorectal Cancer Surveillance 06/21/2022 Creatinine [...] 02/15/2021 Fall Risk Screen (Annual) Completed 11/07/2021 Influenza Vaccine Completed 03/02/2022, 02/15/2021, 04/03/2020, Additional history exists Medical Devices Implanted Type Area Director [employer] Device Shelf Model / Identifier Expiration Serial / Date Lot Clp Hmol Plmr Lg - [id number] Hardware N/A: Pelvis TeleFipeo [id number] 08/01/2026 [id number] / Implanted: Qty: 1 on 11/07/2021 by Carlos Sifuentes M.D. at [facility] e.g. / pins/screws [id number] /rods Conversions - Default Historical Implant Device Shoulder Right: Implanted: 04/27/2015 (Quantity not on file) Implant Shoulder Description: Body Location - Shoulder R. fasterners. Device Status Text - Shoulder. Insurance Payer Benefit Plan Subscriber ID Effective Phone Address Typ e / Group Dates MEDICARE MEDICARE A [id number] 2019-Pres [address] [place] [address] BLUE CROSS BCBS [place] [id number] 2020-Pres [phone] PO MEGAN X Cost Share BLUE SHIELD BLUE COST ent [phone] [place] [address] Care Teams International Student Counselor Relationship Specialty Start Date End Date Elsewhere, Pcp PCP - General 12/02/20
--- OUTSIDE RECORDS SUMMARY | 2022-05-09 08:02 | XMS_ITS | Encounter Summary ---
:1955 Author Organization [facility] Address [address] [place] [address] Care Team Providers Name Role Phone Elsewhere, Pcp Primary Care Provider Unavailable Reason for Visit Appointment Request (Routine) - Authorized Specialty Diagnoses / Procedures Referred By Contact Refer red To Contact Dermatology Referral ID Status Reason Start Date Expiration Date Visits V isits Requested Authorized [id number] Authorized 01/04/2022 01/04/2023 1 Encounter Details Date Type Department Care Team Description 01/12/2022 Virtual Visit Department of Maria Elena Chapman M .D. [address] [place] [phone] Lesion Skin (Primary Dermatology in Jenny Perez R.N. [address] [place] [phone] Dx) [place], [place] [address] [place] [phone] Social History Tobacco Use Types Packs/Day Years [...] 11/01/2021 organizations such as islam groups, unions, fraKeycoopt or athletic groups, or school groups? 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 - 01/12/2022 8:30 AM CDT Patient referred through ARF process. Completed administrative pre-visit discussion to better understand patient goals and the needed patient itinerary for forthcoming on-site visit. Patient contacted [facility] requesting on-campus appointment; Pre-visit was scheduled following that request. Patient Provided Information What is your main skin concern? Patient has a lesion on the top of his head and his primary referredhim to [place]. Initially thought it was a scab from [...] location, date and outcome. Evaluated by a board handler?: No Laboratory results: None Skin biopsy: (site, [...] Primary documented in this encounter Care Teams Media Analyst Relationship Specialty Start Date End Date Elsewhere, Pcp PCP - General 12/02/20 documented as of this encounter
--- OUTSIDE RECORDS SUMMARY | 2022-05-09 08:02 | XMS_ITS | Encounter Summary ---
:1955 Author Organization [facility] Address [address] [place] [address] Care Team Providers Name Role Phone Elsewhere, Pcp Primary Care Provider Unavailable Encounter Details Date Type Department Care Team Description 12/15/2021 Orders Only Pharmacy Prior Auth Cindi Krause [phone] Social History Tobacco Use Types Packs/Day Years [...] slept in a long term (including now)? Education Answer Date Recorded What is the highest level of school you have completed or 12 th grade 11/01/2021 the highest degree you have received? 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
--- OUTSIDE RECORDS SUMMARY | 2022-05-09 08:02 | XMS_ITS | Encounter Summary ---
:1955 Author Organization 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
--- OUTSIDE RECORDS SUMMARY | 2022-05-09 08:02 | XMS_ITS | Encounter Summary ---
:1955 Author Organization [facility] Address [address] [place] [address] Care Team Providers Name Role Phone Elsewhere, Pcp Primary Care Provider Unavailable Encounter Details Date Type Department Care Team Description 11/07/2021 Surgery RST ISSAC WILKINS OR Carlos Olvera ROBOTIC-ASSISTED [address] Shakira M.D. RADICAL PROSTATECTOMY. [place], [place] [address] [facility] [address] [place], [place] [phone] (Wo rk) Social History Tobacco Use Types [...] or slept in a detention (including now)? Education Answer Date Recorded What is the highest level of school you have completed or 12 th grade 11/01/2021 the highest degree you have received? Sex Assigned at Date Recorded Male 05/29/2018 8:55 AM INTERN documented as of this encounter Last Filed [...] AM CDT DISCHARGE SUMMARY BRIEF OVERVIEW Hospital: [facility] Discharge Provider: Carlos Olvera M.D. Primary Team: [...] LYMPHADENECTOMY. Carlos Olvera M.D.Alamiri, Jamal M, M.B., Rocio.Ch., B.A.O. [facility] ROEI OR DISCHARGE DISPOSITION Home or Self [...] AM CDT You were discharged from the [facility] Urology - [facility] Service. Please identify this service name if you call with questions after hospitalization. AttachmentsThe following attachments cannot be sent through Care Everywhere. Acetaminophen (By mouth) (Paraguayan)Bacitracin/Neomycin/Polymyxin B (On the skin) (Paraguayan)Cefdinir (By mouth) (Paraguayan)Oxybutynin (By mouth) (Paraguayan)Oxycodone, Rapid Release (By mouth) (Paraguayan)Laxative, Stimulant Combination (By mouth) (Paraguayan)documented in this encounter Medications at Time of Discharge Medication Sig Dispensed Refills Start Date End Date atorvastatin (LIPITOR) 20 Take 1 tablet (20 90 tablet 3 mg tabletIndications: mg total) by mouth Hyperlipidemia daily. hydroCHLOROthiazide Take 1 capsule 90 capsule 3 05/17/2020 (MICROZIDE) 12.5 mg (12.5 mg total) by capsuleIndications: mouth daily. Hypertension Essential Primary metoprolol succinate Take 1 tablet (50 90 [...] 013 mouth daily. cefdinir (OMNICEF) 300 mg TAKE 1 CAPSULE BY 6 capsule 0 12/202111/08/2022 capsule MOUTH TWO TIMES A DAY BEFORE BREAKFAST AND DINNER FOR 3 DAYS, START THE EVENING PRIOR TO CATHETER REMOVAL cholecalciferol (VITAMIN Take 25 mcg by 0 D3) 25 mcg (1,000 Unit) mouth daily. capsule DOCOSAHEXANOIC ACID/EPA Take 1 capsule by 0 04/29 (FISH OIL ORAL) mouth daily. ibuprofen (ADVIL,MOTRIN) Take 400 mg by 0 200 mg tablet mouth every 6 (six) hours as needed for pain. acetaminophen (TYLENOL) Take 2 tablets 0 11/09/19 22 11/15/2021 500 mg tablet (1,000 mg total) by mouth every 6 (six) hours as needed for pain. oxyCODONE (ROXICODONE) 5 Take 1 tablet (5 10 tablet 0 0611/15/2021 mg immediate release mg total) by mouth [...] tablets one hour prior to sexual activity. bacitracin 500 unit/gram Apply 1 15 g 0 11/08/2021 11/15/2021 ointment application topically 2 (two) times a day. Apply to head of the penis around the catheter. oxybutynin (Ditropan XL) Take 1 tablet (10 7 tablet 0 12/202111/15/2021 10 mg 24 hr tablet mg total) by mouth at bedtime for 7 days. Stop 24 hrs prior to catheter removal documented as of this encounter Progress Notes [...] Rx ready at pharmacy. Patient discharged to [facility] with . Pavithra Ivory D.N.P., R.N. - 11/08/2021 10:02 AM CDT The patient has met all criteria for discharge. Ambulating safely independently, tolerating PO intake, pain is well controlled with prn medications. All education complete, supplies sent with patient. Rx ready at pharmacy. Patient discharged to [facility] with . Patient ambulated [address], declined WC and escort services. documented in this encounter OR Notes Op Note - Carlos Olvera M.D. - 11/07/2021 2:20 PM CDT Pre-op Diagnosis Primary Malignant Neoplasm Of Prostate (HCC) Post-op Diagnosis Primary Malignant Neoplasm Of Prostate (HCC) A creative assistant actively participated and was necessary for [...] presentation. Hospital Course - Aamir Galvan M.B., Diana, B.A.O. - 11/08/2021 7:16 AM CDT SURGICAL [...] removal & voiding Neoplasm Of Prostate , Expires: trial (UCO/VT) ([facility]) 02/08/2023 documented as of this encounter Procedures Procedure [...] Participated in Pranav Gonzalez, 11/11/2021 METH the M.DSadia -Pathology 5:13 PM Interpretation Fellow [...] CDT only. ??Grossed by Asael Wilde M.S., ALEX([facility]). B. ??Received fresh labeled prostate [...] the left inferior to mid posterior prostate, ([place] pattern 3+3, Grade group 1, 0.6 cm, [...] Group and Shelbie Score ?Grade Group 2 ([place] Score 3+4) ?Minor Tertiary Pattern 5 (less [...] Organization Address City/State/ZIP Code Phon e Number [facility] - [address] [place], [place] [address] [place] [address] [facility] [address] [facility] documented in this encounter Visit Diagnoses [...] - Reason: Patient/family refused)0632 (Given - Provider: Jillian RealN.P., R.N.) 1,000 mg, oral, Every 6 hours, First dose on Sun11/07/21 at 1900 atorvastatin tablet 20 mg (LIPITOR) 0835 (Given - Provider: Jazzy Real.N.P., R.N.) 20 mg, oral, Daily, First dose on Sun11/08/21 at 0900 bacitracin zinc 500 unit/gram ointment packet 1 packet 2038 (Given - Provider: Brina Hayden R.N.) 0835 (Given - Provider: Jazzy Real.N.P., R.N.) 1 packet (1 application), topical, 3 skylar es daily, First dose on Sun11/07/21 at 2100, Apply to tip of penis. ceFAZolin injection 2 g (ANCEF) (CANCELED) 1245 (Due)1419 (Given - Provider: Chapo Chacko APRN, PHOTOGRAPHER SCIENTIFIC, DNAP) 2 g, intravenous, Every 8 hours, [...] Brina Hayden R.N.) 0632 (Given - Provider: Jillian RealN.P., R.N.) 5,000 Units, subcutaneous, Every 8 hours scheduled, First dose on Sun11/07/21 at 2200 metoprolol succinate 24 hr tablet 50 mg (TOPROL-XL) 0835 (Given - Provider: Jillian RealN.P., R.N.) 50 mg, oral, Daily, First dose on 12/23 at 0900, Do NOT crush or chew. Tablet may be split on score if needed. oxybutynin 24 hr tablet 10 mg (DITROPAN-XL) (COMPLETED) 1243 (Given - Provider: Fay Blevins R.N.) 10 mg, oral, Once, On Sun11/07/21 at 1245 , For 1 dose, Pre-Op, PreOp give in preprocedural area. Swallow whole. Do NOT crush, chew, or split tablet. oxyCODONE 12 hr tablet 10 mg (OxyCONTIN) (COMPLETED) 1244 (Given - Provider: Fay Blevins RAnai) 10 mg, oral, Once, On Sun11/07/21 at 1245 , For 1 dose, Pre-Op, PreOp give in preprocedural area. Swallow whole. Do NOT crush, chew, or split tablet. sennosides-docusate sodium 8.6-50 mg per tablet 1 tablet (SE NOKOT-S) 2100 (Given - Provider: Brina J Catracho, R.N.) 0835 (Given - Provider: Kvng RealP., R.N.) 1 tablet, oral, 2 times daily, First dos e on Sun11/07/21 at 2100, Do not give if patient has diarrhea. Continuous Medication Order 11/06/2021 11/07/2021 11/08/2021 lactated ringers 1713 (Continued from OR - Provider: Brina Hayden R.N.)1943 (New Bag - Provider: Brina Hayden R.N.) 0335 (Stopped - Provider: Pavithra Ivory D.N.P., R.N.) 125 mL/hr, intravenous, Continuous, Star ting on Sun11/07/21 at 1715, Continue IV fluids from operating room at 125 ml/hour until bag finished, then begin as ordered. STOP fluids once PO intake >600 cc lactated ringers 1612 (Continued from OR - Provider: Lotus Rodriguez R.N. - Comment: 300 left)171 (Stopped - Provider: Brina Hayden R.N.) 20 [...] 1702 documented in this encounter Care Teams Chronometer Repairer Relationship Specialty Start Date End Date Elsewhere, Pcp PCP - General 12/02/20 documented as of this encounter
--- OUTSIDE RECORDS SUMMARY | 2022-05-09 08:02 | XMS_ITS | Encounter Summary ---
:1955 Author Organization [facility] Address [address] [place] [address] Care Team Providers Name Role Phone Elsewhere, Pcp Primary Care Provider Unavailable Reason for Visit Outpatient (Routine) - Closed Specialty Diagnoses / Procedures Referred By Contact Refer red To Contact Anesthesiology Diagnoses Personal History Of Malignant Neoplasm Of Prostate Tala Wu APRN, [facility] C.N.P., D.N.P. [address] [place] [phone] Referral ID Status Reason Start Date Expiration Date Visits Requ ested Visits Authorized [id number] Closed 10/10/2021 10/10/2022 1 1 Encounter Details Date Type Department Care Team Description 11/04/2021 Comprehensive Visit Preoperative Ubdusty, Segundo Otoole APRN, C.N.P., D.N.P. [address] [place] [phone] Hypertension Essential Primary (Primary Dx); Evaluation Center in Neftali Conteh M.D. [address] [place] [phone] Personal History Of Malignant Neoplasm O f Prostate; [place], [place] Bundle Branch Block Left; [address] [facility] [place] [phone] Social History Tobacco Use Types Packs/Day Years [...] or relatives? How often do you attend scientology or More than 4 times per year 11/01/2021 baptist services? 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 He will stay on his HCTZ and metoprolol the morning of surgery. #3 Bundle Branch Block Left No symptoms. First found on ECG 07-17-2013. I will not pursue anything further. #4 Preoperative Exam Anesthesia and monitoring discussed in detail. Lab unremarkable in past years. Repeat pending OKA Reviewed with patient the Checklist for Surgical Patients [id number]. Written and verbal instructions given on medication [...] CBC without Differential (11/04/2021 1:40 PM CDT) [facility] Method Time Signature Hemoglobin 15.4 13.2 - [...] Organization Address City/State/ZIP Code Phon e Number [facility] - [address] [place], [place] [address] [facility] [place] [address] [facility] [address] (ABNORMAL) Basic Metabolic Panel [...] 11/04/2021 DTL Black/ mL/min/BSA 2:29 PM CDT South African Comment: ----ADDITIONAL INFORMATION---- Estimated GFR calculated using [...] 11/05/19 2:09 Venous) CDT PM CDT Tala Sydnie Wu APRN, C.N.P., D.N.P. LAB BLOOD ADD-ON Performing Organization Address City/[facility] Phon e Number [facility] - 200 [place], [place] [address] [facility] [place] [address] [facility] 200 [facility] ECG 12 Lead (11/04/2021 1:04 PM CDT) P athologist Signature Ventricular Rate 59 BPM MUSE ECG/Min [place] Interval 204 ms MUSE QRSD Interval 168 ms MUSE QT Interval 450 ms MUSE QTC Interval 445 ms MUSE P [place] 49 degrees MUSE R [place] -18 degrees MUSE T Wave [place] 124 degrees MUSE Specimen Anatomical Collection Method Collection Time Receive d Time (Source) Location / / Volume Laterality 11/04/2021 1:04 PM 1:13 CDT PM CDT Impressions MUSE - 11/04/2021 1:13 PM CDT Sinus bradycardia with 1st degree A-V block Left bundle branch block with secondary ST-T abnormalities When compared with ECG of 11-JUN-2017 09 :30, [place] interval has increased Reviewed by CB Mcclure Narrative This result has an attachment that is no t available. Procedure Note Tamir Bolton M.D. - 11/04/2021Forma tting of this note might be different from the original. IMPRESSION: Sinus bradycardia with 1st degree A-V bl ock Left bundle branch block with secondary ST-T abnormalities When compared with ECG of 11-JUN-2017 09 :30, [place] interval has increased Reviewed by CB Mcclure Kristie Thorpe APRN, C.N.P., M.S.N. ECG ORDERABLES Performing Organization Address City/[facility]/ZIP Code Phon e Number MUSE MUSE NA documented in this encounter Visit Diagnoses Diagnosis Hypertension Essential Primary - Primary Personal History Of Malignant Neoplasm O f Prostate Bundle Branch Block Left Preoperative Exam documented in this encounter Care Teams Clinical Documentation Developer Relationship Specialty Start Date End Date Elsewhere, Pcp PCP - General 12/02/20 documented as of this encounter
--- OUTSIDE RECORDS SUMMARY | 2022-05-09 08:02 | XMS_ITS | Encounter Summary ---
:1955 Author Organization [facility] Address [address] [place] [address] Care Team Providers Name Role Phone Elsewhere, Pcp Primary Care Provider Unavailable Encounter Details Date Type Department Care Team Description 11/08/2021 Orders Only [facility], [facility], Aamir [facility], Curtis Galeana , B.Keena., B.A.O. [facility], [facility] [address] [place] [address] 201 [place] [phone] (Wo rk) Social History Tobacco Use Types [...] 11/01/2021 organizations such as moravian groups, unions, fraternal or athletic groups, or [...] or slept in a intermediate (including now)? Education Answer Date Recorded What is the highest level of school you have completed or 12 th grade 11/01/2021 the highest degree you have received? 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
--- OUTSIDE RECORDS SUMMARY | 2022-05-09 08:02 | XMS_ITS | Encounter Summary ---
:1955 Author Organization [facility] Address [address] [place] [address] Care Team Providers Name Role Phone Elsewhere, Pcp Primary Care Provider Unavailable Encounter Details Date Type Department Care Team Description 10/10/2021 Clinical Communication Department of Urology Ramin Wu in [facility] C.N.P., [place] D.N.P. [address] [facility] [address] [place] [phone] Social History Tobacco Use Types Packs/Day Years [...] or relatives? How often do you attend worship or More than 4 times per year 11/01/2021 worship services? 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
--- OUTSIDE RECORDS SUMMARY | 2022-05-09 08:02 | XMS_ITS | Encounter Summary ---
:1955 Author Organization [facility] Address [address] [place] [address] Care Team Providers Name Role Phone Elsewhere, Pcp Primary Care Provider Unavailable Reason for Visit Reason Comments Prostate Cancer Outpatient (Routine) - Closed Specialty Diagnoses / Procedures Referred By Contact Refer red To Contact Diagnoses Primary Malignant Neoplasm Of Prostate (HCC) Aamir Galvan M.B., [facility] Procedures URO Urethral cath removal & voiding trial (UCO/VT) B.Ch., B.A.O. [address] [place] [phone] Referral ID Status Reason Start Date Expiration Date Visits Requ ested Visits Authorized [id number] Closed 11/08/2021 11/08/2022 1 1 Encounter Details Date Type Department Care Team Description 11/15/2021 Procedure visit Department of Aamir Galvan M.B., B.Ch., B.A.O. [address] [place] [phone] Primary Malignant Urology in Linda Tipton R.N. [address] [place] [phone] Neoplasm Of Prostate [place], [place] (HCC) [address] [place] [phone] Social History Tobacco Use Types Packs/Day Years [...] or relatives? How often do you attend restorationist or More than 4 times per year 11/01/2021 latter-day services? Do you belong to any clubs or Yes 11/01/2021 organizations such as restorationist groups, unions, fraternal or athletic groups, or [...] place to sleep or slept in a snf (including now)? Education Answer Date Recorded What is the highest level of school you have completed or 12 th grade 11/01/2021 the highest degree you have received? 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
--- OUTSIDE RECORDS SUMMARY | 2022-05-09 08:02 | XMS_ITS | Encounter Summary ---
:1955 Author Organization [facility] Address [address] [place] [address] Care Team Providers Name Role Phone Elsewhere, Pcp Primary Care Provider Unavailable Reason for Referral Outpatient (Routine) - Authorized Specialty Diagnoses / Procedures Referred By Contact Refer red To Contact Diagnoses Preoperative Exam Kristie Thorpe, VALENTIN, [facility] Procedures ECG 12 Lead C.N.P., M.S.N. [address] [place] [phone] Referral ID Status Reason Start Date Expiration Date Visits V isits Requested Authorized [id number] Authorized 10/10/2021 10/10/2022 1 1 Encounter Details Date Type Department Care Team Description 10/10/2021 Orders Only Preoperative Evaluation Kristie Thorpe, Pre operative Exam Center in [place], VALENTIN, C.N.P., (Prima ry Dx) [place] M.S.N. [address] [facility] [address] [place] [address] [place], [place] [phone] Social History Tobacco Use Types Packs/Day Years [...] More than 4 times per year 11/01/2021 sikh services? 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 encounter Plan of Treatment Not on filedocumented as of this encounter Results ECG 12 Lead (11/04/2021 1:04 PM CDT) P athologist Signature Ventricular Rate 59 BPM MUSE ECG/Min [place] Interval 204 ms MUSE QRSD Interval 168 ms MUSE QT Interval 450 ms MUSE QTC Interval 445 ms MUSE P [place] 49 degrees MUSE R [place] -18 degrees MUSE T Wave [place] 124 degrees MUSE Specimen Anatomical Collection Method Collection Time Receive d Time (Source) Location / / Volume Laterality 11/04/2021 1:04 PM 2 1:13 CDT PM CDT Impressions MUSE - 11/04/2021 1:13 PM CDT Sinus bradycardia with 1st degree A-V block Left bundle branch block with secondary ST-T abnormalities When compared with ECG of 11-JUN-2017 09 :30, [place] interval has increased Reviewed by CB Mcclure Narrative This result has an attachment that is no t available. Procedure Note Tamir Bolton M.D. - 11/04/2021Forma tting of this note might be different from the original. IMPRESSION: Sinus bradycardia with 1st degree A-V bl ock Left bundle branch block with secondary ST-T abnormalities When compared with ECG of 11-JUN-2017 09 :30, [place] interval has increased Reviewed by CB Mcclure Kristie Thorpe APRN C.N.P., M.S.N. ECG ORDERABLES Performing Organization Address City/State/ZIP Code Phon e Number MUSE MUSE NA documented in this encounter Visit Diagnoses Diagnosis Preoperative Exam - Primary Hypertension Essential Primary - Primary Personal History Of Malignant Neoplasm O f Prostate Bundle Branch Block Left Preoperative Exam documented in this encounter Care Teams Universal Grinder Tool Relationship Specialty Start Date End Date Elsewhere, Pcp PCP - General 12/02/20 documented as of this encounter
--- OUTSIDE RECORDS SUMMARY | 2022-05-09 08:02 | XMS_ITS | Encounter Summary ---
:1955 Author Organization [facility] Address [address] [place] [address] Care Team Providers Name Role Phone Elsewhere, Pcp Primary Care Provider Unavailable Reason for Visit Reason Comments Pre-visit Intake Encounter Details Date Type Department Care Team Description 01/10/2022 Clinical Communication Visit Review in Pr e-visit Intake [place], [place] 200 [place] [address] Social History Tobacco Use Types Packs/Day Years Used Date Smoking Tobacco: Former Cigarettes 1 10/1972 - 06/04/1999 Smokeless Tobacco: Never Tobacco [...] or relatives? How often do you attend restorationism or More than 4 times per year 11/01/2021 christian services? 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
--- OUTSIDE RECORDS SUMMARY | 2022-05-09 08:02 | XMS_ITS | Encounter Summary ---
:1955 Author Organization [facility] Address [address] [place] [address] Care Team Providers Name Role Phone Elsewhere, Pcp Primary Care Provider Unavailable Reason for Visit Reason Comments ARF Referral-[facility] Encounter Details Date Type Department Care Team Description 12/20/2021 Clinical Communication Department of Stacey Gutierrez ARF Referral-see Dermatology in A, R.N. document viewer for [place], [address] [place] [address] records [address] [place] [phone] [place], [place] [phone] (Work) [phone] Social History Tobacco Use Types Packs/Day Years [...] More than 4 times per year 11/01/2021 mandaeism services? Do you belong to any clubs [...] place to sleep or slept in a fdc (including now)? Education Answer Date Recorded What is the highest level of school you have completed or 12 th grade 11/01/2021 the highest degree you have received? 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 - 12/20/2021 1:12 PM CDT Appointment request reviewed. Per provider patient appropriate to schedule. ARF: L98.9 (ICD-10-CM) - Lesion Skin documented in this encounter Plan of Treatment Not on filedocumented as of this encounter Visit Diagnoses Not on filedocumented in this encounter Care Teams Commissary Assistant Relationship Specialty Start Date End Date Elsewhere, Pcp PCP - General 12/02/20 documented as of this encounter
--- OUTSIDE RECORDS SUMMARY | 2022-05-09 08:02 | XMS_ITS | Encounter Summary ---
:1955 Author Organization [facility] Address [address] [place] [address] Care Team Providers Name Role Phone Elsewhere, Pcp Primary Care Provider Unavailable Reason for Referral Outpatient (Routine) - Closed Specialty Diagnoses / Procedures Referred By Contact Refer red To Contact Dermatology Diagnoses Lesion Skin Alexandra Santiago C.N.P. [facility] [address] [place] [address] Referral ID Status Reason Start Date Expiration Date Visits Requ ested Visits Authorized [id number] Closed 12/19/2021 12/19/2022 1 1 Encounter Details Date Type Department Care Team Description 12/19/2021 [facility] Alexandra Santiago Lesion Skin (Primary AND CLINICS Cari, C.N.P. Dx) [address] [place] [address] [address] [place] [address] [phone] Social History Tobacco Use Types Packs/Day Years [...] or relatives? How often do you attend episcopal or More than 4 times per year 11/01/2021 caodaism services? Do you belong to any clubs or Yes 11/01/2021 organizations such as episcopal groups, unions, fraternal or athletic groups, or [...] place to sleep or slept in a fpc (including now)? Education Answer Date Recorded What is the highest level of school you have completed or 12 th grade 11/01/2021 the highest degree you have received? 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
--- OUTSIDE RECORDS SUMMARY | 2022-05-09 08:02 | XMS_ITS | Encounter Summary ---
:1955 Author Organization [facility] Address [address] [place] [address] Care Team Providers Name Role Phone Elsewhere, Pcp Primary Care Provider Unavailable Encounter Details Date Type Department Care Team Description 12/20/2021 Orders Only Pharmacy Prior Auth Yash Vasquez [phone] Social History Tobacco Use Types Packs/Day Years [...] or relatives? How often do you attend mormonism or More than 4 times per year 11/01/2021 taoist services? Do you belong to any clubs or Yes 11/01/2021 organizations such as mormonism groups, unions, fraternal or athletic groups, or [...] place to sleep or slept in a group home (including now)? Education Answer Date Recorded What is the highest level of school you have completed or 12 th grade 11/01/2021 the highest degree you have received? 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
--- OUTSIDE RECORDS SUMMARY | 2022-05-09 08:02 | XMS_ITS | Encounter Summary ---
:1955 Author Organization [facility] Address [address] [place] [address] Care Team Providers Name Role Phone Elsewhere, Pcp Primary Care Provider Unavailable Reason for Referral Medication Prior Authorization - Denied Specialty Diagnoses / Procedures Referred By Contact Refer red To Contact Esteban Keenan M.D. [address] [place] [address] [phone] Referral ID Status Reason Start Date Expiration Date Visits Requ ested Visits Authorized [id number] Denied 1 1 Encounter Details Date Type Department Care Team Description 12/13/2021 Orders Only Department of Urology in Esteban Mendez M.D. [place], [place] [address] [facility] [address] [place] [phone] (Wo rk) Social History Tobacco Use Types [...] 11/01/2021 organizations such as samaritan groups, unions, fraiMove or athletic groups, or school groups? How [...] slept in a senior care (including now)? Education Answer Date Recorded What is the highest level of school you have completed or 12 th grade 11/01/2021 the highest degree you have received? Sex Assigned at Date Recorded Male 05/29/2018 8:[address] documented as of this encounter Plan of Treatment Not on filedocumented as of this encounter Visit Diagnoses Not on filedocumented in this encounter Care Teams Game Design Instructor Relationship Specialty Start Date End Date Elsewhere, Pcp PCP - General 12/02/20 documented as of this encounter
--- OUTSIDE RECORDS SUMMARY | 2022-05-09 08:02 | XMS_ITS | Encounter Summary ---
:1955 Author Organization [facility] Address [address] [place] [address] Care Team Providers Name Role Phone Elsewhere, Pcp Primary Care Provider Unavailable Encounter Details Date Type Department Care Team Description 11/07/2021 Anesthesia Event [facility] MAIN OR Duc Smith M.D. [address] [place] [phone] 201 [facility] [address] [place] [phone] [place] [phone] Anesthesia Record Procedure Summary [...] h andoff to the receiving staff during [facility] ch we 1. Identified the patient [...] (Preferred); Technique: Anatomical landmarks (VBR); Inserted by: MLL; Insertion Attempts: 1; Removal Date: 11/08/21; Removal Time: 09; Removal Reason: Patient discharged ETT Placement Date: 11/07/21 1351 by 11/07/21 1604 b y 11/07/21; Placement Merly Wolff APRN, Bray, N icholas T, Time: 1351 (created via CLAUDETTE, VALENCIA WEBSPHERE DEVELOPER, CR NA, DNAP procedure documentation); Mask Ventilation: [...] Returned: Yes; Removal Date: 11/07/21; Removal Time: 1532; Removal Reason: Per order Indwelling Urinary Placement [...] 1 [birth year]1972 - 06/04/1999 Smokeless Tobacco: Never Alcohol [...] or relatives? How often do you attend yazidism or More than 4 times per year 11/01/2021 congregation services? 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 - 11/07/2021 4:12 PM CDT Patient: Yash Mendez Procedure Summary Date: 11/07/21 Room / Location: [address] [address] / [facility] in [place], [place] Anesthesia Start: 1342 Anesthesia Stop: Procedures: ROBOTIC-ASSISTED RADICAL PROSTATECTOMY. (N/A ) ROBOTIC-ASSISTED PELVIC LYMPHADENECTOMY. (N/A ) Diagnosis: Primary Malignant Neoplasm Of Prostate (HCC) (Primary Malignant Neoplasm Of Prostate (HCC) [C61].) Providers: Carlos Olvera M.D. Responsible Provider: Duc Smith M.D. Anesthesia Type: general ASA Status: 3 Anesthesia Type: general Last vitals Vitals Value Taken Time BP Temp Pulse 65 11/07/21 1612 Resp SpO2 94 % 11/07/21 1612 [...] ETT location: oral VL device: glide scope [place] scope blade size: 4 Adult tube size: [...] Malignant Neoplasm Of Prostate (HCC) [C61]. Location: [place] [address] / [facility] in [place], [place] Providers: Carlos Olvera M.D. Pertinent components [...] When compared with ECG of 11-JUN-2017 09:30, AR interval has increased Reviewed by CB Mcclure [...] with patient /legal guardian or through an translator/interpreter. Risks/Benefits/Alternatives of Blood transfusion discussed with patient [...] 1:51 PM CDT) Narrative Chapo Chacko APRN, CRNA DNAP - 11/2021 1:51 PM CDT Chapo Chacko APRN, CRNA DNAKrista ? 11/07/2021 ??2:17 PM Airway Date/Time: 11/07/2021 1:51 PM Performed by: Merly Wolff APRN, CRNA, MNA Authorized by: Duc Smith M.D. Patient location during procedure: OR / Procedure Area PROCEDURE DETAILS: Mask difficulty assessment: easy mask Final airway type: video laryngoscope Laryngeal Manipulation: no ?? Final best view of glottic structures - Cormack/Lehane Score: grade 2A ETT location: oral VL device: glide scope [place] scope blade size: 4 Adult tube size: [...] Intra-op documented in this encounter Care Teams Inorganic Chemistry Teacher Relationship Specialty Start Date End Date Elsewhere, Pcp PCP - General 12/02/20 documented as of this encounter
--- OUTSIDE RECORDS SUMMARY | 2022-05-09 08:02 | XMS_ITS | Encounter Summary ---
:1955 Author Organization [facility] Address [address] [place] [address] Care Team Providers Name Role Phone Elsewhere, Pcp Primary Care Provider Unavailable Reason for Visit Reason Comments Rx Prior Authorization ALEX DENIED - TADALAFIL 5 MG T ABLET Encounter Details Date Type Department Care Team Description 12/20/2021 Clinical Pharmacy Prior Yash Sams Rx Prior Communication Auth [id number] Authorization (ALEX DENIED - TADALA MARCO 5 [...] or relatives? How often do you attend gnosticism or More than 4 times per year 11/01/2021 advent services? Do you belong to any clubs or Yes 11/01/2021 organizations such as gnosticism groups, unions, fraternal or athletic groups, or [...] a [place] [facility] (including now)? Education Answer Date Recorded What is the highest level of school you have completed or 12 th grade 11/01/2021 the highest degree you have received? 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
--- OUTSIDE RECORDS SUMMARY | 2022-05-09 08:02 | XMS_ITS | Encounter Summary ---
:1955 Author Organization [facility] Address [address] [place] [address] Care Team Providers Name Role Phone Elsewhere, Pcp Primary Care Provider Unavailable Reason for Visit Outpatient (Routine) - Closed Specialty Diagnoses / Procedures Referred By Contact Refer red To Contact Dermatology Diagnoses Lesion Skin Alexandra Santiago C.NSadiaPSadia [facility] [address] [place] [address] Referral ID Status Reason Start Date Expiration Date Visits Requ ested Visits Authorized [id number] Closed 12/19/2021 12/19/2022 1 1 Encounter Details Date Type Department Care Team Description 01/16/2022 Comprehensive Visit Department of Maria Elena Chapman is Actinic (Primary Dx); Dermatology in [place] Ayers Nevi [facility]; [place], [place] [address] [facility] Keratosis Seborrheic; [address] [place], [place] [phone] Social History Tobacco Use Types Packs/Day Years [...] or relatives? How often do you attend adventist or More than 4 times per year 11/01/2021 samaritan services? Do you belong to any clubs or Yes 11/01/2021 organizations such as adventist groups, unions, fraternal or athletic groups, or [...] or slept in a half-way (including now)? Education Answer Date Recorded What is the highest level of school you have completed or 12 th grade 11/01/2021 the highest degree you have received? 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
--- OUTSIDE RECORDS SUMMARY | 2022-05-09 08:02 | XMS_ITS | Encounter Summary ---
:1955 Author Organization [facility] Address [address] [place] [address] Care Team Providers Name Role Phone Elsewhere, Pcp Primary Care Provider Unavailable Reason for Visit Reason Comments Pre-visit Intake Encounter Details Date Type Department Care Team Description 10/07/2021 Clinical Communication Visit Review in Pr e-visit Intake [place], [place] 200 [place] [address] Social History Tobacco Use Types [...] or relatives? How often do you attend scientologist or More than 4 times per year 11/01/2021 anabaptism services? 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
--- OUTSIDE RECORDS SUMMARY | 2022-05-09 08:02 | XMS_ITS | Encounter Summary ---
:1955 Author Organization [facility] Address [address] [place] [address] Care Team Providers Name Role Phone Elsewhere, Pcp Primary Care Provider Unavailable Reason for Referral Specialty Diagnoses / Procedures Referred By Contact Refer red To Contact Tala Wu APRN C.N.PSadia, [facility] D.N.P. [address] [place] [phone] Referral ID Status Reason Start Date Expiration Date Visits Requ ested Visits Authorized utpatient (Routine) - Closed Specialty Diagnoses / Procedures Referred By Contact Refer red To Contact Anesthesiology Diagnoses Personal History Of Malignant Neoplasm Of Prostate Tala Wu APRN [facility] C.N.P., D.N.P. [address] [place] [phone] Referral ID Status Reason Start Date Expiration Date Visits Requ ested Visits Authorized [id number] Closed 10/10/2021 10/10/2022 1 1 Reason for Visit Outpatient (Routine) - Closed Specialty Diagnoses / Procedures Referred By Contact Refer red To Contact Urology Diagnoses Personal History Of Malignant Neoplasm Of Prostate Winnie Banegas P.A.-C. [place] [address] [place] [address] Referral ID Status Reason Start Date Expiration Date Visits Requ ested Visits Authorized [id number] Closed 09/05/2021 09/05/2022 1 1 Encounter Details Date Type Department Care Team Description 10/10/2021 Comprehensive Visit Department of Riddhi Olvera History Of Urology in Carlos Rosenberg M.D. Malignant Neoplasm [place], [address] [facility]state [place], [place] [address] [facility] [address] [place], [place] [phone] (Work) [phone] Social History Tobacco Use Types Packs/Day Years [...] or relatives? How often do you attend presybeterian or More than 4 times per year 11/01/2021 worship services? 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 We discussed the Acra scoring system. We discussed his treatment optionsincluding [...] prior. He is welcome to contact Dr. lOvera's team if he has any additional questions. [...] ----ADDITIONAL INFORMATION---- This RT-PCR test using the [employer] SARS-Co V-2 Assay ( Blucarat) performed on the [employer] Two Module System has received Emergency Use Authorization (EUA) by the U.S. Food and Drug Administration, and is modified from the dump worker's instructions with a bridging study. Performance characteristics were verifie d by [facility] in a manner consistent with CLIA requirements. Visit the CDC website: https://www.cdc.g ov/coronavirus/ for the most recent guidelines on De Luna virus testing. Fact Sheet for Healthcare Providers: https://www.fda.gov/media/154533/downloa d Fact Sheet for Patients: https://www.fda.gov/media/076852/downloa d Specimen Anatomical Collection Method Collection Time Receive d Time (Source) Location / / Volume Laterality Varies 11/04/2021 1:52 PM 2 2:17 (Nasopharynx) CDT PM CDT Tala Wu APRN, C.N.P., D.N.P. LAB MICROBIOLOGY - GENERAL ORDERABLES Performing Organization Address City/State/ZIP Code Phon e Number [facility] - [address] [place], [place] [address] [place] [address] Laboratories-[facility] [address] (ABNORMAL) Basic [...] 11/04/2021 DTL Black/ mL/min/BSA 2:29 PM CDT Egyptian Comment: ----ADDITIONAL INFORMATION---- Estimated GFR calculated using [...] Organization Address City/State/ZIP Code Phon e Number [facility] - [address] [place], [place] [address] [place] [place] [address] Laboratories-[facility] [address] (ABNORMAL) CBC without Differential (11/04/2021 1:40 PM CDT) [facility] Method Time Signature Hemoglobin 15.4 13.2 - [...] Organization Address City/State/ZIP Code Phon e Number [facility] - [address] [place], [place] [address] [place] [place] [address] Laboratories-[facility] [address] documented in this encounter Visit Diagnoses Diagnosis Personal History Of Malignant Neoplasm O f Prostate documented in this encounter Care Teams Paramedic Supervisor Relationship Specialty Start Date End Date Elsewhere, Pcp PCP - General 12/02/20 documented as of this encounter
--- OUTSIDE RECORDS SUMMARY | 2022-05-09 08:02 | XMS_ITS | Encounter Summary ---
:1955 Author Organization [facility] Address [address] [place] [address] Care Team Providers Name Role Phone Elsewhere, Pcp Primary Care Provider Unavailable Reason for Referral Outpatient (Routine) - Closed Specialty Diagnoses / Procedures Referred By Contact Refer red To Contact Diagnoses Primary Malignant Neoplasm Of Prostate (HCC) Aamir Galvan M.B., [facility] Procedures URO Urethral cath removal & voiding trial (UCO/VT) B., B.A.O. [address] [place] [phone] Referral ID Status Reason Start Date Expiration Date Visits Requ ested Visits Authorized [id number] Closed 11/08/2021 11/08/2022 1 1 Encounter Details Date Type Department Care Team Description 11/07/2021 - Hospital Encounter [facility] Belinda Olvera M alignant Neoplasm Of Prostate (HCC) (Primary Dx); 11/08/2021 Hospital, Cari Vanessa Primary Malignant Neoplasm Of Prostate ( HCC) [facility] [address] [facility] [place], [place] Floor [address] [phone] [place], [place] (Work) [phone] Social History Tobacco Use [...] or relatives? How often do you attend mandaen or More than 4 times per year 11/01/2021 scientologist services? 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 Discharge Provider: Carlos Olvera M.D. Primary Team: [facility] Urology - [place] Primary Care Providers: Elsewhere, [...] Olvera M.D.Alamiri, Jamal M, M.B., B.Ch., B.A.O. [facility] ROEI OR DISCHARGE DISPOSITION Home or Self [...] AM CDT You were discharged from the [facility] Urology - [facility] Service. Please identify this service name if you call with questions after hospitalization. AttachmentsThe following attachments cannot be sent through Care Everywhere. Acetaminophen (By mouth) (Italian)Bacitracin/Neomycin/Polymyxin B (On the skin) (Italian)Cefdinir (By mouth) (Italian)Oxybutynin (By mouth) (Italian)Oxycodone, Rapid Release (By mouth) (Italian)Laxative, Stimulant Combination (By mouth) (Italian)documented in this encounter Medications at Time of Discharge Medication Sig Dispensed Refills Start Date End Date atorvastatin (LIPITOR) 20 Take 1 tablet (20 90 tablet 3 mg tabletIndications: mg total) by mouth Hyperlipidemia daily. cefdinir (OMNICEF) 300 mg TAKE 1 [...] tablet by 0 04/28/ 013 mouth daily. acetaminophen (TYLENOL) Take 2 tablets 0 11/09/19 [...] Take 1 tablet (5 10 tablet 0 11/082 11/15/2021 mg immediate release mg total) by mouth [...] of this encounter Progress Notes Elicia Santana, Pharm.D., R.Ph. - 11/07/2021 10:28 AM CDT [...] Rx ready at pharmacy. Patient discharged to [facility] with . Pavithra Ivory D.N.P., R.N. - 11/08/2021 10:02 AM CDT The patient has met all criteria for discharge. Ambulating safely independently, tolerating PO intake, pain is well controlled with prn medications. All education complete, supplies sent with patient. Rx ready at pharmacy. Patient discharged to [facility] with . Patient ambulated off [address], declined WC and escort services. documented in this encounter OR Notes Op Note - Carlos Olvera M.D. - 11/07/2021 2:20 PM CDT Pre-op Diagnosis Primary Malignant Neoplasm Of Prostate (HCC) Post-op Diagnosis Primary Malignant Neoplasm Of Prostate (HCC) A first aid attendant actively participated and was necessary for one [...] Neoplasm Of Prostate , Expires: trial (UCO/VT) (HCC) 02/08/2023 documented as of this encounter Procedures [...] Participated in Pranav Gonzalez, 11/11/2021 [facility] the [facility] -Pathology 5:13 PM Interpretation Fellow CDT Report Frank Garner M.D. 11/11/2021 [facility] electronically 5:13 PM signed by CDT I [...] CDT only. ??Grossed by Asael Wilde M.S., ALEX([facility]). B. ??Received fresh labeled prostate [...] forming multiple masses. The dominant nodule is Gray Mountain pattern 3+4, Grade group 2, measures 1 cm in greatest dimension and is located in the right mid lateral prostate. Other masses are present in the left inferior to superior anterior prostate, (Shelbie pattern 3+4, Grade group 2, 0.8 cm), the left inferior to mid posterior prostate, (Shelbie pattern 3+3, Grade group 1, 0.6 cm, the right anterior and posterior apex ([place] pattern 3+4, Grade group 2, 0.6 cm), and the right mid to superior posterior prostate ([place] pattern 3+4, Grade group 2, 0.3 cm). The tumor is confined to the prostate without involvement of extraprostatic soft tissue or seminal vesicles. The surgical margins are negative for tumor. SYNOPTIC REPORT: ??Prostate Procedure: Radical prostatectomy Prostate Size: 48 gram, 3.8 (S-I) x 3.2 (A-P) x 4.7 (R-L) cm Histologic Type: Acinar Histologic Grade ?? Grade Group and Gray Mountain Score ?Grade Group 2 (Shelbie Score 3+4) ?Minor Tertiary Pattern 5 (less [...] LAB SURG PATH ORDERABLES Performing Organization Address City/State/[facility] Code Phon e Number [facility] - [address] [place], [place] [address] [facility] [place] [address] Laboratories-[facility] [address] documented in this encounter Visit Diagnoses Diagnosis [...] 1245 (Due)1419 (Given - Provider: Chapo Chacko, TOOTH CUTTER SPUR, DINING CAR STEWARD, DNAP) 2 g, intravenous, Every 8 hours, [...] Brina Hayden R.N.) 0835 (Given - Provider: Kvng RealP., [...] 1702 documented in this encounter Care Teams Floor Layer Apprentice Relationship Specialty Start Date End Date Elsewhere, Pcp PCP - General 12/02/20 documented as of this encounter
--- OUTSIDE RECORDS SUMMARY | 2022-05-09 08:02 | XMS_ITS | Encounter Summary ---
:1955 Author Organization [facility] Address [address] [place] [address] Care Team Providers Name Role Phone Elsewhere, Pcp Primary Care Provider Unavailable Reason for Visit Reason Comments Patient Education Consult conducted via real-t torito audio/video technology by Elo Coats R.N., C.M.S.R.N. in [facility] to the patient in Patient's Home Encounter Details Date Type Department Care Team Description 11/02/2021 Education Department of Patient Ubl, Leta Otoole APRN, C.N.P., D.N.P. [address] [place] [phone] Personal History Of Education in Elo Coats R.N., C.M.S.R.N. [address] [place] [address] [phone] Malignant Neoplasm Of [place], [place] Prostate [address] [place] [phone] Social History Tobacco Use Types Packs/Day Years [...] More than 4 times per year 11/01/2021 rastafari services? Do you belong to any clubs or Yes 11/01/2021 organizations such as anabaptism groups, unions, fraDashi Intelligence or athletic groups, or school groups? 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
--- OUTSIDE RECORDS SUMMARY | 2022-05-09 08:03 | XMS_ITS | Encounter Summary ---
:1955 Author Organization [facility] Address [address] [place] [address] Care Team Providers Name Role Phone John Paul Javier M.D. Primary Care Provider Unavailable Reason for Referral Outpatient (Routine) - Closed Specialty Diagnoses / Procedures Referred By Contact Refer red To Contact John Paul Javier M.D. [address] [phone] Referral ID Status Reason Start Date Expiration Date Visits Requ ested Visits Authorized [id number] Closed 03/15/2020 03/15/2021 1 1 Encounter Details Date Type Department Care Team Description 03/15/2020 Orders Only RST PCP HLTH ANTELMOT John Paul Javier Mo nitoring For M.D. Therapeutic Bhupinder mcfarland [...] or relatives? How often do you attend rastafarian or More than 4 times per year 11/01/2021 zoroastrian services? 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 documented as of this encounter Plan of Treatment Scheduled Referrals Name Type Priority Associated Diagnoses Order S hilario Primary Care nurse Outpatient Referral Routine Ex pected: visit (clinic) - 03/29/2020, [place] Expires: 03/15/2023 documented as of this encounter Results Potassium (06/24/2020 8:08 AM SUPERVISOR BEEHIVE KILN) athologist Signature Potassium, P 4.9 3.6 - 5.2 06/24/2020 [facility] mmol/L 8:51 AM SUPERVISOR BEEHIVE KILN Specimen Anatomical Collection Method Collection Time Receive d Time (Source) Location / / Volume Laterality Blood (Blood, 06/24/2020 8:08 AM 06/24/19 8:08 Venous) SUPERVISOR BEEHIVE KILN AM SUPERVISOR BEEHIVE KILN John Paul Javier M.D. LAB BLOOD ADD-ON Performing Organization Address City/State/ZIP Code Phon e Number [facility] [address] [place] [address] [place] [address] [address] [facility] Creatinine with Estimated GFR (06/24/2020 8:08 AM SUPERVISOR BEEHIVE KILN) athologist Signature Creatinine 0.93 0.74 - 06/24/2020 [facility] 1.35 mg/dL 8:51 AM SUPERVISOR BEEHIVE KILN eGFR-Black/Afric >90 >=60 06/24/2020 [facility] an Canadian mL/min/BSA 8:51 AM SUPERVISOR BEEHIVE KILN Comment: ----ADDITIONAL INFORMATION---- Estimated GFR calculated using the 2009 CKD_EPI creatinine equation. eGFR Non-Black/ 86 >=60 mL/min/BSA 8:51 AM SUPERVISOR BEEHIVE KILN [facility] Comment: ----ADDITIONAL INFORMATION---- Estimated GFR calculated using the 2009 CKD_EPI creatinine equation. Specimen Anatomical Collection Method Collection Time Receive d Time (Source) Location / / Volume Laterality Blood (Blood, 06/24/2020 8:08 AM 06/24/19 8:08 Venous) SUPERVISOR BEEHIVE KILN AM SUPERVISOR BEEHIVE KILN John Paul Javier M.D. LAB BLOOD ADD-ON Performing Organization Address City/State/ZIP Code Phon e Number [facility] [address] [place] [address] documented in this encounter Visit Diagnoses Diagnosis Monitoring For Therapeutic Drug Therapy documented in this encounter Care Teams Glycerin Operator Relationship Specialty Start Date End Date John Paul Javier M.D. PCP - General Family Medicine 12/01/17 11/21/20 documented as of this encounter
--- OUTSIDE RECORDS SUMMARY | 2022-05-09 08:03 | XMS_ITS | Encounter Summary ---
:1955 Author Organization [facility] Address [address] [place] [address] Care Team Providers Name Role Phone Elsewhere, Pcp Primary Care Provider Unavailable Encounter Details Date Type Department Care Team Description 07/11/2021 Hospital Encounter Department of Bassam, Winnie brandon Laboratory Medicine R, P.A.-C. Prostate-Specific and Pathology, [address] [place] [phone] [place] [address] [place], [place] (Work) [phone] Social History Tobacco Use Types Packs/Day Years [...] More than 4 times per year 11/01/2021 pentecostalism services? 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 MICROSCOPIC AUTOMATED Routine 07/11/2021 7:34 AM Results for this EMPLOYMENT COUNSELOR procedure are i n the results section. PH, U Routine 07/11/2021 7:34 AM Results f or this EMPLOYMENT COUNSELOR procedure are i n the results section. OSMOLALITY, U Routine 07/11/2021 7:34 AM Results for this EMPLOYMENT COUNSELOR procedure are i n the results section. URINALYSIS WITH Routine 07/11/2021 7:34 AM Elevated Result s for this MICROSCOPIC EMPLOYMENT COUNSELOR Prostate-Specific procedure are in Antigen the results section. documented in this encounter Results Osmolality, Urine (07/11/2021 7:34 AM EMPLOYMENT COUNSELOR) athologist Signature Osmolality, U 604 150 - 1150 07/11/2021 DTL mOsm/kg 8:51 AM EMPLOYMENT COUNSELOR Specimen Anatomical Collection Method Collection Time Receive d Time (Source) Location / / Volume Laterality Urine 07/11/2021 7:34 AM 7:48 EMPLOYMENT COUNSELOR AM EMPLOYMENT COUNSELOR Winnie Banegas P.A.-C. LAB URINE ORDERABLES Performing Organization Address City/State/ZIP Code Phon e Number [facility] - 200 [place] [address] [facility] pH, Urine (07/11/2021 7:34 AM EMPLOYMENT COUNSELOR) athologist Signature pH, U 5.6 4.5 - 8.0 07/11/2021 8:51 DTL AM EMPLOYMENT COUNSELOR Specimen Anatomical Collection Method Collection Time Receive d Time (Source) Location / / Volume Laterality Urine 07/11/2021 7:34 AM 2 7:48 EMPLOYMENT COUNSELOR AM EMPLOYMENT COUNSELOR Winnie Banegas P.A.-C. LAB URINE ORDERABLES Performing Organization Address City/[facility] Code Phon e Number [facility] - [address] [place], [place] [address] [place] [phone] [place] [address] 200 [facility] Microscopic Automated (07/11/2021 7:34 AM EMPLOYMENT COUNSELOR) P athologist Signature Microscopy Normal 07/11/2021 8:31 DTL AM EMPLOYMENT COUNSELOR RBC <3 <3 /hpf 07/11/2021 8:31 DTL AM EMPLOYMENT COUNSELOR Specimen Anatomical Collection Method Collection Time Receive d Time (Source) Location / / Volume Laterality Urine 07/11/2021 7:34 AM 7:48 EMPLOYMENT COUNSELOR AM EMPLOYMENT COUNSELOR Winnie Banegas P.A.-C. LAB URINE ORDERABLES Performing Organization Address City/[facility] Phon e Number [facility] - 200 [place], [place] [address] [facility] [place] [id number] [place] [address] Dipstick, Urine (07/11/2021 7:34 AM EMPLOYMENT COUNSELOR) [facility] Method Time Signature Hemoglobin, QL Negative Negative 07/11/2021 DTL 8:31 AM EMPLOYMENT COUNSELOR Leukocyte Negative Negative 07/11/2021 DTL Esterase, U 8:31 AM EMPLOYMENT COUNSELOR Nitrite, U Negative Negative 07/11/2021 DTL 8:31 AM EMPLOYMENT COUNSELOR Ketones, U Negative Negative 07/11/2021 DTL mg/dL 8:31 AM EMPLOYMENT COUNSELOR Glucose, U Negative Negative 07/11/2021 DTL mg/dL 8:31 AM EMPLOYMENT COUNSELOR Specimen Anatomical Collection Method Collection Time Receive d Time (Source) Location / / Volume Laterality Urine 07/11/2021 7:34 AM 7:48 EMPLOYMENT COUNSELOR AM EMPLOYMENT COUNSELOR Winnie Banegas P.A.-C. LAB URINE ORDERABLES Performing Organization Address City/[facility] Phon e Number [facility] - 200 [place], [place] [address] [place], [place] [phone] [place] [address] Urinalysis with Microscopic: Urine, Midstream (07/11/2021 7:34 AM EMPLOYMENT COUNSELOR) [facility] Method Time Signature Source Urine, Urine, 07/11/2021 DTL Midstream 7:48 AM EMPLOYMENT COUNSELOR Color, U Yellow 07/11/2021 DTL 7:48 AM EMPLOYMENT COUNSELOR Clarity, U Clear 07/11/2021 DTL 7:48 AM EMPLOYMENT COUNSELOR Protein, U 8 <26 mg/dL 07/11/2021 DTL 8:59 AM EMPLOYMENT COUNSELOR Protein/Osmol 0.13 <0.42 07/11/2021 DTL ality ratio 8:59 AM EMPLOYMENT COUNSELOR Predicted 24 137 mg/24 h 07/11/2021 DTL Hr Protein 8:59 AM EMPLOYMENT COUNSELOR Predicted 44-432 mg/24 h 07/11/2021 DTL Range 8:59 AM EMPLOYMENT COUNSELOR Specimen Anatomical Collection Method Collection Time Receive d Time (Source) Location / / Volume Laterality Urine (Urine, 07/11/2021 7:34 AM 07/11/19 7:48 Midstream) EMPLOYMENT COUNSELOR AM EMPLOYMENT COUNSELOR Winnie Banegas P.A.-C. LAB URINE ORDERABLES Performing Organization Address City/State/ZIP Code Phon e Number [facility] - [address] [place], [place] [address] [facility] [place] [address] Laboratories-[facility] [address] documented in this encounter Visit Diagnoses Diagnosis Elevated Prostate-Specific Antigen documented in this encounter Care Teams Wood Floor Layer Relationship Specialty Start Date End Date Elsewhere, Pcp PCP - General 12/02/20 documented as of this encounter
--- OUTSIDE RECORDS SUMMARY | 2022-05-09 08:03 | XMS_ITS | Encounter Summary ---
:1955 Author Organization [facility] Address [address] [place] [address] Care Team Providers Name Role Phone Elsewhere, Pcp Primary Care Provider Unavailable Reason for Referral MRI/CAT/PET Scan (Routine) - Closed Specialty Diagnoses / Procedures Referred By Contact Refer red To Contact Radiology Diagnoses Elevated Prostate-Specific Antigen Winnie Banegas P.A.-[facility] Procedures MR Prostate without and with IV Contrast [address] [place], [place] [phone] Referral ID Status Reason Start Date Expiration Date Visits Requ ested Visits Authorized [id number] Closed 08/15/2021 08/15/2022 1 1 Encounter Details Date Type Department Care Team Description 08/15/2021 Orders Only Department of Urology Winnie Banegas El evated in [place], [place] Prostate-Specific [place] [address] [facility] Antigen (Primary Dx) [address] [place] [phone] Social History Tobacco Use Types Packs/Day Years [...] or relatives? How often do you attend jainism or More than 4 times per year 11/01/2021 baptism services? Do you belong to any clubs or Yes 11/01/2021 organizations such as jainism groups, unions, fraternal or athletic groups, or [...] or slept in a snf (including now)? 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
--- OUTSIDE RECORDS SUMMARY | 2022-05-09 08:03 | XMS_ITS | Encounter Summary ---
:1955 Author Organization [facility] Address [address] [place] [address] Care Team Providers Name Role Phone Elsewhere, Pcp Primary Care Provider Unavailable Encounter Details Date Type Department Care Team Description 07/04/2021 Clinical Communication Department of Urology Sydnie Banegas in [place] [address] [facility] [address] [place] [phone] Social History Tobacco Use Types Packs/Day Years [...] More than 4 times per year 11/01/2021 sabianism services? Do you belong to any clubs [...] slept in a group home (including now)? 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 gist Method Time Signature Source Urine, Urine, 07/11/2021 DTL Midstream 7:48 AM BODY WELDER Color, U Yellow 07/11/2021 DTL 7:48 AM BODY WELDER Clarity, U Clear 07/11/2021 DTL 7:48 AM BODY WELDER Protein, U 8 <26 mg/dL 07/11/2021 DTL 8:59 AM BODY WELDER Protein/Osmol 0.13 <0.42 07/11/2021 DTL ality ratio 8:59 AM BODY WELDER Predicted 24 137 mg/24 h 07/11/2021 DTL Hr Protein 8:59 AM BODY WELDER Predicted 44-432 mg/24 h 07/11/2021 DTL Range 8:59 AM BODY WELDER Specimen Anatomical Collection Method Collection Time Receive d Time (Source) Location / / Volume Laterality Urine (Urine, 07/11/2021 7:34 AM 07/11/19 22 7:48 Midstream) BODY WELDER AM BODY WELDER Winnie Banegas P.A.-C. LAB URINE ORDERABLES Performing Organization Address City/State/ZIP Code Phon e Number [facility] - [address] [place], [place] [address] [facility] [place] [address] Laboratories-[facility] [address] documented in this encounter Visit Diagnoses Diagnosis Elevated Prostate-Specific Antigen - Magda mortensen documented in this encounter Care Teams Gas Engineer Relationship Specialty Start Date End Date Elsewhere, Pcp PCP - General 7/1/21 documented as of this encounter
--- OUTSIDE RECORDS SUMMARY | 2022-05-09 08:03 | XMS_ITS | Encounter Summary ---
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
--- OUTSIDE RECORDS SUMMARY | 2022-05-09 08:03 | XMS_ITS | Encounter Summary ---
:1955 Author Organization [facility] Address [address] [place] [address] Care Team Providers Name Role Phone Elsewhere, Pcp Primary Care Provider Unavailable Reason for Referral Outpatient (Routine) - Closed Specialty Diagnoses / Procedures Referred By Contact Refer red To Contact Urology Diagnoses Elevated Prostate-Specific Antigen Alexandra Santiago, C.N.P. [facility] [address] [place] [address] Referral ID Status Reason Start Date Expiration Date Visits Requ ested Visits Authorized [id number] Closed 07/04/2021 07/04/2022 1 1 LLMENT SERVICES DEAN Encounter Details Date Type Department Care Team Description 07/04/2021 [facility] Alexandra Santiago AND SHENA Alcala, C.N.P. Prostate-Specific [address] [place] [address] [address] [facility] Antigen (Primary Dx) [place] [address] [phone] Social History Tobacco Use Types Packs/Day Years [...] or relatives? How often do you attend anabaptist or More than 4 times per year 11/01/2021 episcopal services? Do you belong to any clubs or Yes 11/01/2021 organizations such as anabaptist groups, unions, fraternal or athletic groups, or [...] or slept in a fdc (including now)? Sex Assigned at Date Recorded Male 05/29/2018 8:55 AM ENROLLMENT SERVICES DEAN documented as of this encounter Plan of Treatment Scheduled Referrals Name Type Priority Associated Diagnoses [facility] Referral Outpatient Referral Routine Elevated Expe cted: Prostate-Specific 07/04/2021 Antigen (Approximate), Expires: 10/01/2022 documented as of this encounter Visit Diagnoses Diagnosis Elevated Prostate-Specific Antigen - [facility] documented in this encounter Care Teams Personal Care Worker Relationship Specialty Start Date End Date Elsewhere, Pcp PCP - General 12/02/20 documented as of this encounter
--- OUTSIDE RECORDS SUMMARY | 2022-05-09 08:03 | XMS_ITS | Encounter Summary ---
:1955 Author Organization [facility] Address [address] [place] [address] Care Team Providers Name Role Phone Elsewhere, Pcp Primary Care Provider Unavailable Reason for Visit Outpatient (Routine) - Closed Specialty Diagnoses / Procedures Referred By Contact Refer red To Contact Urology Diagnoses Elevated Prostate-Specific Antigen Alexandra Santiago, C.N.P. [facility] [address] [place] [address] Referral ID Status Reason Start Date Expiration Date Visits Requ ested Visits Authorized [id number] Closed 07/04/2021 07/04/2022 1 1 Encounter Details Date Type Department Care Team Description 07/11/2021 Comprehensive Visit Department of Winnie Banegas ed Urology in R, P.A.-C. Prostate-Specific [place], [place] 200 [facility] Antigen 200 [place] [phone] Social History Tobacco Use Types Packs/Day Years [...] or relatives? How often do you attend judaism or More than 4 times per year 11/01/2021 anglican services? Do you belong to any clubs or Yes 11/01/2021 organizations such as judaism groups, unions, fraAutoWiser, LLC or athletic groups, or school groups? How [...] at Date Recorded Male 05/29/2018 8:55 AM INSPECTOR DIALS documented as of this encounter Consult Notes Winnie Banegas P.A.-C. - 07/11/2021 9:30 AM CST REFERRAL SOURCE The patient is being seen in consultation at the request of Alexandra Santiago C.NSadiaPSadia [address] [facility] [address] [place] [address] I personally reviewed outside records as summarized [...] the past 720 hour(s)). IMAGING AND TESTS @[id number]@ IMPRESSION/REPORT/PLAN #1 Elevated Prostate-Specific Antigen It was [...] sexual activity. Wediscussed most common side effects. ECTOR DIALS documented in this encounter Plan of Treatment Not on filedocumented as of this encounter Results (ABNORMAL) PSA (Prostate-Specific Antigen), Diagnostic (08/12/2021 8:40 AM INSPECTOR DIALS) athologist Signature Prostate-Speci 10.2 (H) <=4.5 08/12/2021 DTL fic Ag ng/mL 2:29 PM INSPECTOR DIALS Comment: ----ADDITIONAL INFORMATION---- The testing method is [...] 08/12/2021 8:40 AM 08/13/19 22 1:17 Venous) INSPECTOR DIALS PM INSPECTOR DIALS Winnie Banegas P.A.-C. LAB BLOOD ADD-ON Performing Organization Address City/State/ZIP Code Phon e Number [facility] - [address] [place], [place] [address] [facility] [place] [address] Laboratories-[facility] [address] documented in this encounter Visit Diagnoses Diagnosis Elevated Prostate-Specific Antigen documented in this encounter Care Teams Lamp Decorator Relationship Specialty Start Date End Date Elsewhere, Pcp PCP - General 12/02/20 documented as of this encounter
--- OUTSIDE RECORDS SUMMARY | 2022-05-09 08:03 | XMS_ITS | Encounter Summary ---
:[address] [facility] Address [address] [place] [address] Care Team Providers Name Role Phone Elsewhere, Pcp Primary Care Provider Unavailable Reason for Visit Outpatient (Routine) - Closed Specialty Diagnoses / Procedures Referred By Contact Refer red To Contact Diagnoses Abnormal Magnetic Resonance Imaging Prostate Winnie Banegas P.A.-C. [facility] Procedures URO Transperineal MR Fusion [address] [place] [address] [phone] Referral ID Status Reason Start Date Expiration Date Visits Requ ested Visits Authorized [id number] Closed 08/22/2021 08/22/2022 1 1 Encounter Details Date Type Department Care Team Description 08/31/2021 Procedure visit Department of Urology Jomar Banegas P.A.-C. [address] [place] [address] [phone] Abnormal Magnetic in [place], Yung'Leon Pelayo APRN, C.N.P., M.S.N. [address] [place] [phone] Resonance Imaging [place] [facility]state [address] [place] [phone] Social History Tobacco Use Types Packs/Day Years Used Date Smoking Tobacco: Former Cigarettes 1 20 05/10/1972 - 06/04/1999 Smokeless Tobacco: Never Alcohol Use [...] More than 4 times per year 11/01/2021 buddhist services? 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 Probe used: serial number [id number]). documented in this encounter Procedure Notes Leon Worthy APRN, C.NSyl, M.S.N. - 08/31/2021 8:00 AM CDTAssociated Order(s): URO Transperineal MR Fusion Pre-Procedure Diagnose(s): Abnormal Magnetic Resonance Imaging Prostate Post-Procedure Diagnose(s): Abnormal Magnetic Resonance Imaging Prostate URO Transperineal MR Fusion Date/Time: 08/31/2021 4:12 PM Performed by: Leon Worthy APRN, Ernst.N.Jamal, M.S.N. Authorized by: Winnie Banegas P.AChasity Care team members present 1. Luis Correia 2. Yasmeen Hubbard L.P.N. IMPRESSION Indeterminate prostate lesion PROCEDURE DETAILS Setting: Clinic Position: Dorsal lithotomy Biopsy option(s) include: MR Fusion Biopsy type: transperineal Region(s) of interest: CANDACE #1 CANDACE # 1 - location: left, transitional/central zone CANDACE # 1 - PiRADS: 4 CANDACE # 1 - number of cores: 3 [...] Procedure Name Priority Date/Time Associated Comments Diagnosis MO MRI IMAGE FUSION Routine 08/31/2021 4:12 PM Abnormal Magnet ic Results for this CDT Resonance Imaging procedure are in Prostate the results section. MO US TRANSRECTAL Routine 08/31/2021 4:12 PM Abnormal Magnetic Results for this CDT Resonance Imaging procedure are in Prostate the results section. MO BIOPSY PROSTATE Routine 08/31/2021 4:12 PM Abnormal Magneti c Results for this NEEDLE/PUNCH CDT Resonance Imaging procedure are in Prostate the results section. SURGICAL PATHOLOGY Routine 08/31/2021 8:00 AM Abnormal Magneti c Results for this CDT Resonance Imaging procedure are in Prostate the results section. documented in this encounter Results MO BIOPSY PROSTATE NEEDLE/PUNCH, MO US TRANSRECTAL, MO MRI IMAGE FUSION (08/31/2021 4:12 PM CDT) [...] ??None COMMENTS Biopsy pain score 3/10 Winnie Banegsa P.A.-C. UROLOGY ORDERABLES Surgical Pathology (08/31/2021 8:00 AM CDT) Component Value Ref Test Analysis Performed Pathologis t Range Method Time At Signature 09/02/2021 DTL 1:19 PM CDT Report Rogelio WebbS., Ph.D. 09/02/2021 DTL electronically 1:19 PM signed [...] are submitted in cassette D1. Gross by JANUARY. ?? G: ?? Received on a biopsy [...] are submitted in cassette J1. Gross by AJMarli. M: ?? Received in formalin labeled with the patient's name, medical record number, and [id number] transition zone are three pale cody-pink soft [...] needle core biopsy: Prostatic adenocarcinoma Type: Acinar Lakeland score 3+3=6 Grade Group: 1 Tumor involves [...] ??needle core biopsy: Prostatic adenocarcinoma Type: Acinar Shelbie score: 3+4=7 Percentage of pattern 4: 5% [...] is no t available. Leon Worthy APRN C.N.P., M.S.N. LAB SURG PATH ORDER ANITA Performing Organization Address City/State/ZIP Code Phon e Number [facility] - [address] [place], [place] [address] [facility] [place] [address] Laboratories-[facility] [address] documented in [...] dose documented in this encounter Care Teams Sighter Relationship Specialty Start Date End Date Elsewhere, Pcp PCP - General 12/02/20 documented as of this encounter
--- OUTSIDE RECORDS SUMMARY | 2022-05-09 08:03 | XMS_ITS | Encounter Summary ---
:1955 Author Organization [facility] Address [address] [place] [address] Care Team Providers Name Role Phone Elsewhere, Pcp Primary Care Provider Unavailable Encounter Details Date Type Department Care Team Description 07/11/2021 Orders Only Department of Urology in [place], [place] P.A.-C. [address] 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
--- OUTSIDE RECORDS SUMMARY | 2022-05-09 08:03 | XMS_ITS | Encounter Summary ---
:1955 Author Organization [facility] Address [address] [place] [address] Care Team Providers Name Role Phone Elsewhere, Pcp Primary Care Provider Unavailable Encounter Details Date Type Department Care Team Description 08/25/2021 Orders Only Department of Urology in [place], [place] P.A.-C. [address] [facility] [address] [place], [place] [phone] [place], [place] [phone] (Wo rk) Social History Tobacco Use Types [...] More than 4 times per year 11/01/2021 religion services? 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
--- OUTSIDE RECORDS SUMMARY | 2022-05-09 08:03 | XMS_ITS | Encounter Summary ---
:1955 Author Organization [facility] Address [address] [place] [address] Care Team Providers Name Role Phone John Paul Javier M.D. Primary Care Provider Unavailable Encounter Details Date Type Department Care Team Description 08/03/2020 Orders Only RST PCP HLTH MNT Arsh Mustafa Jr., M.D. 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 PCP - General Family Medicine 12/01/17 11/21/20 documented as of this encounter
--- OUTSIDE RECORDS SUMMARY | 2022-05-09 08:03 | XMS_ITS | Encounter Summary ---
:1955 Author Organization [facility] Address [address] [place] [address] Care Team Providers Name Role Phone Elsewhere, Pcp Primary Care Provider Unavailable Encounter Details Date Type Department Care Team Description 08/22/2021 Orders Only Department of Urology Winnie Banegas El evated in [place], P.A.-C. Prostate-Specific [place] 200 [facility] Antigen (Primary Dx) [address] [place] [phone] Social History Tobacco Use Types Packs/Day Years [...] or relatives? How often do you attend confucianism or More than 4 times per year 11/01/2021 gnosticist services? 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 Plan of Treatment Not on filedocumented as of this encounter Results Bacterial Culture, Aerobic + Susc, Urine (08/24/2021 9:01 AM CDT) [facility] gist Method Time Signature Urine Culture [...] City/State/ZIP Code Phon e Number [facility] - [address] [place], [place] [address] [facility] [place] [address] Laboratories-[facility] [address] documented in this encounter Visit Diagnoses Diagnosis Elevated Prostate-Specific Antigen - Magda mortensen documented in this encounter Care Teams Manager Utilization Review Relationship Specialty Start Date End Date Elsewhere, Pcp PCP - General 12/02/20 documented as of this encounter
--- OUTSIDE RECORDS SUMMARY | 2022-05-09 08:03 | XMS_ITS | Encounter Summary ---
:1955 Author Organization [facility] Address [address] [place] [address] Care Team Providers Name Role Phone Elsewhere, Pcp Primary Care Provider Unavailable Reason for Referral Outpatient (Routine) - Closed Specialty Diagnoses / Procedures Referred By Contact Refer red To Contact Diagnoses Abnormal Magnetic Resonance Imaging Prostate Winnie Banegas P.A.-CS[facility]ia [facility] Procedures URO Transperineal MR Fusion [address] [place] [phone] Referral ID Status Reason Start Date Expiration Date Visits Requ ested Visits Authorized [id number] Closed 08/22/2021 08/22/2022 1 1 Encounter Details Date Type Department Care Team Description 08/22/2021 Orders Only Department of Urology Winnie Banegas Ab normal Magnetic in [place], P.ASadia-C. Resonance Imaging [place] [address] [place] [address] Prostate (Primary Dx) [address] [place] [phone] Social History Tobacco Use Types Packs/Day Years [...] More than 4 times per year 11/01/2021 hindu services? Do you belong to any clubs or Yes 11/01/2021 organizations such as yazidism groups, unions, fraAvantCredit or athletic groups, or school groups? 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
--- OUTSIDE RECORDS SUMMARY | 2022-05-09 08:03 | XMS_ITS | Encounter Summary ---
:[address] [facility] Address [address] [place] [address] Care Team Providers Name Role Phone John Paul Javier M.D. Primary Care Provider Unavailable Reason for Visit Reason Comments Annual Exam Outpatient (Routine) - Closed Specialty Diagnoses / Procedures Referred By Contact Refer red To Contact Family Medicine John Paul Javier M.D. [address] [phone] Referral ID Status Reason Start Date Expiration Date Visits Requ ested Visits Authorized [id number] Closed 05/30/2019 05/29/2020 1 1 Encounter Details Date Type Department Care Team Description 06/25/2020 Comprehensive Visit Department of Kenisha Javier Essential Primary (Primary Dx); Family MedicineJohn Paul M.D. Hyperlip idemia [facility], [address] [phone] Social History Tobacco Use Types Packs/Day Years [...] More than 4 times per year 11/01/2021 denominational services? 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 - 06/25/2020 8:30 AM ANESTHESIOLOGIST/PHYSICIAN No changes today, sir. Be in touch with us about getting your Shingrix shot and abdominal ultrasound (AAA screening). THESIOLOGIST/PHYSICIAN documented in this encounter Progress Notes John [...] medications. John Paul Javier MD PGY-3 Pager #[phone] THESIOLOGIST/PHYSICIAN documented in this encounter Miscellaneous Notes Assessment & Plan Note - John Paul Javier M.D. - 06/25/2020 12:27 PM ANESTHESIOLOGIST/PHYSICIAN Associated Problem(s): Hyperlipidemia - Continue current medications. THESIOLOGIST/PHYSICIAN Assessment & Plan Note - John Paul Javier M.D. 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 - Continue Metoprolol succinate 50 mg qd. THESIOLOGIST/PHYSICIAN documented in this encounter Plan of Treatment Not on filedocumented as of this encounter Results Sodium (06/24/2020 8:08 AM ANESTHESIOLOGIST/PHYSICIAN) P athologist Signature Sodium, P 140 135 - 145 06/24/2020 8:51 [facility] mmol/L AM ANESTHESIOLOGIST/PHYSICIAN Specimen Anatomical Collection Method Collection Time Receive d Time (Source) Location / / Volume Laterality Blood (Blood, 06/24/2020 8:08 AM 06/24/19 8:08 Venous) ANESTHESIOLOGIST/PHYSICIAN AM ANESTHESIOLOGIST/PHYSICIAN John Paul Javier M.D. LAB BLOOD ADD-ON Performing Organization Address City/State/ZIP Code Phon e Number [facility] [address] [place] [address] [facility] [address] documented in this encounter Visit Diagnoses Diagnosis Hypertension Essential Primary - Primary Hyperlipidemia documented in this encounter Care Teams Computer Systems Consultant Relationship Specialty Start Date End Date John Paul Javier M.D. PCP - General Family Medicine 12/01/17 11/21/20 documented as of this encounter
--- OUTSIDE RECORDS SUMMARY | 2022-05-09 08:03 | XMS_ITS | Encounter Summary ---
:1955 Author Organization [facility] Address [address] [place] [address] Care Team Providers Name Role Phone Elsewhere, Pcp Primary Care Provider Unavailable Encounter Details Date Type Department Care Team Description 08/12/2021 Hospital Encounter Department of Bassam, Winnie brandon Laboratory Medicine R, P.A.-C. Prostate-Specific in [place], [place] [address] [place] [address] Antigen [address] [facility] [place] [address] [phone] Social History Tobacco Use Types Packs/Day Years [...] More than 4 times per year 11/01/2021 mu-ism services? 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 documented in this encounter Results (ABNORMAL) PSA (Prostate-Specific Antigen), Diagnostic (08/12/2021 8:40 AM FISHING TOOL SUPERVISOR) P athologist Signature Prostate-Speci 10.2 (H) <=4.5 08/12/2021 DTL fic Ag ng/mL 2:29 PM FISHING TOOL SUPERVISOR Comment: ----ADDITIONAL INFORMATION---- The testing method is an electrochemilum inescence assay manufactured by [employer] and performed on the Modular or Sherpany system . Values obtained with different assay met hods or kits may be different and cannot be used inte rchangeably. Test results cannot be interpreted as ab solute evidence for the presence or absence of malignant disease. Specimen Anatomical Collection Method Collection Time Receive d Time (Source) Location / / Volume Laterality Blood (Blood, 08/12/2021 8:40 AM 08/13/19 22 1:17 Venous) FISHING TOOL SUPERVISOR PM FISHING TOOL SUPERVISOR Winnie Banegas P.A.-C. LAB BLOOD ADD-ON Performing Organization Address City/State/ZIP Code Phon e Number [facility] - [facility] [address] [place], [place] [address] [facility] [place] [address] Laboratories-[facility] [address] documented in this encounter Visit Diagnoses Diagnosis Elevated Prostate-Specific Antigen documented in this encounter Care Teams Career Development Associate Relationship Specialty Start Date End Date Elsewhere, Pcp PCP - General 12/02/20 documented as of this encounter
--- OUTSIDE RECORDS SUMMARY | 2022-05-09 08:03 | XMS_ITS | Encounter Summary ---
:1955 Author Organization [facility] Address [address] [place] [address] Care Team Providers Name Role Phone Elsewhere, Pcp Primary Care Provider Unavailable Encounter Details Date Type Department Care Team Description 03/30/2021 Orders Only RST PCP HLTH [place]EL[place] Brina Luo M.D. 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
--- OUTSIDE RECORDS SUMMARY | 2022-05-09 08:03 | XMS_ITS | Encounter Summary ---
:1955 Author Organization [facility] Address [address] [place] [address] Care Team Providers Name Role Phone John Paul Javier M.D. Primary Care Provider Unavailable Reason for Referral Outpatient (Routine) - Closed Specialty Diagnoses / Procedures Referred By Contact Refer red To Contact Family John Paul Ya M.D. [address] [phone] Referral ID Status Reason Start Date Expiration Date Visits Requ ested Visits Authorized [id number] Closed 05/30/2019 05/29/2020 1 1 ING AND COOLING SYSTEMS ENGINEER Reason for Visit Reason Comments Annual Exam Outpatient (Routine) - Closed Specialty Diagnoses / Procedures Referred By Contact Refer red To Contact John Paul Rodriguez M.D. [address] [phone] Referral ID Status Reason Start Date Expiration Date Visits Requ ested Visits Authorized [id number] Closed 05/29/2018 05/29/2019 1 1 Encounter Details Date Type Department Care Team Description 05/30/2019 Comprehensive Visit Department of Kenisha Javier Essential Primary (Primary Dx); Family John Paul Coppola M.D. Hyperlip idemia; [facility] Screening Examination Diabetes Mellitus [place], [place] [address] [place] [address] Social History Tobacco Use Types Packs/Day Years [...] or relatives? How often do you attend taoist or More than 4 times per year 11/01/2021 evangelical services? 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 He [...] 05/30/2020 John Paul Javier MD PGY-2 Pager #[phone] ING AND COOLING SYSTEMS ENGINEER documented in this encounter Plan of Treatment Scheduled Referrals Name Type Priority Associated Diagnoses Order S [facility] Family Medicine Outpatient Referral Routine Expec bonilla: office visit 05/30/2020 (clinic) (Approximate), Expires: 05/30/2022 documented as of this encounter Results Sodium (05/29/2019 7:53 AM HEATING AND COOLING SYSTEMS ENGINEER) athologist Signature Sodium, P 141 135 - 145 05/29/2019 8:38 [facility] mmol/L AM HEATING AND COOLING SYSTEMS ENGINEER Specimen Anatomical Collection Method Collection Time Receive d Time (Source) Location / / Volume Laterality Blood (Blood, 05/29/2019 7:53 AM 05/29/20 19 7:53 Venous) HEATING AND COOLING SYSTEMS ENGINEER AM HEATING AND COOLING SYSTEMS ENGINEER John Paul Javier M.D. LAB BLOOD ADD-ON Performing Organization Address City/[facility]/ZIP Code Phon e Number [facility] [address] [place] [address] [facility] [address] Potassium (05/29/2019 7:53 AM HEATING AND COOLING SYSTEMS ENGINEER) athologist Signature Potassium, P 4.9 3.6 - 5.2 05/29/2019 [facility] mmol/L 8:38 AM HEATING AND COOLING SYSTEMS ENGINEER Specimen Anatomical Collection Method Collection Time Receive d Time (Source) Location / / Volume Laterality Blood (Blood, 05/29/2019 7:53 AM 05/29/20 19 7:53 Venous) HEATING AND COOLING SYSTEMS ENGINEER AM HEATING AND COOLING SYSTEMS ENGINEER John Paul Javier M.D. LAB BLOOD ADD-ON Performing Organization Address City/State/ZIP Code Phon e Number [address] [address] [facility] [place] [id number] [place] [address] documented in this encounter Visit Diagnoses Diagnosis Hypertension Essential Primary - Primary Hyperlipidemia Screening Examination Diabetes Mellitus documented in this encounter Care Teams Gear Technician Relationship Specialty Start Date End Date John Paul Javier M.D. PCP - General Family Medicine 12/01/17 11/21/20 documented as of this encounter
--- OUTSIDE RECORDS SUMMARY | 2022-05-09 08:03 | XMS_ITS | Encounter Summary ---
:1955 Author Organization [facility] Address [address] [place] [address] Care Team Providers Name Role Phone Elsewhere, Pcp Primary Care Provider Unavailable Encounter Details Date Type Department Care Team Description 08/24/2021 Hospital Encounter Department of Bassam, Winnie brandon Laboratory Medicine R, P.A.-C. Prostate-Specific in [place], [place] [address] [place] [address] Antigen [address] [facility] [place] [address] [phone] Social History Tobacco Use Types Packs/Day Years [...] or relatives? How often do you attend voodoo or More than 4 times per year 11/01/2021 confucianist services? 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 documented as of this encounter Medications at [...] + Susc, Urine (08/24/2021 9:01 AM CDT) [facility] gist Method Time Signature Urine Culture [...] Address City/State/ZIP Code Phon e Number [facility] - [address] [place], [place] [address] [facility] [place] [address] Laboratories-[facility] [address] documented in this encounter Visit Diagnoses Diagnosis Elevated Prostate-Specific Antigen documented in this encounter Care Teams Caser Up Relationship Specialty Start Date End Date Elsewhere, Pcp PCP - General 12/02/20 documented as of this encounter
--- OUTSIDE RECORDS SUMMARY | 2022-05-09 08:03 | XMS_ITS | Encounter Summary ---
:1955 Author Organization [facility] Address [address] [place] [address] Care Team Providers Name Role Phone Elsewhere, Pcp Primary Care Provider Unavailable Reason for Referral MRI/CAT/PET Scan (Routine) - Closed Specialty Diagnoses / Procedures Referred By Contact Refer red To Contact Radiology Diagnoses Elevated Prostate-Specific Antigen Winnie Banegas P.A.-C. [facility] Procedures MR Prostate without and with IV Contrast [address] [place] [phone] Referral ID Status Reason Start Date Expiration Date Visits Requ ested Visits Authorized [id number] Closed 08/15/2021 08/15/2022 1 1 Reason for Visit MRI/CAT/PET Scan (Routine) - Closed Specialty Diagnoses / Procedures Referred By Contact Refer red To Contact Radiology Diagnoses Elevated Prostate-Specific Antigen Winnie Banegas P.A.-C. [facility] Procedures MR Prostate without and with IV Contrast [address] [place] [address] [phone] Referral ID Status Reason Start Date Expiration Date Visits Requ ested Visits Authorized [id number] Closed 08/15/2021 08/15/2022 1 1 Encounter Details Date Type Department Care Team Description 08/19/2021 Hospital Encounter Department of Winnie Banegas Radiology, Antonio Hill P.A.-C. Prostate-Specific [facility], in [address] [place] [address], [place] [address] [phone] [place], [place] [phone] (Work) [phone] Social History Tobacco Use Types Packs/Day Years [...] or relatives? How often do you attend mu-ism or More than 4 times per year 11/01/2021 jew services? 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
--- OUTSIDE RECORDS SUMMARY | 2022-05-09 08:03 | XMS_ITS | Encounter Summary ---
:1955 Author Organization [facility] Address [address] [place] [address] Care Team Providers Name Role Phone John Paul Javier M.D. Primary Care Provider Unavailable Reason for Visit Reason Comments Med Refill Encounter Details Date Type Department Care Team Description 05/17/2020 Clinical Communication Department of John Paul Washington Refill Medicine, [place] [facility] M.D. [place], [place] [address] [place] [address] Social History Tobacco Use Types Packs/Day Years [...] or relatives? How often do you attend alevism or More than 4 times per year 11/01/2021 mormonism services? Do you belong to any clubs or Yes 11/01/2021 organizations such as alevism groups, unions, fraternal or athletic groups, or [...] at Date Recorded Male 05/29/2018 8:55 AM FREIGHT CALLER documented as of this encounter Miscellaneous Notes Telephone Encounter - John Paul Javier M.D. - 05/17/2020 1:40 PM FREIGHT CALLER Thank you Nancy. Getting him rescheduled should be just fine- I'll renew those prescriptions. Rolando GHT CALLER Telephone Encounter - Nancy Daniels - 05/17/2020 [...] the GME is scheduled? Please respond to RSNeil NIÑO Scheduling pool if necessary GHT CALLER documented in this encounter Plan of Treatment Not on filedocumented as of this encounter Visit Diagnoses Diagnosis Hypertension Essential Primary Hyperlipidemia documented in this encounter Care Teams Wood Box Maker Relationship Specialty Start Date End Date John Paul Javier M.D. PCP - General Family Medicine 12/01/17 11/21/20 documented as of this encounter
--- OUTSIDE RECORDS SUMMARY | 2022-05-09 08:03 | XMS_ITS | Encounter Summary ---
:1955 Author Organization [facility] Address [address] [place] [address] Care Team Providers Name Role Phone John Paul Javier M.D. Primary Care Provider Unavailable Encounter Details Date Type Department Care Team Description 06/24/2020 Hospital Encounter Department of Kimberlee Javier For Therapeutic Drug Therapy; Laboratory Medicine John Paul Chiu M.D. 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 POTASSIUM, S/P Routine 06/24/2020 8:08 AM Monitoring For Resul ts for this MANDOLIN REPAIR PERSON Therapeutic Drug procedure a re in Therapy the results section. CREATININE WITH Routine 06/24/2020 8:08 AM Monitoring For Resu lts for this EGFR, S/P MANDOLIN REPAIR PERSON Therapeutic Drug procedure a re in Therapy the results section. documented in this encounter Results Sodium (06/24/2020 8:08 AM MANDOLIN REPAIR PERSON) athologist Signature Sodium, P 140 135 - 145 06/24/2020 8:51 [facility] mmol/L AM MANDOLIN REPAIR PERSON Specimen Anatomical Collection Method Collection Time Receive d Time (Source) Location / / Volume Laterality Blood (Blood, 06/24/2020 8:08 AM 06/24/19 8:08 Venous) MANDOLIN REPAIR PERSON AM MANDOLIN REPAIR PERSON John Paul Javier M.D. LAB BLOOD ADD-ON Performing Organization Address City/[facility]/ZIP Code Phon e Number [facility] [address] [place] [address] [place], [place] [id number] [place] [address] Potassium (06/24/2020 8:08 AM MANDOLIN REPAIR PERSON) athologist Signature Potassium, P 4.9 3.6 - 5.2 06/24/2020 [facility] mmol/L 8:51 AM MANDOLIN REPAIR PERSON Specimen Anatomical Collection Method Collection Time Receive d Time (Source) Location / / Volume Laterality Blood (Blood, 06/24/2020 8:08 AM 06/24/19 8:08 Venous) MANDOLIN REPAIR PERSON AM MANDOLIN REPAIR PERSON John Paul Javier M.D. LAB BLOOD ADD-ON Performing Organization Address City/[facility]/ZIP Code Phon e Number [facility] [address] [place] [address] [place] [address] [place] [address] Creatinine with Estimated GFR (06/24/2020 8:08 AM MANDOLIN REPAIR PERSON) athologist Signature Creatinine 0.93 0.74 - 06/24/2020 [facility] 1.35 mg/dL 8:51 AM MANDOLIN REPAIR PERSON eGFR-Black/Afric >90 >=60 06/24/2020 [facility] an Gibraltarian mL/min/BSA 8:51 AM MANDOLIN REPAIR PERSON Comment: ----ADDITIONAL INFORMATION---- Estimated GFR calculated using the 2009 CKD_EPI creatinine equation. eGFR Non-Black/ 86 >=60 mL/min/BSA 8:51 AM MANDOLIN REPAIR PERSON [facility] Comment: ----ADDITIONAL INFORMATION---- Estimated GFR calculated using the 2009 CKD_EPI creatinine equation. Specimen Anatomical Collection Method Collection Time Receive d Time (Source) Location / / Volume Laterality Blood (Blood, 06/24/2020 8:08 AM 06/24/19 8:08 Venous) MANDOLIN REPAIR PERSON AM MANDOLIN REPAIR PERSON John Paul Javier M.D. LAB BLOOD ADD-ON Performing Organization Address City/State/ZIP Code Phon e Number [facility] [address] [place] [phone] [facility] [address] documented in this encounter Visit Diagnoses Diagnosis Monitoring For Therapeutic Drug Therapy Hypertension Essential Primary documented in this encounter Care Teams Doctor Of Podiatry Relationship Specialty Start Date End Date John Paul Javier M.D. PCP - General Family Medicine 12/01/17 11/21/20 documented as of this encounter
--- OUTSIDE RECORDS SUMMARY | 2022-05-09 08:03 | XMS_ITS | Encounter Summary ---
:1955 Author Organization [facility] Address [address] [place] [address] Care Team Providers Name Role Phone John Paul Javier M.D. Primary Care Provider Unavailable Encounter Details Date Type Department Care Team Description 05/29/2019 Hospital Encounter Department of Simba Javier Diabetes Mellitus; Laboratory Medicine John Paul Chiu M.D. [facility] For Therapeutic Drug Therapy; in [place], Hypertension Es sential Primary [place] [address] [place] [phone] Social History Tobacco Use Types Packs/Day Years [...] More than 4 times per year 11/01/2021 orthodox services? 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 POTASSIUM, S/P Routine 05/29/2019 7:53 AM Hypertension Results for this BOX SPINNER Essential Primary procedure are in the results section. GLUCOSE, FASTING, Routine 05/29/2019 7:53 AM Screening Examina tion Results for this S/P BOX SPINNER Diabetes Mellitus procedure are in the results section. CREATININE WITH Routine 05/29/2019 7:53 AM Monitoring For Resu lts for this EGFR, S/P BOX SPINNER Therapeutic Drug procedure a re in Therapy the results section. documented in this encounter Results Sodium (05/29/2019 7:53 AM BOX SPINNER) athologist Signature Sodium, P 141 135 - 145 05/29/2019 8:38 [facility] mmol/L AM BOX SPINNER Specimen Anatomical Collection Method Collection Time Receive d Time (Source) Location / / Volume Laterality Blood (Blood, 05/29/2019 7:53 AM 05/29/20 19 7:53 Venous) BOX SPINNER AM BOX SPINNER John Paul Javier M.D. LAB BLOOD ADD-ON Performing Organization Address City/State/ZIP Code Phon e Number [facility] [address] [place] [address] [place] [address] 411 [facility] Potassium (05/29/2019 7:53 AM BOX SPINNER) athologist Signature Potassium, P 4.9 3.6 - 5.2 05/29/2019 [facility] mmol/L 8:38 AM BOX SPINNER Specimen Anatomical Collection Method Collection Time Receive d Time (Source) Location / / Volume Laterality Blood (Blood, 05/29/2019 7:53 AM 05/29/20 19 7:53 Venous) BOX SPINNER AM BOX SPINNER John Paul Javier M.D. LAB BLOOD ADD-ON Performing Organization Address City/[facility]/ZIP Code Phon e Number [facility] [address] [place] [address] [place] [address] 411 [facility] Creatinine with Estimated GFR (05/29/2019 7:53 AM BOX SPINNER) athologist Signature Creatinine 0.80 0.74 - 05/29/2019 [facility] 1.35 mg/dL 8:38 AM BOX SPINNER eGFR-Black/Afric >90 >=60 05/29/2019 [facility] an [place]uneian mL/min/BSA 8:38 AM BOX SPINNER Comment: ----ADDITIONAL INFORMATION---- Estimated GFR calculated using the 2009 CKD_EPI creatinine equation. eGFR Non-Black/ >90 >=60 mL/min/BSA 05/29/2019 8:38 AM BOX SPINNER [facility] Comment: ----ADDITIONAL INFORMATION---- Estimated GFR calculated using the 2009 CKD_EPI creatinine equation. Specimen Anatomical Collection Method Collection Time Receive d Time (Source) Location / / Volume Laterality Blood (Blood, 05/29/2019 7:53 AM 05/29/20 19 7:53 Venous) BOX SPINNER AM BOX SPINNER John Paul Javier M.D. LAB BLOOD ADD-ON Performing Organization Address City/[facility] Phon e Number [address] [facility] [address] (ABNORMAL) Glucose, Fasting (05/29/2019 7:53 AM BOX SPINNER) P athologist Signature Glucose, S 108 (H) 70 - 100 05/29/2019 [facility] mg/dL 8:38 AM BOX SPINNER Last Intake 14:52 05/29/2019 [facility] 7:53 AM BOX SPINNER Specimen Anatomical Collection Method Collection Time Receive d Time (Source) Location / / Volume Laterality Blood (Blood, 05/29/2019 7:53 AM 05/29/20 19 7:53 Venous) BOX SPINNER AM BOX SPINNER John Paul Javier M.D. LAB BLOOD NON ADD-ON Performing Organization Address City/[facility] Phon e Number [address] [address] [facility] [place] [phone] [place] [address] documented in this encounter Visit Diagnoses Diagnosis Screening Examination Diabetes Mellitus Monitoring For Therapeutic Drug Therapy Hypertension Essential Primary documented in this encounter Care Teams Computer Information Systems Professor Relationship Specialty Start Date End Date John Paul Javier M.D. PCP - General Family Medicine 12/01/17 11/21/20 documented as of this encounter
--- OUTSIDE RECORDS SUMMARY | 2022-05-09 08:03 | XMS_ITS | Encounter Summary ---
:1955 Author Organization [facility] Address [address] [place] [address] Care Team Providers Name Role Phone Elsewhere, Pcp Primary Care Provider Unavailable Reason for Referral Outpatient (Routine) - Closed Specialty Diagnoses / Procedures Referred By Contact Refer red To Contact Urology Diagnoses Personal History Of Malignant Neoplasm Of Prostate Winnie Banegas P.A.-C. [facility] [address] [place] [address] Referral ID Status Reason Start Date Expiration Date Visits Requ ested Visits Authorized [id number] Closed 09/05/2021 09/05/2022 [address] Olvera Encounter Details Date Type Department Care Team Description 09/05/2021 Orders Only Department of Urology Winnie Banegas Pe rsonal History Of in [place], [place] Malignant Neoplasm Of [place] [address] [facility] Prostate (Primary Dx) [address] [place] [phone] Social History Tobacco Use Types Packs/Day Years [...] More than 4 times per year 11/01/2021 hoahaoism services? 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
--- OUTSIDE RECORDS SUMMARY | 2022-05-09 08:04 | XMS_ITS | Encounter Summary ---
:[address] [facility] Address [address] [place] [address] Care Team Providers Name Role Phone John Paul Javier M.D. Primary Care Provider Unavailable Reason for Visit Reason Onset Date Comments Pre-visit Testing Orders 03/15/2018 Encounter Details Date Type Department Care Team Description 03/15/2018 Clinical Communication Department of Concepcion Pre- visit Testing Family MedicineJohn Paul M.D. 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 PCP - General Family Medicine 12/01/17 11/21/20 documented as of this encounter
--- OUTSIDE RECORDS SUMMARY | 2022-05-09 08:04 | XMS_ITS | Encounter Summary ---
:1955 Author Organization [facility] Address [address] [place] [address] Care Team Providers Name Role Phone John Paul Javier M.D. Primary Care Provider Unavailable Reason for Referral Outpatient (Routine) - Closed Specialty Diagnoses / Procedures Referred By Contact Refer red To Contact Family Medicine John Paul Javier M.D. [facility] [address] [place] [phone] Referral ID Status Reason Start Date Expiration Date Visits Requ ested Visits Authorized [id number] Closed 05/29/2018 05/29/2019 1 1 OTYPE SEWER Reason for Visit Reason Comments Annual Exam Appointment Request (Routine) - Closed Specialty Diagnoses / Procedures Referred By Contact Refer red To Contact Family Medicine Referral ID Status Reason Start Date Expiration Date Visits Requ ested Visits Authorized [id number] Closed 03/15/2018 03/15/2019 1 1 Encounter Details Date Type Department Care Team Description 05/29/2018 Comprehensive Visit Department of Kenisha Javier Essential Primary (Primary Dx); Family John Paul Coppola M.D. Hyperlip idemia; [facility] Impaired Fasting Glucose [place] [address] [place] [phone] Social History Tobacco Use Types Packs/Day Years [...] at Date Recorded Male 05/29/2018 8:55 AM PROTOTYPE SEWER documented as of this encounter Last Filed Vital Signs Vital Sign Reading Time Taken Comments Blood Pressure 119/74 05/29/2018 8:24 AM bp jolene averag e PROTOTYPE SEWER Pulse 57 05/29/2018 8:24 AM PROTOTYPE SEWER Temperature - - Respiratory Rate - - Oxygen Saturation - - Inhaled Oxygen Concentration - - Weight 81 kg (178 lb 9.2 oz) 05/29/2018 8:24 AM PROTOTYPE SEWER Height 173.5 cm (5' 8.31) 05/29/2018 8:24 AM PROTOTYPE SEWER Body Mass Index 26.91 05/29/2018 8:24 AM PROTOTYPE SEWER documented in this encounter Progress Notes John Paul Javier M.D. - 05/29/2018 8:45 AM CST SUBJECTIVE [...] the road. 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 - 05/29/2018 10:16 AM PROTOTYPE SEWER I saw and evaluated the patient, participating in the coffman portions of the service. I reviewed the resident/fellow???s note. I agree with the resident/fellow???s findings and plan. documented in this encounter Plan of Treatment Scheduled Referrals Name Type Priority Associated Diagnoses Order [facility] Family Medicine Outpatient Referral Routine Expec bonilla: office visit 05/29/2019 (clinic) - Self (Approximate ), Expires: 05/29/2021 documented as of this encounter Visit Diagnoses Diagnosis Hypertension Essential Primary - Primary Hyperlipidemia Impaired Fasting Glucose documented in this encounter Care Teams Celery Packer Relationship Specialty Start Date End Date John Paul Javier M.D. PCP - General Family Medicine 12/01/17 11/21/20 documented as of this encounter
--- OUTSIDE RECORDS SUMMARY | 2022-05-09 08:04 | XMS_ITS | Encounter Summary ---
:1955 Author Organization [facility] Address [address] [place] [address] Care Team Providers Name Role Phone John Paul Javier M.D. Primary Care Provider Unavailable Reason for Visit Reason Onset Date Comments Med Refill 03/29/2018 Encounter Details Date Type Department Care Team Description 03/29/2018 Clinical Communication Department of John Paul Washington Med Refill Medicine, [place] [facility] M.D. [place], [place] [address] [place] [address] Social History Tobacco Use Types Packs/Day Years [...] or slept in a fpc (including now)? 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 He would like a short term fill to get him to that Appt. Hydrochlorothiazide 12.5 mg tab PO daily Metoprolol Succinate 50 mg 24 HR 1 tab PO daily Send to [facility] (is the pharmacy at the [facility]) documented in this encounter Plan of Treatment Not on filedocumented as of this encounter Visit Diagnoses Diagnosis Hypertension Essential Primary - Primary documented in this encounter Care Teams Computer Aided Design Designer Relationship Specialty Start Date End Date John Paul Javier M.D. PCP - General Family Medicine 12/01/17 11/21/20 documented as of this encounter
--- OUTSIDE RECORDS SUMMARY | 2022-05-09 08:04 | XMS_ITS | Encounter Summary ---
:1955 Author Organization [facility] Address [address] [place] [address] Care Team Providers Name Role Phone John Paul Javier M.D. Primary Care Provider Unavailable Encounter Details Date Type Department Care Team Description 03/15/2018 Orders Only Department of Family April Javierli pidemia (Primary Dx); Medicine, [employer] John Paul Chiu M.D. 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 Comment: ----REFERENCE VALUE---- Desirable: < 200 Borderline high: 200 - 239 High: > or = 240 Triglycerides 93 mg/dL 05/24/2018 2:02 PM [facility] S Comment: ----REFERENCE VALUE---- Normal: <150 Borderline high: 150-199 High: 200-499 Very high: > or =500 Cholesterol, HDL, S 68 >=40 mg/dL 05/24/2018 2:02 PM [facility] S Calculated LDL 158 (H) mg/dL 05/24/2018 2:02 PM [facility] S Comment: ----REFERENCE VALUE---- Desirable: <100 Above Desirable: 100-129 Borderline high: 130-159 High: 160-189 Very high: > or =190 Cholesterol, Non-HDL, 177 (H) mg/dL 05/24/2018 2:02 PM [facility] Calculated [facility] S Comment: ----REFERENCE VALUE---- Desirable: <130 Above Desirable: 130-159 Borderline high: 160-189 High: 190-219 Very high: > or =220 Specimen Anatomical Collection Method Collection Time Receive d Time (Source) Location / / Volume Laterality Blood (Blood, 05/24/2018 8:35 AM 05/24/20 18 1:16 Venous) PACKING MACHINE OPERATOR PACKING MACHINE OPERATOR John Paul Javier M.D. LAB BLOOD ADD-ON Performing Organization Address City/State/ZIP Code Phon e Number [facility] [address] [place], [place] [address] [facility] Sodium (05/24/2018 8:35 AM PACKING MACHINE OPERATOR) athologist Signature Sodium, P 142 135 - 145 05/24/2018 [facility] mmol/L 9:19 AM [facility] Specimen Anatomical Collection Method Collection Time Receive d Time (Source) Location / / Volume Laterality Blood (Blood, 05/24/2018 8:35 AM 05/24/20 18 8:35 Venous) PACKING MACHINE OPERATOR AM PACKING MACHINE OPERATOR John Paul Javier M.D. LAB BLOOD ADD-ON Performing Organization Address City/[facility]/ZIP Code Phon e Number [facility] [address] [place] [address] Potassium (05/24/2018 8:35 AM PACKING MACHINE OPERATOR) athologist Signature Potassium, P 4.2 3.6 - 5.2 05/24/2018 [facility] mmol/L 9:19 AM [facility] Specimen Anatomical Collection Method Collection Time Receive d Time (Source) Location / / Volume Laterality Blood (Blood, 05/24/2018 8:35 AM 05/24/20 18 8:35 Venous) PACKING MACHINE OPERATOR AM PACKING MACHINE OPERATOR John Paul Javier M.D. LAB BLOOD ADD-ON Performing Organization Address City/[facility]/ZIP Code Phon e Number [facility] [address] [place] [address] Creatinine with Estimated GFR (MDRD) (05/24/2018 8:35 AM PACKING MACHINE OPERATOR) athologist Signature Creatinine 0.81 0.74 - 05/24/2018 [facility] 1.35 mg/dL 9:19 AM [facility] eGFR-Black/Afri >90 >=60 05/24/2018 [facility] can Mexican mL/min/BSA 9:19 AM [facility] Comment: ----ADDITIONAL INFORMATION---- Estimated GFR calculated using the 2009 CKD_EPI creatinine equation. eGFR Non-Black/ >90 >=60 mL/min/BSA 05/24/2018 9:19 AM [facility] Mexican [facility] Comment: ----ADDITIONAL INFORMATION---- Estimated GFR calculated using the 2009 CKD_EPI creatinine equation. Specimen Anatomical Collection Method Collection Time Receive d Time (Source) Location / / Volume Laterality Blood (Blood, 05/24/2018 8:35 AM 05/24/20 8:35 Venous) PACKING MACHINE OPERATOR AM PACKING MACHINE OPERATOR John Paul Javier M.D. LAB BLOOD ADD-ON Performing Organization Address City/State/ZIP Code Phon e Number [place] [phone] documented in this encounter Visit Diagnoses Diagnosis Hyperlipidemia - Primary Hypertension Essential Primary documented in this encounter Care Teams Unleavened Dough Mixer Relationship Specialty Start Date End Date John Paul Javier M.D. PCP - General Family Medicine 12/01/17 11/21/20 documented as of this encounter
--- OUTSIDE RECORDS SUMMARY | 2022-05-09 08:04 | XMS_ITS | Encounter Summary ---
:[address] [facility] Address [address] [place] [address] Care Team Providers Name Role Phone Hayder Anton D.O. 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 hydroCHLOROthiazide Take 1 tablet by 0 05/30/2017 03/29/2018 (for_HYDRODIURIL) 12.5 mg mouth daily. High tablet blood pressure metoprolol succinate Take 1 tablet by 0 7 03/29/2018 (TOPROL XL) 50 mg 24 hr mouth daily. High tablet blood pressure simvastatin (for_ZOCOR) 40 Take 1 tablet by 0 05/29/2018 mg tablet mouth at bedtime. Dyslipidemia documented as of this encounter Plan of Treatment Not on filedocumented as of this encounter Visit Diagnoses Not on filedocumented in this encounter Care Teams Renal Dialysis Rn Relationship Specialty Start Date End Date Hayder Anton D.O. PCP - General Family Medicine 12/02/14 11/30/17 [address] [place] [phone] documented as of this encounter
--- OUTSIDE RECORDS SUMMARY | 2022-05-09 08:04 | XMS_ITS | Encounter Summary ---
:1955 Author Organization [facility] Address [address] [place] [address] Care Team Providers Name Role Phone John Paul Javier M.D. 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 Quantity: Pharmacy:[facility] Pt states that he is completely out. WASHING MACHINE TENDER documented in this encounter Plan of Treatment Not on filedocumented as of this encounter Visit Diagnoses Diagnosis Hypertension Essential Primary documented in this encounter Care Teams Director Orange Relationship Specialty Start Date End Date John Paul Javier M.D. PCP - General Family Medicine 12/01/17 11/21/20 documented as of this encounter
--- OUTSIDE RECORDS SUMMARY | 2022-05-09 08:04 | XMS_ITS | Encounter Summary ---
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
--- OUTSIDE RECORDS SUMMARY | 2022-05-09 08:04 | XMS_ITS | Encounter Summary ---
:1955 Author Organization [facility] Address [address] [place] [address] Care Team Providers Name Role Phone Hayder [...] or relatives? How often do you attend zoroastrianism or More than 4 times per year 11/01/2021 judaism services? 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 PCP - General Family Medicine 12/02/14 11/30/17 [address] [place] [phone] documented as of this encounter
--- OUTSIDE RECORDS SUMMARY | 2022-05-09 08:04 | XMS_ITS | Encounter Summary ---
:1955 Author Organization [facility] Address [address] [place] [address] Care Team Providers Name Role Phone John Paul Javier M.D. 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 eGFR Non-Black/ >90 >=60 mL/min/BSA 05/29/2019 8:38 AM TECHNOLOGY TRAINER [facility] Comment: ----ADDITIONAL INFORMATION---- Estimated GFR calculated using the 2009 CKD_EPI creatinine equation. Specimen Anatomical Collection Method Collection Time Receive d Time (Source) Location / / Volume Laterality Blood (Blood, 05/29/2019 7:53 AM 05/29/20 19 7:53 Venous) TECHNOLOGY TRAINER AM TECHNOLOGY TRAINER John Paul Javier M.D. LAB BLOOD ADD-ON Performing Organization Address City/State/ZIP Code Phon e Number [facility] [address] [place] [address] [place] [address] [address] [facility] documented in this encounter Visit Diagnoses Diagnosis Monitoring For Therapeutic Drug Therapy documented in this encounter Care Teams Glass Vial Bending Conveyor Feeder Relationship Specialty Start Date End Date John Paul Javier M.D. PCP - General Family Medicine 12/01/17 11/21/20 documented as of this encounter
--- OUTSIDE RECORDS SUMMARY | 2022-05-09 08:04 | XMS_ITS | Encounter Summary ---
:1955 Author Organization [facility] Address [address] [place] [address] Care Team Providers Name Role Phone John Paul Javier M.D. Primary Care Provider Unavailable Encounter Details Date Type Department Care Team Description 09/09/2018 Orders Only RST PCP HLTH MNT John Paul Javier, Fransico Ng M.D. Diabetes [facility] Social History Tobacco Use Types [...] or relatives? How often do you attend methodist or More than 4 times per year 11/01/2021 anglican services? 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 LAB BLOOD NON ADD-ON Performing Organization Address City/State/ZIP Code Phon e Number [facility] [address] [place] [phone] [facility] [address] documented in this encounter Visit Diagnoses Diagnosis Screening Examination Diabetes Mellitus documented in this encounter Care Teams Assistant Laboratory Director Relationship Specialty Start Date End Date John Paul Javier M.D. PCP - General Family Medicine 12/01/17 11/21/20 documented as of this encounter
--- OUTSIDE RECORDS SUMMARY | 2022-05-09 08:04 | XMS_ITS | Encounter Summary ---
:1955 Author Organization [facility] Address [address] [place] [address] Care Team Providers Name Role Phone John Paul Javier M.D. Primary Care Provider Unavailable Encounter Details Date Type Department Care Team Description 05/24/2018 Hospital Encounter Department of Ruth Ann Javier Essential Primary; Laboratory Medicine John Paul Chiu M.D. Hyper lipidemia in [place], [place] [address] [place] [id number] Social History Tobacco Use Types Packs/Day Years [...] at Date Recorded Male 05/29/2018 8:55 AM PRACTICE OFFICE ASSOCIATE documented as of this encounter Medications at [...] 8:35 AM Hyperlipidemia Resul ts for this PRACTICE OFFICE ASSOCIATE procedure are i n the results section. SODIUM, S/P Routine 05/24/2018 8:35 AM Hypertension Essential Results for this PRACTICE OFFICE ASSOCIATE Primary procedure are i n the results section. POTASSIUM, S/P Routine 05/24/2018 8:35 AM Hypertension Essenti al Results for this PRACTICE OFFICE ASSOCIATE Primary procedure are i n the results section. CREATININE WITH Routine 05/24/2018 8:35 AM Hypertension Essent ial Results for this EGFR, S/P PRACTICE OFFICE ASSOCIATE Primary procedure are i n the results section. documented in this encounter Results (ABNORMAL) Lipid Panel (05/24/2018 8:35 AM [facility]) Patholo gist Method Time Signature Cholesterol, 245 (H) mg/dL 05/24/2018 [facility] Total 2:02 PM [facility] Comment: ----REFERENCE VALUE---- Desirable: < 200 Borderline high: 200 - 239 High: > or = 240 Triglycerides 93 mg/dL 05/24/2018 2:02 PM [facility] Comment: ----REFERENCE VALUE---- Normal: <150 Borderline high: 150-199 High: 200-499 Very high: > or =500 Cholesterol, HDL, S 68 >=40 mg/dL 05/24/2018 2:02 PM [facility] Calculated LDL 158 (H) mg/dL 05/24/2018 2:02 PM [facility] Comment: ----REFERENCE VALUE---- Desirable: <100 Above Desirable: 100-129 Borderline high: 130-159 High: 160-189 Very high: > or =190 Cholesterol, Non-HDL, 177 (H) mg/dL 05/24/2018 2:02 PM [facility] Calculated [facility] Comment: ----REFERENCE VALUE---- Desirable: <130 Above Desirable: 130-159 Borderline high: 160-189 High: 190-219 Very high: > or =220 Specimen Anatomical Collection Method Collection Time Receive d Time (Source) Location / / Volume Laterality Blood (Blood, 05/24/2018 8:35 AM 05/24/20 18 1:16 Venous) [facility] John Paul Javier M.D. LAB BLOOD ADD-ON Performing Organization Address City/State/ZIP Code Phon e Number [facility] - [address] [place], [place] [address] [facility] Sodium (05/24/2018 8:35 AM [facility]) P athologist Signature Sodium, P 142 135 - 145 05/24/2018 [facility] mmol/L 9:19 AM [facility] Specimen Anatomical Collection Method Collection Time Receive d Time (Source) Location / / Volume Laterality Blood (Blood, 05/24/2018 8:35 AM 05/24/20 18 8:35 Venous) PRACTICE OFFICE ASSOCIATE AM PRACTICE OFFICE ASSOCIATE John Paul Javier M.D. LAB BLOOD ADD-ON Performing Organization Address City/[facility]/ZIP Code Phon e Number [address] [address] Potassium (05/24/2018 8:35 AM PRACTICE OFFICE ASSOCIATE) athologist Signature Potassium, P 4.2 3.6 - 5.2 05/24/2018 [facility] mmol/L 9:19 AM [facility] Specimen Anatomical Collection Method Collection Time Receive d Time (Source) Location / / Volume Laterality Blood (Blood, 05/24/2018 8:35 AM 05/24/20 18 8:35 Venous) PRACTICE OFFICE ASSOCIATE AM PRACTICE OFFICE ASSOCIATE John Paul Javier M.D. LAB BLOOD ADD-ON Performing Organization Address [facility] Phon e Number [address] [address] Creatinine with Estimated GFR (MDRD) (05/24/2018 8:35 AM PRACTICE OFFICE ASSOCIATE) athologist Signature Creatinine 0.81 0.74 - 05/24/2018 [facility] 1.35 mg/dL 9:19 AM [facility] eGFR-Black/Afri >90 >=60 05/24/2018 [facility] can Andorran mL/min/BSA 9:19 AM [facility] Comment: ----ADDITIONAL INFORMATION---- Estimated GFR calculated using the 2009 CKD_EPI creatinine equation. eGFR Non-Black/ >90 >=60 mL/min/BSA 05/24/2018 9:19 AM [facility] [place] [facility] Comment: ----ADDITIONAL INFORMATION---- Estimated GFR calculated using the 2009 CKD_EPI creatinine equation. Specimen Anatomical Collection Method Collection Time Receive d Time (Source) Location / / Volume Laterality Blood (Blood, 05/24/2018 8:35 AM 05/24/20 18 8:35 Venous) PRACTICE OFFICE ASSOCIATE AM PRACTICE OFFICE ASSOCIATE John Paul Javier M.D. LAB BLOOD ADD-ON Performing Organization Address City/[facility]/ZIP Code Phon e Number [address] [address] documented in this encounter Visit Diagnoses Diagnosis Hypertension Essential Primary Hyperlipidemia documented in this encounter Care Teams Industrial Eng Relationship Specialty Start Date End Date John Paul Javier M.D. PCP - General Family Medicine 12/01/17 11/21/20 documented as of this encounter
--- OUTSIDE RECORDS SUMMARY | 2022-05-09 08:04 | XMS_ITS | Encounter Summary ---
:1955 Author Organization [facility] Address [address] [place] [address] Care Team Providers Name Role Phone Haydre Anton D.O. Primary Care Provider Encounter Details [...] or relatives? How often do you attend evangelical or More than 4 times per year 11/01/2021 zoroastrianism services? Do you belong to any clubs or Yes 11/01/2021 organizations such as evangelical groups, unions, fraternal or athletic groups, or [...] Date Recorded Male 05/29/2018 8:55 AM DIRECTOR FACILITIES MAINTENANCE documented as of this encounter Plan of Treatment Not on filedocumented as of this encounter Procedures Procedure Name Priority Date/Time Associated Comments Diagnosis GASTROENTEROLOGY IMAGE Routine 06/21/2017 10:25 R esults for this EXAM AM DIRECTOR FACILITIES MAINTENANCE procedure are i n the results section. documented in this encounter Results GASTROENTEROLOGY IMAGE EXAM (06/21/2017 10:25 AM DIRECTOR FACILITIES MAINTENANCE) Specimen (Source) Anatomical Collection Method Collection Time Re ceived Time Location / / Volume Laterality 06/21/2017 10:23 AM DIRECTOR FACILITIES MAINTENANCE Narrative [facility] - 06/21/2017 11:38 AM DIRECTOR FACILITIES MAINTENANCE This order has been created and auto-finalized [...] on filedocumented in this encounter Care Teams Tape Duplicator Relationship Specialty Start Date End Date Hayder Anton D.O. PCP - General Family Medicine 12/02/14 11/30/17 [address] [place] [phone] documented as of this encounter
[2022-05-09 14:42] LABS: PSA Diagnostic* < 0.06 ng/mL (0.10-4.00)
== END 2022-05-09 07:49 | disposition home or self-care (01) ==
LOC: KYNREF 07:59
PROVIDERS: PCP Nurse Practitioner Family; Visit Provider Nurse Practitioner Family
DX: Z85.46 Personal history of malignant neoplasm of prostate (principal)
CPT/HCPCS: 84153

== ENCOUNTER 2022-07-03 08:27 | Outpatient (CLI) | payer MEDICARE, BC, SELFPAY ==
[2022-07-03 14:03] LABS: Basophils Absolute Auto 0.04 K/uL (0.00-0.30); Basophils Percent Auto 0.6 % (0.0-3.0); Eosinophils Absolute Auto 0.39 K/uL (0.00-0.50); Hematocrit 46.4 % (37.0-53.0); Hemoglobin* 15.7 gm/dL (13.5-17.5); Immature Granulocytes Abs Auto 0.04 K/uL (0.00-0.30); Immature Granulocytes Pct Auto 0.6 %; Lymphocytes Percent Auto 17.6 % (20-44); Mean Corpuscular HGB Conc 34 gm/dL (32-36); Mean Corpuscular Hemoglobin 30 pg (26-34); Mean Corpuscular Volume 87 fL (80-100); Monocytes Percent Auto 11.5 % (0.0-11.0); Neutrophils Absolute Auto 4.18 K/uL (1.7-7.0); Neutrophils Percent Auto 63.7 % (42.0-72.0); Platelet Count* 369 K/uL (140-440); RDW Coefficient of Variation % 12.9 % (11.5-15.5); Red Blood Count 5.32 m/uL (4.30-5.90); White Blood Count* 6.55 K/uL (4.50-11.00)
[2022-07-03 14:14] LABS: Slide Review Reflex No
[2022-07-03 14:16] LABS: Albumin* 4.3 g/dL (3.3-5.0)
[2022-07-03 14:17] LABS: Chloride* 105 mmol/L (96-114); Potassium* 4.6 mmol/L (3.6-5.1); Sodium* 139 mmol/L (135-149)
[2022-07-03 14:19] LABS: Bilirubin Total* 0.6 mg/dL (0.1-1.5); Carbon Dioxide* 27 mmol/L (20-32); Cholesterol* 147 mg/dL (90-199); Creatinine* 0.9 mg/dL (0.5-1.5); Estimated Glomerular Filt Rate 94 ml/min; Total Protein* 7.1 g/dL (6.0-8.3)
[2022-07-03 14:20] LABS: Alanine Aminotransferase* 39 U/L (4-50); Alkaline Phosphatase* 83 U/L (40-150); Aspartate Amino Transferase* 30 U/L (12-35); Blood Urea Nitrogen* 18 mg/dL (7-30); Calcium* 9.7 mg/dL (8.4-10.6); Glucose* 96 mg/dL (60-115); HDL Cholesterol* 45 mg/dL (>=40); LDL Cholesterol Calculated 84 mg/dL (<100); Triglycerides* 89 mg/dL (40-149)
== END 2022-07-03 08:28 | disposition home or self-care (01) ==
PROVIDERS: PCP Nurse Practitioner Family; Visit Provider Nurse Practitioner Family
DX: Z00.00 Encounter for general adult medical examination without abnormal findings (principal); I10 Essential (primary) hypertension; E78.5 Hyperlipidemia, unspecified; R73.01 Impaired fasting glucose; Z13.0 Encounter for screening for diseases of the blood and blood-forming organs and certain disorders involving the immune mechanism
CPT/HCPCS: 80053; 80061; 85025

== ENCOUNTER 2022-08-01 10:34 | Outpatient (CLI) | payer MEDICARE, BC, SELFPAY | END 2022-08-01 10:35 | disposition home or self-care (01) | LOC: OP CLINIC 10:35 | PROVIDERS: PCP Nurse Practitioner Family; Visit Provider Internal Medicine | DX: Z12.11 Encounter for screening for malignant neoplasm of colon (principal); K63.5 Polyp of colon; K57.30 Diverticulosis of large intestine without perforation or abscess without bleeding; Z86.010 Personal history of colon polyps | CPT/HCPCS: 45380; 88305; J2250; J3010 ==

== ENCOUNTER 2022-08-07 08:10 | Outpatient (CLI) | payer MEDICARE, BC, SELFPAY ==
[2022-08-07 14:16] LABS: PSA Diagnostic* < 0.06 ng/mL (0.10-4.00)
== END 2022-08-07 08:11 | disposition home or self-care (01) ==
PROVIDERS: PCP Nurse Practitioner Family; Visit Provider Nurse Practitioner Family
DX: Z85.46 Personal history of malignant neoplasm of prostate (principal)
CPT/HCPCS: 84153

== ENCOUNTER 2023-07-05 09:14 | Outpatient (CLI) | payer MEDICARE, BC, SELFPAY ==
--- OUTSIDE RECORDS SUMMARY | 2023-07-05 09:25 | XMS_ITS | Encounter Summary ---
Author Name Unknown Organization [facility] Address [address] [place] [address] Care Team Providers Care Garbage Man Name Role Phone Elsewhere, Pcp Primary Care Provider Unavailabl e Reason for Visit * Reason Comments Med Refill Encounter Details Date Type Department Care Team (Late st Contact Info) Description 02/23/2023 Refill Department of Urology in [place], [place] [address] [place] [phone] Carlos Miranda M.D. [address] [place] [phone] Med Refill Social History Tobacco Use Types Packs/Day Years Used Date Smoking Tobacco: Former Cigarettes 1 20 0 10/06/1972 - 06/04/1999 Smokeless Tobacco: Never Alcohol Use Standard Drinks/Week Comments Not Currently 0 (1 standard drink = 0.6 oz pur e alcohol) Humiliation, Afraid, Rape, and Kick questionnair e Answer Date Recorded Within the last year, have y ou been afraid of your partner or ex-partner? No 11/08/2022 Within the last year, have y ou been humiliated or emotionally abused in other ways by your partner or ex-partner? No Within the last year, have y ou been kicked, hit, slapped, or otherwise physically hurt by your partner or ex-partner? No 11/08/2022 Within the last year, have y ou been raped or forced to have any kind of sexual activity by your partner or ex-partner? No 11/08/2022 Social Connection and Isolat ion Panel [NHANES] Answer Date Recorded In a typical week, how many times do you talk on the phone with family, friends, or neighbors? More than three times a week 11/01/2021 How often do you get togethe r with friends or relatives? Three times a week 11/01/2021 How often do you attend chur or jehovah's witness services? More than 4 times per year 11/01/2021 Do you belong to any clubs o r organizations such as advent groups, unions, fraternal or athletic groups, or school groups? Yes 11/01/2021 How often do you attend meet ings of the clubs or organizations you belong to? Patient declined 11/01/2021 Are you , , di vorced, , never , or living with a partner? 11/01/2021 AUDIT-C Answer Date Recorded Q1: How often do you have a drink containing alc ohol? 2-4 times a month 11/01/2021 Q2: How many drinks containi ng alcohol do you have on a typical day when you are drinking? 1 or 2 11/01/2021 Q3: How often do you have si x or more drinks on one occasion? Never 11/01/2021 Overall Financial Resource Strain (CARDIA) Answe r Date Recorded How hard is it for you to pa y for the very basics like food, housing, medical care, and heating? Not hard at all 11/08/2022 PHQ-2 Answer Date Recorded PHQ-2 Score 0 06/25/2020 [facility]ational Stress Questionnaire Answer Date Recorded Do you feel stress - tense, restless, nervous, or anxious, or unable to sleep at night because your mind is troubled all the time - these days? Not at all 11/01/2021 Exercise Vital Sign Answer Date Recorde d On average, how many days pe r week do you engage in moderate to strenuous exercise (like a brisk walk)? 4 days 11/08/2022 On average, how many minutes do you engage in exercise at this level? 30 min 11/08/2022 Hunger Vital Sign Answer Date Recorded Within the past 12 months, y ou worried that your food would run out before you got the money to buy more. Never true 11/09/19 23 Within the past 12 months, t he food you bought just didn't last and you didn't have money to get more. Never true 11/08/2022 PRAPARE - Transportation Answer Date Re corded In the past 12 months, has l ack of transportation kept you from medical appointments or from getting medications? No 12/2022 In the past 12 months, has l ack of transportation kept you from meetings, work, or from getting things needed for daily living? No 11/08/2022 Depression Answer Date Recor ded PHQ-9 Total Score (max 27) 0 06/25 Nutrition Answer Date Recorded Nutrition: EVOO Fat Source Yes 11/08 On average, how many serving s of fruits and vegetables do you eat per day (serving size is equal to 1 cup or approximately the size of a tennis ball)? 3-5 11/08/2022 Dental Answer Date Recorded Dental: Regular Dentist Yes 11/02/19 Employment Answer Date Recorded Employment status Employed and actively working without restrictions 11/08/2022 Housing Stability Answer Date Recorded What is your living situation today? I have a [facility] place to live 11/08/2022 Education Answer Date Recorded What is the highest level of school you have completed or the highest degree you have received? 12th grade 11/01/2021 Sex and Gender Information Value Date Recorded Sex Assigned at Male 05/29/2018 8:55 AM SWEAT BAND SEPARATOR Gender Identity Male 05/29/2018 8:55 AM SWEAT BAND SEPARATOR Sexual Orientation Straight 05/29/2018 8: 55 AM SWEAT BAND SEPARATOR documented as of this encounter Plan of Treatment Not on file documented as of this encounter Visit Diagnoses Not on filedocumented in this encounter Additional Health Concerns Assessment Noted Time PHQ-9 Depression Total Score: 0 06/25/19 21 8:09 AM SWEAT BAND SEPARATOR documented as of this encounter Care Teams Garbage Man Relationship Specialty Start Date End Date Elsewhere, Pcp PCP - General 12/02/20 documented as of this encounter
--- OUTSIDE RECORDS SUMMARY | 2023-07-05 09:25 | XMS_ITS | Clinical Summary ---
Author Name Unknown Organization [facility] Address [address] [place] [address] Care Team Providers Care Bd Special Education Teacher Name Role Phone Elsewhere, Pcp Primary Care Provider Unavailabl e Source Comments Patient records contain information from all sites at [facility]. For routine questions regarding patient records, call [phone] during business hours, M-F 8:00 AM - 5:00 PM Central Time. Record requests for emergency care only can be directed to [phone] at any time.[facility] Allergies No known active allergies Medications Medication Sig Dispensed Refills Start Date End Date Status VITAMIN B COMPLEX ORAL Take 1 tablet by mouth daily. 0 04/28/2013 Active MULTIVITAMIN ORAL Take 1 tablet by mouth daily. 0 02/08/2008 Active hydroCHLOROthiazid e (MICROZIDE) 12.5 mg capsuleIndications :Hypertension Essential Primary Take 1 capsule (12.5 mg total) by mouth daily. 90 capsule 3 05/17/2020 Active Additional Information Patient taking differently:12.5 mg oralEvery morning, Reported on 11/04/2021 metoprolol succinate (Toprol XL) 50 mg 24 hr tabletIndications: Hypertension Essential Primary Take 1 tablet (50 mg total) by mouth daily. High blood pressure 90 tablet 3 05/17/2020 Active Additional Information Patient taking differently:50 mg oralEvery morning, High blood pressure, Reported on 11/04/2021 atorvastatin (LIPITOR) 20 mg tabletIndications: Hyperlipidemia Take 1 tablet (20 mg total) by mouth daily. 90 tablet 3 05/17/2020 Active Additional Information Patient taking differently:20 mg oralEvery morning, Reported on 11/04/2021 ibuprofen (ADVIL,MOTRIN) 200 mg tablet Take 400 mg by mouth every 6 (six) hours as needed for pain. 0 Active cholecalciferol (VITAMIN D3) 25 mcg (1,000 Unit) capsule Take 25 mcg by mouth daily. 0 Active sildenafiL (VIAGRA) 100 mg tablet Take 1 tablet (100 mg total) by mouth daily as needed for erectile dysfunction. 5 tablet 3 11/15/2022 Active tadalafiL (CIALIS) 5 mg tablet Take 1 tablet (5 mg total) by mouth every morning. Can take additional 1-3 tablets one hour prior to sexual activity. 90 tablet 11 02/23/2023 Active Active Problems Problem Noted Date Diagnosed Date Primary Malignant Neoplasm Of Prostate 2 Overview: Added automatically from request for surgery [id number] Hypertension Essential Primary 04/23/2006 Overview: - BP goal < 140/90. - HCTZ [...] - Continue Metoprolol succinate 50 mg qd. Hyperlipidemia 11/09/2005 Overview: Lab Results Component Value Date CHOL 245 (H) 05/24/2018 Lab Results Component Value Date HDL 68 05/24/2018 Lab Results Component Value Date LDLCALC 158 (H) 05/24/2018 Lab Results Component Value Date TRIG 93 05/24/2018 Lipitor dosed at 20 mg qd. ASA 81 mg qd. Last Assessment & Plan: - Continue current medications. Resolved Problems Problem Noted Date Diagnosed Date Resolved Date Impaired Fasting Glucose 05/27/2016 Immunizations Name Administration Dates Next Due Influenza high dose QV(65 ye ars or older) (PF) 04/03/2020 PPSV23(Discontinued) 06/25/2020 Td (Adult), adsorbed 06/15/2003 Tdap 04/07/2011 influenza vaccine quad (FLUZONE/FLUARIX) (6 months and older)(PF) 05/30/2019,05/29/2018,05/30/2017, 016 Family History Medical History Relation Name Comments [...] 0 10/06/1972 - 06/04/1999 Smokeless Tobacco: Never Tobacco Cessation:Counseling Given: Not Answered Alcohol Use Standard Drinks/Week [...] How often do you attend chur or adventism services? More than 4 times per year 11/01/2021 Do you belong to any clubs o r organizations such as orthodox groups, unions, fraternal [...] Answer Date Recorded PHQ-2 Score 0 06/[facility]/2020 [facility] Questionnaire Answer Date Recorded [...] your living situation today? I have a [facility] place to live 11/08/2022 Education Answer Date Recorded What is the highest level of school you have completed or the highest degree you have received? 12th grade 11/01/2021 Sex and Gender Information Value Date Recorded Sex Assigned at Male 05/29/2018 8:55 AM RECREATION ESTABLISHMENT MANAGER Gender Identity Male 05/29/2018 8:55 AM RECREATION ESTABLISHMENT MANAGER Sexual Orientation Straight 05/29/2018 8: 55 AM RECREATION ESTABLISHMENT MANAGER Last Filed Vital Signs Vital Sign Reading Time Taken Comments Blood Pressure 131/66 11/08/2021 8:30 AM CDT Pulse 95 11/08/2021 8:30 AM CDT Temperature 36.6 ??C (97.9 ??F) 11/08/2021 8:30 AM CD T Respiratory Rate 16 11/08/2021 8:30 AM CDT Oxygen Saturation 93% 11/08/2021 8:30 AM CDT Inhaled Oxygen Concentration - - Weight 92.1 kg (203 lb 0.7 oz) 11/07/2021 10:11 AM CDT Height 174 cm (5' 8.5) 11/07/2021 10:11 AM CDT Body Mass Index 30.42 11/07/2021 10:11 AM CDT Plan of Treatment Health Maintenance Due Date Last Done Comments Abdominal Aortic Aneurysm (A AA) Screen 1954 CT Colonography 1954 Cologuard 1955 Hepatitis C Screening 1955 Office Visit for Blood Press ure Check / Re-check 02/04/2022 11/04/2021 Colonoscopy 06/21/2022 06/21/2017, 08/11/2005 Colorectal Cancer Surveillance 06/21/2022 Creatinine Level (Kidney Fun ction Test) 11/04/2022 11/04/2021, 06/24/2020, 05/29/2019, Additional history exists Potassium Level 11/04/2022 11/04/2021, 06/05, 05/29/2019, Additional history exists Sodium Level 11/04/2022 11/04/2021, 06/05, 05/29/2019, Additional history exists COVID-19 Vaccine (4 - 2022-2 4 season) 2023 05/05/2021, 08/29/2020, 08/01/2020 Depression Screening (Annual PHQ-2) 06/04/2023 Fall Risk Screen (Annual) 06/04/2023 Lipid (Cholesterol) Screening 11/11/2023, 05/24/2018, 05/24/2017, Additional history exists Fasting Glucose for Diabetes Screening 11/10/2025 11/10/2022, 11/04/2021, 05/29/2019, Additional history exists DTaP,Tdap,and Td Vaccines (3 - Td or Tdap) 06/30/2031 06/30/2021, 04/07/2011, 06/15/2003 Zoster Vaccines Completed 05/05/2021, 02/02, 06/11/2017 Pneumococcal vaccine (65+ years) Completed 07/03/19, 06/25/2020 Influenza Vaccine Completed 05/07/2023, , 02/15/2021, Additional history exists Medical Devices Implanted Type Area Locks Tender Device Identifier Shelf Expiration Date Model / Serial / Lot [facility] Lg - [id number] Implanted:Qty: 1 on 11/07/2021 by Carlos Olvera M.D. at [facility] Hardware e.g. pins/screws /rods N/A: Pelvis Teleflex Sem[employer] [id number] 08/01/2026 [id number] / / [id number] Conversions - Default Historical Implant Device Implanted:04/05 (Quantity not on file) Shoulder Implant Right: Shoulder Description:Body Location - Shoulder R. fasterners. Device Status Text - Shoulder. Care Teams Bd Special Education Teacher Relationship Specialty Start Date End Date Elsewhere, Pcp PCP - General 12/02/20
--- OUTSIDE RECORDS SUMMARY | 2023-07-05 09:25 | XMS_ITS | Referral Summary ---
Author Name Unknown Organization [facility] Address [address] [place] [address] Care Team Providers Care Shank Skinner Name Role Phone Elsewhere, Pcp Primary Care Provider Unavailabl e Source Comments Patient records contain information from all sites at [facility]. For routine questions regarding patient records, call [phone] during business hours, M-F 8:00 AM - 5:00 PM Central Time. Record requests for emergency care only can be directed to [phone] at any time.[facility] Allergies No known active allergies Medications Medication [...] Overview: Added automatically from request for surgery [id number] Hypertension Essential Primary 04/23/2006 Overview: - BP [...] (FLUZONE/FLUARIX) (6 months and older)(PF) 05/30/2019,05/29/2018,05/30/2017, 016 Social History Tobacco Use Types Packs/Day Years [...] How often do you attend chur or church services? More than 4 times per year 11/01/2021 Do you belong to any clubs o r organizations such as samaritan groups, unions, fraternal [...] Answer Date Recorded PHQ-2 Score 0 06/25/2020 [facility] - Occupational Stress Questionnaire Answer [...] your living situation today? I have a [facility] place to live 11/08/2022 Education Answer Date Recorded What is the highest level of school you have completed or the highest degree you have received? 12th grade 11/01/2021 Sex and Gender Information Value Date Recorded Sex Assigned at Male 05/29/2018 8:55 AM SEAT COVER MAKER Gender Identity Male 05/29/2018 8:55 AM SEAT COVER MAKER Sexual Orientation Straight 05/29/2018 8: 55 AM SEAT COVER MAKER Last Filed Vital Signs Vital Sign Reading [...] 11/07/2021 10:11 AM CDT Plan of Treatment Not on file Medical Devices Implanted Type Area Entry Level Management Device Identifier Shelf Expiration Date Model / Serial / Lot Clp Hmol Plmr Lg - [id number] Implanted:Qty: 1 on 11/07/2021 by Carlos Olvera M.D. at [facility] Hardware e.g. pins/screws /rods N/A: Pelvis Teleflex Vignani [id number] 08/01/2026 [id number] / / [id number] Conversions - Default Historical Implant Device Implanted:04/05 (Quantity not on file) Shoulder Implant Right: Shoulder Description:Body Location - Shoulder R. fasterners. Device Status Text - Shoulder. Care Teams Shank Skinner Relationship Specialty Start Date End Date Elsewhere, Pcp PCP - General 12/02/20
--- OUTSIDE RECORDS SUMMARY | 2023-07-05 09:25 | XMS_ITS | Encounter Summary ---
Author Name Unknown Organization [facility] Address [address] [place] [address] Care Team Providers Care Tile Layer Name Role Phone Elsewhere, Pcp Primary Care Provider Unavailabl e Encounter Details Date Type Department Care Team (Latest Contact Info) Description 11/09/2022 7:00 AM CDT Clinical Communication Virtual Review in [place], [place] [address] [place] [address] Social History Tobacco Use Types [...] How often do you attend chur or yazidism services? More than 4 times per year 11/01/2021 Do you belong to any clubs o r organizations such as congregation groups, unions, fraternal [...] Answer Date Recorded PHQ-2 Score 0 06/25/2020 [facility] of Occupat ional Health - Occupational [...] your living situation today? I have a [facility] place to live 11/08/2022 Education Answer Date Recorded What is the highest level of school you have completed or the highest degree you have received? 12th grade 11/01/2021 Sex and Gender Information Value Date Recorded Sex Assigned at Male 05/29/2018 8:55 AM ROOF PANEL HANGER Gender Identity Male 05/29/2018 8:55 AM ROOF PANEL HANGER Sexual Orientation Straight 05/29/2018 8: 55 AM ROOF PANEL HANGER documented as of this encounter Plan of Treatment Not on file documented as of this encounter Visit Diagnoses Not on filedocumented in this encounter Additional Health Concerns Assessment Noted Time PHQ-9 Depression Total Score: 0 06/25/19 8:09 AM ROOF PANEL HANGER documented as of this encounter Care Teams Tile Layer Relationship Specialty Start Date End Date Elsewhere, Pcp PCP - General 12/02/20 documented as of this encounter
--- OUTSIDE RECORDS SUMMARY | 2023-07-05 09:25 | XMS_ITS | Encounter Summary ---
Author Name Unknown Organization [facility] Address [address] [place] [address] Care Team Providers Care Shrimp Pond Laborer Name Role Phone Elsewhere, Pcp Primary Care Provider Unavailabl e Encounter Details Date Type Department Care Team (Latest Contact Info) Description 11/10/2022 8:28 AM CDT - 11/10/2022 11:59 PM CDT Hospital Encounter Department of Laboratory Medicine and Pathology, [facility] in [place], [place] [address] [place] [address] Carlos Miranda M.D. [address] [place] [phone] Dysfunction Erectile Discharge Disposition: Home or Self Care Social History Tobacco Use Types Packs/Day Years [...] How often do you attend chur or adventist services? More than 4 times per year 11/01/2021 Do you belong to any clubs o r organizations such as moravian groups, unions, fraternal [...] Answer Date Recorded PHQ-2 Score 0 06/25/2020 [facility]at ional Health - Occupational Stress [...] money to buy more. Never true 11/09/19 Within the past 12 months, t he [...] your living situation today? I have a [facility] place to live 11/08/2022 Education Answer Date Recorded What is the highest level of school you have completed or the highest degree you have received? 12th grade 11/01/2021 Sex and Gender Information Value Date Recorded Sex Assigned at Male 05/29/2018 8:55 AM GRANITE INSTALLER Gender Identity Male 05/29/2018 8:55 AM GRANITE INSTALLER Sexual Orientation Straight 05/29/2018 8: 55 AM GRANITE INSTALLER documented as of this encounter Medications at Time of Discharge Medication Sig Dispensed Refills Start Date End Date cholecalciferol (VITAMIN D3) 25 mcg (1,000 Unit) capsule Take 25 mcg by mouth daily. 0 hydroCHLOROthiazide (MICROZIDE) 12.5 mg capsuleIndications:Hy pertension Essential Primary Take 1 capsule (12.5 mg total) by mouth daily. 90 capsule 3 05/17/2020 ibuprofen (ADVIL,MOTRIN) 200 mg tablet Take 400 mg by mouth every 6 (six) hours as needed for pain. 0 metoprolol succinate (Toprol XL) 50 mg 24 hr tabletIndications:Hyp ertension Essential Primary Take 1 tablet (50 mg total) by mouth daily. High blood pressure 90 tablet 3 05/17/2020 MULTIVITAMIN ORAL Take 1 tablet by mouth daily. 0 02/08/2008 VITAMIN B COMPLEX ORAL Take 1 tablet by mouth daily. 0 04/28/2013 DOCOSAHEXANOIC ACID/EPA (FISH OIL ORAL) Take 1 capsule by mouth daily. 0 04/29/2009 11/15/2022 sennosides-docusate sodium (SENOKOT-S) 8.6-50 mg per tablet Take 1 tablet by mouth 2 (two) times a day. 0 11/08/2021 11/15/2022 tadalafiL (CIALIS) 5 mg tablet Take 1 tablet (5 mg total) by mouth every morning. Can take additional 1-3 tablets one hour prior to sexual activity. 90 tablet 11 12/13/2021 02/23/2023 documented as of this encounter Plan of Treatment Not on file documented as of this encounter Procedures Procedure Name Priority Date/Time Associated Diagnosis Comments LIPID PANEL, S Routine 11/10/2022 8:52 AM CDT Dysfunction Erectile TESTOSTERONE, TOT AND FR, S Routine 11/10/2022 8:52 AM CDT Dysfunction Erectile GLUCOSE, FASTING, S/P Routine 11/10/2022 8:52 AM CDT Dysfunction Erectile documented in this encounter Results * (ABNORMAL) Lipid Panel (11/10/2022 8:52 AM CDT) [facility] Triglycerides 78 mg/dL 11/10/2022 9:34 AM CDT DTL Comment: ----REFERENCE VALUE---- Normal: <150 mg/dL Borderline High: 150-199 mg/dL High: 200-499 mg/dL Very High: > or =500 mg/dL Cholesterol, Total 200(H) mg/dL 2022 9:34 AM CDT DTL Comment: ----REFERENCE VALUE---- Desirable: < 200 mg/dL Borderline High: 200 - 239 mg/dL High: > or = 240 mg/dL Cholesterol, LDL, Calculated 124 mg/dL 11/10/2022 9:34 AM CDT DTL Comment: ----REFERENCE VALUE---- Desirable: <100 mg/dL Above Desirable: 100-129 mg/dL Borderline High: 130-159 mg/dL High: 160-189 mg/dL Very High: >=190 mg/dL ----ADDITIONAL INFORMATION---- LDL cholesterol calculated using the Early/NIH equation. Cholesterol, HDL, S 62 >=40 mg/dL 11/10/2022 9:34 AM CDT DTL Cholesterol, Non-HDL, Calculated 138 mg/dL 11/10/2022 9:34 AM CDT DTL Comment: ----REFERENCE VALUE---- Desirable: <130 mg/dL Above Desirable: 130-159 mg/dL Borderline High: 160-189 mg/dL High: 190-219 mg/dL Very High: > or =220 mg/dL Fasting (8 HR or more) Y 11/10/2022 9:13 AM CDT DTL Blood (Blood, Venous) 11/10/2022 8:52 AM CDT 11/10/2022 9:13 AM CDT Carlos Miranda M.D. LAB BLOOD ADD- ON [facility] [address] [place] [address], [facility] [address] [place] [address] * Testosterone, Total and Free (11/10/2022 8:52 AM CDT) Pathologist [facility] Testosterone, Free, S 9.40 3.47 - 13.0 ng/dL 11/14/2022 1:29 PM CDT [facility] Comment: ----ADDITIONAL INFORMATION---- This test was developed and its performance characteristics determined by [facility] in a manner consistent with CLIA requirements. This test has not been cleared or approved by the U.S. Food and Drug Administration. Testosterone, Total by Mass Spectrometry, Serum 512 240 - 950 ng/dL 11/13/2022 4:58 PM CDT [facility] Comment: ----ADDITIONAL INFORMATION---- Testing performed by Liquid Chromatography-Tandem Mass Spectrometry (LC-MS/MS). This test was developed and its performance characteristics determined by [facility] in a manner consistent with CLIA requirements. This test has not been cleared or approved by the U.S. Food and Drug Administration. Blood (Blood, Venous) 11/10/2022 8:52 AM CDT 11/10/2022 10:53 AM CDT Carlos Miranda M.D. LAB BLOOD NON ADD-ON Performing Organization Address City/[facility]/ZIP Co de Phone Number [facility] [address] [place] [address] [facility] [address] [place] [address] [place] [address] * Glucose, Fasting (11/10/2022 8:52 AM CDT) Glucose, P 91 70 - 100 mg/dL 11/10/2022 9:49 AM CDT DTL Last Intake 15 hr 11/10/2022 9:23 AM CDT DTL Blood (Blood, Venous) 11/10/2022 8:52 AM CDT 11/10/2022 9:23 AM CDT Carlos Miranda M.D. LAB BLOOD NON ADD-ON Performing Organization Address City/[facility] Co de Phone Number [facility] [address] [place] [address], [facility] [address] [place] [address] documented in this encounter Visit Diagnoses Diagnosis Dysfunction Erectile documented in this encounter Additional Health Concerns Assessment Noted Time PHQ-9 Depression Total Score: 0 06/25/19 21 8:09 AM GRANITE INSTALLER documented as of this encounter Care Teams Shrimp Pond Laborer Relationship Specialty Start Date End Date Elsewhere, Pcp PCP - General 12/02/20 documented as of this encounter
--- OUTSIDE RECORDS SUMMARY | 2023-07-05 09:25 | XMS_ITS ---
Author Name Unknown Organization [facility] Address [address] [place] [address] Care Team Providers Care Branch Services Manager Name Role Phone Unavailable Unavailable Unavailable Surgery Details Not on file Complications Check Surgery Details section. Procedure Estimated Blood Loss Check Surgery Details section. Procedure Findings Check Surgery Details section. Procedure Specimens Taken Check Surgery Details section.
--- OUTSIDE RECORDS SUMMARY | 2023-07-05 09:25 | XMS_ITS | Encounter Summary ---
Author Name Unknown Organization [facility] Address [address] [place] [address] Care Team Providers Care Observation Assistant Name Role Phone Elsewhere, Pcp Primary Care Provider Unavailabl e Reason for Visit * Reason Onset Date Comments Pre-visit Testing Orders 11/08/2022 Encounter Details Date Type Department Care Team (Latest Contact Info) Description 11/08/2022 Clinical Communication Department of Urology in [place], [place] [address] [place] [address] Carlos Miranda M.D. [address] [place] [phone] Pre-visit Testing Orders Social History Tobacco Use Types Packs/Day Years [...] week 11/01/2021 How often do you attend [facility]? More than 4 times per year 11/01/2021 Do you belong to any clubs o r organizations such as cheondoism groups, unions, fraternal or athletic groups, or [...] Answer Date Recorded PHQ-2 Score 0 06/25/2020 [facility] Occupat ional Health - Occupational [...] your living situation today? I have a [facility] place to live 11/08/2022 Education Answer Date Recorded What is the highest level of school you have completed or the highest degree you have received? 12th grade 11/01/2021 Sex and Gender Information Value Date Recorded Sex Assigned at Male 05/29/2018 8:55 AM CHIEF GUARD Gender Identity Male 05/29/2018 8:55 AM CHIEF GUARD Sexual Orientation Straight 05/29/2018 8: 55 AM CHIEF GUARD documented as of this encounter Plan of Treatment Not on file documented as of this encounter Results * (ABNORMAL) Lipid Panel (11/10/2022 8:52 AM CDT) [facility] Triglycerides 78 mg/dL 11/10/2022 9:34 AM CDT [...] Carlos Miranda M.D. LAB BLOOD ADD- ON [facility] [address] [place] [address], [facility] [address] [place] [address] * Testosterone, Total and Free (11/10/2022 8:52 AM CDT) Pathologist [facility] Testosterone, Free, S 9.40 3.47 - 13.0 ng/dL 11/14/2022 1:29 PM CDT [facility] Comment: ----ADDITIONAL INFORMATION---- This test was developed and its performance characteristics determined by [facility] in a manner consistent with CLIA requirements. This test has not been cleared or approved by the U.S. Food and Drug Administration. Testosterone, Total by Mass Spectrometry, Serum 512 240 - 950 ng/dL 11/13/2022 4:58 PM CDT [facility] Comment: ----ADDITIONAL INFORMATION---- Testing performed by Liquid Chromatography-Tandem Mass Spectrometry (LC-MS/MS). This test was developed and its performance characteristics determined by [facility] in a manner consistent with CLIA requirements. This test has not been cleared or approved by the U.S. Food and Drug Administration. Blood (Blood, Venous) 11/10/2022 8:52 AM CDT 11/10/2022 10:53 AM CDT Carlos Miranda M.D. LAB BLOOD NON ADD-ON [facility] [address] [place] [address] [facility] [address] [place] [address] [place] [address] * Glucose, Fasting (11/10/2022 8:52 AM CDT) Glucose, P 91 70 - 100 mg/dL 11/10/2022 9:49 AM CDT DTL Last Intake 15 hr 11/10/2022 9:23 AM CDT DTL Blood (Blood, Venous) 11/10/2022 8:52 AM CDT 11/10/2022 9:23 AM CDT Carlos Miranda M.D. LAB BLOOD NON ADD-ON Performing Organization Address City/[facility]/ZIP Co de Phone Number [facility] [address] [place] [address], [facility] DTL [facility] [address] [place] [address] documented in this encounter Visit Diagnoses Diagnosis Dysfunction Erectile- Primary documented in this encounter Additional Health Concerns Assessment Noted Time PHQ-9 Depression Total Score: 0 06/25/19 21 8:09 AM CHIEF GUARD documented as of this encounter Care Teams Observation Assistant Relationship Specialty Start Date End Date Elsewhere, Pcp PCP - General 12/02/20 documented as of this encounter
--- OUTSIDE RECORDS SUMMARY | 2023-07-05 09:25 | XMS_ITS | Encounter Summary ---
Author Name Unknown Organization [facility] Address [address] [place] [address] Care Team Providers Care Septic Tank Setter Name Role Phone Elsewhere, Pcp Primary Care Provider Unavailabl e Reason for Visit * Appointment Request (Routine) - Closed Specialty Diagnoses / Procedures Referred By Contalice t Referred To Contact Urology Diagnoses Dysfunction Erectile Referral ID Status Reason Start Date Expiration Date Visits Re quested Visits Authorized [id number] Closed 11/08/2022 11/08/2023 1 1 Encounter Details Date Type Department Care Team (Latest Contact Info) Description 11/15/2022 9:00 AM CDT Comprehensive Visit Department of Urology in [place], [place] [address] [place] [phone] Carlos Miranda M.D. [address] [place] [phone] Dysfunction Erectile (Primary Dx) Social History Tobacco Use Types Packs/Day Years [...] How often do you attend chur or sabianism services? More than 4 times per year 11/01/2021 Do you belong to any clubs o r organizations such as mandaeism groups, unions, fraternal or athletic groups, or [...] Answer Date Recorded PHQ-2 Score 0 06/25/2020 [facility] [place] of Occupat ional Health - Occupational Stress [...] your living situation today? I have a [facility] place to live 11/08/2022 Education Answer Date Recorded What is the highest level of school you have completed or the highest degree you have received? 12th grade 11/01/2021 Sex and Gender Information Value Date Recorded Sex Assigned at Male 05/29/2018 8:55 AM CLOTH NAPPING SUPERVISOR Gender Identity Male 05/29/2018 8:55 AM CLOTH NAPPING SUPERVISOR Sexual Orientation Straight 05/29/2018 8: 55 AM CLOTH NAPPING SUPERVISOR documented as of this encounter H&P Notes * Loree Bermeo MPAS, P.A.-C. - 11/15/2022 9:00 AM CDT SUBJECTIVE REQUESTING PROVIDER No ref. provider found REASON FOR CONSULT Erectile dysfunction Patient seen on Dr. Miranda's calender HISTORY OF PRESENT ILLNESS Mr. Mendez is a 67-year-old male presenting with his , Jodie, for evaluation of erectile dysfunction. He is status post robot assisted radical prostatectomy 11/07/2021 for Shelbie 3+3=7 prostatecancer. He notes erectile dysfunction prior to his prostatectomy, which responded well to tadalafilwith 8- 9/10 erection firmness. He was continued on tadalafil 5 mg daily postoperatively. He has taken booster dosing of tadalafil without any appreciable response. He denies spontaneous erections. Libido is low. He denies any lower urinary tract symptoms and denies urinary incontinence. He notes heis not tried the booster dosing of the tadalafil recently. He reports his last PSA was done locally on 11/07/2022 with a value of less than 0.06. ERECTILE DYSFUNCTION Erectile Dysfunction Intake Questionnaire: Do you have any difficulty obtaining or maintaining an erection satisfactory for sexual intercourse?: yes How many months or years have you noticed difficulties with erections?: 12 months How many times per month do you engage in sexual intercourse with a partner?: 0 How would you rate the hardness of your erection without any medications or supplements?: 0 = Penisdoes not enlarge How many minutes can you maintain an erection that is strong enough to penetrate?: 0 Long enough for successful intercourse?: no How strong are your night-time or brokerage office manager erections?: 0 = Penis does not enlarge Have you ever tried medications like Viagra, Levitra, Cialis, or Stendra?: yes How often are you currently using medications like Viagra, Levitra, Cialis, or Stendra?: More than 3 times per week How many years ago did you first try medications like Viagra, Levitra, Cialis, or Stendra?: 1 How strong of an erection can you get with Viagra, Levitra, Cialis, or Stendra?: 0 = Penis does notenlarge Have you ever, or do you currently use penile injection therapies?: no Have you ever or do you currently use a vacuum device or erection constriction ring to help with erections?: no Have you undergone any of the following treatments?: laser or other surgery on the prostate to improve urinary symptoms Have you had your prostate removed (prostatectomy)?: yes Was your prostate surgery nerve sparing?: Yes How strong was your erection prior to surgery?: 0 = Penis did not enlarge Had you ever taken Viagra, Levitra, Cialis, or Stendra prior to surgery?: yes Have you ever received any form of hormone therapy (shots or pills to reduce your testosterone?: no TESTOSTERONE Testosterone Intake Questionnaire: On a scale of 1-10, how strong is your sexual desire (libido)?: 1 Do you have any of the following symptoms (check all that apply)?: none of the above Do you have diabetes?: No Have you ever had your testosterone checked?: no Have you previously used any of the following testosterone therapies?: None Are you currently receiving testosterone therapy?: no How long have you taken the testosterone medicine (if taking intermittently, for how many years have you been taking intermittently)?: 0 years Which symptoms are improved with the testosterone medication?: Other Do you wish to maintain your fertility?: no SEXUAL DYSFUNCTION AMB URO SEXUAL DYSFUNCTION INTAKE QUESTIONNAIRE SB: Do you have any complaints about orgasm or ejaculation?: yes Are you able to achieve an orgasm (reach climax)?: no Do you have fluid which leaves the penis with orgasm or climax?: no Do you ever accidentally urinate when aroused or during orgasm or climax?: no Do you feel that you ejaculate (reach climax) too slowly or too quickly?: No PMH/PSH Hypertension Prostate cancer Hyperlipidemia REVIEW OF SYSTEMS Negative aside from HPI OBJECTIVE PHYSICAL EXAM Constitutional: He is oriented to person, place, and time. He appears well- developed and well-nourished. Pulmonary/Chest: Effort normal. Neurological: He is alert and oriented to person, place, and time. Psychiatric: He has a normal mood and affect. ASSESSMENT / PLAN #1 Erectile dysfunction It was a pleasure meeting with Mr. Mendez in conjunction with Dr. Miranda today in regard to his erectile dysfunction. The patient and I had a lengthy discussion regarding the treatment options for ED including the followin. PDE5I - Discussed that if a patient doesn't respond adequately to Viagra, he would be unlikely to respond to Cialis or Levitra. The indication to switch to a different PDE5I would be if he was having bothersome side effects from Viagra. 2. MUSE (intraurethral alprostadil suppository) - Would perform the first teaching session in clinic. It is only effective in 30-40% of patients, and is not as effective as intracavernosal alprostadil. Most common side effects include dysuria or pain with insertion of the suppository. 3. ICI (intracavernosal injection of alprostadil) - Typically most effective of the medical treatment options. At 1 year 60-70% of patient are still using ICI. Reasons to discontinue are often if it is ineffective, unreliable, and painful. Patient are asked to rotate site of injection to prevent scar tissue from building up at one site that can cause curvature of the penis (Peyronie's disease). If the patient is on anticoagulation, he would be at increased risk for hematoma formation at the site of injection. 4. ANNA (vacuum erection device) - Typically the least natural and most tedious of all the options listed above, but is a great way to get blood flow into the penis and promote penile physical therapy to preserve penile length. It can be used in combination with any of the medical therapies described above. 5. Penile implant - The most effective of all the options listed above and is guaranteed to get thepatient an erection sufficient for penetration. It has the highest satisfaction rates of all the treatment listed above (over 95%). It is a surgery that requires general anesthesia and carries a 1-2%risk of infection, and 20% risk of mechanical failure at 10 years. Following discussion, the patient would like to trialed booster dosing of tadalafil again. If no significant response with that, the patient would like to trial a full dose of sildenafil. We have provided him with a prescription sildenafil to be used as needed, which should not be used the same dayas booster dosing with tadalafil. He will also consider the additional options for treatment that were discussed today The patient expressed understanding of the plan involved, and all questions were answered. PLAN: Patient will trial booster dosing of 20 mg tadalafil. If no satisfactory results with tadalafil, hewill trial sildenafil 100 mg on a separate day. Patient will consider options of intracavernosal injections and penile prosthesis. If he would liketo move forward with either of these interventions, he will contact Dr. Miranda's team for further discussion and scheduling. Signed by: CHARLENE Palacios, P.A.-C. 11/15/2022 8:23 AM CDT Answers submitted by the patient for this visit: Men's Health- Peyronie's Disease (Submitted on 11/08/2022) Do you have any penile curvature?: No Men's Health - Erectile Function (Submitted on 11/08/2022) Associated attestation - aCrlos Miranda M.D. - 11/15/2022 9:40 AM CDT I saw and evaluated the patient, participating in the coffman portions of the service. I reviewed Loree Bermeo's note. I agree with her findings and plan. In brief, this is a very pleasant 67-year-old accompanied by his today for discussion regarding erectile dysfunction status post robotic prostatectomy. Prior to the prostatectomy, patient was onlow-dose tadalafil with satisfactory erection response. Postoperatively, he has been using 5 mg daily and has used a booster of up to 20 mg on demand several times without any significant response. It has been several months since he last tried the full dose. He is going to trial 20 mg of tadalafilon demand and our plan is to also have him trial sildenafil 100 mg at his request. I attempted my enthusiasm that he would have any significant response to these agents, but I think it is reasonable to try. We also discussed intracavernosal injections, the ED, intraurethral suppository, and spent asignificant amount of time discussing penile prosthesis placement for which I feel he would be an excellent candidate. He is going to consider these options, but does seem to be leaning towards penile prosthesis if the oral medications are unsuccessful. He will let us know via the portal and I would be happy to see him back for a return visit in short order to further discuss treatments. Plan: Trial tadalafil 20 mg booster Prescription for Sildenafil 100 mg prn Return visit pending these results to discuss other treatments including IPP documented in this encounter Plan of Treatment Not on file documented as of this encounter Visit Diagnoses Diagnosis Dysfunction Erectile- Primary documented in this encounter Additional Health Concerns Assessment Noted Time PHQ-9 Depression Total Score: 0 06/25/19 21 8:09 AM CLOTH NAPPING SUPERVISOR documented as of this encounter Care Teams Septic Tank Setter Relationship Specialty Start Date End Date Elsewhere, Pcp PCP - General 12/02/20 documented as of this encounter
== END 2023-07-05 09:15 | disposition home or self-care (01) ==
PROVIDERS: PCP Nurse Practitioner Family; Visit Provider Nurse Practitioner Family
DX: E78.5 Hyperlipidemia, unspecified (principal); C61 Malignant neoplasm of prostate; I10 Essential (primary) hypertension
CPT/HCPCS: 80053; 80061; 84153; 85025

== ENCOUNTER 2023-07-12 07:14 | Outpatient (CLI) | payer MEDICARE, BC, SELFPAY ==
--- NOTE | 2023-07-12 07:15 | CRLHL7_ITS ---
For Patients: As a result of the Century Cures Act, medical imaging exams and procedure reports are released immediately into your electronic medical record. You may view this report before your referring provider. If you have questions, please contact your health care provider. Examination: US abdominal aorta Indication: Abdominal aortic aneurysm screening. Technique: Connell scale and color Doppler images of the aorta and common iliac arteries are obtained. Comparison: None Findings: Proximal aorta: 2.5 x 2.5 cm Mid aorta: 2.2 x 2.0 cm Distal aorta: 2.0 x 1.9 cm Right common iliac artery: 2.2 x 2.8 cm Left common iliac artery: 1.3 x 1.2 cm Recommended imaging interval for ectatic aorta: 2.5-2.9 cm: 5 years 3.0-3.4 cm: 3 years 3.5-3.9 cm: 2 years 4.0-4.4 cm: 1 year 4.5-4.9 cm: 6 months Iliac artery aneurysm: Defined as 1.5 times normal diameter or greater than 2.5 cm. <3.0 cm rarely rupture and expands slowly 3.0-3.5 cm: Follow-up cross-sectional imaging in 6 months. If stable, annual follow-up. <3.5 cm need treatment or even closer follow-up. 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 No aortic aneurysm. Dictated by Andrew Hodge MD @ 07/12/2023 1:25:47 PM (Electronically Signed)
--- OUTSIDE RECORDS SUMMARY | 2023-07-12 07:17 | XMS_ITS | Encounter Summary ---
Author Name Unknown Organization [facility] Address [address] [place] [address] Care Team Providers Care Room Service Server Name Role Phone Elsewhere, Pcp Primary Care Provider Unavailabl e Reason for Visit * Reason Comments Med Refill Encounter Details Date Type Department Care Team (Late st Contact Info) Description 02/23/2023 Refill Department of Urology in [place], [place] [address] [place] [phone] Carlos Miranda M.D. [address] [place] [phone] Med Refill Social History Tobacco Use Types [...] How often do you attend chur or latter-day services? More than 4 times per year 11/01/2021 Do you belong to any clubs o r organizations such as yarsanism groups, unions, fraternal [...] Date Recorded PHQ-2 Score 0 06/25/2020 [facility] - Occupational Stress Questionnaire Answer [...] your living situation today? I have a [facility] place to live 11/08/2022 Education Answer Date Recorded What is the highest level of school you have completed or the highest degree you have received? 12th grade 11/01/2021 Sex and Gender Information Value Date Recorded Sex Assigned at Male 05/29/2018 8:55 AM VETERINARY LABORATORY TECHNICIAN Gender Identity Male 05/29/2018 8:55 AM VETERINARY LABORATORY TECHNICIAN Sexual Orientation Straight 05/29/2018 8: 55 AM VETERINARY LABORATORY TECHNICIAN documented as of this encounter Plan of Treatment Not on file documented as of this encounter Visit Diagnoses Not on filedocumented in this encounter Additional Health Concerns Assessment Noted Time PHQ-9 Depression Total Score: 0 06/25/19 21 8:09 AM VETERINARY LABORATORY TECHNICIAN documented as of this encounter Care Teams Room Service Server Relationship Specialty Start Date End Date Elsewhere, Pcp PCP - General 12/02/20 documented as of this encounter
--- OUTSIDE RECORDS SUMMARY | 2023-07-12 07:17 | XMS_ITS ---
Author Name Unknown Organization [facility] Address [address] [place] [address] Care Team Providers Care Student Accounts Coordinator Name Role Phone Unavailable Unavailable Unavailable Surgery Details Not on file Complications Check Surgery Details section. Procedure Estimated Blood Loss Check Surgery Details section. Procedure Findings Check Surgery Details section. Procedure Specimens Taken Check Surgery Details section.
--- OUTSIDE RECORDS SUMMARY | 2023-07-12 07:17 | XMS_ITS | Encounter Summary ---
Author Name Unknown Organization [facility] Address [address] [place] [address] Care Team Providers Care Nuisance Wildlife Specialist Name Role Phone Elsewhere, Pcp Primary Care Provider Unavailabl e Reason for Visit * Appointment Request (Routine) - Closed Specialty Diagnoses / Procedures Referred By Contalice t Referred To Contact Urology Diagnoses Dysfunction Erectile Referral ID Status Reason Start Date Expiration Date Visits Re quested Visits Authorized [id number] Closed 11/08/2022 11/08/2023 1 1 Encounter Details Date Type Department Care Team (Latest Contact Info) Description 11/15/2022 9:00 AM CDT Comprehensive Visit Department of Urology in [place], [place] [address] [place] [phone] Carlos Miranda M.D. [address] [place] [phone] Dysfunction Erectile (Primary Dx) Social History Tobacco [...] How often do you attend chur or spiritism services? More than 4 times per year 11/01/2021 Do you belong to any clubs o r organizations such as hinduism groups, unions, fraternal [...] Answer Date Recorded PHQ-2 Score 0 06/25/2020 [facility] [place] of Occupat ional Health - Occupational Stress [...] your living situation today? I have a [facility] place to live 11/08/2022 Education Answer Date Recorded What is the highest level of school you have completed or the highest degree you have received? 12th grade 11/01/2021 Sex and Gender Information Value Date Recorded Sex Assigned at Male 05/29/2018 8:55 AM SLURRY MAN Gender Identity Male 05/29/2018 8:55 AM SLURRY MAN Sexual Orientation Straight 05/29/2018 8: 55 AM SLURRY MAN documented as of this encounter H&P Notes [...] no How strong are your night-time or early childhood education specialist erections?: 0 = Penis does not enlarge [...] Function (Submitted on 11/08/2022) Associated attestation - Carlos Miranda M.D. - 11/15/2022 9:40 AM CDT [...] Total Score: 0 06/25/19 21 8:09 AM SLURRY MAN documented as of this encounter Care Teams Nuisance Wildlife Specialist Relationship Specialty Start Date End Date Elsewhere, Pcp PCP - General 12/02/20 documented as of this encounter
--- OUTSIDE RECORDS SUMMARY | 2023-07-12 07:17 | XMS_ITS | Referral Summary ---
Author Name Unknown Organization [facility] Address [address] [place] [address] Care Team Providers Care Director Global Strategic Publisher Sales Name Role Phone Elsewhere, Pcp Primary Care Provider Unavailabl e Source Comments Patient records contain information from all sites at [facility]. For routine questions regarding patient records, call [phone] during business hours, M-F 8:00 AM - 5:00 PM Central Time. Record requests for emergency care only can be directed to [phone] at any time.[facility] Allergies No known active allergies Medications Medication [...] Overview: Added automatically from request for surgery [id number] Hypertension Essential Primary 04/23/2006 Overview: - BP [...] How often do you attend chur or cheondoism services? More than 4 times per year 11/01/2021 Do you belong to any clubs o r organizations such as amish groups, unions, fraternal [...] Answer Date Recorded PHQ-2 Score 0 06/25/2020 [facility] of Occupat ional Health - Occupational Stress [...] Sex Assigned at Male 05/29/2018 8:55 AM KNOCK OUT HAND Gender Identity Male 05/29/2018 8:55 AM KNOCK OUT HAND Sexual Orientation Straight 05/29/2018 8: 55 AM KNOCK OUT HAND Last Filed Vital Signs Vital Sign Reading [...] on file Medical Devices Implanted Type Area Technical Sales Engineer Device Identifier Shelf Expiration Date Model / Serial / Lot Clp Hmol Plmr Lg - [id number] Implanted:Qty: 1 on 11/07/2021 by Carlos Olvera M.D. at [facility] Hardware e.g. pins/screws /rods N/A: Pelvis [employer] [id number] 08/01/2026 [id number] / / [id number] Conversions - Default Historical Implant Device Implanted:04/05 (Quantity not on file) Shoulder Implant Right: Shoulder Description:Body Location - Shoulder R. fasterners. Device Status Text - Shoulder. Care Teams Director Global Strategic Publisher Sales Relationship Specialty Start Date End Date Elsewhere, Pcp PCP - General 12/02/20
--- OUTSIDE RECORDS SUMMARY | 2023-07-12 07:17 | XMS_ITS | Encounter Summary ---
Author Name Unknown Organization [facility] Address [address] [place] [address] Care Team Providers Care Youth Specialist Name Role Phone Elsewhere, Pcp Primary Care Provider Unavailabl e Encounter Details Date Type Department Care Team (Latest Contact Info) Description 11/10/2022 8:28 AM CDT - 11/10/2022 11:59 PM CDT Hospital Encounter Department of Laboratory Medicine and Pathology, [facility] in [place], [place] [address] [place] [phone] Carlos Miranda M.D. [address] [place] [phone] Dysfunction Erectile Discharge Disposition: Home or Self [...] How often do you attend chur or denominational services? More than 4 times per year 11/01/2021 Do you belong to any clubs o r organizations such as shinto groups, unions, fraternal [...] Answer Date Recorded PHQ-2 Score 0 06/25/2020 [facility] of Occupat ional Health - Occupational [...] your living situation today? I have a [facility] place to live 11/08/2022 Education Answer Date Recorded What is the highest level of school you have completed or the highest degree you have received? 12th grade 11/01/2021 Sex and Gender Information Value Date Recorded Sex Assigned at Male 05/29/2018 8:55 AM LABORER BEAM HOUSE Gender Identity Male 05/29/2018 8:55 AM LABORER BEAM HOUSE Sexual Orientation Straight 05/29/2018 8: 55 AM LABORER BEAM HOUSE documented as of this encounter Medications at [...] (ABNORMAL) Lipid Panel (11/10/2022 8:52 AM CDT) [facility] Triglycerides 78 mg/dL 11/10/2022 9:34 AM CDT [...] Carlos Miranda M.D. LAB BLOOD ADD- ON [facility] [address] [place] [address], [facility] [address] [place] [address] * Testosterone, Total and Free (11/10/2022 8:52 AM CDT) Pathologist [facility] Testosterone, Free, S 9.40 3.47 - 13.0 ng/dL 11/14/2022 1:29 PM CDT [facility] Comment: ----ADDITIONAL INFORMATION---- This test was developed and its performance characteristics determined by [facility] in a manner consistent with CLIA requirements. This test has not been cleared or approved by the U.S. Food and Drug Administration. Testosterone, Total by Mass Spectrometry, Serum 512 240 - 950 ng/dL 11/13/2022 4:58 PM CDT [facility] Comment: ----ADDITIONAL INFORMATION---- Testing performed by Liquid Chromatography-Tandem Mass Spectrometry (LC-MS/MS). This test was developed and its performance characteristics determined by [facility] in a manner consistent with CLIA requirements. This test has not been cleared or approved by the U.S. Food and Drug Administration. Blood (Blood, Venous) 11/10/2022 8:52 AM CDT 11/10/2022 10:53 AM CDT Carlos Miranda M.D. LAB BLOOD NON ADD-ON Performing Organization Address City/[facility]/ZIP Co de Phone Number [facility] [address] [place] [address] [facility] [address] [place] [address] [place] [address] * Glucose, Fasting (11/10/2022 8:52 AM CDT) Glucose, P 91 70 - 100 mg/dL 11/10/2022 9:49 AM CDT DTL Last Intake 15 hr 11/10/2022 9:23 AM CDT DTL Blood (Blood, Venous) 11/10/2022 8:52 AM CDT 11/10/2022 9:23 AM CDT Carlos Miranda M.D. LAB BLOOD NON ADD-ON Performing Organization Address City/[facility] Co de Phone Number [facility] [address] [place] [address], [facility] [address] [place] [address] documented in this encounter Visit Diagnoses Diagnosis Dysfunction Erectile documented in this encounter Additional Health Concerns Assessment Noted Time PHQ-9 Depression Total Score: 0 06/25/19 21 8:09 AM LABORER BEAM HOUSE documented as of this encounter Care Teams Youth Specialist Relationship Specialty Start Date End Date Elsewhere, Pcp PCP - General 12/02/20 documented as of this encounter
--- OUTSIDE RECORDS SUMMARY | 2023-07-12 07:17 | XMS_ITS | Clinical Summary ---
Author Name Unknown Organization [facility] Address [address] [place] [address] Care Team Providers Care Refrigeration Plant Cork Insulator Name Role Phone Elsewhere, Pcp Primary Care Provider Unavailabl e Source Comments Patient records contain information from all sites at [facility]. For routine questions regarding patient records, call [phone] during business hours, M-F 8:00 AM - 5:00 PM Central Time. Record requests for emergency care only can be directed to [phone] at any time.[facility] Allergies No known active allergies Medications Medication [...] Overview: Added automatically from request for surgery [id number] Hypertension Essential Primary 04/23/2006 Overview: - BP [...] How often do you attend chur or synagogue services? More than 4 times per year 11/01/2021 Do you belong to any clubs o r organizations such as holiness groups, unions, fraternal [...] Date Recorded PHQ-2 Score 0 06/25/2020 [facility] - Occupational Stress Questionnaire Answer Date Recorded [...] your living situation today? [facility] a [facility] 11/08/2022 Education Answer Date Recorded What is the highest level of school you have completed or the highest degree you have received? 12th grade 11/01/2021 Sex and Gender Information Value Date Recorded Sex Assigned at Male 05/29/2018 8:55 AM OCEAN RESCUE LIEUTENANT Gender Identity Male 05/29/2018 8:55 AM OCEAN RESCUE LIEUTENANT Sexual Orientation Straight 05/29/2018 8: 55 AM OCEAN RESCUE LIEUTENANT Last Filed Vital Signs Vital Sign Reading [...] history exists Medical Devices Implanted Type Area Cotton Buyer Device Identifier Shelf Expiration Date Model / Serial / Lot [facility] Lg - [id number] Implanted:Qty: 1 on 11/07/2021 by Carlos Olvera M.D. at [facility] Hardware e.g. pins/screws /rods N/A: Pelvis Teleflex [employer] [id number] 08/01/2026 [id number] / / [id number] Conversions - Default Historical Implant Device Implanted:04/05 (Quantity not on file) Shoulder Implant Right: Shoulder Description:Body Location - Shoulder R. fasterners. Device Status Text - Shoulder. Care Teams Refrigeration Plant Cork Insulator Relationship Specialty Start Date End Date Elsewhere, Pcp PCP - General 12/02/20
--- OUTSIDE RECORDS SUMMARY | 2023-07-12 07:18 | XMS_ITS | Encounter Summary ---
Author Name Unknown Organization [facility] Address [address] [place] [address] Care Team Providers Care Technology Sales Representative Name Role Phone Elsewhere, Pcp Primary Care Provider Unavailabl e Reason for Visit * Reason Onset Date Comments Pre-visit Testing Orders 11/08/2022 Encounter Details Date Type Department Care Team (Latest Contact Info) Description 11/08/2022 Clinical Communication Department of Urology in [place], [place] [address] [place] [address] Carlos Miranda M.D. [address] [place] [phone] Pre-visit Testing Orders Social History Tobacco Use [...] week 11/01/2021 How often do you attend [facility] or denominational services? More than 4 times per year 11/01/2021 Do you belong to any clubs o r organizations such as lutheran groups, unions, fraternal or athletic groups, or [...] Answer Date Recorded PHQ-2 Score 0 06/25/2020 [facility] - Occupational [...] your living situation today? I have a [facility] place to live 11/08/2022 Education Answer Date Recorded What is the highest level of school you have completed or the highest degree you have received? 12th grade 11/01/2021 Sex and Gender Information Value Date Recorded Sex Assigned at Male 05/29/2018 8:55 AM RIBBON WINDER Gender Identity Male 05/29/2018 8:55 AM RIBBON WINDER Sexual Orientation Straight 05/29/2018 8: 55 AM RIBBON WINDER documented as of this encounter Plan of Treatment Not on file documented as of this encounter Results * (ABNORMAL) Lipid Panel (11/10/2022 8:52 AM CDT) [facility] Triglycerides 78 mg/dL 11/10/2022 9:34 AM CDT [...] Miranda M.D. LAB BLOOD ADD- ON [facility] [address] [place] [address], [facility] [address] [place] [address] * Testosterone, Total and Free (11/10/2022 8:52 AM CDT) Pathologist [facility] Testosterone, Free, S 9.40 3.47 - 13.0 ng/dL 11/14/2022 1:29 PM CDT [facility] Comment: ----ADDITIONAL INFORMATION---- This test was developed and its performance characteristics determined by [facility] in a manner consistent with CLIA requirements. This test has not been cleared or approved by the U.S. Food and Drug Administration. Testosterone, Total by Mass Spectrometry, Serum 512 240 - 950 ng/dL 11/13/2022 4:58 PM CDT [facility] Comment: ----ADDITIONAL INFORMATION---- Testing performed by Liquid Chromatography-Tandem Mass Spectrometry (LC-MS/MS). This test was developed and its performance characteristics determined by [facility] in a manner consistent with CLIA requirements. This test has not been cleared or approved by the U.S. Food and Drug Administration. Blood (Blood, Venous) 11/10/2022 8:52 AM CDT 11/10/2022 10:53 AM CDT Carlos Miranda M.D. LAB BLOOD NON ADD-ON [facility] [address] [place] [address] [facility] [address] [place] [address] [place] [address] * Glucose, Fasting (11/10/2022 8:52 AM CDT) Glucose, P 91 70 - 100 mg/dL 11/10/2022 9:49 AM CDT DTL Last Intake 15 hr 11/10/2022 9:23 AM CDT DTL Blood (Blood, Venous) 11/10/2022 8:52 AM CDT 11/10/2022 9:23 AM CDT Carlos Miranda M.D. LAB BLOOD NON ADD-ON Performing Organization Address City/[facility]/ZIP Co de Phone Number [facility] [address] [place] [address], [facility] DTL [facility] [address] [place] [address] documented in this encounter Visit Diagnoses Diagnosis Dysfunction Erectile- Primary documented in this encounter Additional Health Concerns Assessment Noted Time PHQ-9 Depression Total Score: 0 06/25/19 21 8:09 AM RIBBON WINDER documented as of this encounter Care Teams Technology Sales Representative Relationship Specialty Start Date End Date Elsewhere, Pcp PCP - General 12/02/20 documented as of this encounter
--- OUTSIDE RECORDS SUMMARY | 2023-07-12 07:18 | XMS_ITS | Encounter Summary ---
Author Name Unknown Organization [facility] Address [address] [place] [address] Care Team Providers Care Video Network Engineer Name Role Phone Elsewhere, Pcp Primary Care Provider Unavailabl e Encounter Details Date Type Department Care Team (Latest Contact Info) Description 11/09/2022 7:00 AM CDT Clinical Communication Virtual Review in [place], [place] [address] [place] [address] Social History Tobacco Use Types [...] How often do you attend chur or mandaeism services? More than 4 times per year 11/01/2021 Do you belong to any clubs o r organizations such as jehovah's witness groups, unions, [...] Answer Date Recorded PHQ-2 Score 0 06/25/2020 [facility]at ional Health - Occupational Stress [...] your living situation today? I have a [facility] place to live 11/08/2022 Education Answer Date Recorded What is the highest level of school you have completed or the highest degree you have received? 12th grade 11/01/2021 Sex and Gender Information Value Date Recorded Sex Assigned at Male 05/29/2018 8:55 AM HAND FLATWORK FINISHER Gender Identity Male 05/29/2018 8:55 AM HAND FLATWORK FINISHER Sexual Orientation Straight 05/29/2018 8: 55 AM HAND FLATWORK FINISHER documented as of this encounter Plan of Treatment Not on file documented as of this encounter Visit Diagnoses Not on filedocumented in this encounter Additional Health Concerns Assessment Noted Time PHQ-9 Depression Total Score: 0 06/25/19 8:09 AM HAND FLATWORK FINISHER documented as of this encounter Care Teams Video Network Engineer Relationship Specialty Start Date End Date Elsewhere, Pcp PCP - General 12/02/20 documented as of this encounter
== END 2023-07-12 07:15 | disposition home or self-care (01) ==
LOC: US 07:15
PROVIDERS: PCP Nurse Practitioner Family; Visit Provider Nurse Practitioner Family
DX: Z13.6 Encounter for screening for cardiovascular disorders (principal); I72.3 Aneurysm of iliac artery
CPT/HCPCS: 76706

== ENCOUNTER 2023-12-03 09:11 | Outpatient (CLI) | payer MEDICARE, BC, SELFPAY ==
--- OUTSIDE RECORDS SUMMARY | 2023-12-03 09:48 | XMS_ITS | Clinical Summary ---
Author Organization [facility] Address [address] [place] [address] Care Team Providers Care Shop Girl Name Role Phone Elsewhere, Pcp Primary Care Provider Unavailabl e Source Comments Patient records contain information from all sites at [facility]. For routine questions regarding patient records, call [phone] during business hours, M-F 8:00 AM - 5:00 PM Central Time. Record requests for emergency care only can be directed to [phone] at any time.[facility] Allergies No known active allergies Medications Medication Sig Dispensed Refills Start Date End Date Status VITAMIN B COMPLEX ORAL Take 1 tablet by mouth daily. 04/28/2013 Active MULTIVITAMIN ORAL Take 1 tablet by mouth daily. 02/08/2008 Active hydroCHLOROthiazid e (MICROZIDE) 12.5 mg [...] 6 (six) hours as needed for pain. Active cholecalciferol (VITAMIN D3) 25 mcg (1,000 Unit) capsule Take 25 mcg by mouth daily. Active sildenafiL (VIAGRA) 100 mg tablet Take [...] Diagnosed Date Primary Malignant Neoplasm Of Prostate Overview: Added automatically from request for surgery [id number] Hypertension Essential Primary 04/23/2006 Overview: - BP [...] QV(65 ye ars or older) (PF) 04/03/2020 PPSV23 06/25/2020 Td (Adult), adsorbed 06/15/2003 Tdap [...] Used Date Smoking Tobacco: Former Cigarettes 1 26.7 0 10/06/1972 - 06/04/1999 Smokeless Tobacco: Never [...] week 11/01/2021 How often do you attend [facility] or latter-day services? More than 4 times [...] Answer Date Recorded PHQ-2 Score 0 06/25/2020 [facility] - Occupational Stress Questionnaire Answer Date [...] your living situation today? I have a [facility] place to live 11/08/2022 Education Answer Date Recorded What is the highest level of school you have completed or the highest degree you have received? 12th grade 11/01/2021 Sex and Gender Information Value Date Recorded Sex Assigned at Male 05/29/2018 8:55 AM FULL STACK WEB DEVELOPER Gender Identity Male 05/29/2018 8:55 AM FULL STACK WEB DEVELOPER Sexual Orientation Straight 05/29/2018 8: 55 AM FULL STACK WEB DEVELOPER Last Filed Vital Signs Vital Sign Reading [...] for Blood Press ure Check / Re-check 1955 Colonoscopy 06/21/2022 06/21/2017, 08/11/2005 Colorectal Cancer Surveillance 06/21/2022 Creatinine Level (Kidney Fun ction Test) 11/04/2022 11/04/2021, 06/24/2020, 05/29/2019, Additional history exists Potassium Level 11/04/2022 11/04/2021, 06/05, 05/29/2019, Additional history exists Sodium Level 11/04/2022 11/04/2021, 06/05, 05/29/2019, Additional history exists COVID-19 Vaccine (2022-07 4 season) 2023 05/05/2021, 08/29/2020, 08/01/2020 Depression Screening (Annual PHQ-2) 06/04/2023 Fall Risk Screen (Annual) 06/04/2023 Lipid (Cholesterol) Screening 11/11/2023, 05/24/2018, 05/24/2017, Additional history exists Influenza Vaccine (#1) 2024 , 03/02/2022, 02/15/2021, Additional history exists Fasting Glucose for Diabetes Screening 11/10/2025 11/10/2022, 11/04/2021, 05/29/2019, Additional history exists DTaP,Tdap,and Td Vaccines (3 - Td or Tdap) 06/30/2031 06/30/2021, 04/07/2011, 06/15/2003 Zoster Vaccines Completed 05/05/2021, 02/02, 06/11/2017 Pneumococcal vaccine (65+ years) Completed 07/03/19, 06/25/2020 Medical Devices Implanted Type Area Tour Bus Driver Device Identifier Shelf Expiration Date Model / Serial / Lot Luann Mckeon Md - [id number] Implanted:Qty: 1 on 11/07/2021 by Carlos Olvera M.D. at [facility] Hardware e.g. pins/screws /rods N/A: Pelvis Teleflex [employer] [id number] 05/02/2026 [id number] / / [id number] Luann Mckeon Lg - [id number] Implanted:Qty: 1 on 11/07/2021 by Carlos Olvera M.D. at [facility] Hardware e.g. pins/screws /rods N/A: Pel[employer] [id number] 08/15/2026 [id number] / / [id number] Clp Hmol Plmr Md - [id number] Implanted:Qty: 1 on 11/07/2021 by Carlos Olvera M.D. at [facility] Hardware e.g. pins/screws /rods N/A: [employer] [id number] 06/13/2026 [id number] / / [id number] Clp Hmol Plmr Lg - [id number] Implanted:Qty: 1 on 11/07/2021 by Carlos Olvera M.D. at [facility] Hardware e.g. pins/screws /rods N/A: [employer] [id number] 08/15/2026 [id number] / / [id number] Clp Hmol Plmr Lg - [id number] Implanted:Qty: 1 on 11/07/2021 by Carlos Olvera M.D. at [facility] Hardware e.g. pins/screws /rods N/A: [employer] [id number] 08/01/2026 [id number] / / [id number] Conversions - Default Historical Implant Device Implanted:04/05 (Quantity not on file) Shoulder Implant Right: Shoulder Description:Body Location - Shoulder R. fasterners. Device Status Text - Shoulder. Procedures Procedure Name Priority Date/Time Associated Diagnosis Comments GLUCOSE, FASTING, S/P Routine 11/10/2022 8:52 AM CDT Dysfunction Erectile LIPID PANEL, S Routine 11/10/2022 8:52 AM CDT Dysfunction Erectile BASIC METABOLIC PANEL, S/P Routine 11/04/2021 1:40 PM CDT Personal History Of Malignant Neoplasm Of Prostate COLONOSCOPY Routine 06/21/2017 10:23 AM FULL STACK WEB DEVELOPER from Last 3 Months or Most Recently Relevant to Health Maintenance Results * (ABNORMAL) Lipid Panel (11/10/2022 8:52 AM CDT) Triglycerides 78 mg/dL 11/10/2022 9:34 AM CDT [...] Carlos Miranda M.D. LAB BLOOD ADD- ON [facility] [address] [place] [address], [facility] [address] [place] [address] * Glucose, Fasting (11/10/2022 8:52 AM CDT) Glucose, P 91 70 - 100 mg/dL 11/10/2022 9:49 AM CDT DTL Last Intake 15 hr 11/10/2022 9:23 AM CDT DTL Blood (Blood, Venous) 11/10/2022 8:52 AM CDT 11/10/2022 9:23 AM CDT Carlos Miranda M.D. LAB BLOOD NON ADD-ON [facility] [address] [place] [address], [facility] DTL [facility] [address] [place] [address] * (ABNORMAL) Basic Metabolic Panel (11/04/2021 1:40 PM CDT) Pathologist [facility] Potassium, S 4.1 3.6 - 5.2 mmol/L 11/04/2021 2:29 PM CDT DTL Sodium, S 138 135 - 145 mmol/L 11/04/2021 2:29 PM CDT DTL Chloride, S 101 98 - 107 mmol/L 11/04/2021 2:29 PM CDT DTL Bicarbonate, S 26 22 - 29 mmol/L 11/04/2021 2:29 PM CDT DTL Anion Gap 11 7 - 15 11/04/2021 2:29 PM CDT DTL BUN (Blood Urea Nitrogen), S 20 8 - 24 mg/dL 11/04/2021 2:29 PM CDT DTL Creatinine 0.88 0.74 - 1.35 mg/dL 11/04/2021 2:29 PM CDT DTL eGFR-Non Black/ 89 >=60 mL/min/BSA 11/04/2021 2:29 PM CDT DTL Comment: ----ADDITIONAL INFORMATION---- Estimated GFR calculated using the 2009 CKD_EPI creatinine equation. eGFR-Black/Afri can Citizen Of [place] >90 >=60 mL/min/BSA 11/04/2021 2:29 PM CDT DTL Comment: ----ADDITIONAL INFORMATION---- Estimated GFR calculated using the 2009 CKD_EPI creatinine equation. Calcium, Total, S 10.3(H) 8.8 - 10.2 mg/dL 11/04/2021 2:29 PM CDT DTL Glucose, S 94 70 - 140 mg/dL 11/04/2021 2:29 PM CDT DTL Blood (Blood, Venous) 11/04/2021 1:40 PM CDT 11/04/2021 2:09 PM CDT Tala Wu APRN, C.N.P., D.N.P. LAB BLOOD ADD-ON Performing Organization Address City/[facility] Co de Phone Number [facility] [address] [place] [address], [place] DTL [facility] [address] [place] [address] * Colonoscopy (06/21/2017 10:23 AM FULL STACK WEB DEVELOPER) 06/21/2017 10:2 3 AM FULL STACK WEB DEVELOPER Myles Lanza M.D. GI PROCEDURE ORD ERABLES Performing Organization Address City/[facility] Co de Phone Number [facility] CONVERSION from Last 3 Months or Most Recently Relevant to Health Maintenance Care Teams Shop Girl Relationship Specialty Start Date End Date Elsewhere, Pcp PCP - General 12/02/20
--- OUTSIDE RECORDS SUMMARY | 2023-12-03 09:49 | XMS_ITS | Referral Summary ---
Author Organization [facility] Address [address] [place] [address] Care Team Providers Care Manager Provider Relations Name Role Phone Elsewhere, Pcp Primary Care Provider Unavailabl e Source Comments Patient records contain information from all sites at [facility]. For routine questions regarding patient records, call [phone] during business hours, M-F 8:00 AM - 5:00 PM Central Time. Record requests for emergency care only can be directed to [phone] at any time.[facility] Allergies No known active allergies Medications [...] Overview: Added automatically from request for surgery [id number] Hypertension Essential Primary 04/23/2006 Overview: - BP [...] How often do you attend chur or religion services? More than 4 times per year 11/01/2021 Do you belong to any clubs o r organizations such as denominational groups, unions, fraternal or athletic groups, or [...] Answer Date Recorded PHQ-2 Score 0 06/25/2020 [facility] - Occupational Stress Questionnaire Answer Date Recorded [...] your living situation today? I have a [facility] place to live 11/08/2022 Education Answer Date Recorded What is the highest level of school you have completed or the highest degree you have received? 12th grade 11/01/2021 Sex and Gender Information Value Date Recorded Sex Assigned at Male 05/29/2018 8:55 AM ANESTHETIC ASSISTANT Gender Identity Male 05/29/2018 8:55 AM ANESTHETIC ASSISTANT Sexual Orientation Straight 05/29/2018 8: 55 AM ANESTHETIC ASSISTANT Last Filed Vital Signs Vital Sign Reading [...] on file Medical Devices Implanted Type Area Nutrition Consultant Device Identifier Shelf Expiration Date Model / Serial / Lot Luann Mckeon Md - [id number] Implanted:Qty: 1 on 11/07/2021 by Carlos Olvera M.D. at [facility] Hardware e.g. pins/screws /rods N/A: [employer] [id number] 05/02/2026 [id number] / / [id number] Luann Mckeon Lg - [id number] Implanted:Qty: 1 on 11/07/2021 by Carlos Olvera M.D. at [facility] Hardware e.g. pins/screws /rods N/A: [employer] [id number] 08/15/2026 [id number] / / [id number] [address] Md - [id number] Implanted:Qty: 1 on 11/07/2021 by Carlos Olvera M.D. at [facility] Hardware e.g. pins/screws /rods N/A: [employer] [id number] 06/13/2026 [id number] / / [id number] Clp Hmol Plmr Lg - [id number] Implanted:Qty: 1 on 11/07/2021 by Carlos Olvera M.D. at [facility] Hardware e.g. pins/screws /rods N/A: [employer] [id number] 08/15/2026 [id number] / / [id number] Clp Hmol Plmr Lg - [id number] Implanted:Qty: 1 on 11/07/2021 by Carlos Olvera M.D. at [facility] Hardware e.g. pins/screws /rods N/A: [employer] [id number] 08/01/2026 [id number] / / [id number] Conversions - Default Historical Implant Device Implanted:04/05 (Quantity not on file) Shoulder Implant Right: Shoulder Description:Body Location - Shoulder RSadia gregg. Device Status Text - Shoulder. Procedures Procedure Name Priority Date/Time Associated Diagnosis Comments GLUCOSE, FASTING, S/P Routine 11/10/2022 8:52 AM CDT Dysfunction Erectile LIPID PANEL, S Routine 11/10/2022 8:52 AM CDT Dysfunction Erectile BASIC METABOLIC PANEL, S/P Routine 11/04/2021 1:40 PM CDT Personal History Of Malignant Neoplasm Of Prostate COLONOSCOPY Routine 06/21/2017 10:23 AM ANESTHETIC ASSISTANT from Last 3 Months or Most Recently [...] Carlos Miranda M.D. LAB BLOOD ADD- ON [facility] [address] [place] [address], [facility] [address] [place] [address] * Glucose, Fasting (11/10/2022 8:52 AM CDT) Glucose, P 91 70 - 100 mg/dL 11/10/2022 9:49 AM CDT DTL Last Intake 15 hr 11/10/2022 9:23 AM CDT DTL Blood (Blood, Venous) 11/10/2022 8:52 AM CDT 11/10/2022 9:23 AM CDT Carlos Miranda M.D. LAB BLOOD NON ADD-ON [facility] [address] [place] [address], [facility] DTL [facility] [address] [place] [address] * (ABNORMAL) Basic Metabolic Panel (11/04/2021 1:40 PM CDT) Pathologist [facility] Potassium, S 4.1 3.6 - 5.2 mmol/L [...] the 2009 CKD_EPI creatinine equation. eGFR-Black/Afri can Barbadian >90 >=60 mL/min/BSA 11/04/2021 2:29 PM CDT [...] D.N.P. LAB BLOOD ADD-ON Performing Organization Address City/[facility]/ZIP Co de Phone Number [facility] [address] [place] [address], [facility] DTL [facility] [address] [place] [address] * Colonoscopy (06/21/2017 10:23 AM ANESTHETIC ASSISTANT) 06/21/2017 10:2 3 AM ANESTHETIC ASSISTANT Myles Lanza M.D. GI PROCEDURE ORD ERABLES Performing Organization Address City/[facility] Co de Phone Number [facility] CONVERSION from Last 3 Months or Most Recently Relevant to Health Maintenance Care Teams Manager Provider Relations Relationship Specialty Start Date End Date Elsewhere, Pcp PCP - General 12/02/20
--- OUTSIDE RECORDS SUMMARY | 2023-12-03 09:49 | XMS_ITS ---
Author Organization [facility] Address [address] [place] [address] Care Team Providers Care Gas Well Drilling Manager Name Role Phone Unavailable Unavailable Unavailable Surgery Details Not on file Complications Check Surgery Details section. Procedure Estimated Blood Loss Check Surgery Details section. Procedure Findings Check Surgery Details section. Procedure Specimens Taken Check Surgery Details section.
== END 2023-12-03 09:12 | disposition home or self-care (01) ==
PROVIDERS: PCP Nurse Practitioner Family; Visit Provider Nurse Practitioner Family
DX: E78.5 Hyperlipidemia, unspecified (principal); C61 Malignant neoplasm of prostate
CPT/HCPCS: 80061; G0103

== ENCOUNTER 2023-12-19 09:37 | Outpatient (CLI) | payer MEDICARE, BC, SELFPAY ==
--- OUTSIDE RECORDS SUMMARY | 2023-12-19 09:49 | XMS_ITS | Clinical Summary ---
Author Organization [facility] Address [address] [place] [address] Care Team Providers Care Supervisor Veneer Name Role Phone Elsewhere, Pcp Primary Care Provider Unavailabl e Source Comments Patient records contain information from all sites at [facility]. For routine questions regarding patient records, call [phone] during business hours, M-F 8:00 AM - 5:00 PM Central Time. Record requests for emergency care only can be directed to [phone] at any time.[facility] Allergies No known active allergies Medications [...] Overview: Added automatically from request for surgery [id number] Hypertension Essential Primary 04/23/2006 Overview: - BP [...] week 11/01/2021 How often do you attend [facility] or religion services? More than 4 times per year 11/01/2021 Do you belong to any clubs o r organizations such as worship groups, unions, fraternal [...] Date Recorded PHQ-2 Score 0 06/25/2020 [facility] - Occupational Stress Questionnaire Answer [...] your living situation today? I have a [facility] place to live 11/08/2022 Education Answer Date Recorded What is the highest level of school you have completed or the highest degree you have received? 12th grade 11/01/2021 Sex and Gender Information Value Date Recorded Sex Assigned at Male 05/29/2018 8:55 AM CAN INSPECTOR Gender Identity Male 05/29/2018 8:55 AM CAN INSPECTOR Sexual Orientation Straight 05/29/2018 8: 55 AM CAN INSPECTOR Last Filed Vital Signs Vital Sign Reading [...] 07/03/19, 06/25/2020 Medical Devices Implanted Type Area Grind Operator Device Identifier Shelf Expiration Date Model / Serial / Lot Luann Mckeon Md - [id number] Implanted:Qty: 1 on 11/07/2021 by Carlos Olvera M.D. at [facility] Hardware e.g. pins/screws /rods N/A: Pel[employer] Cursa.me [id number] 05/02/2026 [id number] / / [id number] Luann Mckeon Lg - [id number] Implanted:Qty: 1 on 11/07/2021 by Carlos Olvera M.D. at [facility] Hardware e.g. pins/screws /rods N/A: [employer] [id number] 08/15/2026 [id number] / / [id number] Clp Hmol Plmr Md - [id number] Implanted:Qty: 1 on 11/07/2021 by Carlos Olvera M.D. at [facility] Hardware e.g. pins/screws /rods N/A: [employer] [id number] 06/13/2026 [id number] / / [id number] Clp Hmol Plmr Lg - [id number] Implanted:Qty: 1 on 11/07/2021 by Carlos Olvera M.D. at [facility] Hardware e.g. pins/screws /rods N/A: [employer] [id number] 08/15/2026 [id number] / / [id number] Clp Hmol Plmr Lg - [id number] Implanted:Qty: 1 on 11/07/2021 by Carlos Olvera M.D. at [facility] Hardware e.g. pins/screws /rods N/A: [employer] [id number] 08/01/2026 [id number] / / [id number] Conversions - Default Historical Implant Device [...] Of Prostate COLONOSCOPY Routine 06/21/2017 10:23 AM CAN INSPECTOR from Last 3 Months or Most Recently [...] Carlos Miranda M.D. LAB BLOOD ADD- ON [facility] [address] [place] [address], [facility] [address] [place] [address] * Glucose, Fasting (11/10/2022 8:52 AM CDT) Glucose, P 91 70 - 100 mg/dL 11/10/2022 9:49 AM CDT DTL Last Intake 15 hr 11/10/2022 9:23 AM CDT DTL Blood (Blood, Venous) 11/10/2022 8:52 AM CDT 11/10/2022 9:23 AM CDT Carlos Miranda M.D. LAB BLOOD NON ADD-ON [facility] [address] [place] [address], [facility] DTL [facility] [address] [place] [address] * (ABNORMAL) Basic Metabolic Panel (11/04/2021 1:40 PM CDT) Pathologist [facility] Potassium, S 4.1 3.6 - 5.2 mmol/L [...] the 2009 CKD_EPI creatinine equation. eGFR-Black/Afri can Fijian >90 >=60 mL/min/BSA 11/04/2021 2:29 PM CDT [...] D.N.P. LAB BLOOD ADD-ON Performing Organization Address City/[facility] Co de Phone Number [facility] [address] [place] [address], [place] DTL [facility] [address] [place] [address] * Colonoscopy (06/21/2017 10:23 AM CAN INSPECTOR) 06/21/2017 10:2 3 AM CAN INSPECTOR Myles Lanza M.D. GI PROCEDURE ORD ERABLES Performing Organization Address City/[facility] Co de Phone Number [facility] CONVERSION from Last 3 Months or Most Recently Relevant to Health Maintenance Care Teams Supervisor Veneer Relationship Specialty Start Date End Date Elsewhere, Pcp PCP - General 12/02/20
--- OUTSIDE RECORDS SUMMARY | 2023-12-19 09:50 | XMS_ITS ---
Author Organization [facility] Address [address] [place] [address] Care Team Providers Care Regional Vice President Life Sales Name Role Phone Unavailable Unavailable Unavailable Surgery Details Not on file Complications Check Surgery Details section. Procedure Estimated Blood Loss Check Surgery Details section. Procedure Findings Check Surgery Details section. Procedure Specimens Taken Check Surgery Details section.
--- OUTSIDE RECORDS SUMMARY | 2023-12-19 09:50 | XMS_ITS | Referral Summary ---
Author Organization [facility] Address [address] [place] [address] Care Team Providers Care Billet Heater Name Role Phone Elsewhere, Pcp Primary Care Provider Unavailabl e Source Comments Patient records contain information from all sites at [facility]. For routine questions regarding patient records, call [phone] during business hours, M-F 8:00 AM - 5:00 PM Central Time. Record requests for emergency care only can be directed to [phone] at any time.[facility] Allergies No known active allergies Medications [...] Overview: Added automatically from request for surgery [id number] Hypertension Essential Primary 04/23/2006 Overview: - BP [...] How often do you attend chur or gnosticist services? More than 4 times per year 11/01/2021 Do you belong to any clubs o r organizations such as confucianist groups, unions, fraternal [...] Answer Date Recorded PHQ-2 Score 0 06/25/2020 [facility] - Occupational Stress Questionnaire Answer [...] your living situation today? I have a [facility] place to live 11/08/2022 Education Answer Date Recorded What is the highest level of school you have completed or the highest degree you have received? 12th grade 11/01/2021 Sex and Gender Information Value Date Recorded Sex Assigned at Male 05/29/2018 8:55 AM WOUND CARE SPECIALIST Gender Identity Male 05/29/2018 8:55 AM WOUND CARE SPECIALIST Sexual Orientation Straight 05/29/2018 8: 55 AM WOUND CARE SPECIALIST Last Filed Vital Signs Vital Sign Reading [...] on file Medical Devices Implanted Type Area Seo Executive Device Identifier Shelf Expiration Date Model / Serial / Lot Luann Mckeon Md - [id number] Implanted:Qty: 1 on 11/07/2021 by Carlos Olvera M.D. at [facility] Hardware e.g. pins/screws /rods N/A: [employer] [id number] 05/02/2026 [id number] / / [id number] Luann Mckeon Lg - [id number] Implanted:Qty: 1 on 11/07/2021 by Carlos Olvera M.D. at [facility] Hardware e.g. pins/screws /rods N/A: [employer] [id number] 08/15/2026 [id number] / / [id number] Md - [id number] Implanted:Qty: 1 on 11/07/2021 by Carlos Olvera M.D. at [facility] Hardware e.g. pins/screws /rods N/A: [employer] [id number] 06/13/2026 [id number] / / [id number] Clp Hmol Plmr Lg - [id number] Implanted:Qty: 1 on 11/07/2021 by Carlos Olvera M.D. at [facility] Hardware e.g. pins/screws /rods N/A: [employer] [id number] 08/15/2026 [id number] / / [id number] Clp Hmol Plmr Lg - [id number] Implanted:Qty: 1 on 11/07/2021 by Carlos Olvera M.D. at [facility] Hardware e.g. pins/screws /rods N/A: [employer] [id number] 08/01/2026 [id number] / / [id number] Conversions - Default Historical Implant Device [...] Of Prostate COLONOSCOPY Routine 06/21/2017 10:23 AM WOUND CARE SPECIALIST from Last 3 Months or Most Recently [...] Carlos Miranda M.D. LAB BLOOD ADD- ON [facility] [address] [place] [address], [facility] [place] [facility] [address] [place] [address] * Glucose, Fasting (11/10/2022 8:52 AM CDT) Glucose, P 91 70 - 100 mg/dL 11/10/2022 9:49 AM CDT DTL Last Intake 15 hr 11/10/2022 9:23 AM CDT DTL Blood (Blood, Venous) 11/10/2022 8:52 AM CDT 11/10/2022 9:23 AM CDT Carlos Miranda M.D. LAB BLOOD NON ADD-ON [facility] [address] [place] [address], [facility] DTL [facility] [address] [place] [address] * (ABNORMAL) Basic Metabolic Panel (11/04/2021 1:40 PM CDT) Pathologist [facility] Potassium, S 4.1 3.6 - 5.2 mmol/L [...] the 2009 CKD_EPI creatinine equation. eGFR-Black/Afri can Czech >90 >=60 mL/min/BSA 11/04/2021 2:29 PM CDT [...] D.N.P. LAB BLOOD ADD-ON Performing Organization Address City/[facility]/ZIP Co de Phone Number [facility] [address] [place] [address], [facility] DTL [facility] [address] [place] [address] * Colonoscopy (06/21/2017 10:23 AM WOUND CARE SPECIALIST) 06/21/2017 10:2 3 AM WOUND CARE SPECIALIST Myles Lanza M.D. GI PROCEDURE ORD ERABLES Performing Organization Address City/[facility] Co de Phone Number [facility] CONVERSION from Last 3 Months or Most Recently Relevant to Health Maintenance Care Teams Billet Heater Relationship Specialty Start Date End Date Elsewhere, Pcp PCP - General 12/02/20
--- NOTE | 2023-12-19 11:15 | CRLHL7_ITS ---
For Patients: As a result of the Cures Act, medical imaging exams and procedure reports are released immediately into your electronic medical record. You may view this report before your referring provider. If you have questions, please contact your health care provider. CLINICAL HISTORY: family hx of stroke TECHNIQUE: The carotid circulations and the vertebral arteries in the neck were examined with villa-scale ultrasound, color-flow and Doppler spectral analysis. Degrees of stenosis were determined using SRU 2002 Consensus Panel Criteria. FINDINGS: Sonographic images demonstrate bilateral evidence of atherosclerotic plaque formation without suspicious soft tissue mass. There was antegrade blood flow demonstrated within the vertebral arteries and the subclavian arteries demonstrated a normal triphasic waveform. The spectral Doppler tracings of the common carotid, internal and external carotid arteries demonstrate no abnormal turbulence or spectral broadening. There was no significant elevation of peak systolic blood flow which would indicate a hemodynamically-significant stenosis by SRU criteria. The ICA/CCA peak systolic velocity ratio measures 1.7 on the right and 1.0 on the left. IMPRESSION: Less than 50 percent stenosis of the internal carotid arteries bilaterally. Dictated by Andrew Hodge MD @ 12/20/2023 11:40:40 AM (Electronically Signed)
== END 2023-12-19 09:38 | disposition home or self-care (01) ==
PROVIDERS: PCP Nurse Practitioner Family; Visit Provider Nurse Practitioner Family
DX: I44.7 Left bundle-branch block, unspecified (principal); I51.7 Cardiomegaly; Z13.6 Encounter for screening for cardiovascular disorders; I65.23 Occlusion and stenosis of bilateral carotid arteries; Z82.3 Family history of stroke
CPT/HCPCS: 93306; 93880

== ENCOUNTER 2024-03-10 13:16 | Outpatient (CLI) | payer MEDICARE, BC, SELFPAY | END 2024-03-10 13:17 | disposition home or self-care (01) | PROVIDERS: PCP Nurse Practitioner Family; Visit Provider Nurse Practitioner Family | DX: E78.5 Hyperlipidemia, unspecified (principal); C61 Malignant neoplasm of prostate; Z51.81 Encounter for therapeutic drug level monitoring | CPT/HCPCS: 80061; 80076; 84153 ==

== ENCOUNTER 2024-07-07 13:52 | Outpatient (CLI) | payer MEDICARE, BC, SELFPAY | END 2024-07-07 13:53 | disposition home or self-care (01) | PROVIDERS: PCP Nurse Practitioner Family; Visit Provider Nurse Practitioner Family | DX: E78.5 Hyperlipidemia, unspecified (principal); I10 Essential (primary) hypertension; R73.01 Impaired fasting glucose; Z12.5 Encounter for screening for malignant neoplasm of prostate; Z13.0 Encounter for screening for diseases of the blood and blood-forming organs and certain disorders involving the immune mechanism; Z85.49 Personal history of malignant neoplasm of other male genital organs | CPT/HCPCS: 80053; 80061; 85025; G0103 ==

== ENCOUNTER 2024-07-15 07:04 | Outpatient (CLI) | payer MEDICARE, BC, SELFPAY ==
--- NOTE | 2024-07-15 07:15 | CRLHL7_ITS ---
For Patients: As a result of the Century Cures Act, medical imaging exams and procedure reports are released immediately into your electronic medical record. You may view this report before your referring provider. If you have questions, please contact your health care provider. 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 Abdominal aortic aneurysm screening. Technique: Connell scale and color Doppler images of the aorta and common iliac arteries are obtained. Comparison: 07/12/2023 Findings: Proximal aorta: 2.9 x 2.9 cm Mid aorta: 2.4 x 2.2 cm Distal aorta: 2.0 x 2.1 cm Right common iliac artery: 1.8 x 2.4 cm Left common iliac artery: 1.5 x 1.6 cm Impression: Right common iliac artery measures 2.4 cm, previously measuring 2.8 cm. Proximal aorta measures 2.9 cm. Dictated by Andrew Hodge MD @ 07/15/2024 9:58:26 AM (Electronically Signed)
== END 2024-07-15 07:05 | disposition home or self-care (01) ==
LOC: US 07:06
PROVIDERS: PCP Nurse Practitioner Family; Visit Provider Nurse Practitioner Family
DX: Z13.6 Encounter for screening for cardiovascular disorders (principal); I72.2 Aneurysm of renal artery
CPT/HCPCS: 76775

== ENCOUNTER 2025-01-09 08:22 | Outpatient (CLI) | payer MEDICARE, BC, SELFPAY | END 2025-01-09 08:23 | disposition home or self-care (01) | LOC: NFLDREF 01-14 13:05 | PROVIDERS: PCP Nurse Practitioner Family; Referring Provider Nurse Practitioner Family; Visit Provider Nurse Practitioner Family | DX: Z85.46 Personal history of malignant neoplasm of prostate (principal); Z12.5 Encounter for screening for malignant neoplasm of prostate | CPT/HCPCS: G0103 ==